=== PATIENT | male | born 1960 | race Caucasian/White ===

== ENCOUNTER 2016-12-18 09:51 | Inpatient (IN) | payer MEDICARE ==
[~2016-12-18] VITALS: Ht 172.7 cm; Wt 82.1 kg
[2016-12-18] VITALS (14 sets, daily range): BP systolic 90–165; BP diastolic 48–89; PULSE 95–144; RESP 19–41; O2SAT 83–97
--- NOTE | 2016-12-18 09:56 | ED.REPORT ---
HPI-General Illness Date of Service Dec 18, 2016 ED Provider: MD Elena This is a 56 year old male with a history of COPD presenting to the ED via EMS complaining of dyspnea that began 3 days ago. Pt has been feeling generally unwell in the last 3-4 days with diffuse myalgias, malaise, cough, and chills. Today the dyspnea worsened, he reported to medics, "I just can't breathe." En route, pt received DuoNeb, ASA, with O2 sats in the 70s. Pt denies nausea, vomiting, chest pain, dizziness, lightheadedness, or abdominal pain. Nursing Notes Stated Complaint: RESPIRATORY DISTRESS Nursing Notes Reviewed: Yes Allergies: Coded Allergies: No Known Allergies (Unverified , 12/18/16) General Time Seen by MD: 09:55 Chief Complaint Breathing problem Hx Obtained From: Patient Arrived By: Ambulance Sudden in Onset?: Yes Onset Occurred: Just prior to arrival Symptom Duration: Since onset Severity: Current: No pain currently Pertinent Negative: Pt denies other symptoms Recent Healthcare: No recent doctor visit, No recent hospitalization Similar Sx Previous: No Past Medical History Past Medical History Reports: COPD Past Surgical History Denies Ambulatory Status Independent Review of Systems Full Review of Systems Constitutional: Reports: Chills, Malaise, Denies: Fever Respiratory: Reports: Non-productive cough, Shortness of breath Cardiovascular: Denies: Chest pain GI: Denies: Abdominal pain, Nausea, Vomiting Neurologic: Denies: Headache Complete sys rev & neg: except as marked. Physical Exam Vital Signs Vital Signs Date Time Temp Pulse Resp B/P Pulse Ox O2 Delivery O2 Flow Rate FiO2 12/18/16 10:35 134 165/89 96 Mechanical Ventilator 12/18/16 10:13 140 116/82 87 BiPAP 12/18/16 10:01 36.7 144 41 112/56 83 Simple Mask 16 - Initial VS: Reviewed Head / Eyes: Atraumatic, Normocephalic, PERRL Neck: Supple, Non-tender, Full range of motion Abdomen / GI: Soft, Non-tender, No guarding, No rebound, No distention Extremities: Vascular intact, Neuro intact, No swelling, No tenderness Skin: Warm, Dry, No cyanosis Neurologic: Alert, Oriented, Nonfocal Psychiatric: Mood/affect normal, Behavior normal, Normal thought content General/Constitutional: Awake, Alert Mentating normally, answering questions in 1-2 word sentences ENT: Pharynx NL Mouth: Positive: Mucous membranes dry Resp Distress / Stridor: Positive: Resp distress moderate Hypoxic in high 70s on 10 L Tachypneic Coarse breath sounds bilaterally with decreased air movement Cardiovascular: Regular rhythm Heart Rate / Rhythm: Positive: Tachycardia Interpretation & Diagnostics Lab Results Interpretation Result Diagram: 12/18/16 1420 12/18/16 1420 Test 12/18/16 09:55 12/18/16 10:05 12/18/16 11:00 Metamyelocytes % 3% (0-0) Myelocytes % 4% (0-0) D-Dimer 1.9mg/L (<0.50) Magnesium Level 2.1mg/dL (1.6-2.6) Troponin T 0.010ug/L (0.0-0.011) Pro-B-Type Natriuretic Peptide 768.4pg/mL (0-210) Procalcitonin 180.38ng/mL (See Comment) Prothrombin Time 12.6sec (8.1-12.5) Prothromb Time International Ratio 1.17ratio Urine Legionella pneumophilia Ag Negative (Negative) ECG Interpretation ECG Interpretation: Sinus tachycardia at a rate of 143 No STEMI Time: 10:00 Interpreted by: ED physician X-Ray Chest Interpretation Chest Xray Interpretation: IMPRESSION: Nonspecific, bilateral lung air space opacities with pulmonary edema, pneumonia or combination of pneumonia and edema. Please correlate with clinical and laboratory findings. Dictated by: Jordyn Dominguez MD, PhD on 12/18/2016 at 10:27 Approved by: Jordyn Dominguez MD, PhD on 12/18/2016 at 10:28 Chest Xray Interpretation: IMPRESSION: 1. Pulmonary edema and/or diffuse bilateral pneumonia not significantly changed. 2. Placement of ETT and temporary transcutaneous pacer lead. Dictated by: Soren Johnson [facility] Interpreted: Jordyn Dominguez MD on 12/18/2016 at 11:03 Transcribed by: GIRMA on 12/18/2016 at 11:05 Procedures Intubation Time: 10:29 Procedure Performed by: ED physician Consent / Setup / Site Prep: Informed consent provided, Consent from patient Blade / ET Tube / Route: [place] scope Procedural Sedation/Analgesia: Sedation: Etomidate, Sedation: Versed ET Confirmation: BS equal, End tidal CO2 device Complications: None Post-Procedure: Condition improved, Tolerated procedure well, Patient stable Re-Eval/Medical Decision Med Decision/Clinical Course This is a 56 year old male with a history of COPD presenting to the ED via EMS complaining of dyspnea that began 3 days ago. Pt has been feeling generally unwell in the last 3-4 days with diffuse myalgias, malaise, cough, and chills. Today the dyspnea worsened, he reported to medics, "I just can't breathe." En route, pt received DuoNeb, ASA, with O2 sats in the 70s. Upon arrival the patient is in respiratory distress. He has an oxygen saturation of 75% on 10 L by nonrebreather. Her cardiac in the 150s with an EKG that demonstrates sinus tachycardia and borderline ST elevation in the inferior leads. EKG was reviewed by Asha kennel worker who did not believe that he met criteria for ST elevation [place]. The patient was initially placed on BiPAP with 100% oxygen remained hypoxic with saturation in the low 80s. Chest x-ray demonstrated diffuse bilateral infiltrates consistent with pneumonia. The patient was given the below medications: vancomycin zosyn IV fluids DuoNeb continuous albuterol nebulizer 2 mg IV magnesium 125 mg methylprednisolone Arterial Blood Gas ph 7.36 pCO2 30 po2 55.7 cHCO3 16.5 laboratory studies were notable as below: lactic acid 6.6 no leucocytosis hct 38.8 thrombocytopenia, platelets 55 20% bands d-dimer elevated 1.9 coagulation studies normal lactate 6.2 BUN 66 creatinine 4 K normal LFTs within normal limits CO2 13 EtOH negative Initial troponin 0.010 UA + nitrite trace leucesterase few bacteria Despite aggressive therapy with bronchodilators, steroids, magnesium and BiPAP the patient remained hypoxic and in respiratory distress. Therefore we opted to proceed with rapid sequence intubation using etomidate and succinylcholine. The tube was passed with ease as documented above and the patient was placed on the ventilator and sedated with propofol infusion and 40 mg aliquots as needed. The patient's tachycardia improved into the 120s to 130s and his oxygen saturation improved to the mid 90s. We started broad-spectrum antibiotics given the severity of his infection which I suspect is the underlying etiology of his respiratory failure and accommodation with his known obstructive pulmonary disease. The patient did have a positive d-dimer but in the setting of his overall presentation pulmonary embolism seems less likely and at this time he is frankly not stable enough to be taken for CT pulmonary angiography. The patient's initial troponin was negative and per discussion with cardiology EKG was unconvincing of STEMI. The patient was discussed with the critical care team and admitted to the ICU for further management. He remained critically although stabilized. Time of Eval: 10:08 Re-Evaluation/Progress Note: HR 144 Time of Eval: 10:12 Re-Evaluation/Progress Note: HR 142 BP 116/82 Time of Eval: 10:18 Re-Evaluation/Progress Note: Discussed need for need for intubation with patient, consent obtained Time of Eval: 10:29 Re-Evaluation/Progress Note: Intubation procedure by ED physician. Discussed plan for admission, pt understands and agrees with plan, all questions addressed. Consultation : Referral / Consult Name: Ariel Berg MD Consulted With: Hospitalist Call Returned at: 10:35 Seamer: Accepts admit Counseled Regarding: Diagnosis, Lab results, Need for follow-up, Need for admission Discharge & Departure Primary Impression: COPD exacerbation Additional Impressions: Bacterial pneumonia, unspecified Acute respiratory failure Respiratory failure complication: hypoxia Qualified Code: J96.01 - Acute respiratory failure with hypoxia Metabolic acidosis Bandemia D-dimer, elevated Acute renal failure Acute renal failure type: unspecified Qualified Code: N17.9 - Acute kidney failure, unspecified Tachycardia Sepsis Sepsis type: sepsis due to unspecified organism Qualified Code: A41.9 - Sepsis, unspecified organism Disposition: ADMITTED TO HOSPITAL Discharge Condition All VS Reviewed: Yes Condition: Stable Crit Care Except Billable Proc Time Spent: 105-134 minutes Services Performed: Patient management by me, Time spent at bedside, Reviewing test results, Reviewing imaging, Discussing patient care, Documentation in record Scribe Attestation Portions of this note were transcribed by Chen Hatch. I, Dr. Parker personally performed the history, physical exam and medical decision-making; I reviewed and confirmed the accuracy of the information in the transcribed note. Signed by: pollo Medina. 12/18/2016, 11:30. Nacho Parker MD Dec 18, 2016 09:56 CHEN HATCH Dec 18, 2016 10:03 Consulted With: Hospitalist Call Returned at: 10:35 Seamer: Accepts admit Counseled Regarding: Diagnosis, Lab results, Need for follow-up, Need for admission Discharge & Departure Primary Impression: COPD exacerbation Disposition: ADMITTED TO HOSPITAL Discharge Condition All VS Reviewed: Yes Condition: Stable Crit Care Except Billable Proc Time Spent: 30-74 minutes Services Performed: Patient management by me, Time spent at bedside, Reviewing test results, Reviewing imaging, Discussing patient care, Documentation in record, Time with fam/surrogate Scribe Attestation Portions of this note were transcribed by Chen Hatch. I, Dr. Parker personally performed the history, physical exam and medical decision-making; I reviewed and confirmed the accuracy of the information in the transcribed note. Signed by: pollo Medina. 12/18/2016, 11:30. Nacho Parker MD Dec 18, 2016 09:56 CHEN HATCH Dec 18, 2016 10:03
[2016-12-18] MEDS ORDERED: Albuterol-Ipratropium 3 mL Inhalation Solution NEB ONE ×2 (10:05)
[2016-12-18] MEDS ORDERED: 0.9% Sodium Chloride 1,000 ML IV ONE ×5 (10:05→14:15)
[2016-12-18] MEDS ORDERED: MethylprednisoLONE Sodium Succinate 62.5 mg/mL 2 mL Inj IVPUSH ONE (10:05)
[2016-12-18 10:06] LABS: Mean Corpuscular Volume 93.7 fL (81-100); Platelet Count 74 bil/L (150-400)
[2016-12-18] MEDS ORDERED: Vancomycin Dose per Pharmacist XX ONE (10:10)
[2016-12-18] MEDS ORDERED: Succinylcholine Chloride 20 mg/mL 5 mL Inj IVPUSH ONE (10:10)
[2016-12-18] MEDS ORDERED: Piperacillin-Tazo 3.375 Gm Inj 3.375 GM in Dextrose 5% Minibag Plus 50 ML IV ONE (10:10)
[2016-12-18] MEDS ORDERED: Magnesium Sulf 2 Gm/50mL Water 2 GM in IV Premix 1 EACH IV ONE (10:15)
[2016-12-18] MEDS ORDERED: Albuterol 2.5 mg/3 mL Inhalation Solution NEB ONE (10:15)
--- NOTE | 2016-12-18 10:18 | ABG ---
DateTimeAnalyzed 10:14:00 -_ pH ____7.362 - 7.350 7.450 pCO2 ___29.8__ -mmHg 35.0 45.0 pO2 ___55.7__ -mmHg 69.0 116 HCO3- ___16.5__ -mmol/L 22.0 26.0 ABE ___-7.1__ -mmol/L -2.0 2.0 tHb ___16.5__ -g/dL O2Hb ___85.2__ -% COHb ____1.5__ -% MetHb ____1.0__ -% sO2 ___87.4__ -% 25.0 FIO2 __100.0__ -% CPAP ___12.0__ -cmH2O PEEP ____5.0__ -cmH2O Set_RR ___20.0__ -b/min Drawn By jj - Date/Time Notified____ 10:18:00 -_ Spontaneous_RR ___45.0__ -b/min Oxygen Device 1 ____BIPAP - Notified By jj - Notified Whom dr longstreet - B 767 -mmHg tO2 ___19.7__ -Vol% Masoud test _Positive -
[2016-12-18 10:30] LABS: TROPONIN T 0.01 ug/L (0.0-0.011)
--- NOTE | 2016-12-18 10:30 | DRSVH ---
PROCEDURE: X-RAY CHEST ONE VIEW, PORTABLE ([id number]) INDICATIONS: CHEST PAIN TECHNIQUE: One view of the chest was acquired. COMPARISON: None. FINDINGS: Surgical changes and devices: None. Lungs and pleura: No pleural effusions or pneumothorax. Airspace opacities noted in the left lung in the right lung base suspicious for pneumonia, pulmonary edema or a combination of pneumonia and leti a. Mediastinum: Mediastinal contours appear normal. Heart size is normal. Bones and chest wall: No suspicious bony lesions. Overlying soft tissues appear unremarkable. IMPRESSION: Nonspecific, bilateral lung air space opacities with pulmonary edema, pneumonia or combin ation of pneumonia and edema. Please correlate with clinical and laboratory findings. Dictated by: Jordyn Dominguez MD, PhD on 12/18/2016 at 10:27 Approved by: Jordyn Dominguez MD, PhD on 12/18/2016 at 10:28
[2016-12-18 10:31] LABS: BASOPHILS % (AUTO) 0 % (0-3); EOSINOPHILS % (AUTO) 1 % (0-5); MONOCYTES % (AUTO) 5 % (4-12); NEUTROPHILS % (AUTO) 50 % (40-74)
[2016-12-18] MEDS: Propofol Inj 1,000,000 MCG in IV Premix 1 EACH IV SCH ×2 (10:38→15:18)
--- NOTE | 2016-12-18 10:40 | NUR ---
Admit nurse: Pt currently being intubated, no past medical records available. No records of pt being seen in this organization. Only medical hx of note is COPD.
[2016-12-18 10:41] LABS: Magnesium 2.1 mg/dL (1.6-2.6)
[2016-12-18] MEDS ORDERED: Propofol 10,000 mCg/mL 100 mL Inj ONE (10:43)
[2016-12-18] MEDS ORDERED: Ondansetron 2 mg/mL 2 mL Inj IVPUSH PRN (10:50)
[2016-12-18] MEDS ORDERED: Polyethylene Glycol (PEG) 17 Gm Powder PO PRN (10:50)
[2016-12-18] MEDS ORDERED: Alum-Mag Hydrox-Simeth 30 mL Suspension PO PRN (10:50)
[2016-12-18] MEDS ORDERED: Senna-Docusate 8.6-50 mg Tablet PO PRN (10:50)
[2016-12-18] MEDS ORDERED: Propofol 10 mg/mL 20 mL Inj IVPUSH ONE ×3 (10:55→12:15)
[2016-12-18] MEDS ORDERED: fentaNYL-PF 50 mCg/mL 2 mL Inj IVPUSH ONE ×2 (11:05→11:20)
--- NOTE | 2016-12-18 11:06 | DRSVH ---
PROCEDURE: X-RAY CHEST ONE VIEW ([id number]) INDICATIONS: post intubation TECHNIQUE: One view of the chest was acquired. COMPARISON: [facility], CR, XR CHEST 1VW (PORTABLE), 12/18/2016, 9:56. FINDINGS: Surgical changes and devices: ETT has been placed tip projected 5.4 cm above the mickey. A very justin scutaneous pacer lead present projected over the right heart. Lungs and pleura: Diffuse, bilateral airspace opacities noted with relative sparing of the right uppe r lobe not significantly changed. No pneumothorax. Mediastinum: Mediastinal contours appear normal. Heart size is normal. Bones and chest wall: No suspicious bony lesions. Overlying soft tissues appear unremarkable. IMPRESSION: 1. Pulmonary edema and/or diffuse bilateral pneumonia not significantly changed. 2. Placement of ETT and temporary transcutaneous pacer lead. Dictated by: Soren Johnson [facility] Interpreted: Jordyn Dominguez MD on 12/18/2016 at 11:03 Transcribed by: GIRMA on 12/18/2016 at 11:05 Approved by: Jordyn Dominguez MD, PhD on 12/18/2016 at 17:08
[2016-12-18 11:33] LABS: COLOR,URINE DARK YELLOW (YELLOW)
[2016-12-18 11:34] LABS: APPEARANCE,URINE CLOUDY (CLEAR,HAZY); OCCULT BLOOD,URINE NEGATIVE (NEGATIVE)
[2016-12-18 11:35] LABS: UROBILINOGEN,URINE NORMAL (NORMAL)
[2016-12-18 11:35] LABS: INR 1.17 ratio
[2016-12-18] MEDS ORDERED: Cefepime Inj 2 GM in IV Premix 1 EACH IV ONE (12:05)
[2016-12-18] MEDS: fentaNYL 2,500 mCg/250 mL 2,500 MCG in IV Premix 1 EACH IV SCH (12:32)
[2016-12-18] MEDS: Azithromycin Inj 500 MG in Dextrose 5% w/Vial Mate 250 ML IV SCH (12:34)
--- NOTE | 2016-12-18 12:39 | ABG ---
DateTimeAnalyzed 12:34:00 -_ pH ____7.187 - 7.350 7.450 pCO2 ___36.4__ -mmHg 35.0 45.0 pO2 216 -mmHg 69.0 116 HCO3- ___13.3__ -mmol/L 22.0 26.0 ABE __-14.1__ -mmol/L -2.0 2.0 tHb ___13.6__ -g/dL O2Hb ___96.7__ -% COHb ____0.7__ -% MetHb ____1.2__ -% sO2 ___98.6__ -% 25.0 FIO2 __100.0__ -% PRVC 540 - PEEP ___10.0__ -cmH2O Set_RR ___22.0__ -b/min Vt __550.0__ -L Drawn By jmw - Date/Time Notified____ 12:39:00 -_ Spontaneous_RR ___31.0__ -b/min Oxygen Device 1 VENTILATOR - Notified By jmw - Notified Whom DR PARIMI - B 766 -mmHg tO2 ___18.9__ -Vol% OrderingPhysicianInitials oo - Masoud test _Positive -
[2016-12-18] MEDS ORDERED: Sodium Bicarb 8.4% Inj 150 MEQ in Dextrose 5% 1,000 ML IV SCH ×3 (12:50→16:20)
--- NOTE | 2016-12-18 13:03 | PCM.CHPMED ---
Subjective Date of Service: Dec 18, 2016 Provider requesting consult: MESSI CORDERO DO Primary Physician: Admitting Physician: Ariel Berg MD Primary Care Physician: Dax Attending Physician: Ariel Berg MD Chief Complaint: Chief Complaint: Respiratory failure History of Present Illness: Pulmonary critical care consultation note: Problems: Acute hypoxic, hypercapnic (potential for chronic component here) respiratory failure requiring intubation having not responded to BiPAP. Shock COPD Sinus tachycardia AG metabolic acidosis Coffee-ground material reported from the OG tube, concern for GI bleed ALBERTINA (?CKD) Subjective: Days a 56-year-old male with history of COPD (other history is largely unknown as no records can be found in [email or web address] or [email or web address], and repeated attempts to contact his family have been unsuccessful) who presented with a three-day complaint of dyspnea and myalgias. He reportedly noted fever/chills as well in addition to cough. Apparently, his dyspnea worsened today and called EMS. Reportedly en route he received DuoNeb, aspirin, and O2 because his saturations were in the 70s. Initially attempts were made to stabilize with BiPAP and fluid resuscitation. However, BiPAP was unsuccessful, and the patient was subsequently intubated using succinylcholine for paralysis and etomidate for induction. Nursing from the ER reports that he had a "strange rhythm," and spacer plans were placed, but not used. He received approximately 3 L IV fluids done in the ER. He also received empiric Zosyn, and vancomycin (though question whether this is been given as of yet). When I saw the patient, no meaningful response of any kind could be obtained. ROS impossible given current patient's status. PMH Past Medical History History is limited: COPD Bedside Blood Glucose: 100 Surgical History Again history is limited. I do note a 5 cm surgical scar over the left medial malleolus. Home Medications No meds reported Allergies: Coded Allergies: No Known Allergies (Unverified , 12/18/16) Family History Family History No family history is documented in the ER, patient is not able to provide at this time. Social History Additional Information No social history is documented in the ER, and patient is not able to provide history at this time. Exam Vital Signs Vital Sign - Last Date Time Temp Pulse Resp B/P Pulse Ox O2 Delivery O2 Flow Rate FiO2 12/18/16 11:38 140 131/53 12/18/16 11:18 91 Mechanical Ventilator 12/18/16 10:01 36.7 41 16 Additional Information: Gen.: 56-year-old gentleman lying in hospital bed, intubated and sedated. HEENT : Pupils are equal and minimally reactive to light, mucous membranes are somewhat dry. Chest: Tachypneic, overbreathing the vent. Somewhat coarse bilaterally more towards the bases and posterior lung hillman. Cardiovascular: Tachycardic with a rate in the 140s. On the monitor and ECG it appears to be regular. Radial pulses are 2+ bilaterally. Do not appreciate JVD. Capillary refill is good distally. Abdomen: Mildly to moderately distended with bowel sounds present. Do not appreciate organomegaly. Extremities: No edema. Lines: Dubois catheter, peripherals. ETT, OG tube. Vent settings: FiO2 1.0, PEEP 10, respiratory rate 22 (patient breathing 32), tidal volume 540 mL. Peak is 35 toes 32. High-risk medications: Fentanyl 100, propofol at 40. Patient has had almost 4 L and at this time with minimal urine output (this is brown) Lab and Diagnostics Labs Repeat H&H was 13.6/40.3 PMNs 50%, band neutrophils 17%, metamyelocytes 3%, myelocytes 4% INR is 1.7 D-dimer is 1.9 Lactic acid is 6.6, and repeat is 6.2. Calcium is 9.4 Magnesium is 2.1 AST is minimally elevated at 52, and otherwise LFTs are. Troponin is 0.010 Albumin is 3.5 Procalcitonin is pending at this time Quantitative alcohol is pending at this time Acute hepatitis panel is pending at this time HIV is pending at this time Legionella urine antigen is negative UA shows protein 30, glucose 100, positive nitrate, 6-10 WBCs, few bacteria. Urine electrolytes are pending MRSA screen is pending Urine culture is pending Blood cultures pending Result Diagram: 12/18/16 0912/18/16 0955 X-Rays, CTs and MRIs Chest x-ray shows bilateral diffuse infiltrate. Chest x-ray following intubation shows good tube placement. 12-lead ECG Sinus tachycardia with a rate in the 140s, somewhat prolonged DE interval, QTC looks good, ST-T wave changes are nonspecific. Additional Diagnostics: ABG on BiPAP, prior to intubation DateTimeAnalyzed 10:14:00 -_ pH ____7.362 - 7.350 7.450 pCO2 ___29.8__ -mmHg 35.0 45.0 pO2 ___55.7__ -mmHg 69.0 116 HCO3- ___16.5__ -mmol/L 22.0 26.0 sO2 ___87.4__ -% 25.0 FIO2 __100.0__ -% Assessment & Plan Assessment 1. Acute hypoxic, hypercapnic (potential for chronic component here) respiratory failure requiring intubation having not responded to BiPAP. Currently concerning for ARDS given chest x-ray findings in the setting of COPD and no known cardiac disease. Vent settings as above (note that he is at 8 mL/ kg predicted body weight), and these will do to start. However, should we find that we are not improving, we would likely switch to low tidal volume (6 mL/kg) vent settings to avoid barotrauma. We will continue to maintain PEEP of 10 with the possibility of increasing. Current respiratory rate is set at 22, and the patient is overbreathing at a rate of 32. FiO2 currently at 1.0. Consideration for PE in this situation, but given his marked findings on chest x -ray and his report of myalgias and cough and fevers over the preceding days, this seems less likely. At this time given his creatinine, it is likely not proceed with angiogram anyway. Primary team is working up for pneumonia, and report placing respiratory PCR study. Though it does not appear to have been collected as of yet. Some concern flu (pending respiratory PCR panel), and significant concerns regarding the bacterial etiology given his significantly elevated pro calcitonin. Empiric antibiotics already going with vancomycin, cefepime, azithromycin. Consideration for adding Oseltamivir via the tube. 2. Shock. Likely secondary to this suspected infectious process (potentially the flu given his presentation), and potential contribution from suspected GI bleed. Initially was on this on with fluid resuscitation, we are now finding that his pressures continue to be low, and it is prudent at this time to proceed with central line placement and centrally administered medical blood pressure support. We will need to watch this closely as we were already had a PEEP of 10 , and may need to increase. 3. Significant metabolic acidosis. Likely secondary to his profound lactic acidosis in the setting of likely sepsis with contribution from his acute renal failure. He is attempting to compensate with an increased respiratory rate, but insufficient. We will start a bicarbonate infusion. Continue to monitor labs and gases. 4. COPD Unknown if he is on outpatient medications. We will need to proceed cautiously to avoid barotrauma in this gentleman may have underlying pulmonary pathology ( i.e. emphysema). We will add on nebulized medications with DuoNeb scheduled and when necessary. 5. Sinus tachycardia This is not completely explained by his shock as we have not seen any change in his heart rate with administration of fluids. Concerned that there is an underlying intrinsic cardiac etiology of her care. Once we have a central IV access, and have started centrally administered medical blood pressure support, we can consider adding rate control medication. However, this does not get at the underlying process. Differential may include his profound acidosis, respiratory distress, shock. 6. Coffee-ground material reported from the OG tube, concern for GI bleed Primary team to get GI involved. His hemoglobin dropped approximately 3 points (likely secondary to the significant fluid administration), the primary team is added on 2 units packed red blood cells to be on hold should they be needed. GI prophylaxis on the vent with famotidine. Currently holding DVT prophylaxis. 7. ALBERTINA (?CKD). IVF as noted above. Likely contributing to his acidosis. We will need to watch the labs closely. Maintain BP to maintain perfusion as noted above. Management per primary team. Recommendations: -Vent settings as noted with adjustments as needed. Continue to follow labs and gases. -Bicarbonate infusion initiated -Continue empiric antibiotics with the consideration for adding antiviral for influenza -We will continue fluid resuscitation, central venous access, pressors -Consideration for adding beta blockade once pressors are on board -Nebs -He was given IV administered steroids and in the ER. Would hold off on further administration at this time given concern for infection. CODE STATUS: Patient is full code DVT prophylaxis on hold due to suspected GI bleed GI prophylaxis with Protonix twice a day Pulmonary critical care time spent: 90 minutes Problems: Attending Statement I have seen and examined this patient with the resident physician. Vital signs , labs, imaging have been reviewed. I agree with the assessment and plan above. Please refer to my separately dictated progress note for any modifications to above. Dionne Perdomo M.D. Pulmonary and Critical Care medicine Pager [phone] Kimo Pulliam DO Dec 18, 2016 13:02 Dionne Perdomo MD Dec 18, 2016 16:18
[2016-12-18] MEDS ORDERED: 0.9% Sodium Chloride 500 ML ONE ×2 (14:27→19:21)
--- NOTE | 2016-12-18 14:30 | DRSVH ---
[facility] [address] [place] [place] [address] Echocardiogram Report Name: DOUGIE GARDUNO [place]: 12/18/2016 Height: 72 in Hospital Exam Location: [facility] Weight: 180 lb Gender: Male BSA: 2.0 m2 : 1960 Age: 56 yrs BP: 94/53 mmHg Reason For Study: SEPSIS, ELEVATED BNP, TACHYCARDIA History: PNEUMONIA,COPD Performed By: Jesica Garcia Referring Physician: MESSI CORDERO Interpretation Summary The left ventricle is hyperdynamic. The ejection fraction is estimated to be 70-75%. There is no significant valvular heart disease. Procedure: A two-dimensional transthoracic echocardiogram with color flow and Doppler was performed. The study quality was technically adequate. The patient is intubated. The patient was in a tachycardic rhythm during the exam. The heart rate ranged between 138 bpm during the study. Left Ventricle: The left ventricle is normal in size, wall thickness, and systolic function without any focal wall motion abnormalities. The left ventricle is hyperdynamic. The ejection fraction is estimated to be 70-75%. Diastolic function could not be accurately assessed due to tachycardia. Right Ventricle: The right ventricle is normal in size and function. Atria: Both atria are normal in size. Mitral Valve: The mitral valve is grossly normal. No obvious vegetation. There is trace mitral regurgitation. Aortic Valve: The aortic valve is trileaflet. The aortic valve opens well. The aortic valve is slightly calcified. Tricuspid Valve: The tricuspid valve leaflets are thin and pliable. There is no tricuspid valve vegetation. There is trace tricuspid regurgitation. The right ventricular systolic pressure is estimated at 33 mmHg assuming a right atrial pressure of 3 mm Hg. Pulmonic Valve: The pulmonic valve is not well seen, but is grossly normal. No obvious vegetation. There is no pulmonic valvular regurgitation. Great Vessels: The aortic root is mildly dilated. The ascending aorta could not be visualized. The pulmonary artery is not well visualized, but is probably normal size. The IVC is of normal diameter and collapses greater than 50% with a sniff. This suggests a low right atrial pressure of 3 mm Hg. Pericardium/ Pleura There is no pericardial effusion. There is no pleural effusion. MMode/2D Measurements & Calculations LVIDd: 3.6 cm LA dimension: 2.8 cm RA long axis LVOT diam: 2.4 cm LVIDs: 2.2 cm AoV Opening FS: 38.8 % LA A2 area: 10.4 cm RA area IVSd: 0.87 cm LA A4 area: 13.5 cm Ao root diam LVPWd: 0.89 cm LA length (vol) : 16.4 cm RA vol Ao Arch Diam (Prox LA vol: 25.5 ml : 49.9 ml Trans): 2.8 cm LA vol index RA : 24.5 mm2 IVC diam: 1.4 cm LV alves. diameter/BSA LV sys. diameter/BSA (cm/m^2): 1.8 (cm/m^2): 1.1 Doppler Measurements & Calculations Ao V2 max MV E max anival TR max anival Ao V2 mean : 153.6 cm/sec : 126.3 cm/sec : 272.3 cm/sec : 113.0 cm/sec Ao max PG TR max P.7 mmHg Ao V2 VTI : 9.4 mmHg PA V2 max Ao mean PG : 129.1 cm/sec PA mean P.0 mmHg SHIRLEY(V,D): 3.1 cm2 LVOT Max Anival PA Accel Time : 108.0 cm/sec SHIRLEY(I,D): 3.3 cm sev ratio LV V1 max PG PA V2 mean SHIRLEY indexed to BSA : 95.3 cm/sec (cm^2/m^2): 1.6 LV V1 VTI: 14.2 cm Electronically signed by: Tuan Duarte on Reading Physician:12/18/2016 02:29 PM
[2016-12-18 14:36] LABS: Mean Corpuscular Hemoglobin 32.6 pg (27.0-35.0); Mean Corpuscular Volume 96.5 fL (81-100); Platelet Count 55 bil/L (150-400)
[2016-12-18] MEDS ORDERED: Lactated Ringer's 1,000 ML IV ONE ×2 (14:50)
[2016-12-18] MEDS: Pantoprazole 4 mg/mL 10 mL Inj IVPUSH SCH (14:59)
--- NOTE | 2016-12-18 15:01 | DRSVH ---
PROCEDURE: X-RAY CHEST ONE VIEW, PORTABLE ([id number]) INDICATIONS: Central Line placement TECHNIQUE: One view of the chest was acquired. COMPARISON: [facility], CR, XR CHEST 1VW (PORTABLE), 12/18/2016, 9:56. FINDINGS: Surgical changes and devices: Central venous catheter is in place which projects in the distal SVC vi a the right IJ approach. NG tube projects across the GE junction. ET tube projects approximately 4.6 cm superior to the mickey. Lungs and pleura: No pleural effusions or pneumothorax. Increasing opacification along the noted. Mediastinum: Mediastinal contours appear normal. Heart size is normal. Bones and chest wall: No suspicious bony lesions. Overlying soft tissues appear unremarkable. IMPRESSION: 1. Central venous catheter tip projects over the distal SVC. 2. ET tube projects 4.6 cm superior to the mickey. 3. NG tube projects across the GE junction. 4. Increasing bilateral pulmonary edema. Dictated by: Jordyn Dominguez MD, PhD on 12/18/2016 at 14:58 Approved by: Jordyn Dominguez MD, PhD on 12/18/2016 at 14:59
[2016-12-18 15:07] LABS: BASOPHILS % (AUTO) 0 % (0-3); EOSINOPHILS % (AUTO) 0 % (0-5); MONOCYTES % (AUTO) 4 % (4-12); NEUTROPHILS % (AUTO) 55 % (40-74)
[2016-12-18] MEDS ORDERED: Sodium Bicarb 8.4% Inj 150 MEQ in Dextrose 5% 1,000 ML IV ONE (15:11)
--- NOTE | 2016-12-18 15:19 | ABG ---
DateTimeAnalyzed 15:14:00 -_ pH ____7.226 - 7.350 7.450 pCO2 ___36.6__ -mmHg 35.0 45.0 pO2 117 -mmHg 69.0 116 HCO3- ___14.6__ -mmol/L 22.0 26.0 ABE __-12.0__ -mmol/L -2.0 2.0 tHb ___13.1__ -g/dL O2Hb ___95.6__ -% COHb ____0.8__ -% MetHb ____1.1__ -% sO2 ___97.5__ -% 25.0 FIO2 ___60.0__ -% PRVC 540 - PEEP ___10.0__ -cmH2O Set_RR ___22.0__ -b/min Vt __706.0__ -L Drawn By cf - Date/Time Notified____ 15:19:00 -_ Spontaneous_RR ___26.0__ -b/min Oxygen Device 1 VENTILATOR - Notified By cf - Notified Whom ___parimi - B 765 -mmHg tO2 ___17.8__ -Vol% Masoud test N/A -
[2016-12-18] MEDS ORDERED: Sodium Chloride LOK Flush 10 mL Syringe IVFLUSH PRN (15:30)
[2016-12-18] MEDS ORDERED: Glucose 40% Oral Gel 15 Gm Tube PO PRN (16:15)
[2016-12-18] MEDS ORDERED: Insulin LISPRO 300 Unit/3 mL Inj SUBQ SCH (16:15)
[2016-12-18] MEDS: Sodium Bicarb 8.4% Inj 150 MEQ in Dextrose 5% 1,000 ML IV SCH ×2 (16:17→23:57)
--- NOTE | 2016-12-18 16:18 | DRSVH ---
PROCEDURE: CT ANGIO CHEST PULMONARY EMBOLISM ([id number]) INDICATIONS: RESPIRATORY FAILURE TECHNIQUE: After the administration of intravenous contrast, 2 mm thick sections acquired from the pulmonary api cheng to the posterior costophrenic angles. 3-dimensional maximum intensity projection (MIP) coronal a nd sagittal reformats were then acquired through the thorax. For radiation dose reduction, the follo wing was used: automated exposure control, adjustment of mA and/or kV according to patient size. COMPARISON: [facility], CR, XR CHEST 1VW (PORTABLE), 12/18/2016, 13:57. FINDINGS: Image quality: Excellent. Pulmonary arteries: Pulmonary arteries are normal in size, and demonstrate no intraluminal filling d efects to suggest central pulmonary embolism. Lungs and pleura: The dense, consolidated airspace opacities are present within the dependent portion s of the upper, middle, and lower lobes. No pleural effusion or pneumothorax. The patient is intubate d. Mediastinum: Heart size is normal, without pericardial effusion. There are large hilar and mediastin al lymph nodes. Thoracic aorta is normal in caliber and enhancement. Scattered atheromatous calcifica tions are present within the aortic arch. Esophagus is normal in caliber, without hiatal hernia. A n NG tube is present with the tip in the gastroesophageal region. Bones and chest wall: No suspicious bony lesions. Ribs and thoracic spine appear intact throughout. Thyroid gland is unremarkable. No axillary or supraclavicular adenopathy. Abdomen: Visualized upper abdominal solid organs appear normal in the early arterial phase of enhanc ement. IMPRESSION: 1. Dense consolidation bilaterally within the dependent portions of the lungs. These findings are mos t consistent with extensive aspiration or multifocal pneumonia. 2. Hilar and mediastinal adenopathy, likely infectious/reactive in nature. Short interval followup is recommended with resolution of these findings to ensure there is no underlying pulmonary neoplasm. 3. Tip of the NG tube in the gastroesophageal region. Consider advancing the tube into the gastric fu ndus. Dictated by: Joan Simmons M.D. on 12/18/2016 at 16:09 Approved by: Joan Simmons M.D. on 12/18/2016 at 16:16
[2016-12-18] MEDS: Phenylephrine Inj 20,000 MCG in 0.9% Sodium Chloride 248 ML IV SCH ×3 (16:25→23:23)
--- NOTE | 2016-12-18 16:26 | DRSVH ---
PROCEDURE: CT ABDOMEN AND PELVIS WITH CONTRAST ([id number]) INDICATIONS: RESPIRATORY FAILURE TECHNIQUE: After the administration of intravenous contrast, 5 mm thick sections acquired from the diaphragm to the symphysis. 5 mm coronal and sagittal reformats were acquired. For radiation dose reduction, the following was used: automated exposure control, adjustment of mA and/or kV according to patient job umaña. COMPARISON: [facility], CT, CT ANGIO CHEST PE, 12/18/2016, 15:45. FINDINGS: Image quality: Excellent. ABDOMEN: Lung bases: Please see detailed description of pulmonary findings are associated CTA from the same da te. Solid organs: Liver and spleen are normal in size and enhancement. Multiple subcentimeter calcified gallstones are present within the gallbladder fundus. No gallbladder wall thickening or pericholecyst ic fluid. Biliary system is non dilated. Pancreas enhances normally. No adrenal nodules. Kidneys d emonstrate normal size and enhancement, without hydronephrosis. Peritoneum and bowel: Bowel loops demonstrate normal wall thickness and caliber. The appendix is thi ck walled. The tip of the NG tube is at the gastroesophageal junction. No free fluid or air. Nodes and vessels: No retroperitoneal or mesenteric adenopathy by size criteria. Aorta and inferior vena cava are normal in size. There are scattered atheromatous calcifications throughout the aorta and iliac arteries bilaterally. Miscellaneous: No ventral hernias. PELVIS: Genitourinary: Bladder is decompressed and a Dubois catheter is present. Miscellaneous: No inguinal hernias or adenopathy. Bones: No suspicious bony lesions. No vertebral body compression fractures. IMPRESSION: 1. Please see detailed description of the pulmonary findings on the associated CTA of the chest from the same date. 2. No acute intra-abdominal findings. Normal appendix. 3. Cholelithiasis. No findings to suggest choledocholithiasis or acute cholecystitis. 4. Aortic atherosclerosis. 5. Tip of the NG tube at the gastroesophageal junction. Consider advancing the tube into the fundus. Dictated by: Joan Simmons M.D. on 12/18/2016 at 16:17 Approved by: Joan Simmons M.D. on 12/18/2016 at 16:24
--- NOTE | 2016-12-18 17:45 | NUR ---
P: Alteration in respiratory status I: Pt came from ED intubated. two peripheral lines. Dr. Perdomo and residents placed RIJ TLC and right arterial line. NS bolus x1 given. Sodium bicarb bolus x2 liters given and now bicarb 150cc/hr. Sedation propofol 40 mcqs/kg/min and fentanyl 100mcqs/hr. Pt taken to CT for chest and abdomen. US of kidneys done. BP low and phenylephrine gtt started at 2 mcqs/kg/min. Pt arrived ST 140's pt is now 95. Antibiotics infused. SCD's on. MRSA swab sent. Labs drawn and Dr. Palomo aware. Dubois 50cc of output. OGT 250cc of coffee ground and reddish brown output. aware. Dr. Garsia here and plans on HD tomorrow. Turned Q 2 hours. Small incontinent brown stool when he arrived from ED. Guaiac stools if he has more. Afebrile, but pt diaphoretic and fan on. E:Guarded S: restraints on for pt safety. Frequent rounding.
--- NOTE | 2016-12-18 18:23 | DRSVH ---
PROCEDURE: US RENAL SONOGRAM INDICATIONS: elevated creatinine. TECHNIQUE: Real-time scanning was performed of the kidneys and bladder, with image documentation. COMPARISON: Acute cholecystitis.[facility], CT, CT ABD PELVIS W MATTHEW, 12/18/2016, 15:45. FINDINGS: Kidneys: Kidneys are normal in size. Right kidney measures 12.7 cm long; left kidney measures 11.7 cm long. Right renal cortical thickness is 1.7 cm; left renal cortical thickness is within cm. Alisha l cortical echotexture is normal. No hydronephrosis or nephrolithiasis. No suspicious solid mass le sions. There is a 1.4 cm cyst in the superior pole of the right kidney. Bladder: The bladder is contracted with a Dubois catheter. Miscellaneous: No free pelvic fluid. Multiple gallstones are noted. The gallbladder wall thickness is normal. IMPRESSION: 1. A 1.4 cm cyst in the superior pole the right kidney. Otherwise normal ultrasound appearance of kid analia. No hydronephrosis. 2. Cholelithiasis. No ultrasound evidence for acute cholecystitis. Dictated by: Dwain Gaona M.D. on 12/18/2016 at 18:18 Approved by: Dwain Gaona M.D. on 12/18/2016 at 18:21
[2016-12-18] MEDS ORDERED: Cefepime 1,000 MG in Dextrose 5% Minibag Plus 50 ML IV SCH (20:30)
--- NOTE | 2016-12-18 21:58 | CONS ---
[address] [address] CONSULTATION REPORT PATIENT: DOUGIE GARDUNO : 1960 MR#: [id number] ADMIT: 12/18/2016 JOB ID: [id number] DATE OF SERVICE: 12/18/2016 PULMONARY CRITICAL CARE CONSULTATION The patient is a 56-year-old man seen in consultation at the request of Dr. Berg for acute hypoxic respiratory failure and severe sepsis/septic shock. The patient was seen and evaluated with resident physician, Dr. Thomas Toro. Please refer to his separate detailed note for additional information. The following is an addendum. HISTORY OF PRESENT ILLNESS: The patient is a 56-year-old man who presented to the emergency department with shortness of breath for three days. By the time I met him he is intubated. All of the history is per review of the ED note. He was reporting myalgias, cough, chills, malaise and severe shortness of breath with hypoxia. Sats were in the 70s. He ended up being intubated soon after arrival in the emergency department. When I saw him, he was tachycardic in the 140s, hypotensive in the 90s systolic and making no urine. He received about 4 L fluid boluses total and is receiving his 5th liter now but his blood pressure remains unchanged and his heart rate is only slightly improved in the 120s. He has made almost minimal to no urine, only about 30-50 cc since earlier today. Past medical history, social history, family history, and review of systems could not be obtained from the patient since he is intubated. Please refer to history obtained through review of records per Dr. Toro's separate note. PHYSICAL EXAMINATION: Vital signs reviewed. Temperature 37, pulse 140, respirations 31, BP 90/48, sats 100% on 60% FiO2. General: Intubated, sedated extremely diaphoretic. Neck: No cervical lymphadenopathy. HEENT: Pupils equal and reactive. ET tube in place. Chest: Faint bilateral crackles. Heart: Regular rate, rhythm. Tachycardic. Abdomen is soft, nontender. No organomegaly. Extremities: No cyanosis, clubbing, edema. Skin: No rashes. LABORATORIES: Reviewed. WBC normal 4.2, hemoglobin 13 from 16 earlier today. Platelets 74 this morning down to 55 on 2nd check. Chemistry is notable for creatinine up to 4 from 3.7 earlier. Bicarb is 13 now. Lactate is up to 7.3 from 6.2 earlier. Procalcitonin is 180. Cultures: Blood, urine and sputum cultures and respiratory viral PCR panel is still pending at this time. Imaging: Reviewed. Chest x-ray shows patchy bilateral infiltrates suggesting viral or atypical pneumonia. Arterial blood gas post intubation shows pH 7.36, pCO2 of 29, pO2 55, bicarb of 16.5. ASSESSMENT AND RECOMMENDATIONS: 1. Severe sepsis. 2. Community-acquired pneumonia versus influenza pneumonia. 3. Acute hypoxic respiratory failure. 4. Acute renal failure. 5. Severe metabolic acidosis and lactic acidosis. 6. Possible upper gastrointestinal bleed. This 56-year-old gentleman arrived with dyspnea and flu-like symptoms and was quickly intubated for severe hypoxic respiratory failure. He is showing signs of a pulmonary infection with bilateral pulmonary infiltrates and hypoxemia as well as an elevated procalcitonin at 180. Current antibiotic regimen includes vancomycin, cefepime and azithromycin for atypical coverage. We are also treating him with Tamiflu to cover influenza while waiting on the results. He did have some coffee-ground stuff come out of his NG tube, but his hemoglobin has been relatively stable at 13 after hydration. Will continue to follow the hemoglobin and look for any signs of bleeding. We will give him a PPI IV b.i.d. in the meantime. From an acidosis standpoint, he appears to have a mixed process-both lactic and uremic metabolic acidosis from his renal failure. We started him on a bicarb drip and are trying to avoid normal saline and lactated Ringer's boluses at this point and just give him bicarb boluses as needed. From an acid-base standpoint, I am extremely concerned that his lactic acidosis is worsening despite fluid resuscitation. Similarly, his urine output has been very minimal and he has been practically anuric despite fluid resuscitation. This has me concerned that he has a source of sepsis that is as yet untreated. We used a bedside ultrasound to look for any fluid in the abdomen, but I do not see any. We are going to send him for a CT scan of his chest looking for PE and abdomen/pelvis with contrast. I discussed this with Dr. Garsia with Nephrology in view of his worsening renal failure, but the way he is acting now has me concerned for some kind of refractory sepsis with an untreated source, so I think it is prudent that we rule this out despite the risk of contrast-induced nephropathy. He is on appropriate DVT and GI prophylaxis. He is a FULL CODE. CRITICAL CARE TIME: 60 minutes. SINA
--- NOTE | 2016-12-18 22:47 | PCM.HPMED ---
Subjective Date of Service Dec 18, 2016 Primary Provider: Admitting Physician: Ariel Berg MD Primary Care Physician: Dax Attending Physician: Ariel Berg MD Chief Complaint: Shortness of breath History of Present Illness: Naveed Maciel is a 56 year old male with past medical history significant for COPD who presented to the emergency department via EMS complain of dyspnea. The following history is gathered from ED physicians report as patient was intubated and sedated at time of my exam. Patient reported three days of general malaise with myalgias, cough, and chills. Patient denied nausea, vomiting, chest pain, dizziness, lightheadedness, and abdominal pain. He developed worsening dyspnea which precipitated his presentation to the ED. EMS found the patient to have oxygen saturations of 70% initially and DuoNeb and ASA were administered en route. On presentation to the ED vitals were temperature 36.7, pulse 144, blood pressure 112/56, respiratory rate 41 on oxygen mask with pulse oximetry of 83%. Initial labs include BUN 65, creatinine 3.71, lactic acid 6.6, troponin 0.010, and procalcitonin 180.38. BiPAP and fluid resuscitation was initially attempted. This was unsuccessful and patient was subsequently intubated. Patient received 3L normal saline in the ED and vancomycin and Zosyn. Sister, Rakesh Tabares, was later contacted who had minimal information regarding brother. She states he is a current smoker and has COPD. She also notes he has a history of cocaine use but thinks that he has been clean for 2-3 years. To her knowledge his primary care physician is in [place], [place] but does not recall a name. He has had multiple hospitalizations over the past decade but she does not recall at which hospitals. He has never been intubated to her knowledge. Review of Systems: Comprehensive review of systems was unable to be conducted due to patient being intubated and sedated. Allergies Coded Allergies: No Known Allergies (Unverified , 12/18/16) Home Medications Unable to obtain due to patient currently being intubated and sedated. Medication reconciliation pending. PMH Unable to obtain due to patient currently being intubated and sedated. COPD Surgical History Unable to obtain due to patient currently being intubated and sedated. Abdominal midline scar seen on physical exam. Family History Unable to obtain due to patient currently being intubated and sedated. Social History Hx Alcohol Use: Yes (Socially per sister) Hx Substance Use: Yes (Prior cocaine use per sister) Hx Tobacco Use: Yes Smoking Status: Current Every Day Smoker Living Arrangement: with Friends/Roommate Exam Vital Signs Vital Sign - Last Date Time Temp Pulse Resp B/P Pulse Ox O2 Delivery O2 Flow Rate FiO2 12/18/16 10:35 134 165/89 96 Mechanical Ventilator 12/18/16 10:01 36.7 41 16 Exam General: Intubated and sedated. HEENT: Normocephalic, atraumatic. External ears without defect. Pupils equal, round, and reactive to light and accommodation. Anicteric sclerae, moist conjunctivae, and no lid lag. Mucous membranes dry. ETT in place. Neck: Supple with full range of motion. No jugular venous distension. No bruits. No lymphadenopathy or thyromegaly. Cardiovascular: Tachycardic with regular rhythm no murmurs, rubs, or gallops appreciated. Pulmonary: Course breath sounds in bilateral bases. No wheezes or rhonchi. Abdomen: Soft, nondistended, active bowel sounds. Old midline surgical incision present. No hepatosplenomegaly. Extremities: No clubbing, cyanosis, edema, or lymphadenopathy appreciated. Skin: Normal temperature, turgor, and texture; no rash, ulcers, or subcutaneous nodules appreciated. Neurological: Intubated and sedated. Psychiatric: Intubated and sedated. Lab and Diagnostics Result Diagram: 12/18/16 0955 12/18/16 0955 X-Rays, CTs and MRIs X-RAY CHEST ONE VIEW, PORTABLE IMPRESSION: Nonspecific, bilateral lung air space opacities with pulmonary edema , pneumonia or combination of pneumonia and edema. Please correlate with clinical and laboratory findings. Dictated by: Jordyn Dominguez MD, PhD on 12/18/2016 at 10:27 Approved by: Jordyn Dominguez MD, PhD on 12/18/2016 at 10:28 Cardiac Echo Impressions Echocardiogram Report Interpretation Summary The left ventricle is hyperdynamic. The ejection fraction is estimated to be 70-75%. There is no significant valvular heart disease. Electronically signed by: Tuan Duarte on Reading Physician:12/18/2016 02:29 PM Additional Diagnostics: DateTimeAnalyzed 10:14:00 -_ pH ____7.362 - 7.350 7.450 pCO2 ___29.8__ -mmHg 35.0 45.0 pO2 ___55.7__ -mmHg 69.0 116 HCO3- ___16.5__ -mmol/L 22.0 26.0 Assessment & Plan Naveed Maciel is a 56 year old male with past medical history significant for COPD who presented to the emergency department via EMS complain of dyspnea. Intubated after failing on BiPAP and admitted for septic shock and acute hypoxemic respiratory failure. 1. Septic shock, present on admission, active. - Criteria include: HR 144, RR 41, O2 sats 83%, lactic acid 6.6, BUN 65, creatinine 3.71, procalcitonin 180.38. - Etiology likely infectious as symptoms align with influenza or pneumonia. - Right IJ and right radial arterial line placed. - Fluid resuscitation initially with 3L NS in ED. Continued and switched to Bicarb/D5W. - Phenylephrine gtt started 12/18. - Blood, sputum, and urine cultures sent. 2. Acute hypoxemic and hypercapnic respiratory failure, present on admission, active. - Etiology likely infectious in the setting of COPD. - Patient intubated after failing BiPAP in ED. - Initial ABG 7.362/29.8/55.7/16.5 - CXR as above. - CTA pending. - Vent settings per Critical Care/Pulmonology Team. - Respiratory PCR panel pending. 3. Community acquired pneumonia, present on admission, active. - CXR as above. - Vancomycin and Zosyn given in ED. - Vancomycin, cefepime, and azithromycin continued - Procalcitonin 180.83. - Strep pneumonia and legionella antigen pending. - Cultures as above. - Repeat labs and CXR in the morning. 4. Lactic acidosis, present on admission, active. - On admission lactic acid 6.6. - Lactic acid trended up to 7.4. - Bicarb drip started. - ABG as above. - Q2H labs. 5. Acute kidney injury, present on admission, active. - Unknown if patient has underlying chronic kidney disease. - On admission BUN 65 and creatinine 3.71 - Fluids as above. - Avoid nephrotoxic medications as able. - Continue to monitor closely. - Nephrology consulted. Appreciate time and recommendations. 6. Thrombocytopenia, present on admission, active. - Unknown baseline. - On admission platelets 74. - Will continue to monitor. 7. Possible GI bleed, present on admission, active. - Coffe-ground material reported from OG tube. - Hemoglobin and hematocrit have decreased since admission but likely secondary to fluid resuscitation. - Type and cross with 2 units PRBCs on hold. - Holding DVT prophylaxis. - Guaiac stool pending. - Pantoprazole 40 mg BID. - Will consider GI consult if H&H drops or more active bleeding is visualized. 8. COPD, present on admission, unknown baseline. - Per sister patient is a current smoker and has COPD. - Unknown if patient has outpatient medication regimen. - Treatment as above. 9. Tobacco use, present on admission, chronic. - Consider Nicotine patch. 10. Hyperglycemia, present on admission, active. - Insulin regular low dose correctional scale. - Hemoglobin A1c pending. High Risk Medications: Fentanyl and propofol Patient is admitted under inpatient status with expected length of stay greater than 2 minutes due to severity of presenting symptoms, risk of adverse event, and complexity of treatment plan. Pain Evaluation: Other (patient sedated) GI Prophylaxis: Proton Pump Inhibitor VTE Prophylaxis Indicated: Contraindicated (Concern for possible GI bleed. Held currently. ) Resuscitation Status: CPR: Attempt Resuscitation Time spent 70 minutes Attending Statement patient was examined and seen with Dr Cordero on 12/18/15 ,I agree with history, exam,impression and plan as outlined above MESSI CORDERO DO Dec 18, 2016 11:08 Ariel Berg MD Dec 19, 2016 06:26
--- NOTE | 2016-12-18 22:54 | PCM.PROC ---
Procedure Note Date of Service: Dec 18, 2016 Pre Procedure Diagnosis: Septic shock Post Procedure Diagnosis: Septic shock Procedure: Right internal jugular line Provider and Pullman Clerk: Dr. Stacia Berg Indication for Procedure: Septic shock with need for pressors Procedure Details: A time-out was completed verifying correct patient, procedure, site, positioning , and special equipment if applicable. The patient was placed in a dependent position appropriate for central line placement based on the vein to be cannulated. The patients right neck was prepped and draped in sterile fashion. A triple lumen 7-American Cordis catheter was introduced into the internal jugular using the Seldinger technique and under ultrasound guidance. The catheter was threaded smoothly over the guide wire and appropriate blood return was obtained. Each lumen of the catheter was evacuated of air and flushed with sterile saline. The catheter was then secured to the skin and a sterile dressing applied. Perfusion to the extremity distal to the point of catheter insertion was checked and found to be adequate. Attending and resident were present for the entire procedure. Estimated Blood Loss: < 5 ml The patient tolerated the procedure well and there were no complications. Post Procedure Plan: Xray to be obtained to confirm proper placement. Attending Statement personally supervised RIJ TLC placement at bedside MESSI CORDERO DO Dec 18, 2016 22:54 Ariel Berg MD Dec 19, 2016 06:29
--- NOTE | 2016-12-18 22:58 | PCM.PROC ---
Procedure Note Date of Service: Dec 18, 2016 Pre Procedure Diagnosis: Septic Shock Post Procedure Diagnosis: Septic Shock Procedure: Right arterial line Provider and Vice President Of Marketing: Dr. Stacia Perdomo Indication for Procedure: Hemodynamic monitoring Procedure Details: A time-out was completed verifying correct patient, procedure, site, positioning , and special equipment if applicable. Allens test was performed to ensure adequate perfusion. The patients right wrist was prepped and draped in sterile fashion. A 18G Arrow arterial line was introduced into the radial artery. The catheter was threaded over the guide wire and the needle was removed with appropriate pulsatile blood return. The catheter was then secured to the skin and a sterile dressing applied. Perfusion to the extremity distal to the point of catheter insertion was checked and found to be adequate. Attending and Resident were present for the entire procedure. Estimated Blood Loss: < 5 ml The patient tolerated the procedure well and there were no complications. Attending Statement I was present for the entire procedure. Date of service 12/18/16 Dionne Perdomo M.D. Pulmonary and Critical Care medicine Pager [phone] MESSI CORDERO DO Dec 18, 2016 22:58 Dionne Perdomo MD Dec 19, 2016 08:14
--- NOTE | 2016-12-18 23:00 | CONS ---
[address] [address] CONSULTATION REPORT PATIENT: DOUGIE GARDUNO : 1960 MR#: [id number] ADMIT: 12/18/2016 JOB ID: [id number] DATE OF SERVICE: HISTORY: The patient is a rather unfortunate 56-year-old white male who was admitted to [facility] for sepsis and acute kidney injury. Renal consultation is being sought for further evaluation and management of his acute kidney injury. Unfortunately, very little is known about the patient's past medical history and there is nothing in either of our computer systems. He does have a history of COPD and came to the emergency department today complaining of progressive dyspnea over the last three days. For the past several days, he has had diffuse myalgias, malaise, cough and chills. In the emergency department, he was given a DuoNeb treatment and oxygen without improvement, and subsequently required intubation and mechanical ventilation. The initial lab revealed significant metabolic acidosis with a bicarbonate of 13, a BUN of 66 with a creatinine of 4.0. He was started on aggressive IV hydration and transferred to the floor. A lactic acid was obtained and initially this was 16.2, and three hours later had risen to 7.3. As noted above, there is no information on this patient available. He does not have any significant others, friends, or anyone who can give us any additional information. PAST MEDICAL HISTORY: Significant for COPD. PAST SURGICAL HISTORY: Is unknown, however, there is about a 12 cm midline incision from the xiphoid down to above the umbilicus. ALLERGIES: It is unknown whether he has any allergies to any food or any medication. SOCIAL HISTORY: Is unknown. FAMILY HISTORY: None known. REVIEW OF SYSTEMS: Is also unknown and otherwise detailed above. PHYSICAL EXAMINATION: Reveals a well-developed 56-year-old white male who is sedated and on a ventilator. He did look older than stated age. His vital signs at time of my evaluation revealed a heart rate of 124, blood pressure is 96/60. HEENT examination was remarkable for pale sclerae. Neck is supple without adenopathy, thyromegaly, or jugular venous distention. Lungs showed some bibasilar rales. There is no wheezing or rhonchi noted. Heart was tachycardic and I do not appreciate any murmurs. Abdomen was distended and bowel sounds were absent. There was diffuse tympany to percussion and the patient did respond to palpation. There is also evidence of hepatomegaly and questionable splenomegaly. Extremities do not show any clubbing, cyanosis, or edema. Of note, he does have evidence of sign on both lower extremities. Mauro sign was negative. There is no evidence of any rashes. LABORATORY EXAMINATION: His most recent lab obtained at 14:20 today shows sodium 134, potassium 4.6, chloride 97, CO2 of 13, BUN and creatinine were 66 and 4.0, glucose is 239 and lactic acid 7.3. Liver function studies were normal. However, his albumin is 2.6. Hepatitis profile is pending at time of my evaluation, however, Legionella antigen is negative. Urinalysis showed a specific gravity of 1.030, pH is 5. Protein and glucose were both positive. Ketones were trace. Nitrites were positive. Leukocyte esterase were trace. Microscopic showed 0-2 RBCs per high-power field and 6-12 WBCs per high-power field with few epithelial cells and bacteria. His protein creatinine ratio is approximately 0.8. His urine sodium is 20. An echocardiogram was obtained which shows hyperdynamic left ventricular contraction with an estimated ejection fraction of 75%. Grossly, his heart valves looked okay and they could not really assess any component of diastolic dysfunction because of his tachycardia. A CT exam was done with contrast which showed diffuse dependent pulmonary consolidation and edema. There was no evidence of acute bowel obstruction, but rather a possible ileus. IMPRESSION: 1. Acute kidney injury with acute tubular necrosis. 2. Increased anion gap metabolic acidosis secondary to ketones and lactic acid. 3. Hypoalbuminemia. 4. Hyperglycemia. RECOMMENDATION: I have discussed with Dr. Perdomo from Critical Care and I agree with switching his IV fluids to D5 with sodium bicarbonate. We also need to kind of balance his fluids with his blood pressure. Most likely, if he has no improvement in his urine output then we will most likely have to do an acute dialysis treatment on him tomorrow. Once again, I would like to thank you for allowing me to participate in the care of this rather unfortunate patient. I will be following him closely with you.
[2016-12-18] MEDS: Chlorhexidine 0.12% 15 mL Oral Solution MT SCH (23:57)
[2016-12-19] VITALS (12 sets, daily range): BP systolic 98–142; BP diastolic 52–78; PULSE 72–103; RESP 17–22; O2SAT 95–99
[2016-12-19] MEDS: Propofol Inj 1,000,000 MCG in IV Premix 1 EACH IV SCH ×5 (00:27→22:00)
[2016-12-19 02:07] LABS: Hepatitis A Antibody IgM Negative (Negative); Hepatitis B Core Antibody IgM Negative (Negative)
[2016-12-19] MEDS: Phenylephrine Inj 20,000 MCG in 0.9% Sodium Chloride 248 ML IV SCH ×4 (03:00→17:35)
[2016-12-19 04:41] LABS: Mean Corpuscular Hemoglobin 32.7 pg (27.0-35.0); Mean Corpuscular Volume 93.4 fL (81-100); Platelet Count 44 bil/L (150-400)
[2016-12-19] MEDS: Chlorhexidine 0.12% 15 mL Oral Solution MT SCH ×6 (04:51→23:56)
--- NOTE | 2016-12-19 04:52 | ABG ---
DateTimeAnalyzed 04:47:00 -_ pH ____7.402 - 7.350 7.450 pCO2 ___45.1__ -mmHg 35.0 45.0 pO2 ___78.3__ -mmHg 69.0 116 HCO3- ___27.5__ -mmol/L 22.0 26.0 ABE ____2.7__ -mmol/L -2.0 2.0 tHb ___12.7__ -g/dL O2Hb ___94.3__ -% COHb ____1.0__ -% MetHb ____1.1__ -% sO2 ___96.3__ -% 25.0 FIO2 ___50.0__ -% PRVC 22 - PEEP ___12.0__ -cmH2O Vt __540.0__ -L Drawn By blf - Date/Time Notified____ 04:51:00 -_ Spontaneous_RR ___22.0__ -b/min Oxygen Device 1 VENTILATOR - Notified By blf - Notified Whom Angelica DAVID RN -____ B 763 -mmHg tO2 ___16.9__ -Vol% Masoud test N/A -
[2016-12-19 05:04] LABS: Magnesium 2.5 mg/dL (1.6-2.6)
[2016-12-19 05:19] LABS: BASOPHILS % (AUTO) 0 % (0-3); EOSINOPHILS % (AUTO) 0 % (0-5); MONOCYTES % (AUTO) 5 % (4-12); NEUTROPHILS % (AUTO) 49 % (40-74)
--- NOTE | 2016-12-19 06:44 | NUR ---
Sedation/resp: Pt sedated with rass score -3 with occasional episodes of restlessness and fast resp rate requiring a bolus of propofol. Pt has had copious amounts of dark brown to medium brown secretions when suction down ETT. Pt ETT secretions have been same color as OG drainage. OG was on LIS and when turned to low continuous suction ETT secretions dropped off. when OG secreation color lighted to a rust color the ETT secretions were light rust color also. OG secretions then became dark reddish brown and ETT secretions also turned dark reddish brown.
--- NOTE | 2016-12-19 07:44 | PCM.PNMED ---
Subjective Date of Service Dec 19, 2016 Subjective Pulmonary critical care consultation progress note: Problems: Acute hypoxic, hypercapnic (potential for chronic component here) respiratory failure requiring intubation having not responded to BiPAP. Septic shock Streptococcal bacteremia, concern for toxic shock syndrome AG metabolic acidosis with lactic acidosis Possible GI bleed, now with concern for tracheoesophageal fistula ALBERTINA (?CKD) COPD Subjective: Nursing reports that apparently his roommate came in yesterday and adamantly reported that she is been clean for 2 years, but 2 years ago and for some time prior to that he was smoking crack at significant amounts. The roommate also affirms that he does not drink. They report that he is had poor intake for "some time now." Overnight, no significant events, and continues on phenylephrine for blood pressure support. Nursing and RT report ETT suctioning resembles OG tube suctioning, and concerning for tracheoesophageal fistula. When I saw the patient, no meaningful response of any kind could be obtained. ROS impossible given current patient's status. Exam Vital Signs Vital Sign - Last Date Time Temp Pulse Resp B/P Pulse Ox O2 Delivery O2 Flow Rate FiO2 12/19/16 04:40 89 111/63 96 50 12/19/16 04:30 Ventilator 12/19/16 04:30 36.9 22 12/18/16 12:26 16 Intake and Output 12/18/16 12/18/16 12/19/16 Cumulative From/Thru 15:00 23:00 07:00 12/18/16 10:01 - 12/19/16 06:19 Intake Total 3000 ml 4814 ml 3466 ml 48125 ml Output Total 300 ml 725 ml 1025 ml Balance 3000 ml 4514 ml 2741 ml 85068 ml Intake IV Total 3000 ml 4814 ml 3466 ml 31296 ml Output Urine Total 50 ml 375 ml 425 ml Gastric Drainage Total 250 ml 350 ml 600 ml Exam Gen.: lying in hospital bed, intubated and sedated. HEENT: Head, neck and upper chest are diaphoretic (the fan is on in the room) Pupils are equal and minimally reactive to light, mucous membranes are somewhat dry. Chest: Somewhat coarse bilaterally more towards the bases and posterior lung hillman. Direct visualization of ET tube suctioning does reveal dramatic resemblance to his gastric suctioning. Cardiovascular: On the monitor it appears to be regular. No murmurs appreciated. Radial pulses are 2+ bilaterally. Do not appreciate JVD. Capillary refill is good distally. Abdomen: Moderately distended with bowel sounds present. Do not appreciate organomegaly. Extremities: No edema. Lines: Dubois catheter, peripheral, right IJ central line, right radial arterial line. ETT, OG tube. Vent settings: FiO2 0.5, PEEP 12, respiratory rate 22, tidal volume 540 mL. Peak is 35 and plateau is 32. High-risk medications: Fentanyl 100, propofol at 45. Phenylephrine is running at 1.75. Patient has had almost 4 L and at this time with minimal urine output (this is brown) IVs and Medications IV Fluids Bicarbonate and D5 W running at 150 an hour Medications Reviewed: Medications were reviewed in detail Lab and Diagnostics PMNs 49%, bands 31%, metamyelocytes 5%, myelocytes 6% Anion gap is about 22 with a delta gap of greater than 2 Lactic acid is 3.2 Calcium is 6.8 (corrects to 8.2) Magnesium is 2.5 Total bilirubin is 1.7 AST is 70 with a normal ALTs and alkaline phosphatase Albumin is 2.2 Procalcitonin yesterday was 180, and today's is pending Acute hepatitis panel is negative HIV is nonreactive MRSA screen is pending as is the urine culture Preliminary blood culture reports gram-positive cocci: Question of Streptococcus , looks like 3/4. Respiratory PCR swab was just sent this morning Result Diagram: 12/19/1641912/19/16419 X-Rays, CTs and MRIs CT scan of the chest abdomen and pelvis yesterday with contrast revealed no PE, markedly significant dependent parenchymal infiltrates consistent with massive aspiration, and/or ARDS. CT of the abdomen and pelvis revealed cholelithiasis, and atherosclerosis of the aorta and iliacs, but no other marked pathology to suggest a etiology of his distended abdomen or septic picture. Renal ultrasound was unrevealing. Cardiac Echo Impressions Echo performed yesterday revealed hyperdynamic function of the LV with an estimated EF of 70-75%. Additional Diagnostics DateTimeAnalyzed 04:47:00 -_ pH ____7.402 - 7.350 7.450 pCO2 ___45.1__ -mmHg 35.0 45.0 pO2 ___78.3__ -mmHg 69.0 116 HCO3- ___27.5__ -mmol/L 22.0 26.0 sO2 ___96.3__ -% 25.0 FIO2 ___50.0__ -% PRVC 22 - PEEP ___12.0__ -cmH2O Vt __540.0 Assessment & Plan 1. Acute hypoxic, hypercapnic (potential for chronic component here) respiratory failure requiring intubation having not responded to BiPAP. Pneumococcal pneumonia with likely degree of aspiration versus ARDS secondary to PNA/septic shock given imaging findings and no known cardiac disease, and a P /F of 156. Vent settings as above (note that he is at 8 mL/kg predicted body weight). We will continue to maintain PEEP of 12. Positive flu A. Empiric antibiotics already going with vancomycin, cefepime, azithromycin (antibiotics day 2). After discussion with ID, will switch to Azithromycin and Ceftriaxone today. Oseltamivir via the tube added yesterday. 2. Septic shock. Likely secondary to this Pneumococcal PNA/bacteremia, and potential contribution from suspected GI bleed (though now this is looking less likely). In addition, we have increased his PEEP, and he has somewhat elevated peak and plateau pressures which could be contributing to decreased venous return. Currently on phenylephrine. Cardiogenic component unlikely given echo findings. 3. Anion gap metabolic acidosis (lactic acidosis) with a metabolic alkalosis ( we are giving him bicarbonate). Secondary to his profound lactic acidosis (improving) in the setting of septic shock with contribution from his acute, and worsening renal failure. Continue to monitor labs and gases. Nephrology became involved yesterday, and are considering placement of dialysis catheter, but may hold off given his improved UOP. 4. COPD Unknown if he is on outpatient medications. Reportedly a never tobacco smoker, but significant history smoking crack cocaine until about 2 years ago. 5. Concern for GIB (less likely as his aniyah sputum is likely 2/2 pneumococcal PNA). Management as above. DDx: tracheoesophageal fistula (less likely, but need to consider should we continue to see worsening aspiration). 6. ALBERTINA/renal failure (?CKD). IVF as noted above. Likely contributing to his acidosis. Nephrology has become involved. 7. Coagulopathy: elevated INR and thrombocytopenia. Likely 2/2 septic shock. Following discussion on ICU rounds, will proceed with DIC panel evaluation. Continue to hold Heparin. Recommendations: -Vent settings as noted with adjustments as needed. Continue to follow labs and gases. -Bicarbonate infusion can be stopped today -Continue antibiotics/anitviral as detailed above -We will continue fluid resuscitation, central venous access, pressors CODE STATUS: Patient is full code DVT prophylaxis on hold due to Thrombocytopenia GI prophylaxis with Protonix twice a day Droplet precautions for Flu A Pulmonary critical care time spent: 60 minutes Attending Statement I have seen and examined this patient with the resident physician. Vital signs , labs, imaging have been reviewed. I agree with the assessment and plan above. Please refer to my separately dictated progress note for any modifications to above. Dionne Perdomo M.D. Pulmonary and Critical Care medicine Pager [phone] Kimo Pulliam DO Dec 19, 2016 07:43 Dionne Perdomo MD Dec 19, 2016 14:31
[2016-12-19] MEDS ORDERED: 0.9% Sodium Chloride 250 ML ONE ×2 (09:02→09:16)
[2016-12-19 09:14] LABS: Bilirubin, Direct 1.4 mg/dL (0.0-0.3)
[2016-12-19] MEDS: Pantoprazole 4 mg/mL 10 mL Inj IVPUSH SCH ×2 (09:17→16:03)
[2016-12-19] MEDS: Sodium Bicarb 8.4% Inj 150 MEQ in Dextrose 5% 1,000 ML IV SCH (09:22)
[2016-12-19] MEDS: cefTRIAXone Inj 2,000 MG in Dextrose 5% Minibag Plus 50 ML IV SCH (09:22)
[2016-12-19] MEDS: Azithromycin Inj 500 MG in Dextrose 5% w/Vial Mate 250 ML IV SCH (09:23)
--- NOTE | 2016-12-19 09:48 | DRSVH ---
PROCEDURE: X-RAY CHEST ONE VIEW, PORTABLE ([id number]) INDICATIONS: Intubated TECHNIQUE: One view of the chest was acquired. COMPARISON: Located Within [facility], CT, CT ANGIO CHEST PE, 12/18/2016, 15:45. FINDINGS: Surgical changes and devices: Stable positioning of the ETT, nasogastric tube and right IJ CVL. Lungs and pleura: Diffuse, widespread bilateral pulmonary interstitial and air space opacities are p resent not significantly changed from prior examination. Mediastinum: Mediastinal contours appear normal. Heart size is normal. Bones and chest wall: No suspicious bony lesions. Overlying soft tissues appear unremarkable. IMPRESSION: Pulmonary edema and/or diffuse bilateral inflammatory process redemonstrated. Developing ARDS cannot be excluded. Dictated by: Soren SRINIVASAN Interpreted: Lv Finch MD on 12/19/2016 at 9:47 Transcribed by: KASSIE on 12/19/2016 at 9:48 Approved by: Giovanny Finch M.D. on 12/19/2016 at 14:15
[2016-12-19] MEDS ORDERED: Sodium Bicarb 8.4% Inj 150 MEQ in Water Sterile for Injection 1,000 ML IV SCH ×2 (09:50→10:50)
[2016-12-19 09:52] LABS: D-DIMER 3.5 mg/L (<0.50); INR 1.13 ratio
--- NOTE | 2016-12-19 09:59 | PCM.PNMED ---
Subjective Date of Service Dec 19, 2016 Subjective Naveed Maciel is a 56 year old male with past medical history significant for COPD who presented to the emergency department via EMS complaining of dyspnea and 3 days of flu-like symptoms. Intubated after failing on BiPAP and admitted for septic shock and acute hypoxemic respiratory failure. Hospital 2. Overnight: Intubated and sedated. Patient remained on bicarb at 150 ml/hr. Phenylephrine continued at 1.75 along with fentanyl and propofol. Rest colored secretions from OG and ET tube. Patient afebrile overnight. UOP of 375 mls in 12 hrs. Today: Patient intubated and sedated. No meaningful responses or movements. Continues on phenylephrine, fentanyl, and propofol as above. Bicarb/D5W turned off at this time. Review of systems unable to obtain. Exam Vital Signs Vital Sign - Last Date Time Temp Pulse Resp B/P Pulse Ox O2 Delivery O2 Flow Rate FiO2 12/19/16 04:40 89 111/63 96 50 12/19/16 04:30 Ventilator 12/19/16 04:30 36.9 22 12/18/16 12:26 16 Intake and Output 12/18/16 12/18/16 12/19/16 Cumulative From/Thru 15:00 23:00 07:00 12/18/16 10:01 - 12/19/16 06:19 Intake Total 3000 ml 4814 ml 3466 ml 45261 ml Output Total 300 ml 725 ml 1025 ml Balance 3000 ml 4514 ml 2741 ml 75588 ml Intake IV Total 3000 ml 4814 ml 3466 ml 55328 ml Output Urine Total 50 ml 375 ml 425 ml Gastric Drainage Total 250 ml 350 ml 600 ml Exam General: Intubated and sedated. HEENT: Normocephalic, atraumatic. External ears without defect. Pupils equal, round, and reactive to light and accommodation. Anicteric sclerae, moist conjunctivae, and no lid lag. Mucous membranes dry. ETT in place. Neck: Supple with full range of motion. No jugular venous distension. No bruits. No lymphadenopathy or thyromegaly. Cardiovascular: Tachycardic with regular rhythm no murmurs, rubs, or gallops appreciated. Pulmonary: Course breath sounds in bilateral bases. No wheezes or rhonchi. Abdomen: Soft, nondistended, active bowel sounds. Old midline surgical incision present. No hepatosplenomegaly. Extremities: No clubbing, cyanosis, edema, or lymphadenopathy appreciated. Skin: Macular papular rash on right shoulder. Normal temperature, turgor, and texture; no ulcers or subcutaneous nodules appreciated. Neurological: Intubated and sedated. Psychiatric: Intubated and sedated. Lab and Diagnostics Result Diagram: 12/19/1641912/19/16419 Microbiology Blood cultures - gram positive cocci - Strep? X-Rays, CTs and MRIs CT ABDOMEN AND PELVIS WITH CONTRAST IMPRESSION: 1. Please see detailed description of the pulmonary findings on the associated CTA of the chest from the same date. 2. No acute intra-abdominal findings. Normal appendix. 3. Cholelithiasis. No findings to suggest choledocholithiasis or acute cholecystitis. 4. Aortic atherosclerosis. 5. Tip of the NG tube at the gastroesophageal junction. Consider advancing the tube into the fundus. Dictated by: Joan Simmons M.D. on 12/18/2016 at 16:17 Approved by: Joan Simmons M.D. on 12/18/2016 at 16:24 CT ANGIO CHEST PULMONARY EMBOLISM IMPRESSION: 1. Dense consolidation bilaterally within the dependent portions of the lungs. These findings are most consistent with extensive aspiration or multifocal pneumonia. 2. Hilar and mediastinal adenopathy, likely infectious/reactive in nature. Short interval followup is recommended with resolution of these findings to ensure there is no underlying pulmonary neoplasm. 3. Tip of the NG tube in the gastroesophageal region. Consider advancing the tube into the gastric fundus. Dictated by: Joan Simmons M.D. on 12/18/2016 at 16:09 Approved by: Joan Simmons M.D. on 12/18/2016 at 16:16 ADDENDUM: 4. No acute pulmonary embolus. Dictated by: Joan Simmons M.D. on 12/18/2016 at 16:18 Approved by: Joan Simmons M.D. on 12/18/2016 at 16:19 X-RAY CHEST ONE VIEW, PORTABLE IMPRESSION: Nonspecific, bilateral lung air space opacities with pulmonary edema , pneumonia or combination of pneumonia and edema. Please correlate with clinical and laboratory findings. Dictated by: Jordyn Dominguez MD, PhD on 12/18/2016 at 10:27 Approved by: Jordyn Dominguez MD, PhD on 12/18/2016 at 10:28 Cardiac Echo Impressions Echocardiogram Report Interpretation Summary The left ventricle is hyperdynamic. The ejection fraction is estimated to be 70-75%. There is no significant valvular heart disease. Electronically signed by: Tuan Duarte on Reading Physician:12/18/2016 02:29 PM Additional Diagnostics DateTimeAnalyzed 10:14:00 -_ pH ____7.362 - 7.350 7.450 pCO2 ___29.8__ -mmHg 35.0 45.0 pO2 ___55.7__ -mmHg 69.0 116 HCO3- ___16.5__ -mmol/L 22.0 26.0 Assessment & Plan Naveed Maciel is a 56 year old male with past medical history significant for COPD who presented to the emergency department via EMS complaining of dyspnea and 3 days of flu-like symptoms. Intubated after failing on BiPAP and admitted for septic shock and acute hypoxemic respiratory failure. Hospital 2. 1. Septic shock, present on admission, active. - Criteria include: HR 144, RR 41, O2 sats 83%, lactic acid 6.6, BUN 65, creatinine 3.71, procalcitonin 180.38. - Etiology secondary to pneumococcal pneumonia and influenza A. - Right IJ and right radial arterial line placed 12/18. - Fluid resuscitation initially with 3L NS in ED. Continued and switched to Bicarb/D5W now discontinued. - Albumin Q8H x 3 doses initiated 12/19. - Phenylephrine gtt started 12/18. - Blood cx growing strept x2 , sputum , and urine cultures sent. 2. Acute hypoxemic and hypercapnic respiratory failure, present on admission, active. - Etiology secondary to pneumococcal pneumonia in the setting of COPD and past history of cocaine use. - Patient intubated after failing BiPAP in ED. - ABG 7.402/45.1/78.3/27.5 - CT chest on 12/18 showed dense consolidation bilaterally within the dependent portions of the lung. - Vent settings per Critical Care/Pulmonology Team. - Current settings: FiO2 50 PEEP 12 RR 22 TV 540 Tidal volume decreased as patient is concerning for ARDS. - Concern for aspiration. Metronidazole added 12/19 for anaerobic coverage. 3. Pneumococcal pneumonia /pneumococcal bacteremia, present on admission, active. - CXR and CT as above. - Vancomycin and Zosyn given in ED. - Antibiotics switched to azithromycin (12/18) and ceftriaxone (12/19). - Procalcitonin 180.83 on admission. - Strep pneumonia urine antigen positive. - Blood cultures positive for gram-positive cocci likely strep pneumo. Awaiting sensitivities. - Legionella antigen negative. 4. Lactic acidosis, present on admission, active.improved - On admission lactic acid 6.6. - Lactic acid trended up to 7.4. Currently 3.2. - Bicarb drip discontinued. - ABG as above. -We will continue to monitor closely. 5. Acute kidney injury, present on admission, active. - Unknown if patient has underlying chronic kidney disease. - On admission BUN 65 and creatinine 3.71 - BUN/creatinine worsened but urine output improved overnight with 375 mL in 12 hours. - Consideration of dialysis. - Avoid nephrotoxic medications as able. - Continue to monitor closely. - Nephrology consulted. Appreciate time and recommendations. 6. Influenza A, present on admission, active. - Tamiflu 30 mg twice a day started 12/18 10 doses. 7. Thrombocytopenia, present on admission, active. - Unknown baseline. - On admission platelets 74. - DIC panel ordered and results pending. - Will continue to monitor. -hold off DVT ppx 8. Possible GI bleed, present on admission, active. - Coffe-ground material reported from OG tube. Strep pneumococcus classically has rust brown sputum possibly accounting for appearance. - Hemoglobin and hematocrit have decreased since admission but likely secondary to fluid resuscitation. - Type and cross with 2 units PRBCs on hold. - Holding DVT prophylaxis. - Guaiac stool pending. - Pantoprazole 40 mg BID. - Will consider GI consult if H&H drops or more active bleeding is visualized. 9. COPD, present on admission, unknown baseline. 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 - Unknown if patient has outpatient medication regimen. - Treatment as above. 10. Tobacco use, present on admission, chronic. - Consider Nicotine patch. 11. Hyperglycemia, present on admission, active. - Insulin regular low dose correctional scale. - Hemoglobin A1c pending. High Risk Medications: Fentanyl and propofol Disposition: Patient currently intubated and sedated in the ICU. Prognosis guarded at this time. GI Prophylaxis: Proton Pump Inhibitor VTE Mechanical Devices: Intermittant Pneumatic CD Resuscitation Status: CPR: Attempt Resuscitation Attending Statement patient seen and examined with Dr Cordero ,I agree with history,exam ,assessment and plan as outlined above . MESSI CORDERO DO Dec 19, 2016 07:42 Ariel Berg MD Dec 19, 2016 15:18
[2016-12-19] MEDS: fentaNYL 2,500 mCg/250 mL 2,500 MCG in IV Premix 1 EACH IV SCH (10:01)
[2016-12-19] MEDS: metroNIDAZOLE Inj 1,000 MG in IV Premix 1 EACH IV SCH ×2 (10:49→21:19)
[2016-12-19] MEDS: Albumin 25% 25 GM in IV Premix 1 EACH IV SCH ×3 (10:49→23:56)
[2016-12-19] MEDS ORDERED: Sodium Bicarb 8.4% Inj 150 MEQ in Water Sterile for Injection 1,000 ML IV ONE (10:50)
[2016-12-19] MEDS ORDERED: Sodium Bicarb 8.4% Inj 150 MEQ in Dextrose 5% 1,000 ML IV ONE (11:15)
--- NOTE | 2016-12-19 11:17 | CONS ---
[address] [address] CONSULTATION REPORT PATIENT: DOUGIE GARDUNO : 1960 MR#: [id number] ADMIT: 12/18/2016 JOB ID: [id number] DATE OF SERVICE: 12/19/2016 INFECTIOUS DISEASE CONSULT: I thank Dr. Perdomo for this timely consult. REASON FOR CONSULTATION: Influenza complicated by bacteremic pneumococcal pneumonia. HISTORY OF THE PRESENT ILLNESS: The patient is a 56-year-old, who comes to us with a very limited history. He was seen yesterday morning in the emergency department having been brought there by EMS. The story from a roommate was that the patient had been ill for about three days with gradually increasing cough, shortness of breath, fever, chills and malaise. Eventually, the patient became so short of breath that he basically could not breathe and paramedics were summoned. He was found to be profoundly hypoxic in the emergency department and emergently intubated and transferred to the ICU, where he also required the addition of vasopressor agents for septic shock. Prior to intubation he told the ED doctors he had the fevers, chills, myalgias, arthralgias, malaise, cough and progressive shortness of breath. He denied GI symptoms such as nausea, vomiting, or diarrhea. No abdominal pain or chest pain was reported. Following that, we have almost nothing in the way of history, as the patient was subsequently intubated, sedated and placed on vasopressor agents. A wide variety of antibiotics were initiated but through the night we have received numerous reports including positive blood cultures, positive BioFire PCR results and positive urine antigens, which have established the diagnosis of influenza complicated by bacteremic pneumococcal pneumonia, with respiratory failure and septic shock. PAST MEDICAL HISTORY: Notable for COPD and a history of crack cocaine use. The reports are he quit crack cocaine two years ago. SOCIAL HISTORY: The patient lives with a roommate. He has a sister in the [place] area who was contacted but had little information about him other than to say that he quit using crack cocaine a couple of years ago but continues to smoke cigarettes. Apparently, he is a nondrinker. FAMILY HISTORY: Cannot be obtained from this intubated, sedated patient who is in septic shock. REVIEW OF SYSTEMS: Cannot be obtained in this intubated, sedated patient in septic shock. PHYSICAL EXAMINATION: Reveals a critically ill gentleman lying supine in the ICU. He looks well muscled and well developed and actually, if anything, younger than his reported age of 56. He is currently intubated with a central line in the right IJ and receiving vasopressor agents, as well as sedation. His temperature has been afebrile since admission, currently 36.9. Blood pressure is 111/63 on phenylephedrine in moderate doses. His pulse is ranging between 80 and 100. He is on 50% on the ventilator and saturating fairly well on that. Examination of the head reveals no evidence of recent trauma. His sinuses are without apparent abnormality. Eyes without conjunctivitis or scleral icterus. Nose without drainage or discharge. Oral endotracheal tube and orogastric tube are in good position. A right neck IJ is present and appears benign. This was just placed in the emergency department. The upper body from about the nipple line up has some mild erythematous cast which extends up onto the upper torso, as well as the shoulders and upper back, as well as the neck. This erythematous macular rash does not extend below basically the mid chest. It is a blanching rash without bullae or vesicles. The patient's neck is completely supple and without adenopathy. He does not have JVD. His lungs are notable for rales at both bases, perhaps more so on the right. Cardiac tones: Regular rate and rhythm without any murmur. The abdomen is soft and without organomegaly or ascites. There is no hepatosplenomegaly. Penis and scrotum appear normal. Dubois catheter is present. There is no inguinal or supraclavicular or cervical adenopathy. The hands are well perfused but the feet are not. The feet are cool to touch with no palpable pulses and slow capillary refill. They are not cyanotic per se, however. The neurologic exam cannot be performed, as the patient is intubated and sedated. The patient does not have thyromegaly. LABORATORIES: Include white count of 4000 when he hit the ED, now 20,000 with a huge left shift of 31% bands, 5% metamyelocytes, 6% myelocytes, and 1% nucleated red blood cells. Platelets are 44,000. Creatinine 4.19 today, was 3.7 yesterday in the ED. Bicarb is surprisingly preserved at 26. Lactic acid has gone from a peak of 7.3 yesterday afternoon to 3.2 today, so improved but not normal. Albumin 2.2. AST is 70, ALT 27, alk phos 64, total bilirubin 1.6. Urinalysis with 6-10 white cells, not significant. Serum alcohol level is negative. I just ordered a urine tox screen. Hep C antibody negative. HIV negative. Urine legionella negative but urine pneumococcal antigen is positive. Note that I had ordered the urine pneumococcal antigen after we got back a report of multiple positive blood cultures for gram-positive diplococci consistent with pneumococcus. Urine culture is pending but no growth to date. A respiratory viral multiplex PCR is positive for influenza A. Sputum Gram stain has moderate polys and moderate gram-positive cocci resembling diplococci consistent with pneumococcus. IMAGING: Includes a chest x-ray, which we reviewed with the Pulmonary attending. It shows bilateral pulmonary infiltrates. More impressive is the CT scan, which shows a dense consolidation bilaterally consistent with extensive multifocal pneumonia. Hilar and mediastinal adenopathy is also noted. An abdominal CT was done. It did not show evidence of cirrhosis nor did it show ascites. Cholelithiasis was noted, as well as some aortic atherosclerosis. IMPRESSION: This appears to be a relatively classic case of a patient who developed influenza A with classic fevers, chills, myalgias and arthralgias who then went on to develop shortness of breath, high fevers, chills and eventual respiratory failure due to a bacteremic pneumococcal pneumonia with septic shock. It also appears likely that he has disseminated intravascular coagulation, and that workup is ongoing. He is currently intubated in the intensive care unit on vasopressor agents and requiring moderately high doses of inspired oxygen. This is a classic description dating back to the 1918 and 1919 influenza pandemic in which a high percentage of deaths were due to pneumococcal infection following influenza A. We know little else about the patient other than he has underlying chronic obstructive pulmonary disease and used to use crack cocaine and reportedly has stopped that practice. RECOMMENDATIONS: 1. I would discontinue vancomycin, as this is a likely cause of the rash over his upper torso. 2. I have ordered discontinuing of cefepime and switching to ceftriaxone, as basically all of our blood isolates of pneumococcus are susceptible to ceftriaxone. 3. I would continue with azithromycin for about five days. Though controversial, the literature suggests that bacteremic pneumococcal pneumonia as opposed to nonbacteremic pneumococcal pneumonia does better but a few days of azithromycin, doxycycline, or quinolone even though the patient is already on a beta-lactam agent with good activity. 4. The total duration of therapy here will likely be only about a week despite the patient's critical illness, as I suspect he will either succumb to this illness or have a rapid return to reasonable health. 5. Urine tox screen has been ordered to complete our database on this patient. 6. This case discussed extensively, and all the films viewed, on rounds with the ICU team.
--- NOTE | 2016-12-19 14:02 | PROG NOTE ---
[address] [address] PROGRESS NOTE PATIENT: DOUGIE GARDUNO : 1960 MR#: [id number] ADMIT: 12/18/2016 JOB ID: [id number] DATE: 12/19/2016 PULMONARY CRITICAL CARE PROGRESS NOTE: The the patient was seen and evaluated with resident physician Kimo Pulliam DO (RES). Please refer to his separate detailed note for additional information. The following is an addendum. IDENTIFICATION: A 56-year-old man here with acute respiratory failure secondary to pneumococcal pneumonia and bacteremia as well as influenza A infection. INTERVAL HISTORY: Currently he is on phenylephrine at 1.7 mcg. He is making some urine-375 over the last 12 hours. Vent settings are stable. FiO2 50%. PEEP of 12. No fever overnight. REVIEW OF SYSTEMS: Unable to obtain. PHYSICAL EXAMINATION: Afebrile. FiO2 50%, PEEP of 12, with sats 96%. BP 111/63. General: Intubated, sedated. Unresponsive at this time. Chest: Clear to auscultation. Heart: Regular rate, rhythm. LABORATORIES: Reviewed. WBC up to 20 from 4. Platelets down to 44 from 74 yesterday. Chemistry reviewed and creatinine is up to 4.2, BUN 70. Electrolytes within normal limits. Arterial blood gas: pH of 7.4, pCO2 of 45, pO2 of 78, bicarb of 27. Chest x-ray reviewed and shows diffuse bilateral infiltrates. ET tube in appropriate position. Central line in appropriate position. CT chest PE protocol, as well as CT abdomen and pelvis, reviewed. No PE. Dense bilateral consolidation seen which could be due to aspiration. Mild lymphadenopathy also seen. ASSESSMENT: 1. Acute respiratory distress syndrome. 2. Acute hypoxic respiratory failure. 3. Pneumococcal bacteremia and pneumonia. 4. Influenzae A pneumonia. 5. Septic shock. 6. Acute renal failure. RECOMMENDATIONS: The patient is a 56-year-old man with reported distant history of crack cocaine use until about two years ago presenting with acute respiratory failure and pneumococcal bacteremia. Blood cultures and urine streptococcal antigen are positive. In addition, respiratory viral PCR is positive for influenza A. He is quite volume up, but his CVP today is 6 with a PEEP of 12. We are going to give him another L of bicarb bolus as well as albumin for fluid resuscitation and try to wean off pressors as tolerated. His renal function seems to be stabilizing and potentially improving. He is no longer anuric and is making some urine, so I am optimistic that we can hold off on dialysis despite his contrast load yesterday. Discussed with Dr. Garsia, who is also following and is planning on waiting to see how his kidneys improve. Antibiotics: From an antibiotic standpoint, he is on ceftriaxone and azithromycin. He is also on Tamiflu and Dr. Muhammad is following. Echo did not show any vegetations and showed normal cardiac function with hyperdynamic EF. DVT prophylaxis is being held because of thrombocytopenia. We are checking DIC labs because of this. He is on PPI b.i.d. He is having some rust-colored sputum and GI secretions and I think this is all related to pneumococcal pneumonia. There is no evidence of active bleeding and his hemoglobin has been stable. Continue PPI b.i.d., but I am hoping we can switch to once daily in a day or so. He is a FULL CODE. His sister is legal next of kin. CRITICAL CARE TIME: 60 minutes.
--- NOTE | 2016-12-19 14:26 | NUR ---
NUTRITION ASSESSMENT ASSESS: Pt is a 56 yo male admitted for septic shock and acute hypoxemic respiratory failure w/ bilateral pneumonia. Pt also has ALBERTINA and possible GI bleed. Nephrology has been consulted; may need catheter placed and dialysis. Pt is intubated and sedated. MD provided verbal orders to start TF. PMHX: COPD, Past history of drug abuse (per sister), tobacco user. No other history obtained d/t intubation and sedation. LABS: Reviewed. Na 133, Cl 90, BUN 71, Chemical Process Analyst 4.19, Gluc 205, Ca 6.8, Lactic Acid 3.2, Bilirubin 1.7, AST 70, Alb 2.2 MEDS: Reviewed. Albumin, Propofol @ 21.9 ml/hr providing 578 kcal, Fentanyl GI: 0 BM reported bowel sounds present per RN SKIN: [place] 15 CURRENT WT: 80.0 kg BMI 26.8 kg/m2 IBW: 68.4 kg DIET: NPO NUTRITION SUPPORT: Verbal order to initiate TF per MD ESTIMATED NEEDS: Vent, COPD Calories: 6750-3419 kcal/day (25-30 kcal/kg BW) Protein: 95-140 g/day (1.2-1.8 g/kg BW) Fluids: ~2000 ml (25 ml/kcal) NUTRITION DIAGNOSIS: 1.) Inadequate oral intake related to inability to consume sufficient energy as evidenced by NPO status and ventilation. 2.) Increased nutrient needs related to difficulty breathing as evidenced by COPD and acute respiratory failure. NUTRITION INTERVENTION: 1.) Initiate TF of Pulmocare @ 10 ml/hr for first 24 hours. Advance as tolerated by 10 ml/hr q 4 hours toward goal rate of 55 ml/hr to provide 2393 total kcal (1815 kcal formula + 578 kcal propofol) and 76 g protein (100% kcal needs and 80% protein needs). 2.) Once tolerated, add one Prosource packet BID to increase protein intake to 98 g, meeting 100% of protein needs. 3.) Adjust daily TF rate based on Propofol. 4.) Recommend advancing diet as medically appropriate. 5.) Will monitor need for formula change d/t possible dialysis start. MONITOR/EVALUATE: TF adv/juancarlos, wt, labs, GI, nutrition status, POC. Will continue to monitor per high nutritional risk guidelines. Addendum: 12/19/16 at [address] I have read and agree with above student documentation. Gabi Ashley RD, CD
--- NOTE | 2016-12-19 14:53 | PCM.PNMED ---
Subjective Date of Service Dec 19, 2016 Subjective Nephrology note: Patient was seen in the intensive care unit. He remains on a ventilator and has had a slight increase in his creatinine today as compared to yesterday. He was tested positive for both and once A and coccus. In addition of this she has developed a fine macular patchy type rash on the upper extremity. His blood pressure has been low and was given considerable amount of fluid along with pressors. She was given 7814 mL of fluid and has had approximately 300 mL' s of urine out. His have been curtailed. With a significant left shift. His sodium this morning is 1:30, potassium 4.0, chloride 90 CO2 26 BUN and creatinine were 71 and 4.19. His albumin is 2.2 and his titers for hepatitis were negative. Exam Vital Signs Vital Sign - Last Date Time Temp Pulse Resp B/P Pulse Ox O2 Delivery O2 Flow Rate FiO2 12/19/16 14:27 91 117/64 97 50 12/19/16 08:30 Ventilator 12/19/16 08:30 36.8 22 12/18/16 12:26 16 Intake and Output 12/18/16 12/18/16 12/19/16 Cumulative From/Thru 15:00 23:00 07:00 12/18/16 10:01 - 12/19/16 06:19 Intake Total 3000 ml 4814 ml 3466 ml 06848 ml Output Total 300 ml 725 ml 1025 ml Balance 3000 ml 4514 ml 2741 ml 95078 ml Intake IV Total 3000 ml 4814 ml 3466 ml 12174 ml Output Urine Total 50 ml 375 ml 425 ml Gastric Drainage Total 250 ml 350 ml 600 ml Exam Patient is sedated and on a ventilator. Lungs showed scattered rhonchi and dependent rales. Heart was regular somewhat distant. His abdomen remains markedly distended and tympanitic to percussion. CT from yesterday did not show any evidence of bowel obstruction. There is no evidence of any hepatosplenomegaly. Extremities showed some mild dependent edema. Skin turgor was slightly diminished and there is is a fine mildly erythematous macular/ patchy rash on the shoulders and upper extremity. Lab and Diagnostics Result Diagram: 12/19/16 0420 12/19/16 0420 Microbiology Blood cultures - gram positive cocci - Strep? X-Rays, CTs and MRIs CT ABDOMEN AND PELVIS WITH CONTRAST IMPRESSION: 1. Please see detailed description of the pulmonary findings on the associated CTA of the chest from the same date. 2. No acute intra-abdominal findings. Normal appendix. 3. Cholelithiasis. No findings to suggest choledocholithiasis or acute cholecystitis. 4. Aortic atherosclerosis. 5. Tip of the NG tube at the gastroesophageal junction. Consider advancing the tube into the fundus. Dictated by: Joan Simmons M.D. on 12/18/2016 at 16:17 Approved by: Joan Simmons M.D. on 12/18/2016 at 16:24 CT ANGIO CHEST PULMONARY EMBOLISM IMPRESSION: 1. Dense consolidation bilaterally within the dependent portions of the lungs. These findings are most consistent with extensive aspiration or multifocal pneumonia. 2. Hilar and mediastinal adenopathy, likely infectious/reactive in nature. Short interval followup is recommended with resolution of these findings to ensure there is no underlying pulmonary neoplasm. 3. Tip of the NG tube in the gastroesophageal region. Consider advancing the tube into the gastric fundus. Dictated by: Joan Simmons M.D. on 12/18/2016 at 16:09 Approved by: Joan Simmons M.D. on 12/18/2016 at 16:16 ADDENDUM: 4. No acute pulmonary embolus. Dictated by: Joan Smimons M.D. on 12/18/2016 at 16:18 Approved by: Joan Simmons M.D. on 12/18/2016 at 16:19 X-RAY CHEST ONE VIEW, PORTABLE IMPRESSION: Nonspecific, bilateral lung air space opacities with pulmonary edema , pneumonia or combination of pneumonia and edema. Please correlate with clinical and laboratory findings. Dictated by: Jordyn Dominguez MD, PhD on 12/18/2016 at 10:27 Approved by: Jordyn Dominguez MD, PhD on 12/18/2016 at 10:28 Cardiac Echo Impressions Echocardiogram Report Interpretation Summary The left ventricle is hyperdynamic. The ejection fraction is estimated to be 70-75%. There is no significant valvular heart disease. Electronically signed by: Tuan Duarte on Reading Physician:12/18/2016 02:29 PM Additional Diagnostics DateTimeAnalyzed 10:14:00 -_ pH ____7.362 - 7.350 7.450 pCO2 ___29.8__ -mmHg 35.0 45.0 pO2 ___55.7__ -mmHg 69.0 116 HCO3- ___16.5__ -mmol/L 22.0 26.0 Assessment & Plan Impression #1 acute tubular necrosis secondary to sepsis from influenza A and pneumococcus, with multisystem organ failure #2 diabetic acidosis which is resolved #3 hypoalbuminemia #4 new-onset rash which is due to extraordinary reaction. Recommendations #1 I agree with cutting back on his fluids and follow his corrected CVP. #2 and have pharmacy review his medications and see if there are any likely causes of this rash. GI Prophylaxis: Proton Pump Inhibitor VTE Mechanical Devices: Intermittant Pneumatic CD Resuscitation Status: CPR: Attempt Resuscitation Hang Garsia DO Dec 19, 2016 14:53
--- NOTE | 2016-12-19 15:39 | ABG ---
DateTimeAnalyzed 15:32:00 -_ pH ____7.410 - 7.350 7.450 pCO2 ___48.2__ -mmHg 35.0 45.0 pO2 ___93.1__ -mmHg 69.0 116 HCO3- ___30.0__ -mmol/L 22.0 26.0 ABE ____5.0__ -mmol/L -2.0 2.0 tHb ___11.7__ -g/dL O2Hb ___95.4__ -% COHb ____1.0__ -% MetHb ____1.3__ -% sO2 ___97.6__ -% 25.0 FIO2 ___50.0__ -% PEEP ___12.0__ -cmH2O Set_RR ___22.0__ -b/min Vt __460.0__ -L Drawn By NB - Date/Time Notified____ 15:39:00 -_ Oxygen Device 1 VENTILATOR - Notified By nb - Notified Whom ___Parimi - B 764 -mmHg tO2 ___15.8__ -Vol% Masoud test N/A -
--- NOTE | 2016-12-19 15:40 | NUR ---
P: Respiratory Distress I: Pt vent settings changed and ABG done. OGT with tube feeding started 10cc/hr x24 hours and H2O flush 30cc Q4. Right arterial line patent. RIJ TLC stable. CVP 6 and one liter Na+ Bicarb infused. UAP 12. Phenylephrine gtt decreased to 1.5mcqs/kg/min and slowly wean down as pt tolerates. Fentanyl decreased to 25mcqs/hr per Dr. Perdomo's orders. Propofol 45 mcqs/kg/min. Albumin started today. Dubois patent with lio urine. SCD's on. Turned q 2 hours. Pt's sister arrived and she is his only sister and does not want information given out on the phone except for her. E: Stable S: Restraints on for pt safety. Sister Rakesh updated on pt's condition and plan of care. Frequent rounding.
[2016-12-20] VITALS (18 sets, daily range): BP systolic 97–153; BP diastolic 49–72; PULSE 87–105; RESP 19–28; O2SAT 90–96
[2016-12-20] MEDS: Propofol Inj 1,000,000 MCG in IV Premix 1 EACH IV SCH ×5 (01:06→20:05)
--- NOTE | 2016-12-20 04:30 | PROCED ---
[address] [address] PROCEDURE NOTE PATIENT: DOUGIE GARDUNO : 1960 MR#: [id number] ADMIT: 12/18/2016 JOB ID: [id number] DATE OF SERVICE: 12/20/2016 POSTOPERATIVE DIAGNOSIS(ES): PREOPERATIVE DIAGNOSIS(ES): SURGEON: PROCEDURE: Endotracheal intubation. I was called to the bedside to replace the tube on a patient who had accidentally extubated himself while on high ventilator settings and 12 cm of PEEP. He was maintaining on 100% oxygen but with maximal respiratory effort and was clearly in respiratory failure still, requiring intubation. His potassium was verified as within normal limits, and he was then given etomidate 20 plus 10 mg to achieve sedation, and then 200 mg of succinylcholine for relaxation with good response. The tube was advanced under direct visualization through the cords and secured with balloon and oral device. End-tidal CO2 was verified and bilateral auscultation verified placement. It was replaced at the same depth as prior, at 24 cm at the teeth. X-ray is pending at this time.
--- NOTE | 2016-12-20 04:44 | PCM.PNMED ---
Subjective Date of Service Dec 20, 2016 Subjective Called to patient room around 0400 as patient had extubated himself. This was unwitnessed by nursing staff as there was an ongoing code blue on the other side of the hallway. Charge nurse, respiratory therapist and nurse in room at time of arrival. O2 saturation 70% on monitor. Placed on non-rebreather to maximal settings. Improvement in O2 saturation but patient had significant work of breathing. Patient had been on 12 of PEEP. Decision quickly made to re- intubate. Exam Lab and Diagnostics Result Diagram: 12/19/1641912/19/16419 Assessment & Plan Self extubation in patient with acute hypoxic respiratory failure and acute respiratory distress syndrome secondary to pneumococcal pneumonia and influenza A. - Dr. Cantu called from ED to re-intubate patient (please refer to his separate procedure note for details). - Successful reintubation. - Stat chest x-ray ordered and pending. - Same vent settings restored and patient appeared to be tolerating this well with O2 sat in the mid 90s. - Ok to go up on dose of propofol as needed to maintain sedation. Could consider scheduled Fentanyl boluses or increased fentanyl dosing for better patient comfort. - Nursing to adjust soft restraints for prevention of further attempts at extubate. - Replace OG tube as tolerated by patient. GI Prophylaxis: Proton Pump Inhibitor VTE Mechanical Devices: Intermittant Pneumatic CD Resuscitation Status: CPR: Attempt Resuscitation Attending Statement The patient was seen and examined together with Dr. Cottrell on 12/20 and I agree with the history, exam and plan as outlined in the note above. Tereza Cottrell DO Dec 20, 2016 04:44 Roldan Saha MD Dec 20, 2016 05:58
--- NOTE | 2016-12-20 05:04 | ABG ---
DateTimeAnalyzed 04:57:00 -_ pH ____7.410 - 7.350 7.450 pCO2 ___43.2__ -mmHg 35.0 45.0 pO2 ___76.3__ -mmHg 69.0 116 HCO3- ___26.9__ -mmol/L 22.0 26.0 ABE ____2.5__ -mmol/L -2.0 2.0 tHb ___10.6__ -g/dL O2Hb ___93.4__ -% COHb ____1.1__ -% MetHb ____1.4__ -% sO2 ___95.8__ -% 25.0 FIO2 ___50.0__ -% PEEP ___12.0__ -cmH2O Set_RR ___22.0__ -b/min Vt __410.0__ -L Drawn By MK - Date/Time Notified____ 05:04:00 -_ Oxygen Device 1 VENTILATOR - Notified By MK - B 766 -mmHg tO2 ___14.0__ -Vol% Masoud test N/A -
[2016-12-20] MEDS: Chlorhexidine 0.12% 15 mL Oral Solution MT SCH ×5 (05:16→21:40)
--- NOTE | 2016-12-20 05:23 | NUR ---
Pt self extubated at approx. 0400. Pt was restrained firmly and sedation was on, unknown as to how he managed to self extubate. Sats dropped to 70's, pt bagged with improved sats. Pt was given 30 mg etomodate and 200 mg succ and re-intubated by ED doctor without difficulty. New OGT inserted after extubation, placement verified via aspiration and air bolus. Pt was returned back to original vent settings of 50/12/22/410. Large amt of brown/blood tinged sputum suctioned from ETT. Pt is doing well. Will continue to monitor closely.
[2016-12-20 05:26] LABS: Mean Corpuscular Hemoglobin 32.9 pg (27.0-35.0); Mean Corpuscular Volume 93.5 fL (81-100)
[2016-12-20 05:43] LABS: Magnesium 2.7 mg/dL (1.6-2.6)
[2016-12-20 05:55] LABS: BASOPHILS % (AUTO) 0 % (0-3); EOSINOPHILS % (AUTO) 1 % (0-5); MONOCYTES % (AUTO) 2 % (4-12); NEUTROPHILS % (AUTO) 75 % (40-74)
[2016-12-20 05:56] LABS: Platelet Count 36 bil/L (150-400)
[2016-12-20] MEDS: cefTRIAXone Inj 2,000 MG in Dextrose 5% Minibag Plus 50 ML IV SCH (08:25)
[2016-12-20] MEDS: Pantoprazole 4 mg/mL 10 mL Inj IVPUSH SCH ×2 (08:25→18:29)
--- NOTE | 2016-12-20 08:30 | PCM.PNMED ---
Subjective Date of Service Dec 20, 2016 Subjective Pulmonary critical care consultation progress note: Problems: Acute hypoxic, hypercapnic (potential for chronic component here) respiratory failure requiring intubation having not responded to BiPAP. Septic shock Streptococcal Pneumonia/bacteremia AG metabolic acidosis with lactic acidosis ALBERTINA-ATN secondary to sepsis COPD-h/o smoking crack cocaine Maculopapular rash over upper torso, neck and head-concern for drug rash Subjective: patient self-extubated early this AM. was re-intubated by ER physician using Succ for paralytic and Etom for induction. otherwise, uneventful. When I saw the patient, no meaningful response of any kind could be obtained. ROS impossible given current patient's status. Exam Vital Signs Vital Sign - Last Date Time Temp Pulse Resp B/P Pulse Ox O2 Delivery O2 Flow Rate FiO2 12/20/16 04:30 Ventilator 12/20/16 04:30 36.6 92 26 153/71 95 50 12/18/16 12:26 16 Intake and Output 12/19/16 12/19/16 12/20/16 Cumulative From/Thru 15:00 23:00 07:00 12/18/16 10:01 - 12/20/16 06:25 Intake Total 2567 ml 1326 ml 34493 ml Output Total 350 ml 350 ml 1725 ml Balance 2217 ml 976 ml 56156 ml Intake IV Total 2495 ml 1100 ml 84757 ml Tube Feeding 72 ml 136 ml 208 ml Tube Irrigant 0 ml 90 ml 90 ml Output Urine Total 300 ml 350 ml 1075 ml Gastric Drainage Total 50 ml 650 ml Exam Gen.: lying in hospital bed, intubated and sedated. moving head side to side and biting on tube, but otherwise, no meaningful interaction. HEENT: Head, neck and upper chest are mildly erythematous (maculopap rash without vesicles or ulcerations). Pupils are equal and minimally reactive to light, mucous membranes are somewhat dry. Chest: Somewhat coarse bilaterally more towards the bases and posterior lung hillman. Cardiovascular: On the monitor it appears to be regular. No murmurs appreciated. Radial pulses are 2+ bilaterally. Do not appreciate JVD. Capillary refill is good distally in all 4. Abdomen: Moderately distended with bowel sounds present. Do not appreciate organomegaly. Extremities: No edema. Lines: Dubois catheter, peripheral, right IJ central line, right radial arterial line. ETT, OG tube. Vent settings: FiO2 0.5, PEEP 12, respiratory rate 22, tidal volume 410 mL. High-risk medications: Fentanyl 25, propofol at 50. Phenylephrine was d/c'ed yesterday, and BP looks good. UOP 675 yesterday, with 350 today so far. Fluid balance +13L. IVs and Medications IV Fluids None Medications Reviewed: Medications were reviewed in detail Lab and Diagnostics Neutrophilia and bandemia continue calc serum osm is 302 AG is 22 lactic is 1.7 Ca is 6.6 (corrects to 7.4) Ph is 6 Mg is 2.7 Tbili is 1.4 Fibrinogen high, hapto nml, d-dimer elevated, factor VIII pending AST 72, but other LFT look good Alb 2.9 ABG this AM: DateTimeAnalyzed 04:57:00 -_ pH ____7.410 - 7.350 7.450 pCO2 ___43.2__ -mmHg 35.0 45.0 pO2 ___76.3__ -mmHg 69.0 116 HCO3- ___26.9__ -mmol/L 22.0 26.0 sO2 ___95.8__ -% 25.0 FIO2 ___50.0__ -% PEEP ___12.0__ -cmH2O Set_RR ___22.0__ -b/min Vt __410.0__ -L Result Diagram: 12/20/16 0500 12/20/16 0500 Microbiology BCx and SCx positive for Strep pneumo Resp PCR positive for Flu A H3 Strep pneumo urine ag positive Assessment & Plan 1. ARDS: Acute hypoxic, hypercapnic (potential for chronic component here) respiratory failure requiring intubation having not responded to BiPAP. Pneumococcal pneumonia/bacteremia with some degree of aspiration are the inciting events given clinical course, imaging findings, and no known cardiac disease, and a P/F of 150. Vent settings as above. Currently on a high PEEP, high respiratory rate, low tidal volume setting. Positive flu A pneumonia. Empiric antibiotics already going with Flagyl, Azithromycin and Ceftriaxone (today is day 3 of antibiotics). Oseltamivir via the tube (today is day 3). 2. Septic shock. Secondary to this Pneumococcal PNA/bacteremia and influenza A. Patient doing well off of phenylephrine, and please note that he did receive 3 doses of albumin yesterday as part of his resuscitation. Cardiogenic component unlikely given echo findings. 3. Anion gap metabolic acidosis (lactic acidosis has normalized just today) with a metabolic alkalosis (we were giving him bicarbonate until yesterday). Secondary to his profound lactic acidosis (improving) in the setting of septic shock with contribution from his acute, and worsening renal failure. Continue to monitor labs and gases. Nephrology became involved, and are considering placement of dialysis catheter, but may hold off given his improved UOP despite worsening renal function on labs. 4. COPD Unknown if he is on outpatient medications. Reportedly a never tobacco smoker, but significant history smoking crack cocaine until about 2 years ago. 5. ALBERTINA-acute tubular necrosis in the setting of septic shock, worsening but with some improvement in urine output. We have held off on further maintenance fluids as he is getting quite fluid overloaded. His urine output had improved yesterday, and he continues to have somewhat improved output moving forward. Nephrology is involved, there is consideration for proceeding with dialysis if necessary. For today, we will trial 200mg IV lasix once. 6. Coagulopathy and thrombocytopenia. Likely 2/2 septic shock. DIC evaluation is equivocal with some components still pending. Continue to hold Heparin. No active bleed noted. 7. Maculopapular rash over upper torso, neck and head-concern for drug rash. Vancomycin was discontinued yesterday as the likely culprit. We will continue to monitor daily. Recommendations: -Vent settings as noted with adjustments as needed. Continue to follow labs and gases. -Continue antibiotics/anitviral as detailed above -200mg iv lasix once CODE STATUS: Patient is full code DVT prophylaxis on hold due to Thrombocytopenia/coagulopathy GI prophylaxis with Protonix twice a day Droplet/contact precautions for Flu A Pulmonary critical care time spent: 45 minutes Attending Statement I have seen and examined this patient with the resident physician. Vital signs , labs, imaging have been reviewed. I agree with the assessment and plan above. Please refer to my separately dictated progress note for any modifications to above. Dionne Perdomo M.D. Pulmonary and Critical Care medicine Pager [phone] Kimo Pulliam DO Dec 20, 2016 08:10 Dionne Perdomo MD Dec 21, 2016 11:16
[2016-12-20] MEDS: Azithromycin Inj 500 MG in Dextrose 5% w/Vial Mate 250 ML IV SCH (09:10)
--- NOTE | 2016-12-20 09:28 | DRSVH ---
PROCEDURE: X-RAY CHEST ONE VIEW, PORTABLE ([id number]) INDICATIONS: TUBE PLACEMENT TECHNIQUE: One view of the chest was acquired. COMPARISON: [facility], CR, XR CHEST 1VW (PORTABLE), 12/19/2016, 5:22. FINDINGS: Surgical changes and devices: Stable positioning of the ETT and right IJ CVL. NG tube has been remov ed. Lungs and pleura: Slight increase in aeration otherwise diffuse, widespread bilateral pulmonary inter stitial and air space opacities are present not significantly changed from prior examination. Mediastinum: Mediastinal contours appear normal. Heart size is normal. Bones and chest wall: No suspicious bony lesions. Overlying soft tissues appear unremarkable. IMPRESSION: Aside from technique differences, slight increase aeration otherwise no significant fletcher e from prior examination. Dictated by: Soren Johnson [facility] Interpreted: Jordyn Dominguez MD on 12/20/2016 at 9:25 Transcribed by: GIRMA on 12/20/2016 at 9:27 Approved by: Jordyn Dominguez MD, PhD on 12/20/2016 at 10:54
[2016-12-20] MEDS ORDERED: Furosemide 10 mg/mL 10 mL Inj IVPUSH ONE (09:35)
[2016-12-20] MEDS ORDERED: FUROSEMIDE IVPUSH ONE (09:50)
[2016-12-20] MEDS ORDERED: DEXTROSE 5% IVPUSH ONE (09:50)
--- NOTE | 2016-12-20 10:03 | NUR ---
Social Work: Initial Assessment Data: Pt is a 56 y/o male admitted for bilateral pneumonia/ acute resp failure. Pt's PCP is not listed, pt's insurance is Medicare. Readmit score is 1. EMR reviewed. Pt is vented. MOLDING MACHINE OPERATOR HELPER called pt's sister, listed as BARBY, who provided information for initial assessment. She states that pt lives in [place] with friends in a single story home. She states that pt has no history of HH or SNF, no LTC or VA benefits, and is not a caregiver for another. She states that pt does not have a DPOA that she knows of. Pt's sister states that she lives in [place] but came up to [place] when she heard how sick her brother is. MOLDING MACHINE OPERATOR HELPER will continue to follow pt for d/c planning needs. Assessment: Pt who is independent at baseline. Plan: Depending on pt's medical progress, pt will either d/c home, possibly with HH, or go to SNF if needed. MOLDING MACHINE OPERATOR HELPER will continue to follow pt's progress and continue updating pt's family. TATYANA Cohen Addendum: 12/20/16 at 1007 by PREETHI MUNGUIA Amended: Links added.
--- NOTE | 2016-12-20 10:29 | PROG NOTE ---
[address] [address] PROGRESS NOTE PATIENT: DOUGIE GARDUNO : 1960 MR#: [id number] ADMIT: 12/18/2016 JOB ID: [id number] DATE: 12/20/2016 INFECTIOUS DISEASE FOLLOWUP NOTE: REASON FOR FOLLOWUP: Septic shock and ventilator-dependent respiratory failure with associated DIC and renal failure due to influenza followed by pneumococcal sepsis. INTERVAL HISTORY: The patient had an eventful night. He was somehow able to extubate himself during the night from relatively high levels of pO2 and PEEP ongoing which required emergent reintubation. This morning the patient is sedated with propofol and fentanyl but is still actively working to try and re-extubate himself. He is agitated but not responding to questions or commands, and no additional history is available from the patient. This case was discussed with the ICU nurse at the bedside, however. PHYSICAL EXAMINATION: Reveals an afebrile gentleman, temperature 36.3, pulse 92, respiratory rate 28, blood pressure 105/55. He is saturating well now on 50% and 12 of PEEP. His neck is supple. His eyes are without scleral icterus. Oral endotracheal tube, orogastric tube in good position. The lungs are surprisingly clear bilaterally. Cardiac tones without murmur. The abdomen is slightly distended, and difficult to examine, as the patient is actively tensing his abdomen when palpated. The penis and scrotum appear normal. Dubois catheter is in good position. Extremities, which were hypoperfused yesterday, now are warm with good capillary refill. All lines are in good position. LABORATORIES: Include white count 22,000 with a major left shift. His procalcitonin is an absolutely amazing 540, which is actually better than yesterday's 612. Toxicology screen we ordered yesterday has come back negative. HIV and hep C are negative. Micro studies include the multiplex PCR positive for flu, as well as sputum and blood growing pneumococcus. The pneumococcus from the blood is exquisitely sensitive to penicillin, ceftriaxone and all other tested agents. IMPRESSION: This patient has septic shock due to streptococcal pneumonia, which has followed influenza A. His course has been complicated by shock, ventilatory-dependent respiratory failure and disseminated intravascular coagulation, as well as renal failure. Aside from the fact his kidneys are not working well, today he is somewhat better but still remains on relatively high FiO2 and PEEP. He is, however, now off vasopressors which is a sign of improvement and has better perfusion of the extremities. The organism turns out to be supersensitive to beta-lactam, so I think we can continue with ceftriaxone or switch to penicillin as we desire. The addition of azithromycin to the beta-lactam has been shown to decrease mortality in this situation and will continue with that. RECOMMENDATIONS: 1. Continue with azithromycin for a total course of five days which will take us through December 22. 2. Will continue with ceftriaxone for a probable seven-day course, though that will depend on how the patient does clinically. 3. Continue with renally adjusted Tamiflu for a total five-day course. 4. Will continue to follow this extremely complex patient with you.
--- NOTE | 2016-12-20 10:38 | PROG NOTE ---
[address] [address] PROGRESS NOTE PATIENT: DOUGIE GARDUNO : 1960 MR#: [id number] ADMIT: 12/18/2016 JOB ID: [id number] DATE: 12/20/2016 PULMONARY CRITICAL CARE PROGRESS NOTE: The patient is a 56-year-old man with acute respiratory failure, septic shock due to pneumococcal pneumonia with bacteremia as well as influenza A infection. The patient was seen and evaluated with resident physician, Dr. Kimo Pulliam. Please refer to separate detailed note for additional information. The following is an addendum. INTERVAL HISTORY: The patient apparently self-extubated last night and had to be reintubated. His restraints were in place but the patient managed to work the tube out with just his teeth and tongue according to the staff. No other major events. He has been weaned off of his pressors also overnight. REVIEW OF SYSTEMS: Unable to obtain since he is intubated. PHYSICAL EXAMINATION: Vital signs reviewed. Temperature 36.3, pulse 92, respirations 28, BP 105/55, sats 95% on 50% FiO2 and 12 cm of PEEP. General: Intubated, sedated. Lungs are clear to auscultation. LABORATORIES: Reviewed. WBC is up to 22 from 4 yesterday. Hemoglobin 10. Platelets down to 36. Coags do not show any evidence of DIC. BUN and creatinine are also up to 87 and 5.03. Procalcitonin is 540. Cultures: As before, blood cultures initially positive for Strep pneumoniae. Influenza A positive on respiratory viral PCR. BUN strep antigen positive. Chest x-ray shows dense bilateral infiltrates consistent with prior. Arterial blood gas shows pH 7.4, pCO2 of 43, pO2 of 76, bicarbonate of 26. ASSESSMENT AND RECOMMENDATIONS: 1. Acute respiratory distress syndrome. 2. Acute hypoxic respiratory failure. 3. Septic shock-weaned off of pressors now. 4. Acute kidney injury-oliguric. 5. Influenza A pneumonia. 6. Pneumococcal bacteremia and pneumonia. A 56-year-old man with reported history of crack cocaine use until two years ago presenting with respiratory failure, pneumococcal bacteremia and septic shock. He has been weaned off of pressors. He continues to make some urine-675 cc in the last 24 hours. However, his creatinine and BUN continue to rise. Plan today is to give him one dose of Lasix 200 mg IV and see if he starts making any urine. Dr. Garsia with Nephrology is following and the plan is to place a dialysis catheter and likely initiate dialysis if he does not respond to the Lasix. His potassium is okay and has bicarbonate is still elevated slightly from all the IV bicarbonate infusion he has been receiving until yesterday. Antibiotic rivers he is on ceftriaxone, azithromycin, as well as Flagyl for anaerobic coverage. He is also on Tamiflu. ID is following. Echo he did not show any vegetations. I think we should repeat another set of blood cultures to ensure that the Pneumococcus is clearing from the blood stream. He is not on DVT prophylaxis because of thrombocytopenia. I think that thrombocytopenia is sepsis associated since he has no reason to have HIT. Also DIC labs are all negative. He is on PPI b.i.d. He is a FULL CODE. CRITICAL CARE TIME: 60 minutes. [facility]
--- NOTE | 2016-12-20 10:40 | PCM.PNMED ---
Subjective Date of Service Dec 20, 2016 Subjective Naveed Maciel is a 56 year old male with past medical history significant for COPD who presented to the emergency department via EMS complaining of dyspnea and 3 days of flu-like symptoms. Intubated after failing on BiPAP and admitted for septic shock and acute hypoxemic respiratory failure. Hospital 3. Overnight: Patient extubated himself. This was unwitnessed as nursing staff was attending a code blue. He was restrained and sedated at the time. ER physician was called and re-intubated patient. Phenylephrine titrated off overnight. Blood pressures remain stable. Today: Patient intubated and sedated. He attempts to open eyes with physical and verbal stimuli but does not follow commands. Patient is seen to be using tongue and teeth to push ETT. May require increased sedation to keep tube in place. Continues on fentanyl and propofol. Review of systems unable to obtain. Exam Vital Signs Vital Sign - Last Date Time Temp Pulse Resp B/P Pulse Ox O2 Delivery O2 Flow Rate FiO2 12/20/16 04:30 Ventilator 12/20/16 04:30 36.6 92 26 153/71 95 50 12/18/16 12:26 16 Intake and Output 12/19/16 12/19/16 12/20/16 Cumulative From/Thru 15:00 23:00 07:00 12/18/16 10:01 - 12/20/16 06:25 Intake Total 2567 ml 1326 ml 50628 ml Output Total 350 ml 350 ml 1725 ml Balance 2217 ml 976 ml 13777 ml Intake IV Total 2495 ml 1100 ml 21273 ml Tube Feeding 72 ml 136 ml 208 ml Tube Irrigant 0 ml 90 ml 90 ml Output Urine Total 300 ml 350 ml 1075 ml Gastric Drainage Total 50 ml 650 ml Exam General: Intubated and sedated. HEENT: Normocephalic, atraumatic. External ears without defect. Pupils equal, round, and reactive to light and accommodation. Anicteric sclerae, moist conjunctivae, and no lid lag. Mucous membranes dry. ETT in place. Neck: Supple with full range of motion. No jugular venous distension. No bruits. No lymphadenopathy or thyromegaly. Cardiovascular: Tachycardic with regular rhythm no murmurs, rubs, or gallops appreciated. Pulmonary: Course breath sounds in bilateral bases. No wheezes or rhonchi. Abdomen: Soft, nondistended, active bowel sounds. Old midline surgical incision present. No hepatosplenomegaly. Extremities: No clubbing, cyanosis, edema, or lymphadenopathy appreciated. Skin: Macular papular rash on upper chest and shoulders. Normal temperature, turgor, and texture; no ulcers or subcutaneous nodules appreciated. Neurological: Intubated and sedated. Psychiatric: Intubated and sedated. Lines: Right IJ, right radial arterial line, right Lasha femoral catheter Lab and Diagnostics Result Diagram: 12/20/16 0500 12/20/16 0500 Additional Diagnostics DateTimeAnalyzed 04:57:00 -_ pH ____7.410 - 7.350 7.450 pCO2 ___43.2__ -mmHg 35.0 45.0 pO2 ___76.3__ -mmHg 69.0 116 HCO3- ___26.9__ -mmol/L 22.0 26.0 Assessment & Plan Naveed Maciel is a 56 year old male with past medical history significant for COPD who presented to the emergency department via EMS complaining of dyspnea and 3 days of flu-like symptoms. Intubated after failing on BiPAP and admitted for septic shock and acute hypoxemic respiratory failure. Hospital 3. 1. Septic shock, present on admission, active. - Criteria include: HR 144, RR 41, O2 sats 83%, lactic acid 6.6, BUN 65, creatinine 3.71, procalcitonin 180.38. - Etiology secondary to pneumococcal pneumonia and influenza A. - Right IJ and right radial arterial line placed 12/18. - Fluid resuscitation initially with 5L NS and switched to Bicarb/D5W now discontinued. - Albumin Q8H x 3 doses on 12/19. - Phenylephrine gtt started 12/18 and titrated off overnight on 12/19. - Blood cultures growing strep x2 and sputum positive for strep. 2. Acute hypoxemic and hypercapnic respiratory failure, present on admission, active. - Etiology secondary to pneumococcal pneumonia in the setting of COPD and past history of cocaine use. - Patient intubated after failing BiPAP in ED. - CT chest on 12/18 showed dense consolidation bilaterally within the dependent portions of the lung. - Vent settings per Critical Care/Pulmonology Team. ARDS settings. - Current settings: FiO2 50 PEEP 12 RR 22 TV 410 - Concern for aspiration. Metronidazole added 12/19 for anaerobic coverage. 3. Pneumococcal pneumonia /pneumococcal bacteremia, present on admission, active. - CXR and CT as above. - Vancomycin and Zosyn given in ED. - Antibiotics switched to azithromycin (12/18) and ceftriaxone (12/19). - Procalcitonin 180.83 on admission. - Strep pneumonia urine antigen positive. - Blood and sputum cultures positive. Sensitive for penicillins. 4. Lactic acidosis, present on admission, resolved. - On admission lactic acid 6.6. - Lactic acid trended up to 7.4. Currently 1.7. - We will continue to monitor closely. 5. Acute kidney injury, present on admission, active. - Unknown if patient has underlying chronic kidney disease. - On admission BUN 65 and creatinine 3.71 - BUN/creatinine worsened but urine output overnight 350 mL. - Lasix challenge today. Will monitor closely. - Consideration of dialysis. - Avoid nephrotoxic medications as able. - Nephrology consulted. dialysis initiated.Appreciate time and recommendations. 6. Influenza A, present on admission, active. - Tamiflu 30 mg twice a day started 12/18 10 doses. 7. Thrombocytopenia, present on admission, active. - Unknown baseline. Etiology likely sepsis. - On admission platelets 74. Trending down at this time. - DIC panel does not suggest DIC. No schistocytes on blood smear. - Will continue to monitor. - DVT prophylaxis withheld at this time. 8. Upper GI bleed, present on admission, active. - Coffee-ground material reported from OG tube on admission. - Sputum guaiac positive. - Hemoglobin and hematocrit have decreased since admission but likely secondary to fluid resuscitation. - Type and cross with 2 units PRBCs on hold. - Holding DVT prophylaxis. - Pantoprazole 40 mg BID. - Will consider GI consult if H&H drops or more active bleeding is visualized. 9. COPD, present on admission, unknown baseline. 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 - Unknown if patient has outpatient medication regimen. - Treatment as above. 10. Tobacco use, present on admission, chronic. - Consider Nicotine patch once patient awake. 11. Hyperglycemia, present on admission, active. - Insulin regular low dose correctional scale. - Hemoglobin A1c 5.7. High Risk Medications: Fentanyl and propofol Disposition: Patient currently intubated and sedated in the ICU. Prognosis guarded at this time. GI Prophylaxis: Proton Pump Inhibitor VTE Prophylaxis: Other (Held at this time due to thrombocytopenia) VTE Mechanical Devices: Intermittant Pneumatic CD Resuscitation Status: CPR: Attempt Resuscitation Attending Statement patient seen and examined with Dr Palomo ,I agree with history,exam ,assessment and plan as outlined above . MESSI PALOMO DO Dec 20, 2016 07:01 Ariel Berg MD Dec 20, 2016 20:22
--- NOTE | 2016-12-20 10:52 | DRSVH ---
PROCEDURE: X-RAY CHEST ONE VIEW, PORTABLE ([id number]) INDICATIONS: ET tube placement TECHNIQUE: One view of the chest was acquired. COMPARISON: [facility], CR, XR CHEST 1VW (PORTABLE), 12/20/2016, 4:11. FINDINGS: Surgical changes and devices: Stable positioning of the ETT and right IJ CVL. NG tube has has been p laced tube tip traversing the GE junction. Lungs and pleura: Diffuse, widespread bilateral pulmonary interstitial and air space opacities are pr esent not significantly changed from prior examination suggesting pulmonary edema and/or diffuse bila teral inflammatory process.. Mediastinum: Mediastinal contours appear normal. Heart size is normal. Bones and chest wall: No suspicious bony lesions. Overlying soft tissues appear unremarkable. IMPRESSION: No significant change from prior examination. Developing ARDS cannot be excluded. Dictated by: Soren Johnson [facility] Interpreted: Jordyn Dominguez MD on 12/20/2016 at 10:50 Transcribed by: GIRMA on 12/20/2016 at 10:51 Approved by: Jordyn Dominguez MD, PhD on 12/20/2016 at 10:56
[2016-12-20] MEDS: 0.9% Sodium Chloride 250 ML IV SCH (12:52)
[2016-12-20] MEDS: metroNIDAZOLE Inj 1,000 MG in IV Premix 1 EACH IV SCH ×2 (12:53→21:40)
[2016-12-20] MEDS: fentaNYL 2,500 mCg/250 mL 2,500 MCG in IV Premix 1 EACH IV SCH ×2 (13:07→22:27)
--- NOTE | 2016-12-20 15:27 | PCM.PROC ---
Procedure Note Date of Service: Dec 20, 2016 Pre Procedure Diagnosis: Acute kidney injury Post Procedure Diagnosis: Same Procedure: Insertion of right femoral venous dialysis catheter Provider and Air Turning Machine Feeder: Dr. Hang Jansen Indication for Procedure: Acute kidney injury requiring acute hemodialysis Procedural Analgesia: 1% Xylocaine via local infiltration Procedure Details: After informed consent was obtained from the patient's sister patient was positioned in the supine position with his feet externally rotated. The area of the right femoral artery was palpated and prepped and draped in a sterile manner. The area was cleaned with chlorhexidine soap and then wiped with alcohol wipes. The femoral artery was palpated as were the other landmarks in the inferior inguinal region. The area just medial to the femoral pulsation was infiltrated with 1% Xylocaine and the femoral vein was entered with the corn breeder needle. The needle was withdrawn and a Cook previously connected to a 10 cc syringe was flushed with saline. Following the track of the corn breeder needle, the femoral vein was entered as noted by a flash of venous blood. Leaving the Cook needle in place, the syringe was disconnected and a flexible guidewire was passed through the needle. A 4 mm incision was made in the skin and several graduated dilators were passed over the guidewire and withdrawn. Leaving the guidewire in place, a 24 cm Mahurkar catheter was passed over the guidewire and the wire was removed leaving the catheter in place. The catheter was flushed with normal saline the snaps to each catheter were closed and sterile hubs were connected. Two interrupted suture were place and the are was clean with a sterile dressing applied. Pt tolerate the procedure well and no complications were noted. An addition 6 pack of platelets were given afterward for thrombocytopenia. Post Procedure Plan: Acute dialysis Hang Garsia DO Dec 20, 2016 15:27
--- NOTE | 2016-12-20 15:32 | PCM.PNMED ---
Subjective Date of Service Dec 20, 2016 Subjective The patient still remains on the ventilator around his BUN and creatinine continue to rise. Yesterday he had 6 L in and 675 mL also urine out. He continues to have a persistent leukocytosis with a left shift along with thrombocytopenia. He is on 50% O2 was 12 people. Today his sodium is 132 potassium 4.4 chloride 86 CO2 26 BUN and creatinine were 87 and 5.03. He was given 200 mg of furosemide was some increase in urine output. I discussed the case with Dr. Perdomo and with the patient's sister and will proceed with placing a of venous dialysis catheter and go ahead with dialysis today. Exam Vital Signs Vital Sign - Last Date Time Temp Pulse Resp B/P Pulse Ox O2 Delivery O2 Flow Rate FiO2 12/20/16 12:49 36.5 90 20 119/70 94 Mechanical Ventilator 12/20/16 11:50 50 12/18/16 12:26 16 Intake and Output 12/19/16 12/19/16 12/20/16 Cumulative From/Thru 15:00 23:00 07:00 12/18/16 10:01 - 12/20/16 06:25 Intake Total 2567 ml 1326 ml 69553 ml Output Total 350 ml 350 ml 1725 ml Balance 2217 ml 976 ml 95846 ml Intake IV Total 2495 ml 1100 ml 12143 ml Tube Feeding 72 ml 136 ml 208 ml Tube Irrigant 0 ml 90 ml 90 ml Output Urine Total 300 ml 350 ml 1075 ml Gastric Drainage Total 50 ml 650 ml Exam The patient remains sedated on a ventilator. There is no evidence of periorbital edema and pale sclera. Lungs continue to show dependent rhonchi and scattered end expiratory wheezes. There are also some scattered rhonchi. With the cold and somewhat distant heart sounds were noted. Abdomen remains distended and he is tolerating his tube feedings with minimal residuals. There was diminished bowel sounds with no tenderness, rebound, or guarding noted. Extremities showed some generalized anasarca. IVs and Medications Medications Reviewed: Medications were reviewed in detail Lab and Diagnostics Result Diagram: 12/20/16 0500 12/20/16 0500 Microbiology BCx and SCx positive for Strep pneumo Resp PCR positive for Flu A H3 Strep pneumo urine ag positive Additional Diagnostics DateTimeAnalyzed 04:57:00 -_ pH ____7.410 - 7.350 7.450 pCO2 ___43.2__ -mmHg 35.0 45.0 pO2 ___76.3__ -mmHg 69.0 116 HCO3- ___26.9__ -mmol/L 22.0 26.0 Assessment & Plan Impression #1 acute tubular necrosis secondary to sepsis #2 metabolic acidosis which appears resolved #3 respiratory failure Recommendation: I have received permission from the patient's history of drooling place a dialysis catheter and do dialysis on him today. Place a dialysis catheter. He is being dialyzed for 3 hours on aerobic clear dialyzer and a 3 potassium bath. We will not be giving him any heparin 2-2.5 L of fluid off. GI Prophylaxis: Proton Pump Inhibitor VTE Prophylaxis: Other (Held at this time due to thrombocytopenia) VTE Mechanical Devices: Intermittant Pneumatic CD Resuscitation Status: CPR: Attempt Resuscitation Hang Garsia DO Dec 20, 2016 15:32
[2016-12-20] MEDS ORDERED: 0.9% Sodium Chloride 250 ML IV ONE (15:40)
--- NOTE | 2016-12-20 16:36 | ABG ---
DateTimeAnalyzed 16:29:00 -_ pH ____7.406 - 7.350 7.450 pCO2 ___44.5__ -mmHg 35.0 45.0 pO2 ___59.0__ -mmHg 69.0 116 HCO3- ___27.4__ -mmol/L 22.0 26.0 ABE ____2.8__ -mmol/L -2.0 2.0 tHb ___11.0__ -g/dL O2Hb ___87.7__ -% COHb ____1.1__ -% MetHb ____1.7__ -% sO2 ___90.2__ -% 25.0 FIO2 ___50.0__ -% PEEP ___12.0__ -cmH2O Set_RR ___22.0__ -b/min Vt __580.0__ -L Drawn By NB - Date/Time Notified____ 16:36:00 -_ Oxygen Device 1 VENTILATOR - Notified By NB - Notified Whom _Emma, RN - B 764 -mmHg tO2 ___13.6__ -Vol% Masoud test N/A -
--- NOTE | 2016-12-20 17:28 | DRSVH ---
PROCEDURE: X-RAY CHEST ONE VIEW, PORTABLE ([id number]) INDICATIONS: worsening hypoxia following procedure TECHNIQUE: One view of the chest was acquired. COMPARISON: [facility], CR, XR CHEST 1VW (PORTABLE), 12/20/2016, 8:48. FINDINGS: Surgical changes and devices: ET tube, central venous catheter and NG tube are stable in position. Lungs and pleura: No pleural effusions or pneumothorax. Airspace opacities in the lungs bilaterally with perihilar distribution are stable. Mediastinum: Mediastinal contours appear normal. Heart size is normal. Bones and chest wall: No suspicious bony lesions. Overlying soft tissues appear unremarkable. IMPRESSION: Stable examination compared to 12/20/2016 at 0848 hours. Bilateral lung air space opaciti es are stable. Dictated by: Jordyn Dominguez MD, PhD on 12/20/2016 at 17:25 Approved by: Jordyn Dominguez MD, PhD on 12/20/2016 at 17:27
--- NOTE | 2016-12-20 17:57 | NUR ---
Sedation/Activity/SpO2 Vent: Sedation/Activity: P: patient is restless and actively attempting to extubate self by using his teeth and tongue. I: MD was notified. Dr Perdomo to increase Fentanyl to 50mcg/kg/min. E: Pt able to participate with PT and sat up at EOB. Patient intermittently attempts to reach for ventilator tubing with his hands and continues to attempt to work tubing out with his teeth. Fentanyl increased to 75mcg/kg/min per Dr Castillo. SpO2-Vent: P: patients vent settings were 50%/12PEEP/22RR/410TV SpO2 settings were mid 90s until HOB was put down to 15degrees for new R femoral HD catheter placement (Tube feed off during this time). Post catheter insertion SpO2 was sustaining low 90s. I: RT called to assess. Dr Perdomo notified. Increased PEEP from 12 to 14. E: SpO2: continues to maintain low 90s. RT called to assess.
--- NOTE | 2016-12-20 18:14 | NUR ---
spiritual care: pt request brief introductory visit with pt's sister Milind (from [place]) pt sedated and intubated. sister welcomed spiritual care on behalf of pt and shared some of his reading preferences.
[2016-12-20] MEDS: Phenylephrine Inj 20,000 MCG in 0.9% Sodium Chloride 248 ML IV SCH (18:25)
--- NOTE | 2016-12-20 18:34 | NUR ---
Hemodialysis note: 3 hr tx. Net UF 2200. Femoral cath put in today and 1st tx. QB 250, BP in the low 100s, dialysis temp lowered to 36.5. Pt intubated O2 in the low 90% throughout tx; managed by respiratory care. Responsive with opening eyes, focusing and seeming to respond to orientation and instructions to relax. Dresg applied CHG and chloroprep. Platelets given in peripheral line to prevent clotting system. Serology drawn. Cath limbs dwelled with Heparin 1000. Please see DTR for complete record of VS. Pt stable at end of tx.
--- NOTE | 2016-12-20 23:47 | ABG ---
DateTimeAnalyzed 23:42:00 -_ pH ____7.381 - 7.350 7.450 pCO2 ___44.0__ -mmHg 35.0 45.0 pO2 ___54.5__ -mmHg 69.0 116 HCO3- ___25.5__ -mmol/L 22.0 26.0 ABE ____0.7__ -mmol/L -2.0 2.0 tHb ___10.6__ -g/dL O2Hb ___84.7__ -% COHb ____1.1__ -% MetHb ____1.9__ -% sO2 ___87.3__ -% 25.0 FIO2 ___60.0__ -% PEEP ___14.0__ -cmH2O Set_RR ___22.0__ -b/min Vt __410.0__ -L Drawn By MK - Date/Time Notified____ 23:46:00 -_ Oxygen Device 1 VENTILATOR - Notified By MK - B 764 -mmHg tO2 ___12.6__ -Vol% Masoud test N/A -
[2016-12-21] VITALS (14 sets, daily range): BP systolic 96–129; BP diastolic 47–65; PULSE 111–122; RESP 22–24; O2SAT 89–93
[2016-12-21] MEDS: Chlorhexidine 0.12% 15 mL Oral Solution MT SCH ×6 (00:17→20:36)
[2016-12-21] MEDS: Phenylephrine Inj 20,000 MCG in 0.9% Sodium Chloride 248 ML IV SCH (02:45)
[2016-12-21 04:08] LABS: Mean Corpuscular Hemoglobin 33.8 pg (27.0-35.0)
[2016-12-21 04:31] LABS: BASOPHILS % (AUTO) 0 % (0-3); EOSINOPHILS % (AUTO) 0 % (0-5); MONOCYTES % (AUTO) 0 % (4-12); NEUTROPHILS % (AUTO) 89 % (40-74); Platelet Count 92 bil/L (150-400)
--- NOTE | 2016-12-21 04:34 | ABG ---
DateTimeAnalyzed 04:30:00 -_ pH ____7.344 - 7.350 7.450 pCO2 ___47.5__ -mmHg 35.0 45.0 pO2 ___69.6__ -mmHg 69.0 116 HCO3- ___25.2__ -mmol/L 22.0 26.0 ABE ___-0.2__ -mmol/L -2.0 2.0 tHb ___11.3__ -g/dL O2Hb ___90.5__ -% COHb ____1.0__ -% MetHb ____1.9__ -% sO2 ___93.2__ -% 25.0 FIO2 ___80.0__ -% PEEP ___16.0__ -cmH2O Set_RR ___22.0__ -b/min Vt __410.0__ -L Drawn By MK - Date/Time Notified____ 04:34:00 -_ Oxygen Device 1 VENTILATOR - B 763 -mmHg tO2 ___14.5__ -Vol% Masoud test N/A -
[2016-12-21 07:41] LABS: Magnesium 2.5 mg/dL (1.6-2.6); Phosphorus 6.4 mg/dL (2.5-4.9)
--- NOTE | 2016-12-21 07:55 | NUR ---
Pt A&O X 3 pleasant lady. Frequent complaints of pain in abd and occasional headache. Treated with morphine and tylenol with good resolve. Able to titrate down norepi from .08 down to .04 and BP remains stable. Family at bedside and other VSS. Good urine output and will continue to support and monitor.
--- NOTE | 2016-12-21 07:59 | NUR ---
Previous not was for a different patient.
--- NOTE | 2016-12-21 08:01 | NUR ---
Pt remains on vent at 80 % with sats around 90. Arousal to voice commands and able to follow simple commands, move fingers and toes. Some bloody secretions out of ET tube and as he becomes more awake, sats drop into the 80's. Prop a 50 mcg and fentanyl at 75. Dialysis removed ~2.5 liters and urine output was 350 ml's. Afebrile sinus tach other VSS. Will continue to support and monitor.
[2016-12-21] MEDS: metroNIDAZOLE Inj 1,000 MG in IV Premix 1 EACH IV SCH ×2 (09:41→20:36)
[2016-12-21] MEDS: Pantoprazole 4 mg/mL 10 mL Inj IVPUSH SCH ×2 (09:41→16:30)
[2016-12-21] MEDS: cefTRIAXone Inj 2,000 MG in Dextrose 5% Minibag Plus 50 ML IV SCH (09:41)
[2016-12-21] MEDS: Azithromycin Inj 500 MG in Dextrose 5% w/Vial Mate 250 ML IV SCH (09:41)
[2016-12-21] MEDS: 0.9% Sodium Chloride 250 ML IV SCH ×2 (09:44→22:09)
--- NOTE | 2016-12-21 10:34 | PROG NOTE ---
[address] [address] PROGRESS NOTE PATIENT: DOUGIE GARDUNO : 1960 MR#: [id number] ADMIT: 12/18/2016 JOB ID: [id number] DATE: 12/21/2016 INFECTIOUS DISEASE FOLLOW UP NOTE: REASON FOR FOLLOWUP: Bacteremic pneumococcal pneumonia with ventilatory dependent respiratory failure. INTERVAL HISTORY: The patient remains critically ill in the ICU. He is requiring higher levels of FiO2 and his white blood count is also climbing even as his procalcitonin falls. The patient is now completely awake on the ventilator. He looks anxious but follows commands such as shaking hands or moving his foot and appears to understand at least some details about his situation. He clearly would like the endotracheal tube removed and has tried to do this on his own. He is clearly not in a position where he would tolerate this and efforts were made to explain this to him today. This case discussed in detail with the ICU team, nursing and respiratory therapist during rounds. PHYSICAL EXAMINATION: Reveals an afebrile gentleman, temperature 37.5, pulse is 110-120, blood pressure 124/57. His O2 sats are only in the upper 80s despite being on 70% FiO2 and 16 of PEEP. Examination of the eyes reveals no scleral icterus. Oral cavity is notable for endotracheal tube, orogastric tube. His central line appears benign in the right neck. His lungs are notable for some scattered wheezing and a few fine crackles but relatively clear anteriorly. Cardiac tones tachycardic without murmur. His abdomen is benign. Dubois catheter is present. Extremities are well perfused. LABORATORIES: Include a white count which has actually increased to 26,000, down to 7% bands though. So overall I think that is positive. His creatinine is 4.5 and he was dialyzed yesterday. He continues to have a poor urine output. Alk phos 165 but ALT and AST have now completely normalized. Albumin 2.7. Procalcitonin has gone from 540 yesterday to 100 today. We did change machines but we believe this represents a significant decrement. Serologic studies include negative hepatitis B surface antigen, negative hep C and negative HIV. No new micro is available. Recall that his sputum and blood grew pneumococcus and his urine antigen was positive. We also had evidence that he had acute influenza A H3. The patient's chest x-ray shows bilateral infiltrates as before without pleural effusions. IMPRESSION: From an Infectious Disease point of view, the patient is somewhat better. His white count is climbing but there more mature neutrophils now and less band forms, which is a sign of improvement. His procalcitonin has fallen a great deal and he is not requiring vasopressor agents. His main problems now are his renal failure as well as what may be early developing ARDS. This was discussed in great detail during ICU rounds. At this point, I see no evidence for a secondary infection beyond the Pneumococcus which is already falling on the heels of the influenza A infection. RECOMMENDATIONS: 1. Continue azithromycin through tomorrow to finish five days of therapy. 2. Continue ceftriaxone or switch to penicillin as preferred for treatment of the Pneumococcus. 3. The patient is still on Flagyl for concerns about aspiration pneumonia during his initial presentation and it would be reasonable to continue the Flagyl through about December 24. 4. The Tamiflu will continue on a renally adjusted dose to complete a five day course. 5. This case discussed extensively during ICU rounds and will continue to follow with you.
--- NOTE | 2016-12-21 10:53 | PCM.PNMED ---
Subjective Date of Service Dec 21, 2016 Subjective Pulmonary critical care consultation progress note: Problems: ARDS Acute hypoxic, hypercapnic (potential for chronic component here) respiratory failure requiring intubation having not responded to BiPAP. Septic shock Streptococcal Pneumonia/bacteremia Influenza A pneumonia AG metabolic acidosis, metabolic alkalosis, respiratory acidosis ALBERTINA-ATN secondary to sepsis COPD-h/o smoking crack cocaine Coagulopathy/thrombocytopenia Electrolyte abnormalities: Hyponatremia, hypochloremia, hyperphosphatemia and hypocalcemia Maculopapular rash over upper torso, neck and head-concern for drug rash Subjective: Yesterday following placement of femoral dialysis catheter, patient experienced decreased O2 saturations. Status post chest x-ray did not demonstrate any acute/change to his pulmonary disease. His PEEP was increased to 14 from 12. Overnight, he continued to have sats dropping prompting increase of PEEP to 16 and an increase in FiO2 0.8. Yesterday continued to be quite agitated/restless, chewing/using his to try to remove the tube out of his mouth. This prompted an increase in fentanyl from 50 to 75. Today he opens his eyes to my voice, and indicates with head nodding that she has pain in his chest, but nowhere else. This review of systems is somewhat equivocal as she received differing answers and responds to questions from the nurse, myself, fellow providers following his case. ROS impossible given current patient's status. Exam Vital Signs Vital Sign - Last Date Time Temp Pulse Resp B/P Pulse Ox O2 Delivery O2 Flow Rate FiO2 12/21/16 07:29 115 124/57 89 70 12/21/16 04:30 37.5 24 Mechanical Ventilator 12/18/16 12:26 16 Intake and Output 12/20/16 12/20/16 12/21/16 Cumulative From/Thru 15:00 23:00 07:00 12/18/16 10:01 - 12/20/16 18:32 Intake Total 214 ml 1330 ml 03004 ml Output Total 2500 ml 4225 ml Balance 214 ml -1170 ml 62186 ml Intake Oral 0 ml 0 ml IV Total 1003 ml 21066 ml Tube Feeding 80 ml 288 ml Platelets 214 ml 247 ml 461 ml Tube Irrigant 90 ml Output Urine Total 300 ml 1375 ml Gastric Drainage Total 650 ml Ultrafiltrate 2200 ml 2200 ml # Bowel Movements 0 0 Exam Gen.: lying in hospital bed, intubated and sedated. moving head side to side and biting on tube. HEENT: Head, neck and upper chest are mildly erythematous ( maculopap rash without vesicles or ulcerations-the has improved since yesterday) . Pupils are equal and reactive to light, mucous membranes are somewhat dry. Chest: Somewhat coarse bilaterally more towards the bases and posterior lung hillman with rales. Cardiovascular: On the monitor it appears to be regular. No murmurs appreciated. Radial pulses are 2+ bilaterally. Do not appreciate JVD. Capillary refill is good distally in all 4. Abdomen: Moderately distended with bowel sounds present. Nontender. Do not appreciate organomegaly. Extremities: No edema. Lines: Dubois catheter, peripheral, right IJ central line, right radial arterial line. ETT, OG tube. Vent settings: FiO2 0.8, PEEP 16, respiratory rate 22 (patient is breathing more like 25), tidal volume 410 mL (this is 6 mL/kg predicted body weight). Peak and plateau difficult to assess given spontaneous breathing. High-risk medications: Fentanyl 75, propofol at 50. UOP 675 yesterday, with 650 today so far. Fluid balance +12.5L. IVs and Medications IV Fluids None Medications Reviewed: Medications were reviewed in detail Lab and Diagnostics Somewhat concerning as the WBC continues to increase to 26,000, with persistent neutrophilia (89%), and bandemia (7%). AG is 21, with a delta gap of greater than 2 Calcium is 7.4 (corrects to approximately 8.4) Phosphorous is 6.4 Magnesium is 2.5 LFTs look good except for alkaline phosphatase which is mildly elevated at 165 Albumin is 2.7 Procalcitonin today about all time low of 100 Result Diagram: 12/21/16 0355 12/21/16 0355 Microbiology BCx and SCx positive for Strep pneumo Resp PCR positive for Flu A H3 Strep pneumo urine ag positive X-Rays, CTs and MRIs Chest x-ray yesterday evening was unremarkable: No change/worsening/new intrathoracic abnormality. Additional Diagnostics DateTimeAnalyzed 04:30:00 -_ pH ____7.344 - 7.350 7.450 pCO2 ___47.5__ -mmHg 35.0 45.0 pO2 ___69.6__ -mmHg 69.0 116 HCO3- ___25.2__ -mmol/L 22.0 26.0 sO2 ___93.2__ -% 25.0 FIO2 ___80.0__ -% PEEP ___16.0__ -cmH2O Set_RR ___22.0__ -b/min Vt __410.0 Assessment & Plan 1. ARDS, severe: P/F ratio today is less than 100. As we have continued to have increasing difficulties maintaining saturations, the primary concern is worsening ARDS. As we are not able to obtain a bed that would allow proning at this time, we will proceed with paralysis. Cisatracurium is been initiated. We will increase his sedation at the same time as he is awake on current settings. This trial of paralysis will potentially last for up to 48 hours, and then be discontinued. Some mortality benefit demonstrated with use of neuromuscular blockade and early ARDS. Otherwise will continue to adjust the PEEP and FiO2 as needed to maintain saturations. Differential diagnosis for worsening oxygenation: Ventilator associated pneumonia (greater than 48 hours on the vent, needing to adjust his ventilator settings)-this seems unlikely given his decreasing pro-calcitonin and broad- spectrum coverage with antibiotics. PE is unlikely (ruled out on CTA several days ago). Pneumothorax is unlikely (ruled out on chest x-ray yesterday, bilateral breath sounds). 2. Acute hypoxic, hypercapnic (potential for chronic component here) respiratory failure requiring intubation having not responded to BiPAP: Pneumococcal pneumonia/bacteremia: Empiric antibiotics already going with Flagyl , Azithromycin and Ceftriaxone (today is day 4 of antibiotics). Influenza A H3 pneumonia. Oseltamivir via the tube (today is day 4). 2. Septic shock, resolved. Secondary to Pneumococcal PNA/bacteremia and influenza A. Cardiogenic component unlikely given echo findings. Has been off of pressors since 12/19/16. 3. Anion gap metabolic acidosis (lactic acidosis has normalized) with a metabolic alkalosis (we were giving him bicarbonate), with respiratory acidosis on ABG today. Secondary to his profound lactic acidosis (improving) in the setting of septic shock with contribution from his acute, and worsening renal failure with multiple electrolyte abnormalities as noted in detail below. Metabolic alkalosis secondary to iatrogenic administration of bicarbonate. Nephrology is involved, and plan to continue with dialysis today. 4. COPD Unknown if he is on outpatient medications. Reportedly a never tobacco smoker, but significant history smoking crack cocaine until about 2 years ago. Consideration for adding nebulized medications (DouNeb). At discharge he will likely require a long-acting medication such as Spiriva. 5. ALBERTINA-acute tubular necrosis in the setting of septic shock, somewhat improved following dialysis. Plan to proceed with dialysis again today with further fluid removal. 6. Coagulopathy and thrombocytopenia. Likely 2/2 septic shock. DIC evaluation is equivocal with some components still pending. Continue to hold Heparin. No active bleed noted. 7. Maculopapular rash over upper torso, neck and head-concern for drug rash. Vancomycin was discontinued 12/19/16 as the likely culprit. We will continue to monitor daily. 8. Electrolyte abnormalities: Hyponatremia, hypochloremia, hyperphosphatemia and hypocalcemia Likely combination of septic shock, renal failure. Dialysis to continue. We will continue to monitor labs and clinical progress. Recommendations: -Vent settings as noted with adjustments as needed. Continue to follow labs and gases. -Cisatracurium initiated. We will increase/adjust his sedation as follows: Bolus 75 g of fentanyl at this time with possibility of increasing his rate on the drip. We will also switch from propofol to Midazolam -Blood cultures repeated -Continue antibiotics/anitviral as detailed above as deemed necessary by infectious disease - dialysis as deemed necessary by nephrology CODE STATUS: Patient is full code DVT prophylaxis on hold due to Thrombocytopenia/coagulopathy GI prophylaxis with Protonix twice a day Droplet/contact precautions for Flu A Pulmonary critical care time spent: 45 minutes Attending Statement I have seen and examined this patient with the resident physician. Vital signs , labs, imaging have been reviewed. I agree with the assessment and plan above. Please refer to my separately dictated progress note for any modifications to above. Dionne Perdomo M.D. Pulmonary and Critical Care medicine Pager [phone] Kimo Pulliam DO Dec 21, 2016 10:53 Dionne Perdomo MD Dec 21, 2016 11:21
[2016-12-21] MEDS ORDERED: Norepinephrine 8,000 mCg/250 mL NS Premix IV ONE (11:05)
--- NOTE | 2016-12-21 11:07 | PCM.PNMED ---
Subjective Date of Service Dec 21, 2016 Subjective Patient remains quite critically ill. He tolerated his first dialysis treatment yesterday without any significant blood pressure issues or other issues. Since that time he has had worsening oxygenation requiring increased FiO2 and increased PEEP. Yesterday he had a total of 650 mL syrup urine output and his blood pressure remains good. This morning he is still on the ventilator and his current settings are 70%, +16 of PEEP, CVP of 19, an intra- abdominal pressure of 20. His rash from several days ago continues to improve. This morning his pro-calcitonin is 100. White count is 26,000 with a hemoglobin of 10.5. Sodium is 140, potassium 4.7, chloride 89, CO2 25, BUN and creatinine are 69-4.5 respectively. His phosphorus is 6.5. Exam Vital Signs Vital Sign - Last Date Time Temp Pulse Resp B/P Pulse Ox O2 Delivery O2 Flow Rate FiO2 12/21/16 10:06 118 129/61 89 70 12/21/16 04:30 37.5 24 Mechanical Ventilator 12/18/16 12:26 16 Intake and Output 12/20/16 12/20/16 12/21/16 Cumulative From/Thru 15:00 23:00 07:00 12/18/16 10:01 - 12/20/16 18:32 Intake Total 214 ml 1330 ml 53860 ml Output Total 2500 ml 4225 ml Balance 214 ml -1170 ml 16615 ml Intake Oral 0 ml 0 ml IV Total 1003 ml 66243 ml Tube Feeding 80 ml 288 ml Platelets 214 ml 247 ml 461 ml Tube Irrigant 90 ml Output Urine Total 300 ml 1375 ml Gastric Drainage Total 650 ml Ultrafiltrate 2200 ml 2200 ml # Bowel Movements 0 0 Exam Lungs show diffuse rales more in the dependent area, intermittent end expiratory wheezes. Heart was tachycardic. Abdomen remains distended and somewhat firm. Bowel sounds are diminished. No palpable masses. Extremities showed some generalized edema with anasarca. Lab and Diagnostics Result Diagram: 12/21/1635412/21/16354 Microbiology BCx and SCx positive for Strep pneumo Resp PCR positive for Flu A H3 Strep pneumo urine ag positive X-Rays, CTs and MRIs Chest x-ray yesterday evening was unremarkable: No change/worsening/new intrathoracic abnormality. Additional Diagnostics DateTimeAnalyzed 04:30:00 -_ pH ____7.344 - 7.350 7.450 pCO2 ___47.5__ -mmHg 35.0 45.0 pO2 ___69.6__ -mmHg 69.0 116 HCO3- ___25.2__ -mmol/L 22.0 26.0 sO2 ___93.2__ -% 25.0 FIO2 ___80.0__ -% PEEP ___16.0__ -cmH2O Set_RR ___22.0__ -b/min Vt __410.0 Assessment & Plan Impression #1 sepsis with multisystem organ failure #2 acute tubular necrosis # 3 pulmonary edema with ARDS Recommendations #1 the patient is to be dialyzed today once again for 4 hours on a revaclear dialyzer, 2 potassium bath, no heparin, and will try to take 3-4 L if possible. Hang Garsia DO Dec 21, 2016 11:07
--- NOTE | 2016-12-21 11:19 | PROG NOTE ---
[address] [address] PROGRESS NOTE PATIENT: DOUGIE GARDUNO : 1960 MR#: [id number] ADMIT: 12/18/2016 JOB ID: [id number] DATE: 12/21/2016 PULMONARY CRITICAL CARE PROGRESS NOTE: Vital signs reviewed. The patient seen and evaluated with resident physician, Dr. Kimo Pulliam. Please refer to his separate detailed note for additional information. The patient is a 56-year-old man with pneumococcal bacteremia and pneumonia, influenza A pneumonia admitted with septic shock and ARDS. INTERVAL HISTORY: He continues to be severely hypoxic, on 70% FiO2 and 16 cm of PEEP with sats in the high 80s. He got dialyzed yesterday and had 2 L of fluid taken off, but despite this, his oxygenation continues to worsen. No fevers. No other events. Interval history as above. PHYSICAL EXAMINATION: Vital signs reviewed. T-max 37.6, pulse 118, respirations 24, BP 129/61, sats 89% on 70% FiO2, 16 cm of PEEP. General: Intubated, sedated. Chest clear to auscultation. LABORATORIES: Reviewed. WBC up to 26, platelets 92 post platelet transfusion yesterday for line placement. Electrolytes reviewed. Procalcitonin down to 100 from 540. Culture data shows no new growth. His MRSA screen is negative. IMAGING: Chest x-ray reviewed and shows bilateral dense infiltrates. ET tube and lines in appropriate position. Arterial blood gas shows pH 7.34, pCO2 of 47, pO2 of 69, bicarbonate of 25. ASSESSMENT AND RECOMMENDATIONS: 1. Acute respiratory distress syndrome. 2. Septic shock-resolved. 3. Acute hypoxic respiratory failure. 4. Pneumococcal bacteremia pneumonia. 5. Influenza pneumonia. 6. Thrombocytopenia. This 56-year-old man is presenting with pneumococcal pneumonia and bacteremia as well as influenza A pneumonia. He is severely hypoxic, meeting criteria for ARDS currently on 70% FiO2 with 16 of PEEP. From a respiratory standpoint, his chest x-rays looks the same and there is no evidence of pneumothorax on x-ray today. We attempted to get the proning bed for him but it looks like the staff has not yet been trained in this. I am going to transition him to a high PEEP protocol and increased his PEEP to 18 cm. He is at goal tidal volume of 6 cc/kg ideal body weight. However, his plateau pressure remains high although in part this may be because he is triggering breaths and making it hard to measure a true plateau pressure. We also are going to add a paralytic agent after increasing his sedation. We are going to switch from propofol to midazolam infusion and increase his fentanyl infusion to make sure he is comfortable and adequately sedated before adding a paralytic agent. Antibiotic rivers, he remains on ceftriaxone, azithromycin and Flagyl for covering the Pneumococcus as well as aspiration and atypicals. He is also on Tamiflu and should do five days of this. He is on tube feeds at goal. He is getting dialysis again today per Dr. Garsia with the goal of 2 L off. He is on appropriate GI prophylaxis and DVT prophylaxis is on hold because of thrombocytopenia, but if his platelets remain above 50 tomorrow, I think we should start subcu heparin. He is a FULL CODE and his sister is his legal next of kin. CRITICAL CARE TIME: 60 minutes.
[2016-12-21] MEDS: Norepineph 8,000 mCg/250 mL NS 8,000 MCG in IV Premix 1 EACH IV SCH ×2 (11:46→22:09)
[2016-12-21] MEDS: Midazolam Inj 100 MG in IV Premix 1 EACH IV PRN (11:47)
--- NOTE | 2016-12-21 11:49 | PCM.PNMED ---
Subjective Date of Service Dec 21, 2016 Subjective Naveed Maciel is a 56 year old male with past medical history significant for COPD who presented to the emergency department via EMS complaining of dyspnea and 3 days of flu-like symptoms. Intubated after failing on BiPAP and admitted for septic shock and acute hypoxemic respiratory failure. Hospital 4. Vent day 4. Overnight: Patient oxygen saturations dropped overnight and PEEP was increased to 16 and FiO2 was increased to 0.8. Blood pressures remained stable and he has been off phenylephrine for over 24 hours. Today: Patient intubated and currently on Fentanyl 100 and propofol 50. He opens eyes to voice and follows commands. He nods yes and no to questions. He denies any pain at this time but this is unreliable as other providers have reported complaints of chest pain. Will continue to assess. Review of systems difficult to interpret as it varies from provider to provider. Exam Vital Signs Vital Sign - Last Date Time Temp Pulse Resp B/P Pulse Ox O2 Delivery O2 Flow Rate FiO2 12/21/16 04:47 112 114/64 90 70 12/21/16 04:30 37.5 24 Mechanical Ventilator 12/18/16 12:26 16 Intake and Output 12/20/16 12/20/16 12/21/16 Cumulative From/Thru 15:00 23:00 07:00 12/18/16 10:01 - 12/20/16 18:32 Intake Total 214 ml 1330 ml 72938 ml Output Total 2500 ml 4225 ml Balance 214 ml -1170 ml 46244 ml Intake Oral 0 ml 0 ml IV Total 1003 ml 72016 ml Tube Feeding 80 ml 288 ml Platelets 214 ml 247 ml 461 ml Tube Irrigant 90 ml Output Urine Total 300 ml 1375 ml Gastric Drainage Total 650 ml Ultrafiltrate 2200 ml 2200 ml # Bowel Movements 0 0 Exam General: Intubated. Responded to commands and questions with head nods. HEENT: Normocephalic, atraumatic. External ears without defect. Pupils equal, round, and reactive to light and accommodation. Anicteric sclerae, moist conjunctivae, and no lid lag. Mucous membranes dry. ETT in place. Neck: Supple with full range of motion. No jugular venous distension. No bruits. No lymphadenopathy or thyromegaly. Cardiovascular: Tachycardic with regular rhythm no murmurs, rubs, or gallops appreciated. Pulmonary: Course breath sounds in bilateral bases. No wheezes or rhonchi. Abdomen: Soft, nondistended, active bowel sounds. Old midline surgical incision present. No hepatosplenomegaly. Extremities: No clubbing, cyanosis, edema, or lymphadenopathy appreciated. Skin: Macular papular rash on upper chest and shoulders less intense than yesterday. Normal temperature, turgor, and texture; no ulcers or subcutaneous nodules appreciated. Neurological: Intubated and sedated. Psychiatric: Intubated and sedated. Lines: Right IJ, right radial arterial line, right Lasha femoral catheter, left and right peripherals, Dubois catheter, ETT, OG Lab and Diagnostics Procalcitonin 540 -> 100 Result Diagram: 12/21/16 0355 12/21/16 0355 Microbiology BCx and SCx positive for Strep pneumo Resp PCR positive for Flu A H3 Strep pneumo urine ag positive X-Rays, CTs and MRIs X-RAY CHEST ONE VIEW, PORTABLE IMPRESSION: Stable examination compared to 12/20/2016 at 0848 hours. Bilateral lung air space opacities are stable. Dictated by: Jordyn Dominguez MD, PhD on 12/20/2016 at 17:25 Approved by: Jordyn Dominguez MD, PhD on 12/20/2016 at 17:27 CT ANGIO CHEST PULMONARY EMBOLISM IMPRESSION: 1. Dense consolidation bilaterally within the dependent portions of the lungs. These findings are most consistent with extensive aspiration or multifocal pneumonia. 2. Hilar and mediastinal adenopathy, likely infectious/reactive in nature. Short interval followup is recommended with resolution of these findings to ensure there is no underlying pulmonary neoplasm. 3. Tip of the NG tube in the gastroesophageal region. Consider advancing the tube into the gastric fundus. Dictated by: Joan Simmons M.D. on 12/18/2016 at 16:09 Approved by: Joan Simmons M.D. on 12/18/2016 at 16:16 ADDENDUM: 4. No acute pulmonary embolus. Dictated by: Joan Simmons M.D. on 12/18/2016 at 16:18 Approved by: Joan Simmons M.D. on 12/18/2016 at 16:19 US RENAL SONOGRAM IMPRESSION: 1. A 1.4 cm cyst in the superior pole the right kidney. Otherwise normal ultrasound appearance of kidneys. No hydronephrosis. 2. Cholelithiasis. No ultrasound evidence for acute cholecystitis. Dictated by: Dwain Gaona M.D. on 12/18/2016 at 18:18 Approved by: Dwain Gaona M.D. on 12/18/2016 at 18:21 Additional Diagnostics DateTimeAnalyzed 04:30:00 -_ pH ____7.344 - 7.350 7.450 pCO2 ___47.5__ -mmHg 35.0 45.0 pO2 ___69.6__ -mmHg 69.0 116 HCO3- ___25.2__ -mmol/L 22.0 26.0 FIO2 ___80.0__ -% PEEP ___16.0__ -cmH2O Set_RR ___22.0__ -b/min Vt __410.0__ -L Assessment & Plan Naveed Maciel is a 56 year old male with past medical history significant for COPD who presented to the emergency department via EMS complaining of dyspnea and 3 days of flu-like symptoms. Intubated after failing on BiPAP and admitted for septic shock and acute hypoxemic respiratory failure. Hospital 4. Vent day 4. 1. Severe ARDS, present on admission, worsening. - Etiology secondary to sepsis and pneumococcal pneumonia in the setting of COPD and past history of cocaine use. - Patient intubated after failing BiPAP in ED. - CT chest on 12/18 showed dense consolidation bilaterally within the dependent portions of the lung. - Increasing FiO2 needs overnight. - Consideration of prone position and repeat CT chest today. - Vent settings per Critical Care/Pulmonology Team. - Concern for aspiration. Metronidazole added 12/19 for anaerobic coverage. 2. Pneumococcal pneumonia /pneumococcal bacteremia, present on admission, active. - CXR and CT as above. - Vancomycin and Zosyn given in ED. - Antibiotics switched to azithromycin (12/18) and ceftriaxone (12/19). - Procalcitonin 180.83 on admission. - Strep pneumonia urine antigen positive. - Blood and sputum cultures positive. Sensitive for penicillins. 3. Lactic acidosis, present on admission, resolved. - On admission lactic acid 6.6. - Lactic acid trended up to 7.4. Currently 1.7. - We will continue to monitor closely. 4. Acute kidney injury, present on admission, active. - Unknown if patient has underlying chronic kidney disease. - On admission BUN 65 and creatinine 3.71 - Right femoral catheter placed and hemodialysis yesterday with UF of 2200 ml. - Dialysis planned for today. - Avoid nephrotoxic medications as able. - Nephrology consulted. dialysis initiated.Appreciate time and recommendations. 5. Septic shock, present on admission, resolved. - Criteria include: HR 144, RR 41, O2 sats 83%, lactic acid 6.6, BUN 65, creatinine 3.71, procalcitonin 180.38. - Etiology secondary to pneumococcal pneumonia and influenza A. - Right IJ and right radial arterial line placed 12/18. - Fluid resuscitation initially with 5L NS and switched to Bicarb/D5W now discontinued. - Albumin Q8H x 3 doses on 12/19. - Phenylephrine gtt started 12/18 and titrated off overnight on 12/19. - Blood cultures growing strep x2 and sputum positive for strep. 6. Influenza A, present on admission, active. - Tamiflu 30 mg twice a day started 12/18 10 doses. 7. Thrombocytopenia, present on admission, active. - Unknown baseline. Etiology likely sepsis. - On admission platelets 74. Trending down at this time. - DIC panel does not suggest DIC. No schistocytes on blood smear. - Platelets transfused 2/1 prior to dialysis catheter placement. - Will continue to monitor. - DVT prophylaxis withheld at this time. 8. Upper GI bleed, present on admission, stable. - Coffee-ground material reported from OG tube on admission. - Sputum guaiac positive. - Hemoglobin and hematocrit have decreased since admission but likely secondary to fluid resuscitation. - Type and cross with 2 units PRBCs on hold. - Holding DVT prophylaxis. - Pantoprazole 40 mg BID. - Will consider GI consult if H&H drops or more active bleeding is visualized. 9. COPD, present on admission, unknown baseline. 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 - Unknown if patient has outpatient medication regimen. - Treatment as above. 10. Tobacco use, present on admission, chronic. - Consider Nicotine patch once patient awake. 11. Hyperglycemia, present on admission, active. - Insulin regular low dose correctional scale. - Hemoglobin A1c 5.7. High Risk Medications: Fentanyl and propofol Disposition: Patient currently intubated and with increasing FiO2 needs in the ICU. Prognosis guarded at this time. GI Prophylaxis: Proton Pump Inhibitor VTE Prophylaxis: Other (Held at this time due to thrombocytopenia) VTE Mechanical Devices: Intermittant Pneumatic CD Resuscitation Status: CPR: Attempt Resuscitation Attending Statement patient seen and examined with Dr Cordero ,I agree with history,exam ,assessment and plan as outlined above . MESSI CORDERO DO Dec 21, 2016 06:50 Ariel Berg MD Dec 21, 2016 15:00
--- NOTE | 2016-12-21 14:50 | NUR ---
NUTRITION FOLLOW-UP ASSESS: Pt is a 56 yo male admitted for septic shock and acute hypoxemic respiratory failure w/ bilateral pneumonia. Pt w/ acute tubular necrosis and ARDs. He was dialyzed yesterday and had 2.5 L removed. Dialysis planned again for today w/ the goal of 3-4 L being removed. Pt tolerating TFs - increasing to goal rate today. No BM x3 days. PMHX: COPD, Past history of drug abuse (per sister), tobacco user. No other history obtained d/t intubation and sedation. LABS: Reviewed. Na 132, Cl 89, BUN 69, Cr 4.51, Ca 7.4, Phos 6.4, Alk phos 165, Albumin 2.7 MEDS: Reviewed. Norepi, Protonix, Tamiflu, Propofol @ 24 ml/hr providing 634 kcal, Fentanyl GI: 0 BM reported SKIN: [place] 12 CURRENT WT: 88.2 kg BMI 29.6 kg/m2 IBW: 68.4 kg Admit Wt: 80 kg (BMI: 26.8 kg/m2) DIET: NPO NUTRITION SUPPORT: Pulmocare @ 55 ml/hr to provide 2449 total kcal (1815 kcal formula + 634 kcal propofol) and 76 g protein (100% kcal needs and 80% protein needs). ESTIMATED NEEDS: Vent, COPD, ATN Calories: 4799-8495 kcal/day (25-30 kcal/kg BW) Protein: 65-95 g/day (0.8-1.2 g/kg BW) Fluids: ~2000 ml (25 ml/kcal) NUTRITION DIAGNOSIS: 1.) Inadequate oral intake related to inability to consume sufficient energy as evidenced by NPO status and ventilation.---IMPROVED, on enteral nutrition 2.) Increased nutrient needs related to difficulty breathing as evidenced by COPD and acute respiratory failure.---PERSISTS NUTRITION INTERVENTION: 1.) Continue Pulmocare @ 55 ml/hr 2.) Adjust daily TF rate based on Propofol. MONITOR/EVALUATE: TF adv/juancarlos, wt, labs, GI, nutrition status, POC. Will continue to monitor per high nutritional risk guidelines.
--- NOTE | 2016-12-21 17:49 | NUR ---
Nimbex/Levophed Levophed started at 0.05mcg at 1100 r/t BP=70's/30's. 50mcg of Propofol gtt titrated and stopped at 1400. Versed was started at 3mcg/kg/min at 1200 r/t pt not responding to sedation, fighting ventilator and shaking head yes to "are you having trouble breathing?" Fentanyl slowly increased to 2000mcg. Nimbex ordered for when responding appropriately to sedation. Vent at 80% fio2, 18 Peep, 22 RR, and 410 TV with Spo2 89%. At 1700 Levophed at 0.08mcg, Versed at 5ml/hr, and Fentanyl at 200mcg. At 1720 pt sedated, RT at bedside, and Nimbex started at 3mcg increased to 5mcg at 1745 r/t eyes wide open and fighting vent. Train of 4 placed. Dialysis started at 1725, bp stable. 100cc out of tate today. Tube feed at 55ml/hr goal. Extra large loose brown diarrhea, will attempt FMS as long as pt remains stable with turning. Rotation module started at 1000. Pts sister at bedside this am and informed of pt status.
--- NOTE | 2016-12-21 21:33 | ABG ---
DateTimeAnalyzed 21:28:00 -_ pH ____7.212 - 7.350 7.450 pCO2 ___68.9__ -mmHg 35.0 45.0 pO2 ___70.7__ -mmHg 69.0 116 HCO3- ___26.7__ -mmol/L 22.0 26.0 ABE ___-2.3__ -mmol/L -2.0 2.0 tHb ___12.6__ -g/dL O2Hb ___89.2__ -% COHb ____0.8__ -% MetHb ____1.8__ -% sO2 ___91.6__ -% 25.0 FIO2 ___80.0__ -% PEEP ___18.0__ -cmH2O Set_RR ___22.0__ -b/min Vt __410.0__ -L Drawn By MK - Date/Time Notified____ 21:33:00 -_ Oxygen Device 1 VENTILATOR - Notified By MK - B 756 -mmHg tO2 ___15.9__ -Vol% Masoud test N/A -
--- NOTE | 2016-12-21 21:40 | NUR ---
Dialysis note: 4 hrs tx. 4000 ml net UF. Right femoral catheter, dsg dry and intact. Pls see DTR for VS details; cont on pressors, increased during tx. Qb 400. No heparin given. On vent @ 80% FiO2 with sat in the 90's. Stable tx. Catheter flushed, heparin dwelled and secured. Report given to Khushboo SOSA.
[2016-12-21] MEDS: fentaNYL 2,500 mCg/250 mL 2,500 MCG in IV Premix 1 EACH IV SCH (22:09)
--- NOTE | 2016-12-21 23:46 | ABG ---
DateTimeAnalyzed 23:41:00 -_ pH ____7.237 - 7.350 7.450 pCO2 ___57.9__ -mmHg 35.0 45.0 pO2 ___76.2__ -mmHg 69.0 116 HCO3- ___23.7__ -mmol/L 22.0 26.0 ABE ___-3.8__ -mmol/L -2.0 2.0 tHb ___11.5__ -g/dL O2Hb ___91.6__ -% COHb ____1.0__ -% MetHb ____1.7__ -% sO2 ___94.1__ -% 25.0 FIO2 ___80.0__ -% PEEP ___18.0__ -cmH2O Set_RR ___26.0__ -b/min Vt __410.0__ -L Drawn By MK - Date/Time Notified____ 23:46:00 -_ Oxygen Device 1 VENTILATOR - Notified By MK - B 755 -mmHg tO2 ___14.9__ -Vol% Masoud test N/A -
[2016-12-22] VITALS (14 sets, daily range): BP systolic 86–124; BP diastolic 48–71; PULSE 114–130; RESP 26–30; O2SAT 91–98
[2016-12-22] MEDS: Chlorhexidine 0.12% 15 mL Oral Solution MT SCH ×6 (01:05→20:49)
[2016-12-22] MEDS: Midazolam Inj 100 MG in IV Premix 1 EACH IV PRN ×2 (03:58→20:48)
[2016-12-22] MEDS ORDERED: 0.9% Sodium Chloride 500 ML ONE ×2 (03:59)
--- NOTE | 2016-12-22 04:52 | ABG ---
DateTimeAnalyzed 04:47:00 -_ pH ____7.242 - 7.350 7.450 pCO2 ___62.4__ -mmHg 35.0 45.0 pO2 ___70.8__ -mmHg 69.0 116 HCO3- ___26.0__ -mmol/L 22.0 26.0 ABE ___-1.8__ -mmol/L -2.0 2.0 tHb ___11.2__ -g/dL O2Hb ___90.9__ -% COHb ____1.0__ -% MetHb ____1.7__ -% sO2 ___93.4__ -% 25.0 FIO2 ___80.0__ -% PEEP ___18.0__ -cmH2O Set_RR ___26.0__ -b/min Vt __410.0__ -L Drawn By MK - Date/Time Notified____ 04:52:00 -_ Oxygen Device 1 VENTILATOR - Notified By MK - B 750 -mmHg tO2 ___14.3__ -Vol% Masoud test N/A -
[2016-12-22] MEDS: Cisatracurium Inj 200,000 MCG in 0.9% Sodium Chloride-Pha MIX 100 ML IV PRN ×2 (05:39→20:52)
[2016-12-22] MEDS: Norepineph 8,000 mCg/250 mL NS 8,000 MCG in IV Premix 1 EACH IV SCH ×2 (05:39→20:49)
[2016-12-22 05:54] LABS: Mean Corpuscular Volume 98.3 fL (81-100); Platelet Count 82 bil/L (150-400)
[2016-12-22 06:20] LABS: NEUTROPHILS % (AUTO) 89 % (40-74)
[2016-12-22 06:21] LABS: BASOPHILS % (AUTO) 0 % (0-3); EOSINOPHILS % (AUTO) 0 % (0-5); MONOCYTES % (AUTO) 2 % (4-12)
[2016-12-22 06:46] LABS: Magnesium 2.5 mg/dL (1.6-2.6); Phosphorus 9.3 mg/dL (2.5-4.9)
--- NOTE | 2016-12-22 07:29 | NUR ---
Nimbex/BP/Sedation Nimbex titrated down to have TOF 1:4. BIS monitoring showed 30s despite lowering of both Fentanyl and Versed gtt. Pt remained hypotensive even after dialysis. Levophed gtt titrated to maintain MAP >65. Care ongoing
--- NOTE | 2016-12-22 07:36 | ABG ---
DateTimeAnalyzed 07:29:00 -_ pH ____7.199 - 7.350 7.450 pCO2 ___66.2__ -mmHg 35.0 45.0 pO2 ___65.9__ -mmHg 69.0 116 HCO3- ___24.8__ -mmol/L 22.0 26.0 ABE ___-3.8__ -mmol/L -2.0 2.0 tHb ___11.3__ -g/dL O2Hb ___88.2__ -% COHb ____1.0__ -% MetHb ____1.6__ -% sO2 ___90.6__ -% 25.0 FIO2 ___80.0__ -% PEEP ___18.0__ -cmH2O Set_RR ___30.0__ -b/min Vt __340.0__ -L Drawn By as - Date/Time Notified____ 07:36:00 -_ Oxygen Device 1 VENTILATOR - Notified By ams - Notified Whom de [place] - B 748 -mmHg tO2 ___14.1__ -Vol% Masoud test N/A -
--- NOTE | 2016-12-22 08:01 | PCM.PNMED ---
Subjective Date of Service Dec 22, 2016 Subjective Pulmonary critical care consultation progress note: Problems: ARDS Acute hypoxic, hypercapnic (potential for chronic component here) respiratory failure requiring intubation having not responded to BiPAP. Septic shock Streptococcal Pneumonia/bacteremia Influenza A pneumonia AG metabolic acidosis, metabolic alkalosis, respiratory acidosis ALBERTINA-ATN secondary to sepsis COPD-h/o smoking crack cocaine Coagulopathy/thrombocytopenia Electrolyte abnormalities: Hyponatremia, hypochloremia, hyperphosphatemia and hypocalcemia Maculopapular rash over upper torso, neck and head-concern for drug rash Subjective: Increased sedation yesterday to facilitate paralysis. with bolus sedation, BP dropped, Levophed initiated. Last night, appropriate level of sedation attained, and patient was paralyzed with Nimbex (initiated at 1745). 4L off as UF in dialysis yesterday. Overnight, elevated peak/plat pressures on the vent, so increased RR to 30 ( from 26), and decreased Vt to 5cc/kg (from 6cc/kg). pH overnight steady at >7.2. ROS impossible given current patient's status. Exam Vital Signs Vital Sign - Last Date Time Temp Pulse Resp B/P Pulse Ox O2 Delivery O2 Flow Rate FiO2 12/22/16 05:14 120 101/51 93 80 12/22/16 04:35 37.0 30 Mechanical Ventilator 12/21/16 16:30 16.00 Intake and Output 12/21/16 12/21/16 12/22/16 Cumulative From/Thru 15:00 23:00 07:00 12/18/16 10:01 - 12/22/16 06:16 Intake Total 2275 ml 1900 ml 79195 ml Output Total 4100 ml 140 ml 8465 ml Balance -1825 ml 1760 ml 49160 ml Intake Oral 0 ml IV Total 1186 ml 1173 ml 14216 ml Tube Feeding 969 ml 667 ml 1924 ml Platelets 461 ml Tube Irrigant 120 ml 60 ml 270 ml Output Urine Total 100 ml 40 ml 1515 ml Stool Total 100 ml 100 ml Gastric Drainage Total 650 ml Ultrafiltrate 4000 ml 6200 ml # Bowel Movements 0 Exam Gen.: lying in hospital bed, intubated and sedated, and paralyzed. HEENT: Head , neck and upper chest are mildly erythematous (maculopap rash without vesicles or ulcerations-the has continuously improved since yesterday). Pupils are small (2mm), equal and minimally reactive to light, mucous membranes are somewhat dry. Chest: Somewhat coarse bilaterally more towards the bases and posterior lung hillmna with rales, but fairly clear anteriorly. Cardiovascular: Quite tachycardic (nurse reports that he went into the 130's a short time after they decreased his sedation). On the monitor it appears to be regular, but his QT looks quite prolonged. No murmurs appreciated. Radial pulses are 2+ bilaterally. Do not appreciate JVD. Capillary refill is good distally in all 4. Abdomen: Moderately distended with bowel sounds present. Do not appreciate organomegaly. Extremities: No edema. Lines: Dubois catheter, peripheral, right IJ central line (bandage is about 1/3 off, but stable), right radial arterial line (losing the securing bandage-IV therapy to come and assess). ETT, OG tube. Vent settings: FiO2 0.8, PEEP 18, respiratory rate 30, tidal volume 340 mL ( this is 5 mL/kg predicted body weight). Peak and plateau are 37/35 at this time. High-risk medications: Fentanyl 150, Midazolam 3, Norepinephrine 0.2, Nimbex 2.5. UOP 100 yesterday, with 40 today so far. Fluid balance +12.4L. He had 4L removed during dialysis. IVs and Medications IV Fluids None Medications Reviewed: Medications were reviewed in detail Lab and Diagnostics 82% PMN, 4% bands Lactic acid 1.5 AG is 23 Calcium is 7.2 (corrects to 8.1) Phos 9.3 Mag 2.5 AST 62, ALT 36 Alk phos 222 Procal 100 Alb 2.8 Result Diagram: 12/22/16 0540 12/21/16 0355 Microbiology BCx and SCx positive for Strep pneumo Resp PCR positive for Flu A H3 Strep pneumo urine ag positive Repeat BCx 12/21/16 is negative to date. X-Rays, CTs and MRIs CXR today shows some mild improvement in the density of his b/l infiltrates, but no reduction in the size of distribution. Additional Diagnostics DateTimeAnalyzed 04:47:00 -_ pH ____7.242 - 7.350 7.450 pCO2 ___62.4__ -mmHg 35.0 45.0 pO2 ___70.8__ -mmHg 69.0 116 HCO3- ___26.0__ -mmol/L 22.0 26.0 sO2 ___93.4__ -% 25.0 FIO2 ___80.0__ -% PEEP ___18.0__ -cmH2O Set_RR ___26.0__ -b/min Vt __410.0 Repeat DateTimeAnalyzed 07:29:00 -_ pH ____7.199 - 7.350 7.450 pCO2 ___66.2__ -mmHg 35.0 45.0 pO2 ___65.9__ -mmHg 69.0 116 HCO3- ___24.8__ -mmol/L 22.0 26.0 sO2 ___90.6__ -% 25.0 FIO2 ___80.0__ -% PEEP ___18.0__ -cmH2O Set_RR ___30.0__ -b/min Vt __340.0 Assessment & Plan 1. ARDS, severe: P/F ratio today is less than 100 (82). Paralyzed yesterday at 1745 with Nimbex. As we are not able to obtain a bed that would allow proning at this time, we will continue with paralysis (manual proning is not a viable option at this time given the technical difficulty and our facility's level of experience with it). I think his sedation is too low, and we will titrate back up as needed. This trial of paralysis will potentially last for up to 48 hours, and then be discontinued. Some mortality benefit demonstrated with use of neuromuscular blockade and early ARDS. Otherwise will continue to adjust the PEEP and FiO2 as needed to maintain saturations. His high peak and plateau pressures are also a problem. RT in and we discussed the ABG and his pressures. Trial of switch to Pressure Control settings: ( which gives us an approx Vt of 300cc (or 4-5cc/kg) and a RR of 33 which resulted in no change. I think that as things stand right now, we should change his vent settings back to FiO2 0.8, PEEP 18, RR 26, and Vt of 410 (6cc/kg) on PRVC. Differential diagnosis for worsening oxygenation: Ventilator associated pneumonia (greater than 48 hours on the vent, needing to adjust his ventilator settings)-this seems unlikely given his decreasing pro-calcitonin, decreasing WBC, and broad-spectrum coverage with antibiotics. PE is unlikely (ruled out on CTA several days ago). Pneumothorax is unlikely (ruled out on chest x-ray, bilateral breath sounds). 2. Acute hypoxic, hypercapnic (potential for chronic component here) respiratory failure requiring intubation having not responded to BiPAP: Pneumococcal pneumonia/bacteremia: Empiric antibiotics already going with Flagyl , Azithromycin and Ceftriaxone (today is day 5 of antibiotics). Consideration for broadening abx coverage with ID - will switch Ceftriaxone to Cefepime. Influenza A H3 pneumonia. Oseltamivir via the tube (today is day 5). Will likely continue this past the typical 5-day duration. 2. Septic shock. Today with sinus tachycardia that appears to be responsive to fluid challenge. Secondary to Pneumococcal PNA/bacteremia and influenza A. Cardiogenic component unlikely given echo findings. Restarted on pressors 12/21/16 as we needed to increase sedation. Will continue to support pressures in an effort to dialyze fluid and improve our fluid balance. Will add Vasopressin to Levophed. Considering bicarb fluid admin. 3. Anion gap metabolic acidosis (lactic acidosis has normalized) with a metabolic alkalosis (we were giving him bicarbonate), with respiratory acidosis on ABG today. Secondary to his profound lactic acidosis (improved) in the setting of septic shock with contribution from his acute, and worsening renal failure with multiple electrolyte abnormalities as noted in detail below. Metabolic alkalosis secondary to iatrogenic administration of bicarbonate. Nephrology is involved, and will hold off on dialysis today given shock. Given his ARDS, it is appropriate to aim for a pH goal of >7.2, and not push him any further. Permissive hypercapnia is acceptable in this setting. Consideration for administering more bicarb. 4. COPD Unknown if he is on outpatient medications. Reportedly a never tobacco smoker, but significant history smoking crack cocaine until about 2 years ago. Consideration for adding nebulized medications (DouNeb). At discharge he will likely require a long-acting medication such as Spiriva. 5. ALBERTINA-acute tubular necrosis in the setting of septic shock, somewhat improved following dialysis. Will hold off on dialysis today as noted above. function has improved on lab values with dialysis. 6. Coagulopathy and thrombocytopenia. Likely 2/2 septic shock. DIC evaluation is equivocal with some components still pending. Consider continue to hold Heparin, but we could potentially restart today as his platelets are stable at 82K. No active bleed noted. 7. Maculopapular rash over upper torso, neck and head-concern for drug rash. Vancomycin was discontinued 12/19/16 as the likely culprit. We will continue to monitor daily. 8. Electrolyte abnormalities: Hyponatremia, hypochloremia, hyperphosphatemia and hypocalcemia Likely combination of septic shock, renal failure. Dialysis to continue. We will continue to monitor labs and clinical progress. Watch the sodium (went from 132 yesterday to 141 today). Recommendations: -Vent settings as noted with adjustments as needed. Continue to follow labs and gases. * Goal of plateau pressure <30, but we may have to make due with higher * Goal of pH >7.25 (permissive hypercapnia allowed) -check abg -check lat decub CXR to assess for possible PTX. -Cisatracurium (potentially to be stopped by 12/23/16 at approx 1745), Midazolam ( increase to 5), Norepi, Fentanyl (increase to 200) continued with titration as needed. * added vasopressin -Continue antibiotics/anitviral as detailed above as deemed necessary by infectious disease with changes as noted above. -dialysis as deemed necessary by nephrology CODE STATUS: Patient is full code DVT prophylaxis on hold due to Thrombocytopenia/coagulopathy, but consider restarting today GI prophylaxis with Protonix twice a day Droplet/contact precautions for Flu A Pulmonary critical care time spent: 60 minutes Attending Statement I have seen and examined this patient with the resident physician. Vital signs , labs, imaging have been reviewed. I agree with the assessment and plan above. Please refer to my separately dictated progress note for any modifications to above. Dionne Perdomo M.D. Pulmonary and Critical Care medicine Pager [phone] Kimo Pulliam DO Dec 22, 2016 07:14 Dionne Perdomo MD Dec 22, 2016 15:49
[2016-12-22] MEDS ORDERED: 0.9% Sodium Chloride 500 ML IV ONE ×2 (08:40→09:35)
--- NOTE | 2016-12-22 09:03 | ABG ---
DateTimeAnalyzed 08:57:00 -_ pH ____7.157 - pCO2 ___77.8__ -mmHg pO2 ___57.5__ -mmHg HCO3- ___26.4__ -mmol/L ABE ___-3.6__ -mmol/L tHb ___12.0__ -g/dL O2Hb ___82.6__ -% COHb ____1.0__ -% MetHb ____1.5__ -% sO2 ___84.7__ -% FIO2 ___80.0__ -% PEEP ___18.0__ -cmH2O Set_RR ___30.0__ -b/min Vt __340.0__ -L Drawn By as - Date/Time Notified____ 09:03:00 -_ Oxygen Device 1 VENTILATOR - Notified By ams - Notified Whom de la houssaye - B 748 -mmHg tO2 ___13.9__ -Vol% Masoud test N/A -
--- NOTE | 2016-12-22 09:27 | NUR ---
NUTRITION FOLLOW-UP ASSESS: 56 YO male admitted with septic shock and acute hypoxemic respiratory failure with pneumococcal pneumonia / bacteremia, influenza A H3. At this time, there is no bed that would allow proning; therefore, paralysis will continue for up to 48 hours and then be discontinued. There is some mortality benefit demonstrated with use of neuromuscular blockade and early ARDS. Sedation and pressor support increased today. Pt. with ALBERTINA / acute tubular necrosis in the setting of septic shock, somewhat improved following dialysis. Plan to proceed with dialysis again today with further fluid removal. Pulmonary enteral feeding formula is at goal rate; however, pt. having significant diarrhea, potentially due to high fat content of pulmonary formula. Received authorization to change formula to renal formula to support kidney function. PMHX: COPD, Past history of drug abuse (per sister), tobacco user. No other history obtained d/t intubation and sedation. LABS: Reviewed. K+ 5.3, Chloride 96, CO2 25, BUN 52, Cr 3.79, Glu 154, Ca 7.2, Phos 9.3, AST 62, Alk Phos 222, Alb 2.8. MEDS:Reviewed. Levophed, insulin, tamiflu, nimbex, flagyl, fentanyl, midazolam. GI: Significant diarrhea via FMS, 100 ml last shift. SKIN: [place] 12. WT: 88.1 kg BMI 29.0 kg/m2 IBW: 68.4 kg Admit Wt: 80 kg (BMI: 26.8 kg/m2) DIET: NPO NUTRITION SUPPORT: Pulmocare @ 55 ml/hr to provide 1815 kcal and 76 g protein (90% kcal needs and 100% protein needs). ESTIMATED NEEDS: Vent, COPD, ATN Calories: 8836-3426 kcal/day (25-30 kcal/kg BW) Protein: 65-95 g/day (0.8-1.2 g/kg BW) Fluids: ~2000 ml (25 ml/kcal) NUTRITION DIAGNOSIS: 1) Inadequate oral intake related to inability to consume sufficient energy as evidenced by NPO status and ventilation - IMPROVED WITH ENTERAL FEEDING. 2) Increased nutrient needs related to difficulty breathing as evidenced by COPD and acute respiratory failure / SEVERE ARDS - PERSISTS. NUTRITION INTERVENTION: 1) Will change enteral formula as follows. Initiate Nepro at 20 ml/hr; once tolerance established, advance 5 ml every 4 hr. to goal rate 55 ml/hr. Flush dose 40 ml H2O every 3 hr. Enteral feeding at goal will provide 2178 kcal, 98 g protein, sufficient to meet 100% nutrient needs. MONITOR/EVALUATE: Enteral feeding advance / tolerance, wt, labs, GI, nutrition status, POC. Will continue to monitor per high nutritional risk guidelines. Addendum: 12/22/16 at [address] Per MD request TF formula changed back to Pulmocare. Propofol not running. Orders placed for Pulmocare @ 62 ml/hr to provide 2046 kcal/d, 85 g/d protein, and 1250 ml/d H2O, meeting 100% of est needs.
[2016-12-22] MEDS ORDERED: 0.9% Sodium Chloride 1,000 ML ONE (09:30)
--- NOTE | 2016-12-22 09:48 | DRSVH ---
PROCEDURE: X-RAY CHEST ONE VIEW, PORTABLE ([id number]) INDICATIONS: intubated TECHNIQUE: One view of the chest was acquired. COMPARISON: [facility], CR, XR CHEST 1VW (PORTABLE), 12/20/2016, 16:42. FINDINGS: Surgical changes and devices: ET tube, central venous catheter and NG tube are stable in position. Lungs and pleura: No pleural effusions or pneumothorax. Airspace opacities in the lungs bilaterally with perihilar distribution are stable. Mediastinum: Mediastinal contours appear normal. Heart size is normal. Bones and chest wall: No suspicious bony lesions. Overlying soft tissues appear unremarkable. IMPRESSION: No change compared prior exam. Dictated by: Soren Johnson RRA Interpreted: Jordyn Dominguez MD on 12/22/2016 at 9:47 Transcribed by: GIRMA on 12/22/2016 at 9:47 Approved by: Jordyn Dominguez MD, PhD on 12/22/2016 at 16:46
[2016-12-22] MEDS: Cefepime 1,000 MG in Dextrose 5% Minibag Plus 50 ML IV SCH ×2 (10:00→20:48)
[2016-12-22] MEDS: metroNIDAZOLE Inj 1,000 MG in IV Premix 1 EACH IV SCH ×2 (10:01→20:48)
[2016-12-22] MEDS: fentaNYL 2,500 mCg/250 mL 2,500 MCG in IV Premix 1 EACH IV SCH ×2 (10:01→20:49)
[2016-12-22] MEDS: Pantoprazole 4 mg/mL 10 mL Inj IVPUSH SCH ×2 (10:02→16:30)
[2016-12-22] MEDS: Azithromycin Inj 500 MG in Dextrose 5% w/Vial Mate 250 ML IV SCH (10:02)
[2016-12-22] MEDS: Vasopressin Inj 20 UNIT in 0.9% Sodium Chloride 100 ML IV SCH ×2 (10:03→20:27)
[2016-12-22] MEDS ORDERED: Sodium Bicarb 8.4% Inj 100 MEQ in Dextrose 5% 1,000 ML IV ONE (10:30)
--- NOTE | 2016-12-22 10:30 | ABG ---
DateTimeAnalyzed 10:23:00 -_ pH ____7.194 - 7.350 7.450 pCO2 ___64.3__ -mmHg 35.0 45.0 pO2 ___66.3__ -mmHg 69.0 116 HCO3- ___23.8__ -mmol/L 22.0 26.0 ABE ___-4.6__ -mmol/L -2.0 2.0 tHb ___10.8__ -g/dL O2Hb ___88.9__ -% COHb ____1.0__ -% MetHb ____1.5__ -% sO2 ___91.2__ -% 25.0 FIO2 ___80.0__ -% PEEP ___18.0__ -cmH2O Set_RR ___26.0__ -b/min Vt __410.0__ -L Drawn By as - Date/Time Notified____ 10:30:00 -_ Spontaneous_RR ___26.0__ -b/min Oxygen Device 1 VENTILATOR - Notified By ams - Notified Whom dr parimi - B 747 -mmHg tO2 ___13.5__ -Vol% Masoud test N/A -
--- NOTE | 2016-12-22 10:31 | PROG NOTE ---
[address] [address] PROGRESS NOTE PATIENT: DOUGIE GARDUNO : 1960 MR#: [id number] ADMIT: 12/18/2016 JOB ID: [id number] DATE: 12/22/2016 INFECTIOUS DISEASE FOLLOW UP NOTE: REASON FOR FOLLOWUP: Bacteremic pneumococcal pneumonia with sepsis with septic shock following influenza A, now with ARDS. INTERVAL HISTORY: Overnight the patient required increased sedation and paralysis because of declining oxygenation. He is currently on 80% FiO2 and 18 of PEEP. Because of his increased sedation, he required the addition of vasopressor agents and he is currently on moderately high doses of norepinephrine. The patient is now completely sedated and paralyzed so obviously no data can be obtained from speaking to him. This case was discussed extensively during ICU rounds and with the ICU team after rounds when we examined the patient together at the bedside. Over 40 minutes was spent this morning on this patient alone. PHYSICAL EXAMINATION: Reveals a critically ill, paralyzed, intubated and sedated gentleman lying in the ICU. He has been afebrile really throughout his hospital stay and is now 37 degrees, pulse is 120-130 and an EKG shows this is a junctional tachycardia. His blood pressure is 108/56, but that is on high doses of norepinephrine and vasopressin is going to be added within the next half hour. He is saturating only 80% on 80 FiO2 and 16 of PEEP and the plan is to go to 18 of PEEP in the next little bit. He has a right IJ triple lumen central line and a right groin hemodialysis line. Both of these appear uninfected, though there is some blood under the dressing in the groin line. The patient's eyes are without scleral icterus or conjunctivitis. Oral endotracheal tube, oral gastric tube are present. Right IJ looks okay. Lungs are notable for diffuse crackles. Cardiac tones: Very tachycardic, regular and without appreciable murmur but it is going too fast to tell. The abdomen is soft and nontender. Dubois catheter is present. Penis and scrotum look okay without evidence of inflammation. The joints are without synovitis. The feet are cool as he is on high doses of pressors. LABORATORY STUDIES: Include white blood count 18,400, neutrophils 89%. Platelets 82,000. Creatinine 3.79. LFTs are notable for a rising alk phos. It came in normal at 59 and it has now quadrupled to 222, and an AST which started off at 50 and has now increased slightly to 62. Albumin 2.8. Procalcitonin is reported as 100.0 today which is odd because that was the same value as yesterday and the laboratory is investigating. Recall that four days ago the procalcitonin was an amazing 612. Serologic studies include negative hepatitis B serologies, negative hep C and negative HIV. Micro studies include the PCR positive for influenza A. Blood and sputum have grown Streptococcus pneumonia exquisitely sensitive to penicillin and ceftriaxone. MRSA screen was done and was negative. IMAGING: Includes a chest x-ray, which is not different than previous. We did see it during ICU rounds today and shows what appears to be continuing ARDS. IMPRESSION: This is an incredibly sick gentleman who started off with influenza A which was complicated by bacteremic pneumococcal pneumonia which led to ventilatory dependent respiratory failure. In an effort to maximize his ventilation, he has been paralyzed and heavily sedated, which appears to have resulted in shock requiring high-dose vasopressors. Another possible explanation for the events of the past 24 hours is that the patient may have developed a second septic process causing his hypotension as opposed to his pneumococcal sepsis. I find this unlikely but not impossible, and after discussion with Dr. Perdomo, we have decided to expand his coverage from ceftriaxone to cefepime which will continue to provide good coverage for the pneumococcus but will provide enhanced coverage for gram negatives including Pseudomonas. We are also continuing his Flagyl. RECOMMENDATIONS: 1. The ceftriaxone has been changed to cefepime and I have discussed the dosing with Enrique of the pharmacy. 2. Will continue with Flagyl for anaerobic coverage because he may have aspirated at the onset of this process. 3. Azithromycin will be ending today as he has received a 2.5 g dose but, of course, he will functionally be receiving it for quite some time.
[2016-12-22] MEDS: Propofol Inj 1,000,000 MCG in IV Premix 1 EACH IV SCH (10:35)
--- NOTE | 2016-12-22 11:09 | DRSVH ---
PROCEDURE: X-RAY LEFT DECUBITUS CHEST ([id number]) INDICATIONS: eval pneumothorax TECHNIQUE: One view of the chest was acquired. COMPARISON: [facility], CR, XR CHEST 1VW (PORTABLE), 12/22/2016, 5:06. FINDINGS: Left lateral decubitus chest film demonstrates no right pneumothorax. Lungs otherwise are unchanged. IMPRESSION: No right pneumothorax. Dictated by: Soren Johnson RRA Interpreted: Jordyn Dominguez MD on 12/22/2016 at 11:08 Transcribed by: GIRMA on 12/22/2016 at 11:09 Approved by: Jordyn Dominguez MD, PhD on 12/22/2016 at 16:45
--- NOTE | 2016-12-22 11:36 | PROG NOTE ---
[address] [address] PROGRESS NOTE PATIENT: DOUGIE GARDUNO : 1960 MR#: [id number] ADMIT: 12/18/2016 JOB ID: [id number] DATE: 12/22/2016 PULMONARY CRITICAL CARE PROGRESS NOTE: The patient was seen and evaluated with resident physician, Kimo Pulliam DO. Please refer to his separate detailed note for additional information. The following is an addendum. The patient is a 56-year-old man presenting with pneumococcal bacteremia and pneumonia, influenza A pneumonia, in septic shock, as well as ARDS. INTERVAL HISTORY: Oxygenation continues to worsen. He was placed on paralytics yesterday, as well as norepinephrine. He remains hypotensive this morning and is tachycardic in the 140s. REVIEW OF SYSTEMS: Unable to obtain. PHYSICAL EXAMINATION: Vital signs reviewed. T-max 37.3, pulse 143, respirations 26, BP 97/53, sats 96% on 80% FiO2 and 18 cm of PEEP. General: Intubated, sedated and paralyzed. Chest: Clear to auscultation anteriorly. Abdomen: Nontender. Skin: Rash on the upper chest seems to be improving slowly. LABORATORIES: Reviewed. Notable for WBC down to 18 from 26, hemoglobin stable at 11.4, and platelets up to 82. Chemistry also reviewed and potassium is up to 5.3 after dialysis yesterday. Procalcitonin is 286 today compared to 421 yesterday. At its peak, it was 612 on December 19. Cultures, no new growth. Arterial blood gas shows pH 7.19, pCO2 of 64, pO2 of 66, and bicarbonate of 23. IMAGING: Chest x-ray reviewed and shows bilateral diffuse infiltrates relatively sparing the right upper lobe/apex. Decubitus film confirms no pneumothorax is seen. ASSESSMENT AND RECOMMENDATIONS: 1. Acute respiratory distress syndrome. 2. Septic shock. 3. Pneumococcal bacteremia and pneumonia. 4. Influenza pneumonia. 5. Thrombocytopenia -- resolved. 6. Refractory respiratory acidosis. 7. Acute renal failure -- on hemodialysis since December 20. This 56-year-old man is critically ill right now with refractory hypoxemia secondary to adult respiratory distress syndrome, as well as septic shock. From an adult respiratory distress syndrome standpoint, I think we should probably tolerate plateau pressures greater than 30 in order to maintain oxygenation and ventilation in this patient. He does not seem to be tolerating acidosis well, i.e. pH less than 7.2. I increased his tidal volume back up to 6 cc/kg ideal body weight. His PEEP is currently at 18 cm and after he has had some fluid resuscitation, I plan on increasing this to 20. FiO2 is 80%. He should be on the high PEEP protocol technically, and the PEEP of 20 would meet criteria for high PEEP protocol in severe adult respiratory distress syndrome. As far as hypercarbia, I am hoping this will improve with a slight increase in respiratory rate and his tidal volume back up to 6 cc/kg from 5 cc last night. Will repeat a blood gas after this and see how he tolerates. Continue aggressive sedation with high-dose fentanyl drip, midazolam drip and paralysis with cisatracurium. From a volume standpoint, he did get hemodialysis again yesterday and was out 4 L. I think his tachycardia today may be because he is somewhat dry, especially with the high PEEP reducing his preload. We gave him a L of fluid, and his heart rate improved to the 120s. So, I will give him another 500 cc of fluid and assess. Will also give him a break from dialysis today since his electrolytes are okay. From a blood pressure standpoint, he is hypotensive on moderate dose of norepinephrine, so we are going to add vasopressin. His LFT are slightly elevated today, so Dr. Muhammad ordered right upper quadrant ultrasound to look for acalculous cholecystitis. Procalcitonin is still very high but is slowly coming down. We have broadened his antibiotics from ceftriaxone to cefepime to cover possible other etiologies. Will start deep venous thrombosis prophylaxis as well, and continue gastrointestinal prophylaxis. He is a FULL CODE. Addendum: I returned to reassess the patient because of worsening hypercarbia and respiratory acidosis. His pH despite changes above was down to 7.18 with PCO2 65, bicarbonate 23. He continues to be anuric. He is now on 2 pressors- norepinephrine at 0.2 and vasopressin at 0.04. We repeated another bolus of D5 plus bicarbonate with this his heart rate, blood pressure both seem to improve. I suspect this is actually helping his acidosis rather than volume status. Plan: 1. I do not think any further rate or tidal volume increases would help this patient. In fact I decreased the PEEP from 20 to 18 because his sats were 96- 97 with a 20 cm of PEEP and his acidosis seemed to worsen with higher PEEP 2. We are going to start him on a concentrated bicarbonate drip to try to increase his serum bicarbonate and pH. Since this also has a side effect of producing carbon dioxide, we should be careful with this.\ 3. We are also waiting to try to get Carbicarb i.e. combination of sodium carbonate and sodium bicarbonate which is more likely to help his pH without raising his PCO2. Since this was not available at [facility] and was to [place] to see if they have it available 4. I am also going to switch him from his renal formula tube feeds back to pulmonary formula because of renal formula has 60% more carbs which produce more CO2 I also updated his sister at the bedside and explained that her brother is critically ill and that there is a chance he may not survive the night but that we are doing everything we can. He remains full code. CRITICAL CARE TIME: 90 minutes + 60 minutes= 150 minutes total MTDD
--- NOTE | 2016-12-22 11:45 | PCM.PNMED ---
Subjective Date of Service Dec 22, 2016 Subjective Interventions home yesterday evening and last night were reviewed and I discussed the case extensively with the critical care attending Dr. Perdomo. He is having increased oxygenation requirements which has resulted in increase in FiO2 and also increase in the pressures. He is becoming hypotensive which is probably due to intravascular volume depletion and increase PEEP bleeding to decrease filling pressures. His is required increasing pressors and we discussed giving him some crystalloid back and after a liter of saline and he did have some improvement in his systolic blood pressure. Normal urine output. His sodium is 141 today, potassium 5.3 chloride 96 CO2 25 BUN and creatinine are 52 and 23.79. His phosphorus is 9.3 and albumin of 2.8. Exam Vital Signs Vital Sign - Last Date Time Temp Pulse Resp B/P Pulse Ox O2 Delivery O2 Flow Rate FiO2 12/22/16 10:45 123 94/48 93 80 12/22/16 04:35 37.0 30 Mechanical Ventilator 12/21/16 16:30 16.00 Intake and Output 12/21/16 12/21/16 12/22/16 Cumulative From/Thru 15:00 23:00 07:00 12/18/16 10:01 - 12/22/16 06:16 Intake Total 2275 ml 1900 ml 25013 ml Output Total 4100 ml 140 ml 8465 ml Balance -1825 ml 1760 ml 52208 ml Intake Oral 0 ml IV Total 1186 ml 1173 ml 31070 ml Tube Feeding 969 ml 667 ml 1924 ml Platelets 461 ml Tube Irrigant 120 ml 60 ml 270 ml Output Urine Total 100 ml 40 ml 1515 ml Stool Total 100 ml 100 ml Gastric Drainage Total 650 ml Ultrafiltrate 4000 ml 6200 ml # Bowel Movements 0 Exam Patient remained sedated and on a ventilator. Lungs showed some scattered expiratory wheezes and dependent rales were noted. Heart was tachycardic. Abdomen is distended with minimal bowel sounds. Extremities showed some mild generalized edema. Lab and Diagnostics Result Diagram: 12/22/16 0540 12/22/16 0540 Microbiology BCx and SCx positive for Strep pneumo Resp PCR positive for Flu A H3 Strep pneumo urine ag positive Repeat BCx 12/21/16 is negative to date. X-Rays, CTs and MRIs CXR today shows some mild improvement in the density of his b/l infiltrates, but no reduction in the size of distribution. Additional Diagnostics DateTimeAnalyzed 04:47:00 -_ pH ____7.242 - 7.350 7.450 pCO2 ___62.4__ -mmHg 35.0 45.0 pO2 ___70.8__ -mmHg 69.0 116 HCO3- ___26.0__ -mmol/L 22.0 26.0 sO2 ___93.4__ -% 25.0 FIO2 ___80.0__ -% PEEP ___18.0__ -cmH2O Set_RR ___26.0__ -b/min Vt __410.0 Repeat DateTimeAnalyzed 07:29:00 -_ pH ____7.199 - 7.350 7.450 pCO2 ___66.2__ -mmHg 35.0 45.0 pO2 ___65.9__ -mmHg 69.0 116 HCO3- ___24.8__ -mmol/L 22.0 26.0 sO2 ___90.6__ -% 25.0 FIO2 ___80.0__ -% PEEP ___18.0__ -cmH2O Set_RR ___30.0__ -b/min Vt __340.0 Assessment & Plan Impression #1 influenza and pneumococcal sepsis with multisystem organ failure # 2 acute tubular necrosis #3 decreased effective circulating blood volume #4 hyperphosphatemia secondary to #2 Recommendations #1 is his dialysis treatment today. GI Prophylaxis: Proton Pump Inhibitor VTE Prophylaxis: Other (Held at this time due to thrombocytopenia) VTE Mechanical Devices: Intermittant Pneumatic CD Resuscitation Status: CPR: Attempt Resuscitation Hang Garsia DO Dec 22, 2016 11:45
--- NOTE | 2016-12-22 13:12 | DRSVH ---
PROCEDURE: US ABDOMEN, LIMITED ([id number]) INDICATIONS: Rising LFT - ? cholecystitis TECHNIQUE: Real-time focused scanning was performed of the abdomen, with image documentation. COMPARISON: [facility], CT, CT ABD PELVIS W CON, 12/18/2016, 15:45. FINDINGS: Limited exam demonstrating several small gallstones. No gallbladder wall thickening or per icholecystic fluid. No biliary dilatation. Pancreas not well-seen. IMPRESSION: Limited exam demonstrating cholelithiasis without evidence for cholecystitis at this time . Dictated by: Soren Johnson [facility] Interpreted: Jordyn Dominguez MD on 12/22/2016 at 11:57 Transcribed by: GUERA on 12/22/2016 at 16:12 Approved by: Jordyn Dominguez MD, PhD on 12/22/2016 at 16:46
--- NOTE | 2016-12-22 14:01 | ABG ---
DateTimeAnalyzed 13:55:00 -_ pH ____7.185 - 7.350 7.450 pCO2 ___64.5__ -mmHg 35.0 45.0 pO2 ___76.3__ -mmHg 69.0 116 HCO3- ___23.4__ -mmol/L 22.0 26.0 ABE ___-5.1__ -mmol/L -2.0 2.0 tHb ___10.3__ -g/dL O2Hb ___91.6__ -% COHb ____1.0__ -% MetHb ____1.5__ -% sO2 ___93.9__ -% 25.0 FIO2 ___21.0__ -% PEEP ___18.0__ -cmH2O Set_RR ___26.0__ -b/min Vt __410.0__ -L Drawn By btl - Date/Time Notified____ 14:01:00 -_ Spontaneous_RR ___26.0__ -b/min Oxygen Device 1 VENTILATOR - Notified By btl - Notified Whom ___Dr. Parimi - B 744 -mmHg tO2 ___13.3__ -Vol% Masoud test N/A -
--- NOTE | 2016-12-22 14:49 | PCM.PNMED ---
Subjective Date of Service Dec 22, 2016 Subjective Naveed Maciel is a 56 year old male with past medical history significant for COPD who presented to the emergency department via EMS complaining of dyspnea and 3 days of flu-like symptoms. Intubated after failing on BiPAP and admitted for septic shock and acute hypoxemic respiratory failure. Hospital 5. Vent day 5. Yesterday patient's sedation increased in order to paralyze patient using Nimbex. Dialysis with 4L UF in the evening. Overnight: Elevated Peak and Plat pressures. Respiratory rate increased and tidal volume decreased to 5 cc/kg. Sedation also decreased from Fentanyl of 200 to 100. Patient tachycardic. Today: Patient continues to be tachycardic. Sedation increased and fluid bolus given. VENT settings currently being adjusted by Pulm/ICU team. Review of systems not obtainable. Exam Vital Signs Vital Sign - Last Date Time Temp Pulse Resp B/P Pulse Ox O2 Delivery O2 Flow Rate FiO2 12/22/16 07:34 133 108/56 91 80 12/22/16 04:35 37.0 30 Mechanical Ventilator 12/21/16 16:30 16.00 Intake and Output 12/21/16 12/21/16 12/22/16 Cumulative From/Thru 15:00 23:00 07:00 12/18/16 10:01 - 12/22/16 06:16 Intake Total 2275 ml 1900 ml 15773 ml Output Total 4100 ml 140 ml 8465 ml Balance -1825 ml 1760 ml 27683 ml Intake Oral 0 ml IV Total 1186 ml 1173 ml 53432 ml Tube Feeding 969 ml 667 ml 1924 ml Platelets 461 ml Tube Irrigant 120 ml 60 ml 270 ml Output Urine Total 100 ml 40 ml 1515 ml Stool Total 100 ml 100 ml Gastric Drainage Total 650 ml Ultrafiltrate 4000 ml 6200 ml # Bowel Movements 0 Exam General: Intubated and sedated. HEENT: Normocephalic, atraumatic. External ears without defect. Pupils equal, round, and reactive to light and accommodation. Anicteric sclerae, moist conjunctivae, and no lid lag. Mucous membranes dry. Neck: Supple with full range of motion. No jugular venous distension. No bruits. No lymphadenopathy or thyromegaly. Cardiovascular: Tachycardic with regular rhythm no murmurs, rubs, or gallops appreciated. Pulmonary: Course breath sounds in bilateral bases. No wheezes or rhonchi. Abdomen: Soft, nondistended, active bowel sounds. Old midline surgical incision present. No hepatosplenomegaly. Extremities: No clubbing, cyanosis, edema, or lymphadenopathy appreciated. Skin: Macular papular rash on upper chest and shoulders less intense than yesterday. Normal temperature, turgor, and texture; no ulcers or subcutaneous nodules appreciated. Neurological: Intubated and sedated. Psychiatric: Intubated and sedated. Lines: Right IJ, right radial arterial line, right Lasha femoral catheter, left and right peripherals, Dubois catheter, ETT, OG, FMS Lab and Diagnostics Result Diagram: 12/22/16 0540 12/22/16 0540 Microbiology BCx and SCx positive for Strep pneumo Resp PCR positive for Flu A H3 Strep pneumo urine ag positive X-Rays, CTs and MRIs X-RAY CHEST ONE VIEW, PORTABLE IMPRESSION: Stable examination compared to 12/20/2016 at 0848 hours. Bilateral lung air space opacities are stable. Dictated by: Jordyn Dominguez MD, PhD on 12/20/2016 at 17:25 Approved by: Jordyn Dominguez MD, PhD on 12/20/2016 at 17:27 CT ANGIO CHEST PULMONARY EMBOLISM IMPRESSION: 1. Dense consolidation bilaterally within the dependent portions of the lungs. These findings are most consistent with extensive aspiration or multifocal pneumonia. 2. Hilar and mediastinal adenopathy, likely infectious/reactive in nature. Short interval followup is recommended with resolution of these findings to ensure there is no underlying pulmonary neoplasm. 3. Tip of the NG tube in the gastroesophageal region. Consider advancing the tube into the gastric fundus. Dictated by: Joan Simmons M.D. on 12/18/2016 at 16:09 Approved by: Joan Simmons M.D. on 12/18/2016 at 16:16 ADDENDUM: 4. No acute pulmonary embolus. Dictated by: Joan Simmons M.D. on 12/18/2016 at 16:18 Approved by: Joan Simmons M.D. on 12/18/2016 at 16:19 US RENAL SONOGRAM IMPRESSION: 1. A 1.4 cm cyst in the superior pole the right kidney. Otherwise normal ultrasound appearance of kidneys. No hydronephrosis. 2. Cholelithiasis. No ultrasound evidence for acute cholecystitis. Dictated by: Dwain Gaona M.D. on 12/18/2016 at 18:18 Approved by: Dwain Gaona M.D. on 12/18/2016 at 18:21 Additional Diagnostics DateTimeAnalyzed 07:29:00 -_ pH ____7.199 - 7.350 7.450 pCO2 ___66.2__ -mmHg 35.0 45.0 pO2 ___65.9__ -mmHg 69.0 116 HCO3- ___24.8__ -mmol/L 22.0 26.0 sO2 ___90.6__ -% 25.0 FIO2 ___80.0__ -% PEEP ___18.0__ -cmH2O Set_RR ___30.0__ -b/min Vt __340.0__ -L Assessment & Plan Naveed Maciel is a 56 year old male with past medical history significant for COPD who presented to the emergency department via EMS complaining of dyspnea and 3 days of flu-like symptoms. Intubated after failing on BiPAP and admitted for septic shock and acute hypoxemic respiratory failure. Hospital 5. Vent day 5. 1. Severe ARDS, present on admission, worsening. - Etiology secondary to sepsis and pneumococcal pneumonia in the setting of COPD and past history of cocaine use. - Patient intubated after failing BiPAP in ED. - CT chest on 12/18 showed dense consolidation bilaterally within the dependent portions of the lung. - Increasing Peak/Plat overnight. VENT settings adjusted. - Vent settings per Critical Care/Pulmonology Team. - Concern for aspiration. Metronidazole added 12/19 for anaerobic coverage. 2. Pneumococcal pneumonia /pneumococcal bacteremia, present on admission, active. - CXR and CT as above. - Vancomycin and Zosyn given in ED. - Antibiotics switched to azithromycin (12/18) and ceftriaxone (12/19-12/22). Added cefepime (12/22). - Procalcitonin 180.83 on admission peaked at 612.48. - Strep pneumonia urine antigen positive. - Blood and sputum cultures positive. Sensitive for penicillins. 3. Lactic acidosis, present on admission, resolved. - On admission lactic acid 6.6. - Lactic acid trended up to 7.4. Currently 1.5. - We will continue to monitor closely. 4. Acute kidney injury, present on admission, active. - Unknown if patient has underlying chronic kidney disease. - On admission BUN 65 and creatinine 3.71 - Right femoral catheter placed and hemodialysis yesterday with UF of 2200 ml. - Dialysis yesterday with UF of 4L. - Avoid nephrotoxic medications as able. - Nephrology consulted. dialysis initiated.Appreciate time and recommendations. 5. Septic shock, present on admission, active - Criteria include: HR 144, RR 41, O2 sats 83%, lactic acid 6.6, BUN 65, creatinine 3.71, procalcitonin 180.38. - Etiology secondary to pneumococcal pneumonia and influenza A. - Right IJ and right radial arterial line placed 12/18. - Fluid resuscitation initially with 5L NS and switched to Bicarb/D5W now discontinued. - Albumin Q8H x 3 doses on 12/19. - 1L NS bolused 12/22/16,Norepinephrine restarted 12/21. - Blood cultures growing strep x2 and sputum positive for strep. 6. Influenza A, present on admission, active. - Tamiflu 30 mg twice a day started 12/18 10 doses. 7. Thrombocytopenia, present on admission, active. - Unknown baseline. Etiology likely sepsis. - On admission platelets 74. - DIC panel does not suggest DIC. No schistocytes on blood smear. - Platelets transfused 2/ prior to dialysis catheter placement. - Will continue to monitor. - DVT prophylaxis initiated 2. 8. Upper GI bleed, present on admission, stable. - Coffee-ground material reported from OG tube on admission. - Sputum guaiac positive. - Hemoglobin and hematocrit have decreased since admission but likely secondary to fluid resuscitation. - Type and cross with 2 units PRBCs on hold. - Holding DVT prophylaxis. - Pantoprazole 40 mg BID. - Will consider GI consult if H&H drops or more active bleeding is visualized. 9. COPD, present on admission, unknown baseline. 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 - Unknown if patient has outpatient medication regimen. - Treatment as above. 10. Tobacco use, present on admission, chronic. - Consider Nicotine patch once patient awake. 11. Hyperglycemia, present on admission, active. - Insulin regular low dose correctional scale. - Hemoglobin A1c 5.7. Disposition: Patient currently intubated with severe ARDS. Prognosis guarded at this time. GI Prophylaxis: Proton Pump Inhibitor VTE Prophylaxis: Other (Held at this time due to thrombocytopenia) VTE Mechanical Devices: Intermittant Pneumatic CD Resuscitation Status: CPR: Attempt Resuscitation Attending Statement patient seen and examined with Dr Cordero ,I agree with history,exam ,assessment and plan as outlined above . MESSI CORDERO DO Dec 22, 2016 07:51 Ariel Berg MD Dec 22, 2016 15:07
[2016-12-22] MEDS ORDERED: SODIUM BICARB IV ONE (15:30)
[2016-12-22] MEDS ORDERED: DEXTROSE 5% IV ONE (15:30)
--- NOTE | 2016-12-22 16:11 | ABG ---
DateTimeAnalyzed 16:06:00 -_ pH ____7.237 - 7.350 7.450 pCO2 ___59.1__ -mmHg 35.0 45.0 pO2 ___87.5__ -mmHg 69.0 116 HCO3- ___24.2__ -mmol/L 22.0 26.0 ABE ___-3.2__ -mmol/L -2.0 2.0 tHb ___10.4__ -g/dL O2Hb ___93.5__ -% COHb ____1.1__ -% MetHb ____1.4__ -% sO2 ___95.9__ -% 25.0 FIO2 ___80.0__ -% PEEP ___18.0__ -cmH2O Set_RR ___30.0__ -b/min Vt __410.0__ -L Drawn By ams - Date/Time Notified____ 16:11:00 -_ Spontaneous_RR ___30.0__ -b/min Oxygen Device 1 VENTILATOR - Notified By AMS - Notified Whom DR PARIMI - B 742 -mmHg tO2 ___13.8__ -Vol% Masoud test N/A -
--- NOTE | 2016-12-22 16:16 | NUR ---
Vent Inspiratory paused performed on pt today by RT. ABG's taken with PEEP of 20, 18 and finally at 1620 PEEP of 16. made strict orders for RT not to change the PEEP overnight. If something is to change in the night should be paged. Its ok to go down on Fio2. Vent at 80% P=16, RR=30, and XV=930 with Spo2 96% BP improved to 106/63 with at total of 1L NS bolus and 1L bicarb given. HR down from 130's to 115. CVP=14. Levophed at 0.3mcg/kg/min and Vasopressin at 0.04units/min. Fentanyl at 200mcg/hr, Versed at 5mg/hr, and Nimbex at 2.5mcg/kg/min. Pt on a rotation module. CXR and US completed. tested urine in lab. Tube feed stopped at 1600, 30cc residual removed. Sister requested to speak to the [place], left message for Lashae to visit them in the morning.
[2016-12-22] MEDS: Heparin 5,000 Unit/mL Inj SUBQ SCH (16:30)
[2016-12-23] VITALS (12 sets, daily range): BP systolic 97–117; BP diastolic 55–69; PULSE 97–114; RESP 30; O2SAT 96–99
[2016-12-23 00:29] LABS: APPEARANCE,URINE CLOUDY (CLEAR,HAZY); COLOR,URINE AMBER (YELLOW); OCCULT BLOOD,URINE LARGE (NEGATIVE); PH,URINE 6.5 (5.0-8.0); UROBILINOGEN,URINE NORMAL (NORMAL)
[2016-12-23 00:37] LABS: ICTOTEST,URINE NEGATIVE (Negative)
[2016-12-23] MEDS: Heparin 5,000 Unit/mL Inj SUBQ SCH ×3 (01:07→16:30)
[2016-12-23] MEDS: Chlorhexidine 0.12% 15 mL Oral Solution MT SCH ×6 (01:07→20:25)
[2016-12-23] MEDS ORDERED: 0.9% Sodium Chloride 500 ML ONE (03:25)
--- NOTE | 2016-12-23 05:02 | ABG ---
DateTimeAnalyzed 04:56:00 -_ pH ____7.252 - 7.350 7.450 pCO2 ___48.2__ -mmHg 35.0 45.0 pO2 112 -mmHg 69.0 116 HCO3- ___20.5__ -mmol/L 22.0 26.0 ABE ___-6.0__ -mmol/L -2.0 2.0 tHb ____9.7__ -g/dL O2Hb ___95.2__ -% COHb ____1.2__ -% MetHb ____1.4__ -% sO2 ___97.7__ -% 25.0 FIO2 ___80.0__ -% Drawn By RB - B 746 -mmHg tO2 ___13.1__ -Vol%
--- NOTE | 2016-12-23 05:06 | ABG ---
DateTimeAnalyzed 05:00:00 -_ pH ____7.257 - 7.350 7.450 pCO2 ___47.2__ -mmHg 35.0 45.0 pO2 117 -mmHg 69.0 116 HCO3- ___20.3__ -mmol/L 22.0 26.0 ABE ___-6.1__ -mmol/L -2.0 2.0 tHb ____9.6__ -g/dL O2Hb ___95.2__ -% COHb ____1.2__ -% MetHb ____1.4__ -% sO2 ___97.7__ -% 25.0 FIO2 ___80.0__ -% PRVC 453 - PEEP ___16.0__ -cmH2O Set_RR ___30.0__ -b/min Vt __410.0__ -L Drawn By RB - Date/Time Notified____ 05:06:00 -_ Spontaneous_RR ___30.0__ -b/min Oxygen Device 1 VENTILATOR - Notified By RB - Notified Whom RN - B 746 -mmHg tO2 ___13.0__ -Vol% Masoud test N/A -
--- NOTE | 2016-12-23 05:11 | ABG ---
DateTimeAnalyzed 05:05:08 -_ pH ____7.275 - pCO2 ___45.7__ -mmHg pO2 141 -mmHg HCO3- ___21.2__ -mmol/L ABE ___-5.1__ -mmol/L tHb ____9.7__ -g/dL O2Hb ___97.1__ -% COHb ____1.1__ -% MetHb ____0.8__ -% sO2 ___99.0__ -% FIO2 ___21.0__ -% PEEP ___16.0__ -cmH2O Set_RR 30 -b/min Vt __410.0__ -L Drawn By RB - Spontaneous_RR 30 -b/min Notified Whom RN - B 744 -mmHg K+ ____5.5__ -mmol/L tO2 ___13.5__ -Vol% Masoud test N/A -
[2016-12-23 05:14] LABS: BASOPHILS % (AUTO) 0.4 % (0-3); EOSINOPHILS % (AUTO) 0.1 % (0-5); MONOCYTES % (AUTO) 2.2 % (4-12); Mean Corpuscular Hemoglobin 32.3 pg (27.0-35.0); NEUTROPHILS % (AUTO) 83.2 % (40-74); Platelet Count 83 bil/L (150-400)
[2016-12-23] MEDS: Norepineph 8,000 mCg/250 mL NS 8,000 MCG in IV Premix 1 EACH IV SCH (05:42)
[2016-12-23] MEDS: Vasopressin Inj 20 UNIT in 0.9% Sodium Chloride 100 ML IV SCH ×3 (05:43→20:58)
[2016-12-23 05:54] LABS: Magnesium 2.8 mg/dL (1.6-2.6); Phosphorus 11.5 mg/dL (2.5-4.9)
--- NOTE | 2016-12-23 06:00 | NUR ---
Sedation/BP/Paralytic Pt continues to be sedated with Versed and Fentanyl. Was told in report to leave sedation alone at current settings despite BIS monitoring in 20s-30s. Tele shows ST 100s-110s. Remains hypotensive on Levophed and Vasopressin, although was able to titrate Levophed down. On Nimbex gtt with TOF monitoring. Care ongoing
--- NOTE | 2016-12-23 06:03 | NUR ---
Temp Pt had temp at start of shift. Max temp 38.5. notified. Blood/fungal cultures x 2, UA, and sputum cultures obtained. Treated fever with non pharmacologic interventions including fan, minimal covering, and cool bedbath. Temp currently 37.7. Will continue to monitor. Care ongoing
[2016-12-23] MEDS: 0.9% Sodium Chloride 250 ML IV SCH (08:25)
[2016-12-23] MEDS: fentaNYL 2,500 mCg/250 mL 2,500 MCG in IV Premix 1 EACH IV SCH ×2 (09:01→23:24)
--- NOTE | 2016-12-23 09:07 | DRSVH ---
PROCEDURE: X-RAY CHEST ONE VIEW, PORTABLE ([id number]) INDICATIONS: intubated TECHNIQUE: One view of the chest was acquired. COMPARISON: [facility], CR, XR CHEST 1VW (PORTABLE), 12/22/2016, 5:06. FINDINGS: Surgical changes and devices: Central venous catheter, ET tube and NG tube are stable in appearance. Lungs and pleura: No pleural effusions or pneumothorax. Bilateral diffuse lung opacities are stable compared to prior examination. There is increasing consolidation in the medial aspect of the left jennifer g base Mediastinum: Mediastinal contours appear normal. Heart size is normal. Bones and chest wall: No suspicious bony lesions. Overlying soft tissues appear unremarkable. IMPRESSION: Increasing consolidation in the left lung base with internal air bronchograms suspicious for aspiration versus pneumonia. Exam otherwise stable compared to 12/22/16. Dictated by: Jordyn Dominguez MD, PhD on 12/23/2016 at 9:05 Approved by: Jordyn Dominguez MD, PhD on 12/23/2016 at 9:06
[2016-12-23] MEDS: Cefepime 1,000 MG in Dextrose 5% Minibag Plus 50 ML IV SCH (09:08)
[2016-12-23] MEDS: Pantoprazole 4 mg/mL 10 mL Inj IVPUSH SCH ×2 (09:08→16:30)
[2016-12-23] MEDS: Azithromycin Inj 500 MG in Dextrose 5% w/Vial Mate 250 ML IV SCH (09:08)
[2016-12-23] MEDS: metroNIDAZOLE Inj 1,000 MG in IV Premix 1 EACH IV SCH (09:08)
[2016-12-23] MEDS: Cisatracurium Inj 200,000 MCG in 0.9% Sodium Chloride-Pha MIX 100 ML IV PRN (09:54)
[2016-12-23] MEDS: Propofol Inj 1,000,000 MCG in IV Premix 1 EACH IV SCH (10:35)
--- NOTE | 2016-12-23 10:41 | PCM.PNMED ---
Subjective Date of Service Dec 23, 2016 Subjective Naveed Maciel is a 56 year old male with past medical history significant for COPD who presented to the emergency department via EMS complaining of dyspnea and 3 days of flu-like symptoms. Intubated after failing on BiPAP and admitted for septic shock and acute hypoxemic respiratory failure. Hospital 6. Vent day 6. Overnight: Patient febrile with Tmax of 38.5. Blood, sputum, and urine cultures obtained. No vent changes overnight. Remained on norepinephrine and vasopressin. Sedated with versed and fentanyl and Nimbex for paralytic. Today: Patient continues to be tachycardic in the 110s. ABG this morning shows improved oxygenation. FiO2 will be titrated down. CT chest and dialysis planned for today. Review of systems not obtainable. Exam Vital Signs Vital Sign - Last Date Time Temp Pulse Resp B/P Pulse Ox O2 Delivery O2 Flow Rate FiO2 12/23/16 05:30 37.7 113 30 117/60 96 Mechanical Ventilator 70 12/22/16 16:30 16.00 Intake and Output 12/22/16 12/22/16 12/23/16 Cumulative From/Thru 15:00 23:00 07:00 12/18/16 10:01 - 12/23/16 05:30 Intake Total 3791 ml 1316 ml 43072 ml Output Total 670 ml 750 ml 9885 ml Balance 3121 ml 566 ml 31310 ml Intake Oral 0 ml IV Total 2831 ml 1316 ml 27992 ml Tube Feeding 960 ml 2884 ml Platelets 461 ml Tube Irrigant 270 ml Output Urine Total 70 ml 50 ml 1635 ml Stool Total 600 ml 500 ml 1200 ml Gastric Drainage Total 200 ml 850 ml Ultrafiltrate 6200 ml # Bowel Movements 0 Exam General: Intubated and sedated. HEENT: Normocephalic, atraumatic. External ears without defect. Pupils equal, round, and reactive to light and accommodation. Anicteric sclerae, moist conjunctivae. Neck: Supple with full range of motion. No jugular venous distension. No bruits. Cardiovascular: Tachycardic with regular rhythm no murmurs, rubs, or gallops appreciated. Pulmonary: Course breath sounds in bilateral bases. No wheezes or rhonchi. Abdomen: Soft, nondistended, active bowel sounds. Old midline surgical incision present. No hepatosplenomegaly. Extremities: No clubbing, cyanosis, edema, or lymphadenopathy appreciated. Skin: Faint macular papular rash on upper chest and shoulders. Normal temperature, turgor, and texture; no ulcers or subcutaneous nodules appreciated. Neurological: Intubated and sedated. Psychiatric: Intubated and sedated. Lines: Right IJ, right radial arterial line, right Lasha femoral catheter, left and right peripherals, Dubois catheter, ETT, OG, FMS Lab and Diagnostics Result Diagram: 12/23/16 0500 12/23/16 0500 Microbiology BCx and SCx positive for Strep pneumo Resp PCR positive for Flu A H3 Strep pneumo urine ag positive X-Rays, CTs and MRIs X-RAY CHEST ONE VIEW, PORTABLE IMPRESSION: Stable examination compared to 12/20/2016 at 0848 hours. Bilateral lung air space opacities are stable. Dictated by: Jordyn Dominguez MD, PhD on 12/20/2016 at 17:25 Approved by: Jordyn Dominguez MD, PhD on 12/20/2016 at 17:27 CT ANGIO CHEST PULMONARY EMBOLISM IMPRESSION: 1. Dense consolidation bilaterally within the dependent portions of the lungs. These findings are most consistent with extensive aspiration or multifocal pneumonia. 2. Hilar and mediastinal adenopathy, likely infectious/reactive in nature. Short interval followup is recommended with resolution of these findings to ensure there is no underlying pulmonary neoplasm. 3. Tip of the NG tube in the gastroesophageal region. Consider advancing the tube into the gastric fundus. Dictated by: oJan Simmons M.D. on 12/18/2016 at 16:09 Approved by: Joan Simmons M.D. on 12/18/2016 at 16:16 ADDENDUM: 4. No acute pulmonary embolus. Dictated by: Joan Simmons M.D. on 12/18/2016 at 16:18 Approved by: Joan Simmons M.D. on 12/18/2016 at 16:19 US RENAL SONOGRAM IMPRESSION: 1. A 1.4 cm cyst in the superior pole the right kidney. Otherwise normal ultrasound appearance of kidneys. No hydronephrosis. 2. Cholelithiasis. No ultrasound evidence for acute cholecystitis. Dictated by: Dwain Gaona M.D. on 12/18/2016 at 18:18 Approved by: Dwain Gaona M.D. on 12/18/2016 at 18:21 Additional Diagnostics DateTimeAnalyzed 05:05:08 -_ pH ____7.275 - pCO2 ___45.7__ -mmHg pO2 141 -mmHg HCO3- ___21.2__ -mmol/L sO2 ___99.0__ -% FIO2 ___21.0__ -% PEEP ___16.0__ -cmH2O Set_RR 30 -b/min Vt __410.0__ -L Assessment & Plan Naveed Maciel is a 56 year old male with past medical history significant for COPD who presented to the emergency department via EMS complaining of dyspnea and 3 days of flu-like symptoms. Intubated after failing on BiPAP and admitted for septic shock and acute hypoxemic respiratory failure. Hospital 6. Vent day 6. 1. Severe ARDS, present on admission, active. - Etiology secondary to sepsis and pneumococcal pneumonia in the setting of COPD and past history of cocaine use. - Patient intubated, sedated and paralyzed using fentanyl, midazolam, and Nimbex. - CT chest on 12/18 showed dense consolidation bilaterally within the dependent portions of the lung. - Repeat CT chest planned for today. - ABG this morning slightly improved as above. FiO2 will be titrated down. - Concern for aspiration. Metronidazole added 12/19 for anaerobic coverage. - Vent settings per Critical Care/Pulmonology Team. 2. Pneumococcal pneumonia /pneumococcal bacteremia, present on admission, active. - CXR and CT as above. - Vancomycin and Zosyn given in ED. - Antibiotics switched to azithromycin (12/18) and ceftriaxone (12/19-12/22). Added cefepime (12/22). - Procalcitonin 180.83 on admission peaked at 612.48. - Strep pneumonia urine antigen positive. - Blood and sputum cultures positive. Sensitive for penicillins. 3. Acute kidney injury, present on admission, active. - Unknown if patient has underlying chronic kidney disease. - On admission BUN 65 and creatinine 3.71 - Right femoral catheter placed 12/20. - Dialysis 12/20 and 12/21. Dialysis planned for today with minimal UF. - Avoid nephrotoxic medications as able. - Nephrology consulted. dialysis initiated. Appreciate time and recommendations. 4. Septic shock, present on admission, active. - Criteria include: HR 144, RR 41, O2 sats 83%, lactic acid 6.6, BUN 65, creatinine 3.71, procalcitonin 180.38. - Etiology secondary to pneumococcal pneumonia and influenza A. - Right IJ and right radial arterial line placed 12/18. - Pressors and 5L fluid resuscitation initially and were discontinued but have had to be restarted. - Currently on vasopressin and norepinephrine. - Blood cultures growing strep x2 and sputum positive for strep. 5. Influenza A, present on admission, active. - Tamiflu 30 mg twice a day started 12/18 10 doses. 6. Lactic acidosis, present on admission, resolved. - On admission lactic acid 6.6. - Lactic acid trended up to 7.4. Currently 1.5. - We will continue to monitor closely. 7. Thrombocytopenia, present on admission, active. - Unknown baseline. Etiology likely sepsis. - On admission platelets 74. - DIC panel does not suggest DIC. No schistocytes on blood smear. - Platelets transfused 12/20 prior to dialysis catheter placement. - Will continue to monitor. - DVT prophylaxis initiated 12/22. 8. Upper GI bleed, present on admission, stable. - Coffee-ground material reported from OG tube on admission. - Sputum guaiac positive. - Hemoglobin and hematocrit have decreased since admission but likely secondary to fluid resuscitation. - Type and cross with 2 units PRBCs on hold. - Holding DVT prophylaxis. - Pantoprazole 40 mg BID. - Will consider GI consult if H&H drops or more active bleeding is visualized. 9. COPD, present on admission, unknown baseline. 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 - Unknown if patient has outpatient medication regimen. - Treatment as above. 10. Tobacco use, present on admission, chronic. - Consider Nicotine patch once patient awake. 11. Hyperglycemia, present on admission, active. - Insulin regular low dose correctional scale. - Hemoglobin A1c 5.7. Disposition: Patient currently intubated with severe ARDS. continues to require 2 pressors ,Prognosis guarded at this time. GI Prophylaxis: Proton Pump Inhibitor VTE Prophylaxis: Sub-Q Heparin (Unfractionated) VTE Mechanical Devices: Intermittant Pneumatic CD Resuscitation Status: CPR: Attempt Resuscitation Attending Statement patient seen and examined with Dr Cordero ,I agree with history,exam ,assessment and plan as outlined above . MESSI CORDERO DO Dec 23, 2016 06:52 Ariel Berg MD Dec 23, 2016 12:03
--- NOTE | 2016-12-23 11:07 | PROG NOTE ---
[address] [address] PROGRESS NOTE PATIENT: DOUGIE GARDUNO : 1960 MR#: [id number] ADMIT: 12/18/2016 JOB ID: [id number] DATE: 12/23/2016 PULMONARY CRITICAL CARE PROGRESS NOTE: The patient is a 56-year-old man presenting with pneumococcal bacteremia and pneumonia, influenza A pneumonia, septic shock, and ARDS. INTERVAL HISTORY: He has remained relatively stable overnight on his high vent settings. FiO2 was brought down to 70%. New issue overnight is that he has been having temperatures as high as 38.5. Pressor requirement is also stable on both norepinephrine at 0.15 and vasopressin at 0.04. He continues to be nearly anuric, making 110 cc in the last 24 hours. REVIEW OF SYSTEMS: Unable to obtain. PHYSICAL EXAMINATION: Vital signs reviewed. T-max 38.5, pulse 113, respirations 30, BP 117/60, sats 96% on 70% FiO2 and 16 cm of PEEP. General: Intubated, sedated and paralyzed. Chest: Clear to auscultation. Abdomen: Slightly distended but nontender. LABORATORIES: Reviewed. Notable for WBC persistently elevated at 18.6, hemoglobin 9.5, platelets 83. Chemistry reviewed. Sodium 139, potassium 5.9, bicarb is down to 19 from 25 yesterday, BUN and creatinine are up as well. Lactate is 1.6. Calcium is down to 6.7. AST and ALT are slightly elevated. Alk phos is persistently elevated at 180. Procalcitonin remains greater than 100. Ultrasound of the abdomen done yesterday was read as showing cholelithiasis without evidence of cholecystitis. Chest x-ray done today actually showed some improvement in the bilateral infiltrates. However, there is some retrocardiac atelectasis on the left, and the diaphragm is no longer visible. Also, the endotracheal tube is now 7.5 cm from the mickey, a little too far. Arterial blood gas this morning pH 7.27, pCO2 of 45, pO2 of 141, bicarb of 21.2. ASSESSMENT AND RECOMMENDATIONS: 1. Severe adult respiratory distress syndrome, with refractory hypercarbia and hypoxia. 2. Septic shock. 3. Pneumococcal bacteremia pneumonia. 4. Influenza pneumonia. 5. Thrombocytopenia -- improving. 6. Acute renal failure, on hemodialysis since December 20. 7. Fever. This 56-year-old man is critically ill with severe adult respiratory distress syndrome and septic shock due to influenza and pneumococcal bacteremia pneumonia. Yesterday, we struggled with his refractory acidosis, which eventually actually improved with reducing his PEEP from 20 slowly back down to 16. I am wondering if this somehow worsened space and V/Q mismatch and therefore worsened his hypercarbia. His pH is around 7.25 to 7.27 right now, although his pCO2 is dramatically better. Right now, I think his acidosis is more due to metabolic cause, i.e. low bicarbonate from his renal failure. From a ventilator standpoint, he is on 70% FiO2 and PEEP of 16 cm, tidal volume of 410 which is 6 cc/kg ideal body weight, and respiratory rate of 30. His gas is acceptable at this time. I would wean FiO2 if tolerated since his sats currently are 96. I would not make any other ventilator changes today. From a renal standpoint, it looks like his potassium is up to 5.8, and bicarbonate is down to 19. So, I talked to Dr. Garsia, and he is planning on putting the patient on hemodialysis today. This would be to help electrolytes, without a plan to take any fluid off. I am concerned about his fever, and we do not really have a good etiology for this. He has blood and sputum cultures pending at this time. He had an abdominal ultrasound yesterday for his mild LFT elevations that did not show any obvious cause for his fevers. Also, his x-ray does not show any evidence of empyema or pleural effusions, but I think to be cautious, we should get a chest CT with contrast to look for an empyema and rule that out. I spoke to RT and with Renal, and we think the patient can travel and tolerate the IV contrast. From an antibiotic standpoint, he was broadened to cefepime yesterday. He is also on azithromycin, Flagyl. Tamiflu has been completed. Clostridium difficile in stool is ordered today and pending. Procalcitonin remains greater than 100. We will call the Lab and asked them to give us an exact number result. The procalcitonin on December 21 was 420, and on December 22 was 280, which is somewhat reassuring. Note that he did not end up Carbicarb or the bicarbonate drip, so will hold off on either of these at this point. He is on deep venous thrombosis and gastrointestinal prophylaxis. He is a FULL CODE. I updated his sister yesterday, and she is not here at this time. CRITICAL CARE TIME: 60 minutes.
--- NOTE | 2016-12-23 11:43 | PCM.PNMED ---
Subjective Date of Service Dec 23, 2016 Subjective Patient has shown some slight improvement. His blood pressure has improved somewhat and he has had 750 ML's of urine out in the last 8 hours. His blood pressure is a bit better and we have been able to decrease his intravenous pressors. His current vent settings are 70% with 16 of PEEP. His CVP is 15 and intra-abdominal pressures 13. He has been tolerating the tube feedings. I discussed the case appointment with Dr. Perdomo from critical care. His laboratory today shows a white count of 18.6, hemoglobin of 9.500 and a platelet count of 83. Sodium was 139, potassium 5.8, chloride 97, CO2 19, BUN and creatinine are 85.96. His phosphorus is 11.8. Exam Vital Signs Vital Sign - Last Date Time Temp Pulse Resp B/P Pulse Ox O2 Delivery O2 Flow Rate FiO2 12/23/16 10:59 115 96 70 12/23/16 07:22 111/56 12/23/16 05:30 37.7 30 Mechanical Ventilator 12/22/16 16:30 16.00 Intake and Output 12/22/16 12/22/16 12/23/16 Cumulative From/Thru 15:00 23:00 07:00 12/18/16 10:01 - 12/23/16 05:30 Intake Total 3791 ml 1316 ml 74443 ml Output Total 670 ml 750 ml 9885 ml Balance 3121 ml 566 ml 83946 ml Intake Oral 0 ml IV Total 2831 ml 1316 ml 96607 ml Tube Feeding 960 ml 2884 ml Platelets 461 ml Tube Irrigant 270 ml Output Urine Total 70 ml 50 ml 1635 ml Stool Total 600 ml 500 ml 1200 ml Gastric Drainage Total 200 ml 850 ml Ultrafiltrate 6200 ml # Bowel Movements 0 Exam Patient remains sedated and on a ventilator. His sclera. Periorbital edema and scrotal edema along with pale sclera. Lungs show some scattered rhonchi and some dependent rales. Heart remains tachycardic. Abdomen is soft with some tympany to percussion. There is no tenderness, rebound, guarding, or hepatosplenomegaly. Extremities shows some generalized edema. Lab and Diagnostics Result Diagram: 12/23/16 0500 12/23/16 0500 Microbiology BCx and SCx positive for Strep pneumo Resp PCR positive for Flu A H3 Strep pneumo urine ag positive X-Rays, CTs and MRIs X-RAY CHEST ONE VIEW, PORTABLE IMPRESSION: Stable examination compared to 12/20/2016 at 0848 hours. Bilateral lung air space opacities are stable. Dictated by: Jordyn Dominguez MD, PhD on 12/20/2016 at 17:25 Approved by: Jordyn Dominguez MD, PhD on 12/20/2016 at 17:27 CT ANGIO CHEST PULMONARY EMBOLISM IMPRESSION: 1. Dense consolidation bilaterally within the dependent portions of the lungs. These findings are most consistent with extensive aspiration or multifocal pneumonia. 2. Hilar and mediastinal adenopathy, likely infectious/reactive in nature. Short interval followup is recommended with resolution of these findings to ensure there is no underlying pulmonary neoplasm. 3. Tip of the NG tube in the gastroesophageal region. Consider advancing the tube into the gastric fundus. Dictated by: Joan Simmons M.D. on 12/18/2016 at 16:09 Approved by: Joan Simmons M.D. on 12/18/2016 at 16:16 ADDENDUM: 4. No acute pulmonary embolus. Dictated by: Joan Simmons M.D. on 12/18/2016 at 16:18 Approved by: Joan Simmons M.D. on 12/18/2016 at 16:19 US RENAL SONOGRAM IMPRESSION: 1. A 1.4 cm cyst in the superior pole the right kidney. Otherwise normal ultrasound appearance of kidneys. No hydronephrosis. 2. Cholelithiasis. No ultrasound evidence for acute cholecystitis. Dictated by: Dwain Gaona M.D. on 12/18/2016 at 18:18 Approved by: Dwain Gaona M.D. on 12/18/2016 at 18:21 Additional Diagnostics DateTimeAnalyzed 05:05:08 -_ pH ____7.275 - pCO2 ___45.7__ -mmHg pO2 141 -mmHg HCO3- ___21.2__ -mmol/L sO2 ___99.0__ -% FIO2 ___21.0__ -% PEEP ___16.0__ -cmH2O Set_RR 30 -b/min Vt __410.0__ -L Assessment & Plan J impression #1 acute tubular necrosis secondary to sepsis #2 increased anion gap metabolic acidosis #3 hyperphosphatemia Recommendations #1 we will dialyze him today for 4 hours on a revaclear dialyze , potassium bath 1800 Per nasal bolus of 500 now and attempt takeoff 1 kg of fluid. GI Prophylaxis: Proton Pump Inhibitor VTE Prophylaxis: Sub-Q Heparin (Unfractionated) VTE Mechanical Devices: Intermittant Pneumatic CD Resuscitation Status: CPR: Attempt Resuscitation Hang Garsia DO Dec 23, 2016 11:43
--- NOTE | 2016-12-23 11:55 | NUR ---
Dialysis note: 4 hrs tx. 1000 ml net UF. Right femoral catheter, dsg changed, no s/s of infection noted. BC drawn. Pls see DTR for VS details; cont on pressors. Qb 400-450. Heparin given. On vent @ 60% FiO2 with sat in the 90's. Stable tx. Catheter flushed, heparin dwelled and secured. Report given to Don SOSA.
--- NOTE | 2016-12-23 13:27 | DRSVH ---
PROCEDURE: CT CHEST WITH CONTRAST ([id number]) INDICATIONS: Respiratory failure, PNA, ARDS TECHNIQUE: After the administration of intravenous contrast, 5 mm thick sections acquired from the pulmonary api cheng to the posterior costophrenic angles. 7 mm thick coronal and sagittal MIP reformats were acquire d. For radiation dose reduction, the following was used: automated exposure control, adjustment of mA and/or kV according to patient size. COMPARISON: [facility], CR, XR CHEST 1VW (PORTABLE), 12/23/2016, 4:17. [facility] pital, CT, CT ANGIO CHEST PE, 12/18/2016, 15:45. FINDINGS: Image quality: Excellent. Lungs and pleura: Emphysematous changes noted in the lung apices. Presence of ET tube and NG tube a re noted. Consolidation is noted in the lungs bilaterally which has decreased in size compared to jerri or examination. Groundglass opacities noted in the lungs bilaterally nonspecific may be related to p neumonia, however other etiologies including pulmonary edema could produce a similar appearance. The re is a new focal opacity in the mesial aspect of the left upper lobe. Trace bilateral pleural fluid collections are noted. No pneumothorax. Central and peripheral airways are patent and normal in ca liber. Mediastinum: Heart size is normal. No pericardial effusion. Atherosclerotic calcifications noted in the aorta and the great vessels. Prominent bilateral hilar and mediastinal lymph nodes have decrease d slightly in size in interval since prior examination. Thoracic aorta and central pulmonary arterie s are normal in size. Esophagus is normal in caliber. No hiatal hernia. Bones and chest wall: No suspicious bony lesions. No vertebral body compression fractures. No axil bridget or supraclavicular adenopathy by size criteria. Thyroid gland is within normal limits.. Abdomen: Visualized upper abdominal solid organs appear normal. Upper abdominal bowel loops are nor mal in caliber. IMPRESSION: 1. Bilateral lung consolidation decreased in size compared to prior examination compatible with reso lving pneumonia or aspiration. 2. Bilateral lung interstitial prominence and ground glass opacities. Findings may be related to pn eumonia, however finding is nonspecific and other etiologies including pulmonary edema can produce a similar appearance. 3. Trace bilateral pleural effusions. 4. Enlarged bilateral hilar and mediastinal lymph nodes decreased in size. Dictated by: Jordyn Dominguez MD, PhD on 12/23/2016 at 13:19 Approved by: Jordyn Dominguez MD, PhD on 12/23/2016 at 13:26
--- NOTE | 2016-12-23 13:58 | NUR ---
CT Pt spiked another temp of 38.1. Left floor at [address] and came back to CCU room #2011 at 1330. Vitals remained unchanged as well as his gtts during transport. Pt was placed on a portable ventilator for transfer. Cdif sent from [facility]. Dialysis scheduled for this afternoon. Train of four=2/4. Difficult to read BIS r/t diaphoretic. Pulmocare TF started at 5ml/hr.
--- NOTE | 2016-12-23 15:02 | NUR ---
NUTRITION FOLLOW-UP ASSESS: 56 YO male admitted with septic shock and acute hypoxemic respiratory failure with pneumococcal pneumonia / bacteremia, influenza A H3. At this time, there is no bed that would allow proning; therefore, paralysis will continue for up to 24 more hours and then be discontinued. There is some mortality benefit demonstrated with use of neuromuscular blockade and early ARDS. Pt. spiking fevers starting yesterday. Pt. with ALBERTINA / acute tubular necrosis in the setting of septic shock, somewhat improved following dialysis. Plan to proceed with dialysis again today with further fluid removal. Pt. with increasing stool via FMS (700 ml (12/22). Pulmonary enteral formula restarted today at 5 ml/hr, after being on hold overnight for residuals of 30 ml. PMHX: COPD, Past history of drug abuse (per sister), tobacco user. No other history obtained d/t intubation and sedation. LABS: Reviewed. K+ 5.8, BUN 88, Cr 5.96, Glu 140, Ca 6.7, Phos 11.5, Mg 2.8, AST 73, ALT 50, Alk Phos 179, Alb 2.5. MEDS:Reviewed. Norepi, vasopressin, insulin, tamiflu, nimbex, fentanyl, midazolam. GI: Significant diarrhea via FMS. SKIN: [place] 11. WT: 91.8 kg BMI 30.0 kg/m2 IBW: 68.4 kg Admit Wt: 80 kg (BMI: 26.8 kg/m2) DIET: NPO NUTRITION SUPPORT: Pulmocare @ 5 ml/hr; goal rate 62 ml/hr to provide 2046 kcal/d, 85 g/d protein, and 1250 ml/d H2O, meeting 100% of est needs.. ESTIMATED NEEDS: Vent, COPD, ATN Calories: 3064-4707 kcal/day (25-30 kcal/kg BW) Protein: 65-95 g/day (0.8-1.2 g/kg BW) Fluids: ~2000 ml (25 ml/kcal) NUTRITION DIAGNOSIS: 1) Inadequate oral intake related to inability to consume sufficient energy as evidenced by NPO status and ventilation - PERSISTS WITH MINIMAL ENTERAL FEEDING. 2) Increased nutrient needs related to difficulty breathing as evidenced by COPD and acute respiratory failure / severe ARDS - PERSISTS. NUTRITION INTERVENTION: 1)Consider changing enteral formula to renal formula per previous recommendation to better manage renal function. MONITOR/EVALUATE: Enteral feeding advance / tolerance, wt, labs, GI, nutrition status, POC. Will continue to monitor per high nutritional risk guidelines.
--- NOTE | 2016-12-23 15:56 | NUR ---
Social Work note GRANULATOR OPERATOR completed EMR review: Pt continues on Vent with ARDS worsening. Remains in ICU. Pt is a full code - Family asking for Cardiac Rn visit. GRANULATOR OPERATOR will continue to follow for d/c needs. Plan: Re-evaluate when medically stable. CHESTER Duenas
--- NOTE | 2016-12-23 17:23 | PROG NOTE ---
[address] [address] PROGRESS NOTE PATIENT: DOUGIE GARDUNO : 1960 MR#: [id number] ADMIT: 12/18/2016 JOB ID: [id number] DATE: 12/23/2016 INFECTIOUS DISEASE FOLLOWUP NOTE: REASON FOR FOLLOWUP: Bacteremic pneumococcal pneumonia with septic shock, renal failure, and ventilatory-dependent respiratory failure. INTERVAL HISTORY: Over the past 24 hours the patient has been very difficult to ventilate and has required up to 18 of PEEP and 80% FiO2. This afternoon there has been a positive trend and he is now down to 70% and 16 of PEEP, and the respiratory therapist has told me she may go to 65% and see how he does on that. He continues to require sedation and is not responsive. The patient remains on both norepinephrine and vasopressin to support his blood pressure and he remains paralyzed. Obviously no additional history can be obtained from the patient, though I did discuss this case in detail at the bedside with respiratory therapy and nursing. PHYSICAL EXAMINATION: Reveals a gentleman who is febrile at 38.1. He has been febrile during the past 24 hours with temperatures in the 37.5-38.4 range. Pulse currently 115. Blood pressure 109/57. He is saturating 96% on 70 and 16. His urine output continues to be to be very poor and he has been dialyzed. The patient's eyes are without notable abnormality. Oral endotracheal tube and gastric tube in good position. His lines include a right IJ which appears benign, a right radial A-line. He has a Dubois catheter and he has a dialysis catheter in his right femoral vein. None of these lines or devices appears to be infected. His lungs are notable for coarse breath sounds bilaterally. Cardiac tones tachycardic without significant murmur. Abdomen soft; tenderness cannot be assessed as he is intubated, sedated, and paralyzed. Dubois catheter in normal position. Penis and scrotum appear normal. Extremities are extremely well perfused and his feet are almost hot at this point. LABORATORIES: Include white count down to 18,000, hematocrit 28, platelet count improving up to 83,000. Creatinine 6 basically (5.96 exactly). Potassium 5.8. AST is 73. ALT is 50. Albumin 2.5. Urinalysis with 0-5 white cells. Hep C antibody is negative. HIV is negative. Micro studies include a pending C. diff, a pending urine culture, a sputum from yesterday with moderate polys and a few yeast. Fungal blood cultures done yesterday are negative at 24 hours. Routine blood cultures done on the (two days ago) are negative. Sputum from the shows what appears to be Strep pneumoniae. Recall that he did have influenza A and his blood grew pneumococcus as well as his initial sputum. IMAGING: Includes a CT scan of the chest done today which shows bilateral lung consolidation that is improving, bilateral interstitial lung disease, and ground-glass opacities. This could be pulmonary edema, but certainly could be ARDS. IMPRESSION: This is a difficult case of a gentleman who presented with bacteremic pneumococcal pneumonia with septic shock and ventilatory dependent respiratory failure, refractory septic shock, and associated renal failure. He has now been in the hospital 5-1/2 days and remains critically ill, on dual vasopressor agents with minimal urine output, and requiring high levels of inspired FiO2 and PEEP. To complicate matters he is now having recrudescent fevers, which brings up a number of possibilities including nosocomial pneumonia, nosocomial UTI, fungemia, line infection, C. difficile, or drug fever. I am especially concerned about his lines as he has three major vascular access lines including his right neck central line, his arterial line, and his dialysis catheter. Of these, of course, the most worrisome is the dialysis catheter as it is present in the groin. The patient also has developed what appears to be ARDS, which of course is complicating our attempts to wean the patient from the ventilator. Yesterday we had looked at his gallbladder out of concern he might have cholecystitis but the ultrasound showed no evidence to support possible diagnosis. RECOMMENDATIONS: 1. I would continue with our broadened antibiotic coverage which includes azithromycin, cefepime, and Flagyl. The cefepime was a modification from the original ceftriaxone to cover nosocomial pathogens while the Flagyl has been present since the beginning because the patient was seen to have aspirated prior to his intubation. The azithromycin was for atypical coverage and also for synergy against the pneumococcal sepsis but at this point we are probably nearing the point where that could be stopped. 2. I will go ahead and order a sputum Gram stain and culture from the endotracheal tube. 3. Fungal blood cultures x3 will be ordered. These should be done through the IJ, the A-line, and the groin line. 4. We await the C. difficile, additional blood cultures, and additional respiratory cultures which are pending. 5. I will continue to follow this patient closely with you.
[2016-12-24] VITALS (13 sets, daily range): BP systolic 95–161; BP diastolic 45–83; PULSE 78–97; RESP 30; O2SAT 92–98
[2016-12-24] MEDS: Chlorhexidine 0.12% 15 mL Oral Solution MT SCH ×6 (00:02→20:53)
[2016-12-24] MEDS: metroNIDAZOLE Inj 1,000 MG in IV Premix 1 EACH IV SCH ×3 (00:02→20:52)
[2016-12-24] MEDS: Heparin 5,000 Unit/mL Inj SUBQ SCH ×3 (00:03→16:05)
[2016-12-24] MEDS: Cisatracurium Inj 200,000 MCG in 0.9% Sodium Chloride-Pha MIX 100 ML IV PRN ×2 (00:13→13:31)
[2016-12-24] MEDS: Norepineph 8,000 mCg/250 mL NS 8,000 MCG in IV Premix 1 EACH IV SCH (00:22)
[2016-12-24] MEDS: Cefepime 1,000 MG in Dextrose 5% Minibag Plus 50 ML IV SCH ×3 (01:12→20:53)
--- NOTE | 2016-12-24 04:25 | ABG ---
DateTimeAnalyzed 04:19:00 -_ pH ____7.345 - 7.350 7.450 pCO2 ___42.0__ -mmHg 35.0 45.0 pO2 110 -mmHg 69.0 116 HCO3- ___22.3__ -mmol/L 22.0 26.0 ABE ___-2.6__ -mmol/L -2.0 2.0 tHb ____8.5__ -g/dL O2Hb ___95.0__ -% COHb ____1.8__ -% MetHb ____1.2__ -% sO2 ___97.9__ -% 25.0 FIO2 ___60.0__ -% PEEP ___16.0__ -cmH2O Set_RR ___30.0__ -b/min Vt __410.0__ -L Drawn By RB - Date/Time Notified____ 04:24:00 -_ Spontaneous_RR ___30.0__ -b/min Notified By RB - Notified Whom RN - B 748 -mmHg tO2 ___11.6__ -Vol% Masoud test N/A -
[2016-12-24 04:51] LABS: BASOPHILS % (AUTO) 0.4 % (0-3); EOSINOPHILS % (AUTO) 0.5 % (0-5); MONOCYTES % (AUTO) 2.9 % (4-12); Mean Corpuscular Hemoglobin 32.5 pg (27.0-35.0); Mean Corpuscular Volume 97.7 fL (81-100); NEUTROPHILS % (AUTO) 79.6 % (40-74); Platelet Count 59 bil/L (150-400)
[2016-12-24] MEDS: 0.9% Sodium Chloride 250 ML IV SCH ×2 (04:56→22:35)
[2016-12-24] MEDS: Vasopressin Inj 20 UNIT in 0.9% Sodium Chloride 100 ML IV SCH ×3 (05:12→22:41)
[2016-12-24 05:34] LABS: Magnesium 2.3 mg/dL (1.6-2.6); Phosphorus 8.2 mg/dL (2.5-4.9)
--- NOTE | 2016-12-24 05:46 | NUR ---
Cardiac/Vent/GI/HD Patient remains on vent, no vent changes this shift, remains at 60% FIO2 with sats 975, RT titrated FIO2 to 55% but sats dropped to 91%, FIO2 put back to 60%, titrated Levophed down to 0.07mcg/kg/min from 0.15, current A line BP 106/53, no sedation changes, tolerating TF at trickle feed 5ml/hr with residuals this AM of 85ml, paralyzed on Nimbex and no restraints on, 20ml out from urinary catheter, had HD last night. Uneventful shift, stable and no distress noted, will continue to monitor. Addendum: 12/24/16 at 0554 by WILLIAM NORIEGA RN Amended: Links added.
[2016-12-24] MEDS: Pantoprazole 4 mg/mL 10 mL Inj IVPUSH SCH ×2 (08:35→16:05)
--- NOTE | 2016-12-24 08:44 | DRSVH ---
PROCEDURE: X-RAY CHEST ONE VIEW, PORTABLE ([id number]) INDICATIONS: 56-year-old intubated male. TECHNIQUE: One view of the chest was acquired. COMPARISON: [facility], CR, XR CHEST 1VW (PORTABLE), 12/23/2016, 4:17. [facility], CR, XR CHEST 1VW (PORTABLE), 12/22/2016, 5:06. [facility], CR, XR CHEST 1VW (SAEID BLE), 12/20/2016, 16:42. FINDINGS: Surgical changes and devices: Endotracheal tube, esophagogastric tube, and right internal jugular mark tral venous catheter remain in expected positions. Lungs and pleura: No pleural effusions or pneumothorax. Widespread bilateral airspace opacities pers ist, with retrocardiac air bronchograms as before. Mediastinum: Mediastinal contours appear normal. Heart size is normal. Bones and chest wall: No suspicious bony lesions. Overlying soft tissues appear unremarkable. IMPRESSION: No significant interval change in florid pulmonary edema and/or bronchopneumonia. Dictated by: Curtis Levine M.D. on 12/24/2016 at 8:42 Approved by: Curtis Levine M.D. on 12/24/2016 at 8:43
[2016-12-24] MEDS: Midazolam Inj 100 MG in IV Premix 1 EACH IV PRN (08:50)
[2016-12-24] MEDS: Propofol Inj 1,000,000 MCG in IV Premix 1 EACH IV SCH (09:08)
[2016-12-24] MEDS: Azithromycin Inj 500 MG in Dextrose 5% w/Vial Mate 250 ML IV SCH (09:08)
[2016-12-24] MEDS ORDERED: 0.9% Sodium Chloride 500 ML ONE (09:35)
--- NOTE | 2016-12-24 11:55 | PCM.PNMED ---
Subjective Date of Service Dec 24, 2016 Subjective Naveed Maciel is a 56 year old male with past medical history significant for COPD who presented to the emergency department via EMS complaining of dyspnea and 3 days of flu-like symptoms. Intubated after failing on BiPAP and admitted for septic shock and acute hypoxemic respiratory failure. Hospital 7. Vent day 7. Overnight: Afebrile overnight. No acute events. FiO2 was titrated down to 0.5. Norepinephrine was titrated down to 0.07 mcg/kg/min from 0.15. No major changes. Today: Patient is no longer tachycardiac this morning, however he is tachypneic. His norepinephrine was again titrated up slightly to 0.08 mcg/kg/ min. Review of systems not obtainable. Exam Vital Signs Vital Sign - Last Date Time Temp Pulse Resp B/P Pulse Ox O2 Delivery O2 Flow Rate FiO2 12/24/16 08:00 36.6 87 30 105/50 92 Mechanical Ventilator 50 12/23/16 16:30 16.00 Intake and Output 12/23/16 12/23/16 12/24/16 Cumulative From/Thru 15:00 23:00 07:00 12/18/16 10:01 - 12/24/16 05:01 Intake Total 1478 ml 1260 ml 59385 ml Output Total 1080 ml 20 ml 91564 ml Balance 398 ml 1240 ml 96846 ml Intake Oral 0 ml IV Total 1478 ml 952 ml 32740 ml Tube Feeding 78 ml 2962 ml Platelets 461 ml Tube Irrigant 230 ml 500 ml Output Urine Total 30 ml 20 ml 1685 ml Stool Total 0 ml 1200 ml Urine/Stool Mix 50 ml 50 ml Gastric Drainage Total 0 ml 850 ml Ultrafiltrate 1000 ml 7200 ml # Bowel Movements 0 Exam General: Intubated and sedated and paralyzed. HEENT: Normocephalic, atraumatic. External ears without defect. Pupils equal, round, and reactive to light and accommodation. Anicteric sclerae, moist conjunctivae. Neck: Supple with full range of motion. No jugular venous distension. No bruits. Cardiovascular: Regular rate and rhythm with no murmurs, rubs, or gallops appreciated. Pulmonary: Course breath sounds throughout. No wheezes or rhonchi. Abdomen: Soft, moderately distended, hypoactive bowel sounds. Old midline surgical incision present. No hepatosplenomegaly. Extremities: No clubbing, cyanosis, or lymphadenopathy appreciated. Mild pitting edema on lower and upper extremities bilaterally. Skin: Faint macular papular rash on upper chest and shoulders. Normal temperature, turgor, and texture; no ulcers or subcutaneous nodules appreciated. Neurological: Intubated and sedated and paralyzed. Psychiatric: Intubated and sedated requiring high doses of sedation. Lines: Right IJ, right radial arterial line, right Lasha femoral catheter, left and right peripherals, Dubois catheter, ETT, OG, FMS IVs and Medications Medications Reviewed: Medications were reviewed in detail Lab and Diagnostics Result Diagram: 12/24/1641412/24/16414 Microbiology BCx and SCx positive for Strep pneumo Resp PCR positive for Flu A H3 Strep pneumo urine ag positive X-Rays, CTs and MRIs X-RAY CHEST ONE VIEW, PORTABLE IMPRESSION: No significant interval change in florid pulmonary edema and/or bronchopneumonia. Dictated by: Curtis Levine M.D. on 12/24/2016 at 8:42 CT CHEST WITH CONTRAST IMPRESSION: 1. Bilateral lung consolidation decreased in size compared to prior examination compatible with resolving pneumonia or aspiration. 2. Bilateral lung interstitial prominence and ground glass opacities. Findings may be related to pneumonia, however finding is nonspecific and other etiologies including pulmonary edema can produce a similar appearance. 3. Trace bilateral pleural effusions. 4. Enlarged bilateral hilar and mediastinal lymph nodes decreased in size. Dictated by: Jordyn Dominguez MD, PhD on 12/23/2016 at 13:19 US RENAL SONOGRAM IMPRESSION: 1. A 1.4 cm cyst in the superior pole the right kidney. Otherwise normal ultrasound appearance of kidneys. No hydronephrosis. 2. Cholelithiasis. No ultrasound evidence for acute cholecystitis. Dictated by: Dwain Gaona M.D. on 12/18/2016 at 18:18 Approved by: Dwain Gaona M.D. on 12/18/2016 at 18:21 Additional Diagnostics DateTimeAnalyzed 04:19:00 -_ pH ____7.345 - 7.350 7.450 pCO2 ___42.0__ -mmHg 35.0 45.0 pO2 110 -mmHg 69.0 116 HCO3- ___22.3__ -mmol/L 22.0 26.0 sO2 ___97.9__ -% 25.0 FIO2 ___60.0__ -% PEEP ___16.0__ -cmH2O Set_RR ___30.0__ -b/min Vt __410.0__ -L Assessment & Plan Naveed Maciel is a 56 year old male with past medical history significant for COPD who presented to the emergency department via EMS complaining of dyspnea and 3 days of flu-like symptoms. Intubated after failing on BiPAP and admitted for septic shock and acute hypoxemic respiratory failure. Hospital 7. Vent day 7. 1. Severe ARDS, present on admission, active. Improving. - Etiology secondary to sepsis and pneumococcal pneumonia in the setting of COPD and past history of cocaine use. - Patient intubated, sedated and paralyzed using fentanyl, midazolam, and Nimbex. - CT chest on 12/18 showed dense consolidation bilaterally within the dependent portions of the lung. - Repeat CT chest was largely unchanged with some mild interval improvement in consolidation. - ABG this morning slightly improved as above. FiO2 will be titrated down. - Concern for aspiration. Metronidazole added 12/19 for anaerobic coverage. - Vent settings per Critical Care/Pulmonology Team. 2. Pneumococcal pneumonia /pneumococcal bacteremia, present on admission, active. - CXR and CT as above. - Vancomycin and Zosyn given in ED. - Antibiotics switched to azithromycin (12/18) and ceftriaxone (12/19-12/22). Added cefepime (12/22). - Procalcitonin 180.83 on admission peaked at 612.48, continues to be above 100. - Strep pneumonia urine antigen positive. - Blood and sputum cultures positive. Sensitive for penicillins. 3. Acute kidney injury, present on admission, active. - Unknown if patient has underlying chronic kidney disease. Patient continues to be anuric. - On admission BUN 65 and creatinine 3.71 - Right femoral catheter placed 12/20. - Dialysis 12/20 and 12/21. Dialysis planned for today with minimal UF. - Avoid nephrotoxic medications as able. - Nephrology consulted. dialysis initiated. Appreciate time and recommendations. 4. Septic shock, present on admission, active. - Criteria include: HR 144, RR 41, O2 sats 83%, lactic acid 6.6, BUN 65, creatinine 3.71, procalcitonin 180.38. - Etiology secondary to pneumococcal pneumonia and influenza A. - Right IJ and right radial arterial line placed 12/18. - Pressors and 5L fluid resuscitation initially and were discontinued but have had to be restarted. - Currently on vasopressin and norepinephrine. Norepinephrine being weaned down as possible. - Blood cultures growing strep x2 and sputum positive for strep. 5. Influenza A, present on admission, active. - Tamiflu 30 mg twice a day started 12/18 10 doses. 6. Lactic acidosis, present on admission, resolved. - On admission lactic acid 6.6. - Lactic acid trended up to 7.4. Most recently at 1.5. - We will continue to monitor closely. 7. Thrombocytopenia, present on admission, active. - Unknown baseline. Etiology likely sepsis. - On admission platelets 74. - DIC panel does not suggest DIC. No schistocytes on blood smear. - Platelets transfused 12/20 prior to dialysis catheter placement. - Will continue to monitor. - DVT prophylaxis initiated 12/22. 8. Upper GI bleed, present on admission, stable. - Coffee-ground material reported from OG tube on admission. - guaiac positive in the ED - Hemoglobin and hematocrit have decreased since admission but likely secondary to fluid resuscitation. - Type and cross with 2 units PRBCs on hold. - DVT prophylaxis started . - Pantoprazole 40 mg BID. - Will consider GI consult if H&H drops or more active bleeding is visualized. 9. COPD, present on admission, unknown baseline. 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 - Unknown if patient has outpatient medication regimen. - Treatment as above. 10. Tobacco use, present on admission, chronic. - Consider Nicotine patch once patient awake. 11. Hyperglycemia, present on admission, active. - Insulin regular low dose correctional scale. - Hemoglobin A1c 5.7. Disposition: Patient currently intubated with severe ARDS. He continues to require 2 pressors. Reduction in FiO2 and PEEP is a positive step however his prognosis is guarded and he remains severely ill. GI Prophylaxis: Proton Pump Inhibitor VTE Prophylaxis: Sub-Q Heparin (Unfractionated) VTE Mechanical Devices: Intermittant Pneumatic CD Resuscitation Status: CPR: Attempt Resuscitation Attending Statement patient seen and examined with Dr Lew ,I agree with history,exam , assessment and plan as outlined above . Clementina Lew DO Dec 24, 2016 09:27 Ariel Berg MD Dec 24, 2016 14:02
--- NOTE | 2016-12-24 12:22 | PCM.PNMED ---
Subjective Date of Service Dec 24, 2016 Subjective The patient tolerated his dialysis treatment yesterday without significant problems. We were able to remove some fluid and he had some improvement in his blood pressure. His unsteadiness or stool at 50% oxygen and +16 of PEEP. His corrected CVP is 4 and his intra-abdominal pressure is 9. He remains anuric. Smoking is hemoglobin 7.6, sodium 136, potassium 4.5, chloride 95, CO2 at 20 BUN and creatinine were 62 and 3.96 respectively. His phosphorus is improved at 8.4. Exam Vital Signs Vital Sign - Last Date Time Temp Pulse Resp B/P Pulse Ox O2 Delivery O2 Flow Rate FiO2 12/24/16 08:00 36.6 87 30 105/50 92 Mechanical Ventilator 50 12/23/16 16:30 16.00 Intake and Output 12/23/16 12/23/16 12/24/16 Cumulative From/Thru 15:00 23:00 07:00 12/18/16 10:01 - 12/24/16 05:01 Intake Total 1478 ml 1260 ml 25807 ml Output Total 1080 ml 20 ml 33813 ml Balance 398 ml 1240 ml 32519 ml Intake Oral 0 ml IV Total 1478 ml 952 ml 37671 ml Tube Feeding 78 ml 2962 ml Platelets 461 ml Tube Irrigant 230 ml 500 ml Output Urine Total 30 ml 20 ml 1685 ml Stool Total 0 ml 1200 ml Urine/Stool Mix 50 ml 50 ml Gastric Drainage Total 0 ml 850 ml Ultrafiltrate 1000 ml 7200 ml # Bowel Movements 0 Exam His lungs show some scattered rhonchi but otherwise were clear. Heart is tachycardic. Abdomen remains somewhat distended but improved from previous examinations. No tenderness, rebound, guarding, masses or hepatosplenomegaly. Extremities showed some mild generalized anasarca. Lab and Diagnostics Result Diagram: 12/24/1641412/24/16414 Microbiology BCx and SCx positive for Strep pneumo Resp PCR positive for Flu A H3 Strep pneumo urine ag positive X-Rays, CTs and MRIs X-RAY CHEST ONE VIEW, PORTABLE IMPRESSION: No significant interval change in florid pulmonary edema and/or bronchopneumonia. Dictated by: Curtis Levine M.D. on 12/24/2016 at 8:42 CT CHEST WITH CONTRAST IMPRESSION: 1. Bilateral lung consolidation decreased in size compared to prior examination compatible with resolving pneumonia or aspiration. 2. Bilateral lung interstitial prominence and ground glass opacities. Findings may be related to pneumonia, however finding is nonspecific and other etiologies including pulmonary edema can produce a similar appearance. 3. Trace bilateral pleural effusions. 4. Enlarged bilateral hilar and mediastinal lymph nodes decreased in size. Dictated by: Jordyn Dominguez MD, PhD on 12/23/2016 at 13:19 US RENAL SONOGRAM IMPRESSION: 1. A 1.4 cm cyst in the superior pole the right kidney. Otherwise normal ultrasound appearance of kidneys. No hydronephrosis. 2. Cholelithiasis. No ultrasound evidence for acute cholecystitis. Dictated by: Dwain Gaona M.D. on 12/18/2016 at 18:18 Approved by: Dwain Gaona M.D. on 12/18/2016 at 18:21 Additional Diagnostics DateTimeAnalyzed 04:19:00 -_ pH ____7.345 - 7.350 7.450 pCO2 ___42.0__ -mmHg 35.0 45.0 pO2 110 -mmHg 69.0 116 HCO3- ___22.3__ -mmol/L 22.0 26.0 sO2 ___97.9__ -% 25.0 FIO2 ___60.0__ -% PEEP ___16.0__ -cmH2O Set_RR ___30.0__ -b/min Vt __410.0__ -L Assessment & Plan Impression #1 acute tubular necrosis secondary to sepsis from influenza A and pneumococcus #2 increased anion gap metabolic acidosis #3 anemia which is multifactorial, for respiratory failure Recommendation 1 patient is to dialyze today for 4 hours on a revaclear max dialyzer, 2 potassium bath, 1500 units of heparin as a loading dose tried to take 1-3 L of fluid office tolerated. GI Prophylaxis: Proton Pump Inhibitor VTE Prophylaxis: Sub-Q Heparin (Unfractionated) VTE Mechanical Devices: Intermittant Pneumatic CD Resuscitation Status: CPR: Attempt Resuscitation Hang Garsia DO Dec 24, 2016 12:22
[2016-12-24] MEDS: fentaNYL 2,500 mCg/250 mL 2,500 MCG in IV Premix 1 EACH IV SCH (12:42)
[2016-12-24 12:59] LABS: INR 1.66 ratio
[2016-12-24 13:07] LABS: D-DIMER 11.9 mg/L (<0.50)
--- NOTE | 2016-12-24 14:15 | PROG NOTE ---
[address] [address] PROGRESS NOTE PATIENT: DOUGIE GARDUNO : 1960 MR#: [id number] ADMIT: 12/18/2016 JOB ID: [id number] DATE: 12/24/2016 PULMONARY CRITICAL CARE PROGRESS NOTE: The patient is a 56-year-old man presenting with pneumococcal bacteremia and pneumonia, influenza A, as well as septic shock and ARDS. INTERVAL HISTORY: His fever curve has come down over the last 24 hours and he has only had temps in the high 37's after yesterday. Pressor requirement was down to norepinephrine of 0.07 and vasopressin remains at 0.04. This morning, however, he had to go back up to 0.12 on the norepinephrine briefly because of MAPs in the 50s. CT done yesterday did not show any acute worrisome changes that would explain his fevers. REVIEW OF SYSTEMS: Unable to obtain. PHYSICAL EXAMINATION: Vital signs reviewed. Temperature 36.6, pulse 87, respirations 30, BP 105/50, sats 92% on 50% FiO2 and 16 cm of PEEP. General: Intubated, sedated, and paralyzed. Chest: Clear to auscultation. Abdomen is slightly distended and firm. LABORATORIES: Reviewed. WBC down to 12.7 from 18.6 yesterday. Platelets down to 59 from 83 yesterday. Chemistry reviewed and notable for improvement in electrolytes and potassium with dialysis. Procalcitonin still measured at greater than 100. AST 94, ALT 76, alk phos 153. Procalcitonin, December 24, was in the 200s. Procalcitonin, December 23, was 286. Procalcitonin, December 22, was 420. Lipase on December 23 was 27. LFTs today are slowly rising still--AST is up to 94, ALT 76. Alk phos is actually down to 153. Bilirubin 1.4. Chest CT was reviewed and compared with prior CT from December 18. This shows dense bibasilar consolidation which has actually improved somewhat on the right side. It persists on the left, although there is barely any pleural effusion. There is no obvious sign of a lung abscess. Arterial blood gas from this morning shows pH 7.34, pCO2 42, pO2 of 110, bicarbonate of 22. ASSESSMENT/RECOMMENDATIONS: 1. Acute respiratory distress syndrome. 2. Septic shock. 3. Pneumococcal bacteremia pneumonia. 4. Influenza pneumonia. 5. Acute renal failure on hemodialysis since December 20. 6. Fever--improving. 7. Thrombocytopenia--unchanged. 8. Transaminitis. A 50-year-old man with multi-organ failure, including severe adult respiratory distress syndrome, septic shock due to influenza pneumococcal bacteremia and pneumonia. His chest CT done yesterday does not show any obvious etiology for his leukocytosis/fever, such as empyema or lung abscess. Today, his fever curve is improving as is his leukocytosis. Antibiotics-rivers, he remains on cefepime, azithromycin, and Flagyl. He completed Tamiflu x5 days. From a pressor standpoint, he is on norepinephrine at 0.12 mcg, slightly improved compared to yesterday, and vasopressin at 0.04. For sedation, he is on fentanyl and midazolam, as well as cisatracurium drip to control his respiratory efforts for ARDS. Vent settings are currently 50% FiO2 with 16 of PEEP, so I will decrease his PEEP to 14 since his sats in the mid 90s. Tidal volume is at 6 cc/kg ideal body weight and respiratory rate is at 30 and his gas is acceptable. I would not wean his PEEP further today. Plan is for dialysis today and Dr. Garsia is going to attempt to take some fluid off, if his blood pressure allows. However, if his pressor requirement starts going up rapidly, we would hold off on any additional fluid off. I remain concerned about his transaminitis, but he did have an ultrasound of the abdomen just a few days ago that showed no evidence of acalculous cholecystitis. We will keep an eye on it at this point. He is on appropriate DVT and GI prophylaxis. However, if his platelet count drops below 50, we should probably stop the subcu heparin. He is a FULL CODE. CRITICAL CARE TIME: 40 minutes.
--- NOTE | 2016-12-24 16:01 | NUR ---
Patient on vent and unable to sign LEONARDO. SW attempted to call patient's sister Rakesh but there was no answer
--- NOTE | 2016-12-24 17:10 | NUR ---
Hemodynamics/Resp/Activity BP stable with titrating Levophed. Up to .15 and then back down to .08. Vasopressin remains at .04 u/min Keeping map 65 or greater. Little UOP, 50 mls. Dialysis today. Patient on continuous rotation therapy at 70% and has been tilted side to side and back as well. TOF machine nonfunctioning. Nimbex remains at 3 mcg/kg/min. Continuing with POC.
--- NOTE | 2016-12-24 20:15 | NUR ---
Dialysis note: 4 hrs tx. 3000 ml net UF. Right femoral catheter, dsg dry and intact. Pls see DTR for VS details; cont on pressors. Qb 400-450. Heparin given. On vent @ 50% FiO2 with sat in the 90's. Stable tx. Catheter flushed, heparin dwelled and secured. Report given to Kira SOSA.
[2016-12-25] VITALS (12 sets, daily range): BP systolic 115–137; BP diastolic 51–65; PULSE 66–78; RESP 30; O2SAT 92–96
[2016-12-25] MEDS: Midazolam Inj 100 MG in IV Premix 1 EACH IV PRN ×2 (00:48→19:05)
[2016-12-25] MEDS: fentaNYL 2,500 mCg/250 mL 2,500 MCG in IV Premix 1 EACH IV SCH ×2 (00:48→15:53)
[2016-12-25] MEDS: Heparin 5,000 Unit/mL Inj SUBQ SCH ×3 (00:49→15:59)
[2016-12-25] MEDS: Chlorhexidine 0.12% 15 mL Oral Solution MT SCH ×6 (00:52→22:38)
[2016-12-25] MEDS: Cisatracurium Inj 200,000 MCG in 0.9% Sodium Chloride-Pha MIX 100 ML IV PRN ×2 (03:01→19:16)
--- NOTE | 2016-12-25 04:31 | ABG ---
DateTimeAnalyzed 04:25:00 -_ pH ____7.393 - 7.350 7.450 pCO2 ___42.4__ -mmHg 35.0 45.0 pO2 ___68.8__ -mmHg 69.0 116 HCO3- ___25.3__ -mmol/L 22.0 26.0 ABE ____0.9__ -mmol/L -2.0 2.0 tHb ____8.2__ -g/dL O2Hb ___90.5__ -% COHb ____2.1__ -% MetHb ____1.4__ -% sO2 ___93.8__ -% 25.0 FIO2 ___50.0__ -% PEEP ___16.0__ -cmH2O Set_RR ___30.0__ -b/min Vt __410.0__ -L Drawn By RB - Spontaneous_RR ___30.0__ -b/min Notified By RB - Notified Whom RN - B 741 -mmHg tO2 ___10.5__ -Vol% Masoud test N/A -
[2016-12-25] MEDS: Vasopressin Inj 20 UNIT in 0.9% Sodium Chloride 100 ML IV SCH ×3 (05:23→22:38)
[2016-12-25 05:37] LABS: BASOPHILS % (AUTO) 0.2 % (0-3); EOSINOPHILS % (AUTO) 1.5 % (0-5); MONOCYTES % (AUTO) 3.6 % (4-12); Mean Corpuscular Hemoglobin 32.3 pg (27.0-35.0); Mean Corpuscular Volume 97.2 fL (81-100); NEUTROPHILS % (AUTO) 81.3 % (40-74); Platelet Count 60 bil/L (150-400)
[2016-12-25] MEDS: Pantoprazole 4 mg/mL 10 mL Inj IVPUSH SCH ×2 (07:52→15:55)
--- NOTE | 2016-12-25 08:20 | PROG NOTE ---
[address] [address] PROGRESS NOTE PATIENT: DOUGIE GARDUNO : 1960 MR#: [id number] ADMIT: 12/18/2016 JOB ID: [id number] PULMONARY CRITICAL CARE FOLLOW UP NOTE: DATE: 12/25/2016 PROBLEM LIST: 1. Influenza A. 2. Pneumococcal pneumonia with bacteremia. 3. ARDS. 4. Septic shock. 5. Acute renal failure requiring hemodialysis. 6. Thrombocytopenia. 7. Transaminitis. SUBJECTIVE: None. OBJECTIVE: Temperature 36.8. Pulse mid 70s. Respiratory rate 30 with ventilator set at 30 and patient paralyzed on cisatracurium. Blood pressure 124/57, O2 sat on FiO2 of 50%, PEEP of 14 is 92-94%. I and O shows 2.8 L in, urine output 45 mL. Received ultrafiltration yesterday removing 3 L. General appearance: Sedated, paralyzed on ventilator. Pupils pinpoint. Nose and throat could not be examined. Chest: Fair breath sounds bilaterally. Maybe somewhat diminished. There is some mild coarse crackles on exhalation in the right upper anterior lung field. Remainder of lung hillman are clear. With tidal volume of 410, rate of 30, PEEP of 14, peak inspiratory pressure 32, plateau 28. The patient is on volume control with 0.15 second pause. Heart: Somewhat distant tones. Heart tones seem normal. Abdomen is soft. Nondistended. I cannot tell whether bowel tones or not. Extremities: No pretibial edema. [place] and warm. LABORATORY: Shows a white count of 12,300, unchanged from yesterday's value. There are 81 polymorphonuclears, 11 lymphocytes, 3 monocytes. Hemoglobin 8.1, and slowly dropping. Was 8.6 yesterday, 9.5 the day before. Platelet count stable at 60,000, unchanged from yesterday's value of 59,000. Sodium 140, potassium 4.4, chloride 99, CO2 is 23, BUN 57 and stable, creatinine 3.32, down from 3.96 after ultrafiltration yesterday. Lactic acid is 1.9. Calcium 6.8, with an albumin of 2.4. Total bilirubin 0.9, down from 1.4. Transaminases 81, essentially the same as yesterday's value of 94. ALT 78, unchanged from yesterday's value of 76. Alkaline phosphatase 180, slightly elevated from yesterday's value of 153. Lipase normal at 25. PROBLEMS: 1. Influenza A. The patient has received five days of treatment with oseltamivir. Will check with Infectious Disease about whether it might be reasonable to prolong the course given the severity of his illness. 2. Pneumococcal pneumonia with bacteremia. On broad-spectrum antibiotics. Again, will check with ID regarding possibly narrowing the antibiotic regimen. 3. ARDS. The patient currently on volume control. The patient is paralyzed. Using inspiratory pause to increase mean airway pressure and improve ventilation-perfusion matching. It had shown slow improvement. As long as he stays paralyzed, we can continue this modality. Acid base status is fine with a pO2 of 68, tidal volume of 410, rate of 30, FiO2 of 50%, PEEP of 14. Ventilation is normal with a CO2 of 42, and pH normal at 7.39. 4. Nutritional support. Getting the tube feeding. Currently seemingly at goal with the tube feeding running at 62 mL/h. Will need to check formulation to see if it is appropriate for his renal failure. 5. Transaminitis. A bit unclear. Seems to be possibly more of an obstructive problem. Has had a number of studies including ultrasound of the abdomen, along with abdominal CT and retroperitoneal ultrasound without abnormalities being noted. Possibly due to medications. 6. Thrombocytopenia. Presumably DIC. The patient came in with a low platelet count. No evidence for HIT, as thrombocytopenia preceded any treatment modalities. PLAN: 1. Continue current vent settings. 2. Check with ID regarding antibiotic regimen. 3. Continue the tube feeding, checking formulation. 4. Check with Renal regarding ultrafiltration. TIME SPENT: Time spent so far in critical care, 40 minutes.
--- NOTE | 2016-12-25 08:26 | PROG NOTE ---
[address] [address] PROGRESS NOTE PATIENT: DOUGIE GARDUNO : 1960 MR#: [id number] ADMIT: 12/18/2016 JOB ID: [id number] DATE: 12/25/2016 REASON FOR FOLLOW UP: Influenza complicated by pneumococcal septic shock, ventilatory dependent respiratory failure and renal failure. INTERVAL HISTORY: Over the weekend, the patient has made very slow progress but remains super critically ill. He remains intubated on high FiO2 and PEEP, on dialysis, and requiring vasopressor agents. He remains paralyzed. Obviously, no additional history is available from the patient. I examined the patient at the bedside with the ICU nurse and discussed the patient [id number] with the ICU attending for an extended period. PHYSICAL EXAMINATION: Reveals an afebrile gentleman, temperature 36.8, pulse 78, blood pressure 124/57. He is saturating 92% on 50% FiO2 and 14 of PEEP. Examination of the head reveals no evidence of trauma. The eyes are without conjunctival or scleral change. Oral endotracheal tube and orogastric tube in good position. Neck without adenopathy. The right IJ is present without inflammation. Right radial A-line present without inflammation. Left peripheral IV appears benign. Lungs with decreased breath sounds and scattered rhonchi and rales bilaterally, but more so on the left than the right. Cardiac tones distant without new murmur. Abdomen is soft, without organomegaly. Penis and scrotum appear normal. Dubois catheter in good position. Extremities without synovitis, cellulitis or edema. LABORATORY STUDIES: White blood count 12,300, platelet count 60,000, differential white count 81% segs. Creatinine 3.32. Lactic acid 1.9. Creatinine still 6.8, urine output remains minimal. ALT, AST and alk phos all moderately elevated, 81, 78, and 180, respectively. Albumin 2.4. Lipase 25. Procalcitonin has finally dropped below 100 today, down to 95 from a high over 600 when we started about a week ago. Serologic studies include negative hepatitis B and C serologies, negative HIV. Since our initial cultures which grew Pneumococcus from blood and sputum, all other cultures have been negative, including multiple sputums, blood and fungal cultures. C. diff has also been negative. Our most recent sputum from the 4th showed just rare polys and minimal normal christina. Recall that an influenza A was also positive. IMAGING: I personally reviewed the chest x-rays on the PACS machine. Extensive bilateral infiltrates consistent with ARDS are still present. IMPRESSION: This critically ill gentleman has made a little bit of progress over the past 48-72 hours. He remains critically ill on dual vasopressor agents, paralyzed and on the ventilator. His FiO2 is down slightly over the past few days, as is his PEEP. His norepinephrine has been turned down, but he is still on norepinephrine as well as vasopressin. His urine output continues to be essentially nil, and he requires ongoing dialysis. We have not found any evidence of any additional infections beyond the influenza and associated pneumococcal sepsis. At this point, I think we should seriously narrow his antibiotics. Will use ceftriaxone as our only pneumococcal drug, and continue until his procalcitonin is much improved. Likewise, will continue with renally adjusted oseltamivir. The exact duration of oseltamivir use in a patient whose is so critically ill is unclear from the literature and we will continue at least until there is a significant improvement in his overall status. RECOMMENDATIONS: 1. Will discontinue cefepime, Flagyl and azithromycin. 2. Will switch to ceftriaxone 2 g once a day. 3. Use of oseltamivir with a loading dose of 30 mg now and then 30 mg after each hemodialysis session. 4. This case was discussed with Dr. Newberry, the ICU attending.
[2016-12-25] MEDS: Senna-Docusate 8.6-50 mg Tablet PO SCH ×2 (09:07→20:30)
--- NOTE | 2016-12-25 09:33 | NUR ---
Physical Therapy: Per CCU rounds, pt continues to be not appropriate for PT intervention. Pt will be discharged from PT caseload at this time. Please re-order once medically appropriate.
[2016-12-25] MEDS: Oseltamivir 6 mg/mL 60 mL Suspension PO SCH ×2 (10:01→22:38)
[2016-12-25] MEDS: cefTRIAXone Inj 2,000 MG in Dextrose 5% Minibag Plus 50 ML IV SCH (10:13)
[2016-12-25] MEDS: Norepineph 8,000 mCg/250 mL NS 8,000 MCG in IV Premix 1 EACH IV SCH (10:15)
[2016-12-25] MEDS: Propofol Inj 1,000,000 MCG in IV Premix 1 EACH IV SCH (10:15)
[2016-12-25 10:25] LABS: Bilirubin, Direct 0.6 mg/dL (0.0-0.3)
--- NOTE | 2016-12-25 10:38 | NUR ---
LEONARDO Patient on vent and unable to sign LEONARDO. SW received verbal consent from patient's sister Rakesh Tabares
--- NOTE | 2016-12-25 11:22 | PCM.PNMED ---
Subjective Date of Service Dec 25, 2016 Subjective He remains in the critical condition. intubated, sedated, low urine output. on vasopressors. HD yesterday with UF 3 L. Exam Vital Signs Vital Sign - Last Date Time Temp Pulse Resp B/P Pulse Ox O2 Delivery O2 Flow Rate FiO2 12/25/16 08:00 36.8 75 30 122/59 93 Mechanical Ventilator 50 12/23/16 16:30 16.00 Intake and Output 12/24/16 12/24/16 12/25/16 Cumulative From/Thru 15:00 23:00 07:00 12/18/16 10:01 - 12/25/16 06:15 Intake Total 1565 ml 1870 ml 10084 ml Output Total 3175 ml 50 ml 50059 ml Balance -1610 ml 1820 ml 68094 ml Intake Oral 0 ml IV Total 1384 ml 1061 ml 23298 ml Tube Feeding 719 ml 3681 ml Platelets 461 ml Tube Irrigant 181 ml 90 ml 771 ml Output Urine Total 25 ml 50 ml 1760 ml Stool Total 0 ml 1200 ml Urine/Stool Mix 50 ml Gastric Drainage Total 150 ml 1000 ml Ultrafiltrate 3000 ml 84325 ml # Bowel Movements 0 Exam GA: intubated, sedated. HEENT: atraumatic, no injected conjunctivae, no icteric sclerae, right IJ triple lumen in place. Heart: RRR, no significant murmur/rub/gallop, normal S1/s2. Lungs: occasional rhonchi B/L, good air entry, equal BS. Abd: soft, mild distension, no HSM, decreased BS. Ext: 1+ edema on LE and sacral swelling. : tate cath in place with scant urine. Lab and Diagnostics Result Diagram: 12/25/1652912/25/1630 Microbiology BCx and SCx positive for Strep pneumo Resp PCR positive for Flu A H3 Strep pneumo urine ag positive X-Rays, CTs and MRIs X-RAY CHEST ONE VIEW, PORTABLE IMPRESSION: No significant interval change in florid pulmonary edema and/or bronchopneumonia. Dictated by: Curtis Levine M.D. on 12/24/2016 at 8:42 CT CHEST WITH CONTRAST IMPRESSION: 1. Bilateral lung consolidation decreased in size compared to prior examination compatible with resolving pneumonia or aspiration. 2. Bilateral lung interstitial prominence and ground glass opacities. Findings may be related to pneumonia, however finding is nonspecific and other etiologies including pulmonary edema can produce a similar appearance. 3. Trace bilateral pleural effusions. 4. Enlarged bilateral hilar and mediastinal lymph nodes decreased in size. Dictated by: Jordyn Dominguez MD, PhD on 12/23/2016 at 13:19 US RENAL SONOGRAM IMPRESSION: 1. A 1.4 cm cyst in the superior pole the right kidney. Otherwise normal ultrasound appearance of kidneys. No hydronephrosis. 2. Cholelithiasis. No ultrasound evidence for acute cholecystitis. Dictated by: Dwain Gaona M.D. on 12/18/2016 at 18:18 Approved by: Dwain Gaona M.D. on 12/18/2016 at 18:21 Additional Diagnostics DateTimeAnalyzed 04:19:00 -_ pH ____7.345 - 7.350 7.450 pCO2 ___42.0__ -mmHg 35.0 45.0 pO2 110 -mmHg 69.0 116 HCO3- ___22.3__ -mmol/L 22.0 26.0 sO2 ___97.9__ -% 25.0 FIO2 ___60.0__ -% PEEP ___16.0__ -cmH2O Set_RR ___30.0__ -b/min Vt __410.0__ -L Assessment & Plan 1. ALBERTINA due to oliguric ATN. - Requiring HD. - Kidney function remains poor. - Right femoral cath was placed on 12/20. 2. Septic shock. - Pneumococcal pneumonia /pneumococcal bacteremia - Influenza A infection. 3. Acute hypoxic respiratory failure/ARDS. 4. Thrombocytopenia/Anemia. 5. COPD/h/o tobacco abuse. Plan: Hold HD today. Next HD in am. Remove femoral cath after HD tomorrow. GI Prophylaxis: Proton Pump Inhibitor VTE Prophylaxis: Sub-Q Heparin (Unfractionated) VTE Mechanical Devices: Intermittant Pneumatic CD Resuscitation Status: CPR: Attempt Resuscitation Loli Pinon MD Dec 25, 2016 11:22 Loli Pinon MD Dec 25, 2016 11:22
--- NOTE | 2016-12-25 15:08 | NUR ---
spiritual care: referral/followup caring visit. pt sedated. quiet vocal company and prayer.
--- NOTE | 2016-12-25 17:16 | PCM.PNMED ---
Subjective Date of Service Dec 25, 2016 Subjective Overnight: Pt received dialysis yesterday, remained stable. BP fairly stable overnight, on Levophed and Vasopressin. On Nimbex for paralysis . Today: Pt is sedated, paralysed, and intubated and no history could be obtained. Exam Vital Signs Vital Sign - Last Date Time Temp Pulse Resp B/P Pulse Ox O2 Delivery O2 Flow Rate FiO2 12/25/16 15:53 70 125/57 94 50 12/25/16 15:33 37.1 30 Mechanical Ventilator 12/23/16 16:30 16.00 Intake and Output 12/24/16 12/24/16 12/25/16 Cumulative From/Thru 15:00 23:00 07:00 12/18/16 10:01 - 12/25/16 06:15 Intake Total 1565 ml 1870 ml 99877 ml Output Total 3175 ml 50 ml 34139 ml Balance -1610 ml 1820 ml 17495 ml Intake Oral 0 ml IV Total 1384 ml 1061 ml 87625 ml Tube Feeding 719 ml 3681 ml Platelets 461 ml Tube Irrigant 181 ml 90 ml 771 ml Output Urine Total 25 ml 50 ml 1760 ml Stool Total 0 ml 1200 ml Urine/Stool Mix 50 ml Gastric Drainage Total 150 ml 1000 ml Ultrafiltrate 3000 ml 55715 ml # Bowel Movements 0 Exam General: Intubated and sedated and paralyzed. Head: Normocephalic, atraumatic. External ears without defect. Eyes: Pupils equal, round, and reactive to light and accommodation. Anicteric sclerae, moist conjunctivae. Cardiovascular: Regular rate and rhythm with no murmurs, rubs, or gallops appreciated. Pulmonary: Course breath sounds throughout. No wheezes or rhonchi. Abdomen: Soft, moderately distended, hypoactive bowel sounds. Old midline surgical incision present. Extremities: Mild pitting edema on lower and upper extremities bilaterally. Skin: Faint macular papular rash on upper chest and shoulders. Neurological: Intubated and sedated and paralyzed. Lab and Diagnostics Result Diagram: 12/25/16 0530 12/25/16 0530 Microbiology BCx and SCx positive for Strep pneumo Resp PCR positive for Flu A H3 Strep pneumo urine ag positive X-Rays, CTs and MRIs X-RAY CHEST ONE VIEW, PORTABLE IMPRESSION: No significant interval change in florid pulmonary edema and/or bronchopneumonia. Dictated by: Curtis Levine M.D. on 12/24/2016 at 8:42 CT CHEST WITH CONTRAST IMPRESSION: 1. Bilateral lung consolidation decreased in size compared to prior examination compatible with resolving pneumonia or aspiration. 2. Bilateral lung interstitial prominence and ground glass opacities. Findings may be related to pneumonia, however finding is nonspecific and other etiologies including pulmonary edema can produce a similar appearance. 3. Trace bilateral pleural effusions. 4. Enlarged bilateral hilar and mediastinal lymph nodes decreased in size. Dictated by: Jordyn Dominguez MD, PhD on 12/23/2016 at 13:19 US RENAL SONOGRAM IMPRESSION: 1. A 1.4 cm cyst in the superior pole the right kidney. Otherwise normal ultrasound appearance of kidneys. No hydronephrosis. 2. Cholelithiasis. No ultrasound evidence for acute cholecystitis. Dictated by: Dwain Gaona M.D. on 12/18/2016 at 18:18 Approved by: Dwain Gaona M.D. on 12/18/2016 at 18:21 Additional Diagnostics DateTimeAnalyzed 04:19:00 -_ pH ____7.345 - 7.350 7.450 pCO2 ___42.0__ -mmHg 35.0 45.0 pO2 110 -mmHg 69.0 116 HCO3- ___22.3__ -mmol/L 22.0 26.0 sO2 ___97.9__ -% 25.0 FIO2 ___60.0__ -% PEEP ___16.0__ -cmH2O Set_RR ___30.0__ -b/min Vt __410.0__ -L Assessment & Plan Naveed Maciel is a 56 year old male with past medical history significant for COPD who presented to the emergency department via EMS complaining of dyspnea and 3 days of flu-like symptoms. Intubated after failing on BiPAP and admitted for septic shock and acute hypoxemic respiratory failure. Hospital 7. Vent day 7. 1. Severe ARDS, present on admission, active. Improving. - Etiology secondary to sepsis and pneumococcal pneumonia in the setting of COPD and past history of cocaine use. CT chest on 12/18 showed dense consolidation bilaterally within the dependent portions of the lung. Repeat CT chest was largely unchanged with some mild interval improvement in consolidation. - Patient intubated, sedated and paralyzed using fentanyl, midazolam, and Nimbex. - Concern for aspiration. Metronidazole added 12/19 for anaerobic coverage. - Vent settings per Critical Care/Pulmonology Team. 2. Pneumococcal pneumonia /pneumococcal bacteremia, present on admission, improving. - CXR and CT as above. Strep pneumonia urine antigen positive. Blood and sputum cultures positive. Sensitive for penicillins. WBC trending down. Procalcitonin 180.83 on admission peaked at 612.48, trending down. - Discontinued Cefepime, Flagyl, and azithromycin - Ceftriaxone 2g IV daily 3. Acute kidney injury, present on admission, active. - Unknown if patient has underlying chronic kidney disease. Patient continues to be anuric. On admission BUN 65 and creatinine 3.71 - Right femoral catheter placed 12/20. - Dialysis 12/20, 12/21, and 12/25. - Avoid nephrotoxic medications as able. - Nephrology consulted. Appreciate time and recommendations. 4. Septic shock, present on admission, active. - Criteria include: HR 144, RR 41, O2 sats 83%, lactic acid 6.6, BUN 65, creatinine 3.71, procalcitonin 180.38. Etiology secondary to pneumococcal pneumonia and influenza A. - Right IJ and right radial arterial line placed 12/18. - Currently on vasopressin and norepinephrine. Norepinephrine being weaned down as possible. 5. Influenza A, present on admission, active. - Oseltamivir with a loading dose of 30 mg now and then 30 mg after each hemodialysis session. 6. Lactic acidosis, present on admission, resolved. - On admission lactic acid 6.6. - Lactic acid trended up to 7.4. Most recently at 1.5. - We will continue to monitor closely. 7. Thrombocytopenia, present on admission, active. - Unknown baseline. Etiology likely sepsis. - On admission platelets 74. - DIC panel does not suggest DIC. No schistocytes on blood smear. - Platelets transfused 12/20 prior to dialysis catheter placement. - Will continue to monitor. - DVT prophylaxis initiated 12/22. 8. Upper GI bleed, present on admission, stable. - Coffee-ground material reported from OG tube on admission. Guaiac positive in the ED. Hemoglobin and hematocrit have decreased since admission but likely secondary to fluid resuscitation. - Type and cross with 2 units PRBCs on hold. - DVT prophylaxis started . - Pantoprazole 40 mg BID. - Will consider GI consult if H&H drops or more active bleeding is visualized. 9. COPD, present on admission, unknown baseline. 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 Unknown if patient has outpatient medication regimen. - Treatment as above. 10. Tobacco use, present on admission, chronic. - Consider Nicotine patch once patient awake. 11. Hyperglycemia, present on admission, active. - Insulin regular low dose correctional scale. - Hemoglobin A1c 5.7. Disposition: Patient currently intubated with severe ARDS. He continues to require 2 pressors. Reduction in FiO2 and PEEP is a positive step however his prognosis is guarded and he remains severely ill. GI Prophylaxis: Proton Pump Inhibitor VTE Prophylaxis: Sub-Q Heparin (Unfractionated) VTE Mechanical Devices: Intermittant Pneumatic CD Resuscitation Status: CPR: Attempt Resuscitation Attending Statement The patient was seen and examined together with Dr. Fraire on 12/25/2016 and I agree with the history, exam and plan as outlined in the note above. . Tramaine Fraire Dec 25, 2016 17:16 Patrice Galvan MD Dec 25, 2016 19:59
--- NOTE | 2016-12-25 18:31 | NUR ---
Tube Feed Residuals Tube feed residuals today were 210 mls and 320 mls. MD made aware and instructed to continue with feeds as is. Tube Feeding is [employer] at 62 mls/hr with 30 q 4 hour flushes. Patient is stooling via FMS.
--- NOTE | 2016-12-25 23:10 | NUR ---
Care Pt intubated. Tolerating vent setting well. VSS. TF residual =450 ml. TF at 62 ml/hr. No overt complications noted. Report given and care transferred to Arian Hudson RN at the bedside.
[2016-12-26] VITALS (15 sets, daily range): BP systolic 97–132; BP diastolic 43–70; PULSE 66–88; RESP 30–38; O2SAT 92–97
[2016-12-26] MEDS: Heparin 5,000 Unit/mL Inj SUBQ SCH ×4 (01:03→21:10)
[2016-12-26] MEDS: Chlorhexidine 0.12% 15 mL Oral Solution MT SCH ×6 (01:03→21:11)
[2016-12-26] MEDS: 0.9% Sodium Chloride 250 ML IV SCH ×2 (03:06→21:11)
--- NOTE | 2016-12-26 04:38 | ABG ---
DateTimeAnalyzed 04:31:00 -_ pH ____7.354 - 7.350 7.450 pCO2 ___42.8__ -mmHg 35.0 45.0 pO2 ___77.0__ -mmHg 69.0 116 HCO3- ___23.2__ -mmol/L 22.0 26.0 ABE ___-1.7__ -mmol/L -2.0 2.0 tHb ____8.2__ -g/dL O2Hb ___92.2__ -% COHb ____1.9__ -% MetHb ____1.2__ -% sO2 ___95.1__ -% 25.0 FIO2 ___50.0__ -% PEEP ___14.0__ -cmH2O Set_RR ___30.0__ -b/min Vt __410.0__ -L Drawn By MM - Date/Time Notified____ 04:38:00 -_ Spontaneous_RR ___30.0__ -b/min Oxygen Device 1 VENTILATOR - Notified By MM - Notified Whom RN - B 750 -mmHg tO2 ___10.7__ -Vol% OrderingPhysicianInitials bak - Masoud test N/A -
[2016-12-26] MEDS ORDERED: 0.9% Sodium Chloride 1,000 ML ONE (04:54)
[2016-12-26 05:20] LABS: BASOPHILS % (AUTO) 0.3 % (0-3); EOSINOPHILS % (AUTO) 1.4 % (0-5); MONOCYTES % (AUTO) 3.9 % (4-12); Mean Corpuscular Hemoglobin 32.5 pg (27.0-35.0); Mean Corpuscular Volume 97.2 fL (81-100); NEUTROPHILS % (AUTO) 78.4 % (40-74); Platelet Count 53 bil/L (150-400)
[2016-12-26 05:38] LABS: INR 1.54 ratio
[2016-12-26 05:45] LABS: Magnesium 2.5 mg/dL (1.6-2.6); Phosphorus 7.4 mg/dL (2.5-4.9)
[2016-12-26] MEDS: fentaNYL 2,500 mCg/250 mL 2,500 MCG in IV Premix 1 EACH IV SCH ×2 (06:17→18:45)
--- NOTE | 2016-12-26 06:19 | NUR ---
Decreased vasopressor rates Pt rested well over night with no major events. Vasopressors weaned as tolerated. Only remains on Levophed. Remains sedated and paralyzed. No vent changes made tonight. FMS patent and draining good amounts of stool. Dubois patent and draining only a small amount of urine (only 50ml for the shift). Labs appear in line with current trends and Dr. Ruvalcaba was notified about the BUN of 88. Will continue to monitor. See flow sheet for further details.
[2016-12-26] MEDS: Senna-Docusate 8.6-50 mg Tablet PO SCH ×2 (08:30→21:10)
[2016-12-26] MEDS: cefTRIAXone Inj 2,000 MG in Dextrose 5% Minibag Plus 50 ML IV SCH (08:58)
[2016-12-26] MEDS: Pantoprazole 4 mg/mL 10 mL Inj IVPUSH SCH ×2 (08:58→21:08)
[2016-12-26] MEDS: Oseltamivir 6 mg/mL 60 mL Suspension PO SCH ×2 (09:01→21:10)
--- NOTE | 2016-12-26 09:02 | NUR ---
Social Work: Brief Note Data & AssessmentEMR Reviewed. Patient still vented. Senior Financial Reporting Analyst met with patient's sister, Rakesh [phone], at bedside and she states that she will be going back to [place], but will return. SW will continue to follow. Plan: SW will re-evaluate patient's discharge needs when he is medically stable. Lashanda Branch, MARGARITA, ACM
--- NOTE | 2016-12-26 09:28 | DRSVH ---
PROCEDURE: X-RAY CHEST ONE VIEW, PORTABLE ([id number]) INDICATIONS: pneumococcal pneumonia complicating influenza TECHNIQUE: One view of the chest was acquired. COMPARISON: [facility], CR, XR CHEST 1VW (PORTABLE), 12/24/2016, 3:16. FINDINGS: Surgical changes and devices: Endotracheal tube, esophagogastric tube, and right internal jugular mark tral venous catheter remain in expected positions. Lungs and pleura: Trace left pleural effusion. No pneumothorax. Widespread bilateral airspace opaci ties persist, with retrocardiac air bronchograms as before. Mediastinum: Mediastinal contours appear normal. Heart size is normal. Bones and chest wall: No suspicious bony lesions. Overlying soft tissues appear unremarkable. IMPRESSION: No significant change in diffuse pneumonia bilaterally. Dictated by: Soren Johnson RR Interpreted: Dwain Gaona MD on 12/26/2016 at 9:27 Transcribed by: TAYLOR on 12/26/2016 at 9:28 Approved by: Dwain Gaona M.D. on 12/26/2016 at 19:09
--- NOTE | 2016-12-26 10:13 | NUR ---
NUTRITION FOLLOW-UP ASSESS: 56 YO male admitted with septic shock and acute hypoxemic respiratory failure with pneumococcal pneumonia / bacteremia and influenza A. Pt remains intubated, sedated and paralyzed. Per MD, will try reducing paralysis today. Pt received dialysis on 12/24 and is scheduled for dialysis again today. Pt is still septic w/ acute hypoxic respiratory failure. Per RN, there was some confusion regarding enteral formula and rate. Pt back on Pulmocare at goal rate. Residuals of 210 ml, 320 ml, and 450 ml noted on 12/25 likely due to paralytic. MD aware and wants to continue at current goal rate. PMHX: COPD, Past history of drug abuse (per sister), tobacco user. No other history obtained d/t intubation and sedation. LABS: Reviewed. BUN 88, Registered Route Associate 4.78, Ca 7.3, AST 90, ALT 82, Alk Phos 214, Alb 2.3, Procalcitonin 95.56 (12/25) MEDS: Reviewed. Norepipherine, vasopressin, insulin, tamiflu, fentanyl, nimbex. GI: FMS 350 ml output recorded 12/26 SKIN: [place] 11. WT: 94 kg BMI 31.5 kg/m2 IBW: 68.4 kg Admit Wt: 80 kg (BMI: 26.8 kg/m2) DIET: NPO NUTRITION SUPPORT: Pulmocare @ goal rate of 62 ml/hr to provide 2046 kcal/d, 85 g/d protein, and 1250 ml/d H2O, meeting 100% of est needs. ESTIMATED NEEDS: Vent, COPD, Dialysis (recalculated 12/25) Calories: 2144-7600 kcal/day (25-30 kcal/kg Admit BW) Protein: 115-140 g/day (1.2-1.5 g/kg Admit BW) Fluids: ~2000 ml (25 ml/kg Admit BW) NUTRITION DIAGNOSIS: 1) Inadequate oral intake related to inability to consume sufficient energy as evidenced by NPO status and ventilation IMPROVING W/ ENTERAL NUTRITION @ GOAL RATE 2) Increased nutrient needs related to difficulty breathing as evidenced by COPD and acute respiratory failure / severe ARDS - PERSISTS. NUTRITION INTERVENTION: 1) Due to higher residuals, recommend staying on Pulmocare at current rate of 62 ml/hr to provide 87% of calorie needs and 74% of protein needs. 2) If residuals decrease, recommend increasing goal rate of Pulmocare to 75 ml/hr to provide 2475 kcal and 103 g protein, meeting 100% of calorie needs and 90% of protein needs. 3) If residuals decrease, recommend adding one packet of Prosource BID to increase protein intake to 125 g, meeting 100% of protein needs. MONITOR/EVALUATE: Enteral feeding advance / tolerance, wt, labs, GI, nutrition status, POC. Will continue to monitor per high nutritional risk guidelines. Addendum: 12/26/16 at [address] I have read and agree with above student documentation. Gabi Ashley, GALEN, CD.
[2016-12-26] MEDS: Propofol Inj 1,000,000 MCG in IV Premix 1 EACH IV SCH (10:35)
--- NOTE | 2016-12-26 10:53 | PCM.PNMED ---
Subjective Date of Service Dec 26, 2016 Subjective He remains oliguric. Vasopressors weaned off, now on only norepinephrine. Last HD was on 12/24. Exam Vital Signs Vital Sign - Last Date Time Temp Pulse Resp B/P Pulse Ox O2 Delivery O2 Flow Rate FiO2 12/26/16 07:23 66 122/52 96 50 12/26/16 04:30 37.0 30 Mechanical Ventilator 12/23/16 16:30 16.00 Intake and Output 12/25/16 12/25/16 12/26/16 Cumulative From/Thru 15:00 23:00 07:00 12/18/16 10:01 - 12/26/16 06:09 Intake Total 1601 ml 1362 ml 68513 ml Output Total 75 ml 400 ml 54498 ml Balance 1526 ml 962 ml 29372 ml Intake Oral 0 ml IV Total 803 ml 645 ml 87716 ml Tube Feeding 708 ml 657 ml 5046 ml Platelets 461 ml Tube Irrigant 90 ml 60 ml 921 ml Output Urine Total 75 ml 50 ml 1885 ml Stool Total 350 ml 1550 ml Urine/Stool Mix 50 ml Gastric Drainage Total 1000 ml Ultrafiltrate 60519 ml # Bowel Movements 1 1 Exam GA: intubated, sedated. HEENT: atraumatic, no injected conjunctivae, no icteric sclerae, right IJ triple lumen in place. Heart: RRR, no significant murmur/rub/gallop, normal S1/s2. Lungs: occasional rhonchi B/L, good air entry, equal BS. Abd: soft, mild distension, no HSM, decreased BS. Ext: 1+ edema on LE and sacral swelling. : tate cath in place with scant urine. Lab and Diagnostics Result Diagram: 12/26/16 0510 12/26/16 0510 Microbiology BCx and SCx positive for Strep pneumo Resp PCR positive for Flu A H3 Strep pneumo urine ag positive X-Rays, CTs and MRIs X-RAY CHEST ONE VIEW, PORTABLE IMPRESSION: No significant interval change in florid pulmonary edema and/or bronchopneumonia. Dictated by: Curtis Levine M.D. on 12/24/2016 at 8:42 CT CHEST WITH CONTRAST IMPRESSION: 1. Bilateral lung consolidation decreased in size compared to prior examination compatible with resolving pneumonia or aspiration. 2. Bilateral lung interstitial prominence and ground glass opacities. Findings may be related to pneumonia, however finding is nonspecific and other etiologies including pulmonary edema can produce a similar appearance. 3. Trace bilateral pleural effusions. 4. Enlarged bilateral hilar and mediastinal lymph nodes decreased in size. Dictated by: Jordyn Dominguez MD, PhD on 12/23/2016 at 13:19 US RENAL SONOGRAM IMPRESSION: 1. A 1.4 cm cyst in the superior pole the right kidney. Otherwise normal ultrasound appearance of kidneys. No hydronephrosis. 2. Cholelithiasis. No ultrasound evidence for acute cholecystitis. Dictated by: Dwain Gaona M.D. on 12/18/2016 at 18:18 Approved by: Dwain Gaona M.D. on 12/18/2016 at 18:21 Additional Diagnostics DateTimeAnalyzed 04:19:00 -_ pH ____7.345 - 7.350 7.450 pCO2 ___42.0__ -mmHg 35.0 45.0 pO2 110 -mmHg 69.0 116 HCO3- ___22.3__ -mmol/L 22.0 26.0 sO2 ___97.9__ -% 25.0 FIO2 ___60.0__ -% PEEP ___16.0__ -cmH2O Set_RR ___30.0__ -b/min Vt __410.0__ -L Assessment & Plan Naveed Maciel is a 56 year old male with past medical history significant for COPD who presented to the emergency department via EMS complaining of dyspnea and 3 days of flu-like symptoms. Intubated after failing on BiPAP and admitted for septic shock and acute hypoxemic respiratory failure. Hospital 7. Vent day 7. 1. Severe ARDS, present on admission, active. Improving. - Etiology secondary to sepsis and pneumococcal pneumonia in the setting of COPD and past history of cocaine use. CT chest on 12/18 showed dense consolidation bilaterally within the dependent portions of the lung. Repeat CT chest was largely unchanged with some mild interval improvement in consolidation. - Patient intubated, sedated and paralyzed using fentanyl, midazolam, and Nimbex. - Concern for aspiration. Metronidazole added 12/19 for anaerobic coverage. 1. ALBERTINA due to oliguric ATN. - Requiring HD. - Kidney function remains poor. - Right femoral cath was placed on 12/20. - We will arrange for HD session today 3.5 hr, IF as tolerated. - We will keep hermelinda catheter for couple more days and will exchange it. 2. Septic shock. - Pneumococcal pneumonia /pneumococcal bacteremia - Influenza A infection. 3. Acute hypoxic respiratory failure/ARDS. 4. Thrombocytopenia/Anemia. 5. COPD/h/o tobacco abuse. GI Prophylaxis: Proton Pump Inhibitor VTE Prophylaxis: Sub-Q Heparin (Unfractionated) VTE Mechanical Devices: Intermittant Pneumatic CD Resuscitation Status: CPR: Attempt Resuscitation Loli Pinon MD Dec 26, 2016 10:53
[2016-12-26] MEDS: Cisatracurium Inj 200,000 MCG in 0.9% Sodium Chloride-Pha MIX 100 ML IV PRN (11:56)
--- NOTE | 2016-12-26 12:32 | PROG NOTE ---
[address] [address] PROGRESS NOTE PATIENT: DOUGIE GARDUNO : 1960 MR#: [id number] ADMIT: 12/18/2016 JOB ID: [id number] DATE: 12/26/2016 INFECTIOUS DISEASE FOLLOWUP NOTE: REASON FOR FOLLOWUP: Influenza complicated by pneumococcal pneumonia with septic shock, renal failure, and ventilator dependent respiratory failure. INTERVAL HISTORY: Overnight the patient has improved slightly on the ventilator. His vasopressor requirements have decreased somewhat and his oxygen requirements have held stable. His renal function has continued to be precarious and it appears he will need dialysis again today. The patient remains sedated and paralyzed but there are plans to withdraw the paralytics later today. No history is available from the patient obviously but this case was discussed exhaustively during ICU rounds and I examined the patient at the bedside with the ICU nurse. PHYSICAL EXAMINATION: Reveals an afebrile gentleman, temp 37.0. He has now been afebrile for three full days. Pulse 74, blood pressure 113/51 on low dose now of norepinephrine. The vasopressin has stopped. He is saturating well on 50% FiO2 and 14 of PEEP. His eyes without scleral icterus or conjunctivitis. Oral endotracheal tube, orogastric tube unremarkable. Central line without evidence of inflammation or infection. Lungs with rales at the bases, left greater than right. Cardiac tones are hard to hear with his lung sounds as well as the ventilator, but regular rate and rhythm at least. Abdomen soft, nontender, without organomegaly or ascites. Dubois catheter is present. No cellulitis is noted. No significant edema of the lower extremities any longer. LABORATORIES: Include a white count which is down to 11,900. His differential white count has returned to normal. Creatinine has bumped to 4.78 today. AST is 90, ALT 82, alk phos slightly up to 214. Albumin is 2.3. We do not have a procalcitonin today. Serologic studies, including HIV, are negative. Blood cultures negative. Endotracheal culture: A few mixed normal christina. The C. diff of three days ago was negative. Recall that our initial cultures were positive in blood and sputum for Strep pneumonia and he also had a respiratory viral PCR positive for flu A. Today's chest x-ray was just done. It shows no change in his bilateral ARDS. IMPRESSION: This patient remains stable and in fact is somewhat better day by day. He still has ARDS and acute renal failure secondary to his pneumococcal sepsis which followed influenza A. His antibiotics were narrowed yesterday and we are currently using just ceftriaxone and oseltamivir following each elective dialysis session. RECOMMENDATIONS: 1. Continue with ceftriaxone, though we could at any time switch to penicillin. 2. Continue oseltamivir 30 mg after each dialysis session. 3. This case discussed in detail with the intensive care unit team and the bedside nurse.
[2016-12-26] MEDS: Norepineph 8,000 mCg/250 mL NS 8,000 MCG in IV Premix 1 EACH IV SCH (13:03)
[2016-12-26] MEDS: Midazolam Inj 100 MG in IV Premix 1 EACH IV PRN (13:35)
--- NOTE | 2016-12-26 16:46 | PROG NOTE ---
[address] [address] PROGRESS NOTE PATIENT: DOUGIE GARDUNO : 1960 MR#: [id number] ADMIT: 12/18/2016 JOB ID: [id number] DATE: 12/26/2016 PROBLEMS: 1. Influenza A. 2. Pneumococcal pneumonia with bacteremia. 3. ARDS. 4. Septic shock. 5. Acute renal failure requiring hemodialysis. 6. Thrombocytopenia. 7. Transaminitis. SUBJECTIVE: None. OBJECTIVE: Temperature 36 with T-max being 37, pulse 69-74, respiratory rate 30 with the ventilator set at 30, blood pressure 121/53 on norepinephrine 0.02 mcg per kg per minute. O2 sat on FiO2 of 50%, PEEP of 14 is 95%. General appearance: Sedated, paralyzed, on ventilator. Eyes: Conjunctivae are pink. Pupils about 1 mm in diameter. Nose and throat could not be examined. Chest: Fair breath sounds bilaterally. Left lung is clear with crackles in the right upper lung field. Heart: Somewhat irregular rhythm. Heart tones normal. Abdomen is soft. Nondistended. Nontender. Some bowel tones present. Extremities: No pretibial edema. LABORATORY DATA: Shows a white count of 11,900 with moderate neutrophilia. Lymphocyte count is 13.9%. Hemoglobin 8.1 and stable. Platelet count 53,000, slowly decreasing. Sodium 142, potassium 4.6, chloride 102, CO2 is 21, BUN 88, creatinine of 4.78, glucose 99, estimated GFR 13, though seems much less than that. Calcium 7.3 with albumin of 2.3, phosphorus 7.4. AST 90 and stable, ALT 82 and stable. Alkaline phosphatase 214 and slowly rising. Calcium is 7.3 with albumin of 2.3. INR is 1.54. Arterial blood gases on FiO2 of 50%, PEEP of 14, rate of 30, tidal volume of 410 shows a pO2 of 77, pCO2 of 42, pH of 7.35. ASSESSMENT: 1. Acute respiratory distress syndrome. No particular change in his condition. Still paralyzed on high doses of sedatives. I think at this point we will stop his paralytic and see how he does with just the sedatives and opiates on board. For that, will need to change his ventilator as he is currently on volume control with pause. Will need to switch him over to some type of a volume assist control modality. Do not see the need for weaning the cisatracurium. Rather, just discontinuing it should suffice. 2. Influenza A/pneumococcal pneumonia with bacteremia. Seems to be doing reasonably well. Procalcitonin remains high, but I suspect that is due to the high level produced by the pneumococcal pneumonia with bacteremia in conjunction with the renal failure. 3. Acute renal failure. Scheduled for dialysis today. Hopefully, will help with fluid balance as his I and O was 3.2 L positive yesterday with 3.4 liters in, 0.125 mL out. PLAN: 1. Discontinue cisatracurium. 2. Change ventilator to volume assist-control mode. I discussed the current situation and plans with the patient's sister. Also discussed plans with the hospitalist team. TIME SPENT IN CRITICAL CARE: 40 minutes.
--- NOTE | 2016-12-26 18:16 | PCM.PNMED ---
Subjective Date of Service Dec 26, 2016 Subjective Mr. Naveed Maciel is a 56 year old gentleman with past medical history significant for COPD who presented to the emergency department via EMS complaining of dyspnea and 3 days of flu-like symptoms. Intubated after failing on BiPAP and admitted for septic shock and acute hypoxemic respiratory failure. Hospital 8. Vent day 8. Overnight: Remained stable with no acute events overnight. BP fairly stable overnight, on Levophed and Vasopressin. On Nimbex for paralysis . Today: Pt is sedated, paralysed, and intubated and no history could be obtained. Pt received dialysis today with 2 L ultrafiltrate removed. Exam Vital Signs Vital Sign - Last Date Time Temp Pulse Resp B/P Pulse Ox O2 Delivery O2 Flow Rate FiO2 12/26/16 12:06 69 121/53 95 50 12/26/16 08:00 Ventilator 12/26/16 04:30 37.0 30 12/23/16 16:30 16.00 Intake and Output 12/25/16 12/25/16 12/26/16 Cumulative From/Thru 15:00 23:00 07:00 12/18/16 10:01 - 12/26/16 06:09 Intake Total 1601 ml 1362 ml 85715 ml Output Total 75 ml 400 ml 69896 ml Balance 1526 ml 962 ml 22088 ml Intake Oral 0 ml IV Total 803 ml 645 ml 61335 ml Tube Feeding 708 ml 657 ml 5046 ml Platelets 461 ml Tube Irrigant 90 ml 60 ml 921 ml Output Urine Total 75 ml 50 ml 1885 ml Stool Total 350 ml 1550 ml Urine/Stool Mix 50 ml Gastric Drainage Total 1000 ml Ultrafiltrate 66779 ml # Bowel Movements 1 1 Exam General: Intubated and sedated and paralyzed. Head: Normocephalic, atraumatic. External ears without defect. Eyes: Pupils equal, round, and reactive to light and accommodation. Anicteric sclerae, moist conjunctivae. Cardiovascular: Regular rate and rhythm with no murmurs, rubs, or gallops appreciated. Pulmonary: Course breath sounds throughout. No wheezes or rhonchi. Abdomen: Soft, moderately distended, hypoactive bowel sounds. Old midline surgical incision present. Extremities: Mild pitting edema on lower and upper extremities bilaterally. Skin: Faint macular papular rash on upper chest and shoulders. Neurological: Intubated and sedated and paralyzed. IVs and Medications Medications Reviewed: Medications were reviewed in detail Lab and Diagnostics Result Diagram: 12/26/1650912/26/16509 Microbiology BCx and SCx positive for Strep pneumo Resp PCR positive for Flu A H3 Strep pneumo urine ag positive X-Rays, CTs and MRIs X-RAY CHEST ONE VIEW, PORTABLE IMPRESSION: No significant interval change in florid pulmonary edema and/or bronchopneumonia. Dictated by: Curtis Levine M.D. on 12/24/2016 at 8:42 CT CHEST WITH CONTRAST IMPRESSION: 1. Bilateral lung consolidation decreased in size compared to prior examination compatible with resolving pneumonia or aspiration. 2. Bilateral lung interstitial prominence and ground glass opacities. Findings may be related to pneumonia, however finding is nonspecific and other etiologies including pulmonary edema can produce a similar appearance. 3. Trace bilateral pleural effusions. 4. Enlarged bilateral hilar and mediastinal lymph nodes decreased in size. Dictated by: Jordyn Dominguez MD, PhD on 12/23/2016 at 13:19 US RENAL SONOGRAM IMPRESSION: 1. A 1.4 cm cyst in the superior pole the right kidney. Otherwise normal ultrasound appearance of kidneys. No hydronephrosis. 2. Cholelithiasis. No ultrasound evidence for acute cholecystitis. Dictated by: Dwain Gaona M.D. on 12/18/2016 at 18:18 Approved by: Dwain Gaona M.D. on 12/18/2016 at 18:21 Additional Diagnostics DateTimeAnalyzed 04:19:00 -_ pH ____7.345 - 7.350 7.450 pCO2 ___42.0__ -mmHg 35.0 45.0 pO2 110 -mmHg 69.0 116 HCO3- ___22.3__ -mmol/L 22.0 26.0 sO2 ___97.9__ -% 25.0 FIO2 ___60.0__ -% PEEP ___16.0__ -cmH2O Set_RR ___30.0__ -b/min Vt __410.0__ -L Assessment & Plan Naveed Maciel is a 56 year old male with past medical history significant for COPD who presented to the emergency department via EMS complaining of dyspnea and 3 days of flu-like symptoms. Intubated after failing on BiPAP and admitted for septic shock and acute hypoxemic respiratory failure. Hospital 9. Vent day 9. 1. Severe ARDS, present on admission, active. Improving. - Etiology secondary to sepsis and pneumococcal pneumonia in the setting of COPD and past history of cocaine use. CT chest on 12/18 showed dense consolidation bilaterally within the dependent portions of the lung. Repeat CT chest was largely unchanged with some mild interval improvement in consolidation. - Patient intubated, sedated and paralyzed using fentanyl, midazolam, and Nimbex. - Concern for aspiration. Metronidazole added 12/19 for anaerobic coverage. - Vent settings per Critical Care/Pulmonology Team. - Plan to decrease pulsation today and alter and settings according to pulmonology. 2. Pneumococcal pneumonia /pneumococcal bacteremia, present on admission, improving. - CXR and CT as above. Strep pneumonia urine antigen positive. Blood and sputum cultures positive. Sensitive for penicillins. WBC trending down. Procalcitonin 180.83 on admission peaked at 612.48, trending down. - Discontinued Cefepime, Flagyl, and azithromycin - Ceftriaxone 2g IV daily. 3. Acute kidney injury, present on admission, active. - Unknown if patient has underlying chronic kidney disease. Patient continues to be anuric. On admission BUN 65 and creatinine 3.71 - Right femoral catheter placed 12/20. - Dialysis 12/20, 12/21, and 12/25. - Avoid nephrotoxic medications as able. - Nephrology consulted. Appreciate time and recommendations. 4. Chronic kidney disease 4/5, present on admission. Active. - Pt received dialysis today with 2 L ultrafiltrate removed. 5. Septic shock, present on admission, Improving. - Criteria include: HR 144, RR 41, O2 sats 83%, lactic acid 6.6, BUN 65, creatinine 3.71, procalcitonin 180.38. Etiology secondary to pneumococcal pneumonia and influenza A. - Right IJ and right radial arterial line placed 12/18. - Currently DC'd vasopressin and on 0.02 norepinephrine. Norepinephrine being weaned down as possible. 6. Influenza A, present on admission, active. - Oseltamivir with a loading dose of 30 mg now and then 30 mg after each hemodialysis session. 7. Thrombocytopenia, present on admission, active. - Unknown baseline. Etiology likely sepsis. - On admission platelets 74. Currently dropped to 53. - DIC panel does not suggest DIC. No schistocytes on blood smear. - Platelets transfused 12/20 prior to dialysis catheter placement. - Will continue to monitor. - DVT prophylaxis initiated 12/22. 8. Upper GI bleed, present on admission, stable. - Coffee-ground material reported from OG tube on admission. Guaiac positive in the ED. Hemoglobin and hematocrit have decreased since admission but likely secondary to fluid resuscitation. - Type and cross with 2 units PRBCs on hold. - DVT prophylaxis started . - Pantoprazole 40 mg BID. - Will consider GI consult if H&H drops or more active bleeding is visualized. 9. COPD, present on admission, unknown baseline. 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 Unknown if patient has outpatient medication regimen. - Treatment as above. 10. Tobacco use, present on admission, chronic. - Consider Nicotine patch once patient awake. 11. Hyperglycemia, present on admission, active. - Insulin regular low dose correctional scale. - Hemoglobin A1c 5.7. Acetaminophen for mild pain when necessary. Bowel regimen Senna and MiraLAX scheduled and PRN. Zofran when necessary for nausea and vomiting. SubQ heparin. SCDs in place. High-risk medications: IV fentanyl Disposition: Patient currently intubated with severe ARDS. He continues to require 2 pressors. Reduction in FiO2 and PEEP is a positive step however his prognosis is guarded and he remains severely ill. Pain Evaluation: Adequate Pain Control GI Prophylaxis: Proton Pump Inhibitor VTE Prophylaxis: Sub-Q Heparin (Unfractionated) VTE Mechanical Devices: Intermittant Pneumatic CD Resuscitation Status: CPR: Attempt Resuscitation Attending Statement The patient was seen and examined together with Dr. Steele on 12/26/2016 and I agree with the history, exam and plan as outlined in the note above. . KING STEELE DO Dec 26, 2016 14:45 Patrice Galvan MD Dec 27, 2016 08:19
--- NOTE | 2016-12-26 18:21 | NUR ---
Neuro/resp: Nimbex off from 1220 until 1714 today. No purposeful movement or opening of eyes. Occasional to intermittent cough with large amount creamy secretions. Vent mode changed to PRVC 50% /410. Initially would stack occasional breaths but settle down after suctioning. Respiratory rhythm/effort devolves into completely asynchronous and ineffective pattern unresponsive to sedation boluses with a rate in the mid 40's. Dr Newberry here to assess, verbal order rec'd to resume nimbex. Once paralyzed we are once again able to easily ventilate pt. Lung sounds with moist rhonchi throughout, specimen sent to lab. CV: Remains on levophed at 0.02mcg/kg/min, postponed weaning until after dialysis. CVP 15. GI/: Scant UOP for shift. FMS in place with liquid stool. Tolerating TF without probems, residual 7ml this morning. Sister here at intervals, questions answered as able. Requests that no information be given to pt's ex-girlfriend Chanelle Whitehead (AKA Chanelle Winston), note placed on front of chart.
--- NOTE | 2016-12-26 18:30 | NUR ---
Dialysis note: 3 1/2 hrs tx. 2000 ml net UF. Right femoral catheter, dsg dry and intact. Pls see DTR for VS details; cont on Norepi. Qb 350-450. Heparin prime given. On vent @ 50% FiO2 with sat in the 90's. Stable tx. Catheter flushed, heparin dwelled and secured. Report given to Wendy SOSA.
[2016-12-26] MEDS: Vasopressin Inj 20 UNIT in 0.9% Sodium Chloride 100 ML IV SCH (20:58)
[2016-12-27] VITALS (9 sets, daily range): BP systolic 107–129; BP diastolic 53–64; PULSE 92–104; RESP 30; O2SAT 94–97
[2016-12-27 04:15] LABS: BASOPHILS % (AUTO) 0.4 % (0-3); EOSINOPHILS % (AUTO) 0.9 % (0-5); MONOCYTES % (AUTO) 3.2 % (4-12); Mean Corpuscular Hemoglobin 32.8 pg (27.0-35.0); Mean Corpuscular Volume 98.1 fL (81-100); NEUTROPHILS % (AUTO) 83.2 % (40-74); Platelet Count 79 bil/L (150-400)
[2016-12-27] MEDS: Chlorhexidine 0.12% 15 mL Oral Solution MT SCH ×5 (04:20→20:25)
--- NOTE | 2016-12-27 04:34 | ABG ---
DateTimeAnalyzed 04:28:00 -_ pH ____7.403 - 7.350 7.450 pCO2 ___44.4__ -mmHg 35.0 45.0 pO2 ___66.5__ -mmHg 69.0 116 HCO3- ___27.1__ -mmol/L 22.0 26.0 ABE ____2.6__ -mmol/L -2.0 2.0 tHb ____8.5__ -g/dL O2Hb ___90.7__ -% COHb ____1.5__ -% MetHb ____1.2__ -% sO2 ___93.2__ -% 25.0 FIO2 ___50.0__ -% PEEP ___14.0__ -cmH2O Set_RR ___30.0__ -b/min Vt __410.0__ -L Drawn By RB - Date/Time Notified____ 04:33:00 -_ Spontaneous_RR ___30.0__ -b/min Oxygen Device 1 VENTILATOR - Notified By RB - Notified Whom Janes L RN - B 757 -mmHg tO2 ___11.0__ -Vol% Masoud test N/A -
[2016-12-27 04:56] LABS: Magnesium 2.2 mg/dL (1.6-2.6); Phosphorus 5.5 mg/dL (2.5-4.9)
--- NOTE | 2016-12-27 05:09 | NUR ---
ABG ABG completed s/p ventilator setting change to [facility]. ABG showed low PO2 but otherwise within range. Pt produced 50ml of concentrated urine post dialysis.
[2016-12-27] MEDS: Cisatracurium Inj 200,000 MCG in 0.9% Sodium Chloride-Pha MIX 100 ML IV PRN ×2 (05:28→21:07)
[2016-12-27] MEDS ORDERED: 0.9% Sodium Chloride 500 ML ONE (07:41)
[2016-12-27] MEDS: cefTRIAXone Inj 2,000 MG in Dextrose 5% Minibag Plus 50 ML IV SCH (08:01)
[2016-12-27] MEDS: Pantoprazole 4 mg/mL 10 mL Inj IVPUSH SCH ×2 (08:03→20:25)
[2016-12-27] MEDS: Heparin 5,000 Unit/mL Inj SUBQ SCH ×3 (08:03→20:26)
--- NOTE | 2016-12-27 09:04 | PROG NOTE ---
[address] [address] PROGRESS NOTE PATIENT: DOUGIE GARDUNO : 1960 MR#: [id number] ADMIT: 12/18/2016 JOB ID: [id number] DATE: 12/27/2016 INFECTIOUS DISEASE FOLLOWUP NOTE: REASON FOR FOLLOWUP: Influenza complicated by pneumococcal pneumonia, septic shock, renal failure, ventilatory-dependent respiratory failure and ARDS. INTERVAL HISTORY: Overnight, the patient has remained relatively stable on the ventilator but is still requiring high levels of FiO2 and PEEP. His renal function continues to be borderline, and his blood pressure requires low doses of vasopressor support. The patient is still obviously intubated and sedated, and can offer no additional history. This case was discussed with the ICU team. PHYSICAL EXAMINATION: Reveals a critically ill gentleman lying supine, sedated and intubated. He has been afebrile now for four days. Temp 36.5, pulse 92, blood pressure 123/57. He is saturating 95% on the ventilator 60% today though as opposed to yesterday's 50 and his PEEP remains at 14. His eyes are without conjunctivitis or scleral icterus. His oral endotracheal tube, orogastric tube and all lines are in good position. His lungs are notable for some fine crackles now which are heard in the lower lung hillman. Cardiac tones: Regular rate and rhythm. His abdomen is soft and without masses. Dubois catheter is present. No skin rashes noted. LABORATORIES: Include a white count slightly increased at 15,000, platelet count 79,000. Creatinine 3.22, which has improved somewhat. AST is 94, ALT is 86, alk phos 244, albumin 2.3. His procalcitonin has followed by half since two days ago when it was 96. It is now 44. Micro studies include followup blood cultures which were done on the 4th and are negative, a tracheal culture from the 4th when he had his last fever shows rare polys and light normal christina. A C. diff from the 4th was negative. Urine culture was also negative at that time. In terms of his earlier cultures, he did have a Strep pneumoniae grow from blood and sputum, and was also positive, of course, for influenza A. IMAGING: Includes yesterday's chest x-ray, which showed no change in his bilateral infiltrates. Today's is not available for viewing yet. IMPRESSION: The patient is little changed overnight. He remains critically ill with adult respiratory distress syndrome, requiring high levels of ventilatory support. His norepinephrine dose is now miniscule, and his procalcitonin is falling, which strongly suggests to me that his infection is coming under good control but we are left with the sequela of this devastating combination of influenza and pneumococcus. He continues to have renal failure and, of course, is very much ventilator dependent. RECOMMENDATIONS: 1. Will continue with ceftriaxone for the time being. 2. Will continue to watch his procalcitonin perhaps every other day. 3. Will continue with oseltamivir 30 mg after each dialysis session. 4. The end point of his antibiotics is a little unclear in a patient as critically ill as this but sometime towards the end of the week will likely discontinue his antipneumococcal therapy as his procalcitonin continues to fall and his main problems at that point will, of course, be the ARDS and renal failure.
--- NOTE | 2016-12-27 09:59 | DRSVH ---
PROCEDURE: X-RAY CHEST ONE VIEW, PORTABLE ([id number]) INDICATIONS: Intubated TECHNIQUE: One view of the chest was acquired. COMPARISON: [facility], CR, XR CHEST 1VW (PORTABLE), 12/26/2016, 5:46. FINDINGS: Surgical changes and devices: None. Lungs and pleura: Diffuse, widespread bilateral pulmonary interstitial and air space opacities are p resent increased from prior examination. Small pleural effusions. No pneumothorax. Mediastinum: Mediastinal contours appear normal. Heart size is normal. Bones and chest wall: No suspicious bony lesions. Overlying soft tissues appear unremarkable. IMPRESSION: Worsening pulmonary edema and/or diffuse bilateral pneumonia. Developing ARDS cannot be excluded. Correlate clinically. Dictated by: Soren Johnson RRA Interpreted: Jordyn Dominguez MD on 12/27/2016 at 9:57 Transcribed by: GIRMA on 12/27/2016 at 9:58 Approved by: Jordyn Dominguez MD, PhD on 12/27/2016 at 17:07
[2016-12-27] MEDS: Propofol Inj 1,000,000 MCG in IV Premix 1 EACH IV SCH (10:35)
[2016-12-27] MEDS: Oseltamivir 6 mg/mL 60 mL Suspension PO SCH ×2 (10:56→20:25)
[2016-12-27] MEDS: Senna-Docusate 8.6-50 mg Tablet PO SCH ×2 (10:57→20:25)
--- NOTE | 2016-12-27 11:03 | DRSVH ---
PROCEDURE: X-RAY KUB ([id number]) INDICATIONS: Abd distention TECHNIQUE: One view of the abdomen acquired. COMPARISON: [facility], CR, XR CHEST 1VW (PORTABLE), 12/26/2016, 5:46. [facility], CR, XR CHEST 1VW (PORTABLE), 12/24/2016, 3:16. [facility], CR, XR CHEST 1VW (SAEID BLE), 12/27/2016, 5:24. [facility], US, ABDOMEN LTD, 12/22/2016, 10:32. FINDINGS: Surgical changes and devices: Nasogastric tube present in expected position. Additional double-lumen catheter projects over the right lower abdomen likely a venous line. Correlate clinically. Bowel: Bowel gas pattern is normal. Soft tissues: No suspicious abdominal calcifications. Visualized solid organ contours appear normal in size. Bones: No suspicious bony lesions. Diffuse opacity redemonstrated throughout the lungs. IMPRESSION: 1. No obstruction identified. 2. Abnormal appearance of the lungs redemonstrated with diffuse interstitial and airspace opacity sim ilar to prior chest radiograph. Dictated by: Soren Johnson [facility] Interpreted: Enrique Staley MD on 12/27/2016 at 11:00 Transcribed by: CM on 12/27/2016 at 11:03 Approved by: Enrique Staley M.D. on 12/28/2016 at 2:09
[2016-12-27] MEDS: Norepineph 8,000 mCg/250 mL NS 8,000 MCG in IV Premix 1 EACH IV SCH (11:04)
--- NOTE | 2016-12-27 11:12 | PCM.PNMED ---
Subjective Date of Service Dec 27, 2016 Subjective HD yesterday without complications, UF 2L. intubated and sedated. required vasopressor. poor urine output. Exam Vital Signs Vital Sign - Last Date Time Temp Pulse Resp B/P Pulse Ox O2 Delivery O2 Flow Rate FiO2 12/27/16 10:42 36.6 98 30 121/55 97 Mechanical Ventilator 60 12/23/16 16:30 16.00 Intake and Output 12/26/16 12/26/16 12/27/16 Cumulative From/Thru 14:59 22:59 06:59 12/18/16 10:01 - 12/27/16 05:39 Intake Total 1600 ml 1123 ml 46838 ml Output Total 2000 ml 135 ml 50 ml 66483 ml Balance -2000 ml 1465 ml 1073 ml 85974 ml Intake Oral 0 ml IV Total 578 ml 524 ml 93385 ml Tube Feeding 842 ml 539 ml 6427 ml Platelets 461 ml Tube Irrigant 180 ml 60 ml 1161 ml Output Urine Total 85 ml 50 ml 2020 ml Stool Total 50 ml 0 ml 1600 ml Urine/Stool Mix 50 ml Gastric Drainage Total 1000 ml Ultrafiltrate 2000 ml 08252 ml # Bowel Movements 0 1 Exam GA: intubated, sedated. HEENT: atraumatic, no injected conjunctivae, no icteric sclerae, right IJ triple lumen in place. Heart: RRR, no significant murmur/rub/gallop, normal S1/s2. Lungs: occasional rhonchi B/L, good air entry, equal BS. Abd: soft, mild distension, no HSM, decreased BS. Ext: 1+ edema on LE and sacral swelling, right femoral hermelinda cath, dry, clean and intact. : tate cath in place with scant urine. Lab and Diagnostics Result Diagram: 12/27/1639912/27/16 0400 Microbiology BCx and SCx positive for Strep pneumo Resp PCR positive for Flu A H3 Strep pneumo urine ag positive X-Rays, CTs and MRIs X-RAY CHEST ONE VIEW, PORTABLE IMPRESSION: No significant interval change in florid pulmonary edema and/or bronchopneumonia. Dictated by: Curtis Levine M.D. on 12/24/2016 at 8:42 CT CHEST WITH CONTRAST IMPRESSION: 1. Bilateral lung consolidation decreased in size compared to prior examination compatible with resolving pneumonia or aspiration. 2. Bilateral lung interstitial prominence and ground glass opacities. Findings may be related to pneumonia, however finding is nonspecific and other etiologies including pulmonary edema can produce a similar appearance. 3. Trace bilateral pleural effusions. 4. Enlarged bilateral hilar and mediastinal lymph nodes decreased in size. Dictated by: Jordyn Dominguez MD, PhD on 12/23/2016 at 13:19 US RENAL SONOGRAM IMPRESSION: 1. A 1.4 cm cyst in the superior pole the right kidney. Otherwise normal ultrasound appearance of kidneys. No hydronephrosis. 2. Cholelithiasis. No ultrasound evidence for acute cholecystitis. Dictated by: Dwain Gaona M.D. on 12/18/2016 at 18:18 Approved by: Dwain Gaona M.D. on 12/18/2016 at 18:21 Additional Diagnostics DateTimeAnalyzed 04:19:00 -_ pH ____7.345 - 7.350 7.450 pCO2 ___42.0__ -mmHg 35.0 45.0 pO2 110 -mmHg 69.0 116 HCO3- ___22.3__ -mmol/L 22.0 26.0 sO2 ___97.9__ -% 25.0 FIO2 ___60.0__ -% PEEP ___16.0__ -cmH2O Set_RR ___30.0__ -b/min Vt __410.0__ -L Assessment & Plan 1. ALBERTINA due to oliguric ATN. - Requiring HD. - Kidney function remains poor. - Right femoral cath was placed on 12/20. - hold HD today, next HD in am. 2. Septic shock. - Pneumococcal pneumonia /pneumococcal bacteremia - Influenza A infection. 3. Acute hypoxic respiratory failure/ARDS. 4. Thrombocytopenia/Anemia. 5. COPD/h/o tobacco abuse. GI Prophylaxis: Proton Pump Inhibitor VTE Prophylaxis: Sub-Q Heparin (Unfractionated) VTE Mechanical Devices: Intermittant Pneumatic CD Resuscitation Status: CPR: Attempt Resuscitation Loli Pinon MD Dec 27, 2016 11:12
--- NOTE | 2016-12-27 11:41 | NUR ---
NUTRITION FOLLOW-UP ASSESS: 56 YO male admitted with septic shock and acute hypoxemic respiratory failure with pneumococcal pneumonia / bacteremia and influenza A. Pt remains intubated, sedated and paralyzed. Attempt to discontinue Nimbex not successful. Administration of Nimbex resumed. Pt remains septic w/ ALBERTINA. Pt received dialysis yesterday. Pt on Pulmocare at goal rate. Residuals improving. PMHX: COPD, Past history of drug abuse (per sister), tobacco user. No other history obtained d/t intubation and sedation. LABS: Reviewed. BUN 55, Plow Mechanic 3.22, Gluc 107, Ca 7.3, Phos 5.5, AST 94, ALT 86, Alk Phos 244, Alb 2.3, Procalcitonin 43.17 MEDS: Reviewed. Norepipherine, vasopressin, tamiflu, fentanyl, nimbex, heparin GI: FMS - 0 ml output recorded 12/27. Senna administered. SKIN: [place] 11. WT: 94 kg BMI 31.5 kg/m2 IBW: 68.4 kg Admit Wt: 80 kg (BMI: 26.8 kg/m2) DIET: NPO NUTRITION SUPPORT: Pulmocare @ goal rate of 62 ml/hr, providing 2046 kcal/d, 85 g/d protein, and 1250 ml/d H2O, meeting 100% of est needs. ESTIMATED NEEDS: Vent, COPD, Dialysis, ALBERTINA (recalculated 12/27) Calories: 0421-1727 kcal/day (25-35 kcal/kg Admit BW) Protein: 80-95 g/day (1.0-1.2 g/kg Admit BW) Fluids: ~2000 ml (25 ml/kg Admit BW) NUTRITION DIAGNOSIS: 1) Inadequate oral intake related to inability to consume sufficient energy as evidenced by NPO status and ventilation. --- IMPROVING W/ ENTERAL NUTRITION @ GOAL RATE 2) Increased nutrient needs related to difficulty breathing as evidenced by COPD and acute respiratory failure / severe ARDS --- PERSISTS. NUTRITION INTERVENTION: 1) Recommend continuing enteral nutrition of Pulmocare at current rate of 62 ml/hr, providing 2046 kcal/d and 85 g/d protein to meet 100% of calorie and protein needs. MONITOR/EVALUATE: Enteral feeding tolerance, medications, wt, labs, GI, nutrition status, POC. Will continue to monitor per high nutritional risk guidelines. Addendum: 12/27/16 at [address] Student documentation reviewed and I agree with the above assessment. Mel Rice, MS, RDN, CD
--- NOTE | 2016-12-27 11:47 | PCM.PNMED ---
Subjective Date of Service Dec 27, 2016 Subjective Mr. Naveed Maciel is a 56 year old gentleman with past medical history significant for COPD who presented to the emergency department via EMS complaining of dyspnea and 3 days of flu-like symptoms. Intubated after failing on BiPAP and admitted for septic shock and acute hypoxemic respiratory failure. Hospital 9. Vent day 9. Overnight: Remained stable with no acute events overnight. BP fairly stable overnight, on Levophed and Vasopressin. Attempted d/cing Nimbex for paralysis but failed yesterday. Today: Pt is sedated, paralysed, and intubated and no history could be obtained. Abdomen slightly distended, intra abdominal pressure wnl. Large amount of mucus collected this morning after BAL. Exam Vital Signs Vital Sign - Last Date Time Temp Pulse Resp B/P Pulse Ox O2 Delivery O2 Flow Rate FiO2 12/27/16 04:54 36.5 92 30 123/57 95 Mechanical Ventilator 60 12/23/16 16:30 16.00 Intake and Output 12/26/16 12/26/16 12/27/16 Cumulative From/Thru 15:00 23:00 07:00 12/18/16 10:01 - 12/27/16 05:39 Intake Total 1600 ml 1123 ml 16338 ml Output Total 2000 ml 135 ml 50 ml 73566 ml Balance -2000 ml 1465 ml 1073 ml 75752 ml Intake Oral 0 ml IV Total 578 ml 524 ml 67071 ml Tube Feeding 842 ml 539 ml 6427 ml Platelets 461 ml Tube Irrigant 180 ml 60 ml 1161 ml Output Urine Total 85 ml 50 ml 2020 ml Stool Total 50 ml 0 ml 1600 ml Urine/Stool Mix 50 ml Gastric Drainage Total 1000 ml Ultrafiltrate 2000 ml 21307 ml # Bowel Movements 0 1 Exam General: Intubated and sedated and paralyzed. Head: Normocephalic, atraumatic. External ears without defect. Eyes: Pupils equal, round, and reactive to light and accommodation. Anicteric sclerae, moist conjunctivae. Cardiovascular: Regular rate and rhythm with no murmurs, rubs, or gallops appreciated. Pulmonary: Course breath sounds throughout. No wheezes or rhonchi. Abdomen: Soft, moderately distended, hypoactive bowel sounds. Old midline surgical incision present. Extremities: Mild pitting edema on lower and upper extremities bilaterally. Skin: Faint macular papular rash on upper chest and shoulders. Neurological: Intubated and sedated and paralyzed. IVs and Medications Medications Reviewed: Medications were reviewed in detail Lab and Diagnostics Result Diagram: 12/27/160 12/27/160 Microbiology BCx and SCx positive for Strep pneumo Resp PCR positive for Flu A H3 Strep pneumo urine ag positive X-Rays, CTs and MRIs X-RAY KUB IMPRESSION: 1. No obstruction identified. 2. Abnormal appearance of the lungs redemonstrated with diffuse interstitial and airspace opacity similar to prior chest radiograph. Dictated by: Soren Johnson RRWilliam Interpreted: Enrique Staley MD on 12/27/2016 at 11: 00 X-RAY CHEST ONE VIEW, PORTABLE IMPRESSION: No significant interval change in florid pulmonary edema and/or bronchopneumonia. Dictated by: Curtis Levine M.D. on 12/24/2016 at 8:42 CT CHEST WITH CONTRAST IMPRESSION: 1. Bilateral lung consolidation decreased in size compared to prior examination compatible with resolving pneumonia or aspiration. 2. Bilateral lung interstitial prominence and ground glass opacities. Findings may be related to pneumonia, however finding is nonspecific and other etiologies including pulmonary edema can produce a similar appearance. 3. Trace bilateral pleural effusions. 4. Enlarged bilateral hilar and mediastinal lymph nodes decreased in size. Dictated by: Jordyn Dominguez MD, PhD on 12/23/2016 at 13:19 US RENAL SONOGRAM IMPRESSION: 1. A 1.4 cm cyst in the superior pole the right kidney. Otherwise normal ultrasound appearance of kidneys. No hydronephrosis. 2. Cholelithiasis. No ultrasound evidence for acute cholecystitis. Dictated by: Dwain Gaona M.D. on 12/18/2016 at 18:18 Approved by: Dwain Gaona M.D. on 12/18/2016 at 18:21 Additional Diagnostics DateTimeAnalyzed 04:19:00 -_ pH ____7.345 - 7.350 7.450 pCO2 ___42.0__ -mmHg 35.0 45.0 pO2 110 -mmHg 69.0 116 HCO3- ___22.3__ -mmol/L 22.0 26.0 sO2 ___97.9__ -% 25.0 FIO2 ___60.0__ -% PEEP ___16.0__ -cmH2O Set_RR ___30.0__ -b/min Vt __410.0__ -L Assessment & Plan Naveed Maciel is a 56 year old male with past medical history significant for COPD who presented to the emergency department via EMS complaining of dyspnea and 3 days of flu-like symptoms. Intubated after failing on BiPAP and admitted for septic shock and acute hypoxemic respiratory failure. Hospital 9. Vent day 9. 1. Severe ARDS, present on admission, active. Improving. - Etiology secondary to sepsis and pneumococcal pneumonia in the setting of COPD and past history of cocaine use. CT chest on 12/18 showed dense consolidation bilaterally within the dependent portions of the lung. Repeat CT chest was largely unchanged with some mild interval improvement in consolidation. - Patient intubated, sedated and paralyzed using fentanyl, midazolam, and Nimbex. - Vent settings per Critical Care/Pulmonology Team. - Failed discontinuing Nimbex yesterday. Restarted and continuing to ween slowly as tolerated with mechanical ventilation. - BAL today with large mucus plugs collected. Sputum sample pending. KUB as above. - Considering Bronchoscopy tomorrow or next day. 2. Pneumococcal pneumonia /pneumococcal bacteremia, present on admission, improving. - CXR and CT as above. Strep pneumonia urine antigen positive. Blood and sputum cultures positive. Sensitive for penicillins. WBC trending down. Procalcitonin 180.83 on admission peaked at 612.48, trending down. - Discontinued Cefepime, Flagyl, and azithromycin - Ceftriaxone 2g IV daily. - Monitoring Procalcitonin every other day. Currently trending downward from 95.5 (12/26/16), currently 43.7 3. Acute kidney injury, present on admission, active. - Unknown if patient has underlying chronic kidney disease. Patient continues to be anuric. On admission BUN 65 and creatinine 3.71 - Right femoral catheter placed 12/20. - Dialysis 12/26/16, plan for next dialysis 12/28/16. - Avoid nephrotoxic medications as able. - Nephrology consulted. Appreciate time and recommendations. 4. Chronic kidney disease 4/5, present on admission. Active. - Pt received dialysis 12/26/16 with 2 L ultrafiltrate removed. 5. Septic shock, present on admission, Improving. - Criteria include: HR 144, RR 41, O2 sats 83%, lactic acid 6.6, BUN 65, creatinine 3.71, procalcitonin 180.38. Etiology secondary to pneumococcal pneumonia and influenza A. - Right IJ and right radial arterial line placed 12/18. - Currently DC'd vasopressin and on 0.02 norepinephrine. Norepinephrine being weaned down as tolerated. 6. Influenza A, present on admission, active. - Oseltamivir 30 mg after each hemodialysis session. 7. Thrombocytopenia, present on admission, active. - Unknown baseline. Etiology likely sepsis. - On admission platelets 74. Currently 79. - DVT prophylaxis initiated 12/22. - DIC panel does not suggest DIC. No schistocytes on blood smear. - Platelets transfused 12/20 prior to dialysis catheter placement. - Will continue to monitor. 8. Upper GI bleed, present on admission, stable. - Coffee-ground material reported from OG tube on admission. Guaiac positive in the ED. Hemoglobin and hematocrit have decreased since admission but likely secondary to fluid resuscitation. - Type and cross with 2 units PRBCs on hold. - DVT prophylaxis started . - Pantoprazole 40 mg BID. - Will consider GI consult if H&H drops or more active bleeding is visualized. 9. COPD, present on admission, unknown baseline. 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 Unknown if patient has outpatient medication regimen. - Treatment as above. 10. Tobacco use, present on admission, chronic. - Consider Nicotine patch once patient awake. 11. Hyperglycemia, present on admission, active. - Insulin regular low dose correctional scale. - Hemoglobin A1c 5.7. Acetaminophen for mild pain when necessary. Bowel regimen Senna and MiraLAX scheduled and PRN. Zofran when necessary for nausea and vomiting. SubQ heparin. SCDs in place. High-risk medications: IV fentanyl Disposition: Patient currently intubated with severe ARDS. He continues to require 2 pressors. Reduction in FiO2 and PEEP is a positive step however his prognosis is guarded and he remains severely ill. Pain Evaluation: Adequate Pain Control GI Prophylaxis: Proton Pump Inhibitor VTE Prophylaxis: Sub-Q Heparin (Unfractionated) VTE Mechanical Devices: Intermittant Pneumatic CD Resuscitation Status: CPR: Attempt Resuscitation Attending Statement The patient was seen and examined together with Dr. Steele on 12/27/2016 and I agree with the history, exam and plan as outlined in the note above. . KING STEELE DO Dec 27, 2016 06:44 Patrice Galvan MD Dec 27, 2016 17:12
[2016-12-27] MEDS: Vasopressin Inj 20 UNIT in 0.9% Sodium Chloride 100 ML IV SCH ×2 (11:48→20:25)
[2016-12-27] MEDS ORDERED: fentaNYL 2,500 mCg/250 mL Premix IV ONE (12:08)
[2016-12-27] MEDS: fentaNYL 2,500 mCg/250 mL 2,500 MCG in IV Premix 1 EACH IV SCH (12:12)
[2016-12-27] MEDS: Dexmedetomidine 400 mCg/100 mL NS Premix IV SCH (15:47)
--- NOTE | 2016-12-27 15:51 | PROG NOTE ---
[address] [address] PROGRESS NOTE PATIENT: DOUGIE GARDUNO : 1960 MR#: [id number] ADMIT: 12/18/2016 JOB ID: [id number] DATE: 12/27/2016 PULMONARY CRITICAL CARE FOLLOWUP NOTE: PROBLEM: 1. Adult respiratory distress syndrome. 2. Influenza A. 3. Pneumococcal pneumonia with bacteremia. 4. Acute renal failure requiring hemodialysis. 5. Thrombocytopenia. 6. Transaminitis. SUBJECTIVE: None. OBJECTIVE: Temperature 36.6. Pulse mid 90s. Respiratory rate 13, blood pressure 121/55. O2 sat on FiO2 of 60% and PEEP of 14 is 97%. I and O shows 2.6 liters in, 2.5 liters out of which 2 L was dialysis fluid given last evening. General appearance: Sedated, paralyzed on a ventilator. Eyes: Conjunctivae are pink and moist. Chest: A few coarse rhonchi on the right anteriorly. Maybe a few at the left base anteriorly. No use of accessory muscles. Peak inspiratory pressure 38, plateau 30. PEEP set at 14, measured at 14. Heart: Regular rhythm. Heart tones seem normal. Abdomen is soft. Some bowel tones present. Extremities: No pretibial edema. LABORATORY DATA: Showed a white count of 15,100 with 83 polymorphonuclears, 10 lymphs. Hemoglobin 8.7. Platelet count 79,000 and rising. Sodium 141, potassium 4.3, chloride 101, CO2 is 25, BUN 55 and creatinine 3.2 (both after dialysis), calcium 7.3, phosphorus 5.5, magnesium 2.2. Total bilirubin 0.5, AST stable at 94, ALT stable at 86, alkaline phosphatase slowly rising at 244, total protein relatively stable at 4.9, albumin stable at 2.3. Sputum sample sent yesterday was not found in the Lab. Chest x-ray shows no particular changes. Diffuse worsening infiltrates bilaterally. Repeat sputum Gram stain shows many polys. No organisms seen. ASSESSMENT: 1. Adult respiratory distress syndrome. The situation is a little bit worse today. I think it had to do with the problems we had with the cessation of paralysis. He had considerable patient ventilator dyssynchrony. Probably resulted in some worsening of atelectasis. In any case, he had to be more heavily sedated and finally had to be re-paralyzed to control his behavior. Suspect that led to some de-recruitment. Plan today is to add dexmedetomidine to his sedation regimen. Will then try stopping paralysis and see if we can get him a bit more awake and possibly even extubated, though he still is at high levels of oxygen and PEEP. Certainly, it would not be today but we need to get him off paralytics. 2. Pneumococcal pneumonia with bacteremia. No real good evidence for infection at this point. A little bit disconcerting that the white count is rising a bit. Sent cultures yesterday but they have not surfaced. Will have to re-send another culture. 3. Pulmonary secretions. Copious secretions yesterday. They seem to have curtailed a bit. However, prior to his cessation of paralysis and start of coughing and agitation, there were no pulmonary secretions. However, his cough and mobility has loosened a significant amount of secretions. Will try awakening him and even maybe lavaging him. If this is unsuccessful in significant improvement, may need to consider bronchoscopy. PLAN: 1. Start Precedex drip. After a few hours, will start cessation of cisatracurium. 2. Consider pulmonary lavage. If with awakening and lavage we are unsuccessful in mobilizing secretions and feel that secretions are obstructing the airway, might need to consider a bronchoscopy. 3. Repeat sputum for Gram stain, C and S. TIME SPENT: 40 minutes.
--- NOTE | 2016-12-27 16:27 | NUR ---
Sedation Nimbex weaned from 3mcg to 2.5 patient not completely paralyzed as train of 4 is 4 out of 4. Levophed weaned off this morning . Patient blood pressure now with in normal limits. How ever heart rate starting to trend up. New order received to start Precedex gtt. Patient started at low dose. HR trending down. Updated patient's sister Rakesh. Patient skin intact but does have some discoloration on Left side of scrotum cloth sling placed for support and cushion. Resp. Patient still having large amounts of oral secretions. New sputum sent to lab.
[2016-12-28] VITALS (12 sets, daily range): BP systolic 91–178; BP diastolic 54–80; PULSE 88–99; RESP 30; O2SAT 95–99
[2016-12-28] MEDS: Chlorhexidine 0.12% 15 mL Oral Solution MT SCH ×6 (00:44→20:55)
[2016-12-28 05:36] LABS: BASOPHILS % (AUTO) 0.2 % (0-3); EOSINOPHILS % (AUTO) 0.8 % (0-5); MONOCYTES % (AUTO) 3.5 % (4-12); Mean Corpuscular Hemoglobin 32.4 pg (27.0-35.0); Mean Corpuscular Volume 100.4 fL (81-100); NEUTROPHILS % (AUTO) 82.6 % (40-74); Platelet Count 108 bil/L (150-400)
[2016-12-28 05:58] LABS: Magnesium 2.6 mg/dL (1.6-2.6); Phosphorus 8.6 mg/dL (2.5-4.9)
--- NOTE | 2016-12-28 06:14 | NUR ---
VANDANA During the night the Vandana went bad. Decreased/absent waveform and unable to draw. Line Troubleshooting with bait maker. Vandana not patent and d/c'ed by bait maker with catheter intact. BP stable and WNL. Pt remains on PRVC ventilator mode at 60%FiO2, Peep +14, vT 410 and RR30; patient riding vent at this time. TELE: SR/ST with 1st Degree AVB. Distant heart sounds. Tube feeds remain at goal of 62ml/hour of Pulmocare and Q4 Hour 30ml water flushes. Residuals <50ml. OG & Dubois patent. FMS output 25ml of liquid stool despite scheduled bowel medications including miralax and continuous tube feeding. CVP 11-14, UAP 11. Tube feeding lines changed at 0500 this morning. Pt remains on moderate CLRT. Nimbex gtt at 2.5mcg/kg/minute with TOF measurements 15.8 and 4 of 4; battery in TOF changed. Precedex 0.2mcg/kg/hour, fentanyl 100mcg/hour, versed 4mg/hour (All gtts unchanged). [id number]. BIS forehead monitor replaced at 0500 this morning and is good for 24 hours.
[2016-12-28] MEDS: Senna-Docusate 8.6-50 mg Tablet PO SCH ×2 (08:30→20:30)
[2016-12-28] MEDS: Midazolam Inj 100 MG in IV Premix 1 EACH IV PRN (08:34)
[2016-12-28] MEDS: Dexmedetomidine 400 mCg/100 mL NS Premix IV SCH (08:35)
[2016-12-28] MEDS: cefTRIAXone Inj 2,000 MG in Dextrose 5% Minibag Plus 50 ML IV SCH (08:57)
[2016-12-28] MEDS: Oseltamivir 6 mg/mL 60 mL Suspension PO SCH ×2 (08:57→20:55)
[2016-12-28] MEDS: Pantoprazole 4 mg/mL 10 mL Inj IVPUSH SCH ×2 (08:58→20:55)
[2016-12-28] MEDS: Heparin 5,000 Unit/mL Inj SUBQ SCH ×2 (09:05→16:30)
[2016-12-28] MEDS: 0.9% Sodium Chloride 250 ML IV SCH (09:20)
--- NOTE | 2016-12-28 09:28 | NUR ---
Patient vented. Rachell alberto signed LEONARDO
--- NOTE | 2016-12-28 10:47 | NUR ---
NUTRITION FOLLOW-UP ASSESS: 56 YO male admitted with septic shock and acute hypoxemic respiratory failure with pneumococcal pneumonia / bacteremia and influenza A. Pt remains intubated, sedated and paralyzed. Attempt to discontinue Nimbex not successful, but plan to try discontinuing Nimbex again today. Pt remains septic w/ ALBERTINA and ARDS. Pt will receive dialysis again today. Positive 20 L. Pt on Pulmocare at goal rate. Residuals improving. Phosphorous remains elevated. Per verbal MD order, will switch TF formula to Nepro. PMHX: COPD, Past history of drug abuse (per sister), tobacco user. No other history obtained d/t intubation and sedation. LABS: Reviewed. BUN 80, Materials Supervisor 4.84, Gluc 115, Ca 7.7, Phos 8.6, AST 63, ALT 73, Alk Phos 265, Alb 2.3, Procalcitonin 73.71 MEDS: Reviewed. Tamiflu, fentanyl, nimbex, heparin GI: FMS - 25 ml output recorded 12/28. Senna administered 12/27. SKIN: Ju[place]o 11. WT: 96.9 kg BMI 32.5 kg/m2 IBW: 68.4 kg Admit Wt: 80 kg (BMI: 26.8 kg/m2) DIET: NPO NUTRITION SUPPORT: Pulmocare @ goal rate of 62 ml/hr, providing 2046 kcal/d, 85 g/d protein, and 1250 ml/d H2O, meeting 100% of est needs. ESTIMATED NEEDS: Vent, COPD, Dialysis, ALBERTINA (recalculated 12/27) Calories: 1210-6640 kcal/day (25-35 kcal/kg Admit BW) Protein: 80-95 g/day (1.0-1.2 g/kg Admit BW) Fluids: ~2000 ml (25 ml/kg Admit BW) NUTRITION DIAGNOSIS: 1) Inadequate oral intake related to inability to consume sufficient energy as evidenced by NPO status and ventilation. --- IMPROVING W/ ENTERAL NUTRITION @ GOAL RATE 2) Increased nutrient needs related to difficulty breathing as evidenced by COPD and acute respiratory failure / severe ARDS --- PERSISTS. NUTRITION INTERVENTION: 1) Per verbal MD order, recommend switching enteral nutrition formula to Nepro starting at rate of 25 ml/hr. If tolerated, advance Nepro at 10 ml q 6 hrs to goal rate of 52 ml/hr to provide 2059 kcal and 93g of protein meeting 100% of calorie needs and 98% protein needs. MONITOR/EVALUATE: Enteral feeding juancarlos/adv, medications, wt, labs, GI, nutrition status, POC. Will continue to monitor per high nutritional risk guidelines. Addendum: 12/28/16 at [address] Student documentation reviewed and I agree with the above assessment. Mel Rice, MS, RDN, CD
--- NOTE | 2016-12-28 11:23 | PCM.PNMED ---
Subjective Date of Service Dec 28, 2016 Subjective Pt is seen while on HD, stable BP sBP 120-130. Family is at the bedside. Exam Vital Signs Vital Sign - Last Date Time Temp Pulse Resp B/P Pulse Ox O2 Delivery O2 Flow Rate FiO2 12/28/16 09:29 91 12/28/16 05:46 37.1 30 124/61 96 Mechanical Ventilator 60 12/23/16 16:30 16.00 Intake and Output 12/27/16 12/27/16 12/28/16 Cumulative From/Thru 15:00 23:00 07:00 12/18/16 10:01 - 12/28/16 05:46 Intake Total 1365 ml 1088 ml 82091 ml Output Total 200 ml 275 ml 69420 ml Balance 1165 ml 813 ml 72585 ml Intake Oral 0 ml IV Total 529 ml 317 ml 57431 ml Tube Feeding 734 ml 651 ml 7812 ml Platelets 461 ml Tube Irrigant 102 ml 120 ml 1383 ml Output Urine Total 200 ml 250 ml 2470 ml Stool Total 25 ml 1625 ml Urine/Stool Mix 50 ml Gastric Drainage Total 1000 ml Ultrafiltrate 93739 ml # Bowel Movements 1 Exam GA: intubated, sedated. HEENT: atraumatic, no injected conjunctivae, no icteric sclerae, right IJ triple lumen in place. Heart: RRR, no significant murmur/rub/gallop, normal S1/s2. Lungs: occasional rhonchi B/L, good air entry, equal BS. Abd: soft, mild distension, no HSM, decreased BS. Ext: 1+ edema on LE and sacral swelling, right femoral hermelinda cath, dry, clean and intact. : tate cath in place with scant urine. Lab and Diagnostics Result Diagram: 12/28/16 0500 12/28/16 0500 Microbiology BCx and SCx positive for Strep pneumo Resp PCR positive for Flu A H3 Strep pneumo urine ag positive X-Rays, CTs and MRIs X-RAY KUB IMPRESSION: 1. No obstruction identified. 2. Abnormal appearance of the lungs redemonstrated with diffuse interstitial and airspace opacity similar to prior chest radiograph. Dictated by: Soren Johnson RRA Interpreted: Enrique Staley MD on 12/27/2016 at 11: 00 X-RAY CHEST ONE VIEW, PORTABLE IMPRESSION: No significant interval change in florid pulmonary edema and/or bronchopneumonia. Dictated by: Curtis Levine M.D. on 12/24/2016 at 8:42 CT CHEST WITH CONTRAST IMPRESSION: 1. Bilateral lung consolidation decreased in size compared to prior examination compatible with resolving pneumonia or aspiration. 2. Bilateral lung interstitial prominence and ground glass opacities. Findings may be related to pneumonia, however finding is nonspecific and other etiologies including pulmonary edema can produce a similar appearance. 3. Trace bilateral pleural effusions. 4. Enlarged bilateral hilar and mediastinal lymph nodes decreased in size. Dictated by: Jordyn Dominguez MD, PhD on 12/23/2016 at 13:19 US RENAL SONOGRAM IMPRESSION: 1. A 1.4 cm cyst in the superior pole the right kidney. Otherwise normal ultrasound appearance of kidneys. No hydronephrosis. 2. Cholelithiasis. No ultrasound evidence for acute cholecystitis. Dictated by: Dwain Gaona M.D. on 12/18/2016 at 18:18 Approved by: Dwain Gaona M.D. on 12/18/2016 at 18:21 Additional Diagnostics DateTimeAnalyzed 04:19:00 -_ pH ____7.345 - 7.350 7.450 pCO2 ___42.0__ -mmHg 35.0 45.0 pO2 110 -mmHg 69.0 116 HCO3- ___22.3__ -mmol/L 22.0 26.0 sO2 ___97.9__ -% 25.0 FIO2 ___60.0__ -% PEEP ___16.0__ -cmH2O Set_RR ___30.0__ -b/min Vt __410.0__ -L Assessment & Plan 1. ALBERTINA due to oliguric ATN. - fluid overload. - Requiring HD. - Kidney function remains poor. - Right femoral cath was placed on 12/20. HD: 3.5hr, UF 3-4L, DFR 600, BFR 350 2K, 35HCO3, right hermelinda, revaclear. 2. Septic shock. - Pneumococcal pneumonia /pneumococcal bacteremia - Influenza A infection. 3. Acute hypoxic respiratory failure/ARDS. 4. Thrombocytopenia/Anemia. 5. COPD/h/o tobacco abuse. Plan: next ultrafiltration in am, 3-4L fluid removal. removal hermelinda cath on Friday 12/29. GI Prophylaxis: Proton Pump Inhibitor VTE Prophylaxis: Sub-Q Heparin (Unfractionated) VTE Mechanical Devices: Intermittant Pneumatic CD Resuscitation Status: CPR: Attempt Resuscitation Loli Pinon MD Dec 28, 2016 11:23
--- NOTE | 2016-12-28 11:27 | PROG NOTE ---
[address] [address] PROGRESS NOTE PATIENT: DOUGIE GARDUNO : 1960 MR#: [id number] ADMIT: 12/18/2016 JOB ID: [id number] DATE: 12/28/2016 INFECTIOUS DISEASE FOLLOW UP NOTE: REASON FOR FOLLOWUP: Influenza complicated by pneumococcal septic shock, ARDS, renal failure and prolonged ventilator dependent respiratory failure. INTERVAL HISTORY: The patient remains relatively stable but, of course, critically ill, and still in the ICU requiring dialysis as well as ventilator assistance. He is no longer on any vasopressor agents, however. This case discussed in detail with the ICU team this morning on rounds. PHYSICAL EXAMINATION: Reveals an intubated, sedated gentleman. He is absolutely unresponsive at this point. Temperature 37.1, and he has been afebrile now for a total of five full days. Pulse around 90. Blood pressure 124/61, saturating 96% on 60 and 14, which is not significantly changed from yesterday. Apparently yesterday though a large mucous plug was removed during a washout and since then his peak pressures have declined considerably which is the sign of respiratory improvement. The patient's eyes are without scleral icterus or conjunctivitis. His pupils are quite small. Oral endotracheal tube, gastric tube in good position. A dialysis line is present in the right groin. A central line in the right neck appears benign. Lungs with fine crackles throughout the lower lung hillman. Cardiac tones are regular rate and rhythm in sinus rhythm as seen on the monitor. The patient's abdomen is soft and nontender. He has a Dubois catheter and he is making some urine even as he is still being dialyzed. No skin rash noted. LABORATORIES: Include a white count of 13,000. Platelet count is creeping up and is now to 108,000, which is a definite sign of improvement. He has a creatinine of 4.84, and as mentioned, he is still requiring dialysis. His AST is somewhat better down to 63. His alk phos is actually a little worse at 265. His albumin 2.3. Procalcitonin yesterday was 44 down from a peak over 600 when we started this evolution. The patient's sputum shows many polys but no organisms and that is a repeat sputum from yesterday. Recall that most recent blood cultures are now five days old and they are actually negative and the stool for C difficile from five days ago was negative. Recall that early on his sputum and blood both grew pneumococcus which was extremely sensitive to penicillin as well as cephalosporins. Yesterday's chest x-ray shows ARDS basically. His KUB showed no intestinal obstruction. IMPRESSION: This patient continues to make very slow progress with his multiorgan system failure basically. He developed the organ system failure following his pneumococcal sepsis which in turn followed his influenza A infection. He is still requiring dialysis and aggressive ventilatory support with high PEEP for his renal failure and ARDS respectively. He is no longer requiring vasopressor agents and he has not had fevers for several days. His procalcitonin is declining nicely suggesting we have good control of his underlying pneumococcal sepsis. RECOMMENDATIONS: 1. Will continue with ceftriaxone with close followup on his procalcitonin and fever as well as white count. 2. I will continue with oseltamivir 30 mg after each dialysis. 3. As the patient's procalcitonin continues to drop towards normal and his overall situation improves, I think we could think about stopping both the ceftriaxone and oseltamivir but I might be inclined to continue for a few more days as long as we see improvement in our objective parameters.
--- NOTE | 2016-12-28 13:24 | NUR ---
Dialysis note: 3 1/2 hrs tx. 3500 ml net UF. Right femoral catheter, dsg dry and intact. Pls see DTR for VS details. Qb 350. Heparin prime given. On vent @ 60% FiO2 with sat in the 90's. Stable tx. Catheter flushed, heparin dwelled and secured. Report given to Berta Evans RN.
[2016-12-28] MEDS: Cisatracurium Inj 200,000 MCG in 0.9% Sodium Chloride-Pha MIX 100 ML IV PRN (14:25)
--- NOTE | 2016-12-28 17:52 | PCM.PNMED ---
Subjective Date of Service Dec 28, 2016 Subjective Mr. Naveed Maciel is a 56 year old gentleman with past medical history significant for COPD who presented to the emergency department via EMS complaining of dyspnea and 3 days of flu-like symptoms. Intubated after failing on BiPAP and admitted for septic shock and acute hypoxemic respiratory failure. Hospital 10. Vent day 10. Overnight: Remained stable with no acute events overnight. BP fairly stable overnight, currently off Levophed vasopressin, continues to be paralyzed with Nimbex and sedated on fentanyl, Versed and Precedex . Attempted d/cing Nimbex for paralysis but failed yesterday. Today: Pt is sedated, paralysed, and intubated and no history could be obtained. Abdomen slightly distended, intra abdominal pressure wnl. Exam Vital Signs Vital Sign - Last Date Time Temp Pulse Resp B/P Pulse Ox O2 Delivery O2 Flow Rate FiO2 12/28/16 05:46 37.1 90 30 124/61 96 Mechanical Ventilator 60 12/23/16 16:30 16.00 Intake and Output 12/27/16 12/27/16 12/28/16 Cumulative From/Thru 15:00 23:00 07:00 12/18/16 10:01 - 12/28/16 05:46 Intake Total 1365 ml 1088 ml 80381 ml Output Total 200 ml 275 ml 06236 ml Balance 1165 ml 813 ml 74173 ml Intake Oral 0 ml IV Total 529 ml 317 ml 53820 ml Tube Feeding 734 ml 651 ml 7812 ml Platelets 461 ml Tube Irrigant 102 ml 120 ml 1383 ml Output Urine Total 200 ml 250 ml 2470 ml Stool Total 25 ml 1625 ml Urine/Stool Mix 50 ml Gastric Drainage Total 1000 ml Ultrafiltrate 15086 ml # Bowel Movements 1 Exam General: Intubated and sedated and paralyzed. Head: Normocephalic, atraumatic. External ears without defect. Eyes: Pupils equal, round, and reactive to light and accommodation. Anicteric sclerae, moist conjunctivae. Cardiovascular: Regular rate and rhythm with no murmurs, rubs, or gallops appreciated. Pulmonary: Course breath sounds throughout. No wheezes or rhonchi. Abdomen: Soft, moderately distended, hypoactive bowel sounds. Old midline surgical incision present. Extremities: Mild pitting edema on lower and upper extremities bilaterally. Skin: Faint macular papular rash on upper chest and shoulders. Neurological: Intubated and sedated and paralyzed. IVs and Medications Medications Reviewed: Medications were reviewed in detail Lab and Diagnostics Result Diagram: 12/28/16 0500 12/28/16 0500 Microbiology BCx and SCx positive for Strep pneumo Resp PCR positive for Flu A H3 Strep pneumo urine ag positive X-Rays, CTs and MRIs X-RAY KUB IMPRESSION: 1. No obstruction identified. 2. Abnormal appearance of the lungs redemonstrated with diffuse interstitial and airspace opacity similar to prior chest radiograph. Dictated by: Soren Johnson RRWilliam Interpreted: Enrique Staley MD on 12/27/2016 at 11: 00 X-RAY CHEST ONE VIEW, PORTABLE IMPRESSION: No significant interval change in florid pulmonary edema and/or bronchopneumonia. Dictated by: Curtis Levine M.D. on 12/24/2016 at 8:42 CT CHEST WITH CONTRAST IMPRESSION: 1. Bilateral lung consolidation decreased in size compared to prior examination compatible with resolving pneumonia or aspiration. 2. Bilateral lung interstitial prominence and ground glass opacities. Findings may be related to pneumonia, however finding is nonspecific and other etiologies including pulmonary edema can produce a similar appearance. 3. Trace bilateral pleural effusions. 4. Enlarged bilateral hilar and mediastinal lymph nodes decreased in size. Dictated by: Jordyn Dominguez MD, PhD on 12/23/2016 at 13:19 US RENAL SONOGRAM IMPRESSION: 1. A 1.4 cm cyst in the superior pole the right kidney. Otherwise normal ultrasound appearance of kidneys. No hydronephrosis. 2. Cholelithiasis. No ultrasound evidence for acute cholecystitis. Dictated by: Dwain Gaona M.D. on 12/18/2016 at 18:18 Approved by: Dwain Gaona M.D. on 12/18/2016 at 18:21 Additional Diagnostics DateTimeAnalyzed 04:19:00 -_ pH ____7.345 - 7.350 7.450 pCO2 ___42.0__ -mmHg 35.0 45.0 pO2 110 -mmHg 69.0 116 HCO3- ___22.3__ -mmol/L 22.0 26.0 sO2 ___97.9__ -% 25.0 FIO2 ___60.0__ -% PEEP ___16.0__ -cmH2O Set_RR ___30.0__ -b/min Vt __410.0__ -L Assessment & Plan Naveed Maciel is a 56 year old male with past medical history significant for COPD who presented to the emergency department via EMS complaining of dyspnea and 3 days of flu-like symptoms. Intubated after failing on BiPAP and admitted for septic shock and acute hypoxemic respiratory failure. Hospital 9. Vent day 11. 1. Severe ARDS, present on admission, active. Improving. - Etiology secondary to sepsis and pneumococcal pneumonia in the setting of COPD and past history of cocaine use. CT chest on 12/18 showed dense consolidation bilaterally within the dependent portions of the lung. Repeat CT chest was largely unchanged with some mild interval improvement in consolidation. - Patient intubated, sedated and paralyzed using fentanyl, Versed, Precedex, and Nimbex. - Vent settings per Critical Care/Pulmonology Team. - BAL today with large mucus plugs collected. Sputum sample pending. KUB as above. - Considering Bronchoscopy if we cannot wean off paralyzing agent today. - We will start to decrease slowly. 2. Pneumococcal pneumonia /pneumococcal bacteremia, present on admission, improving. - CXR and CT as above. Strep pneumonia urine antigen positive. Blood and sputum cultures positive. Sensitive for penicillins. WBC trending down. Procalcitonin 180.83 on admission peaked at 612.48, trending down. - Discontinued Cefepime, Flagyl, and azithromycin - Ceftriaxone 2g IV daily. - Monitoring Procalcitonin every other day. Currently trending downward from 95.5 (12/26/16), currently 43.7. Will repeat tomorrow. 3. Acute kidney injury, present on admission, active. - Unknown if patient has underlying chronic kidney disease. Patient continues to be anuric. On admission BUN 65 and creatinine 3.71 - Right femoral catheter placed 12/20. - Dialysis 12/26/16, plan for next dialysis 12/28/16. - Avoid nephrotoxic medications as able. - Nephrology consulted. Appreciate time and recommendations. 4. Chronic kidney disease 4/5, present on admission. Active. - Pt received dialysis 12/28/16 with 3.5 L ultrafiltrate removed. - 3.5 L ultrafiltrate removed today, planning to try for 3-4 L again tomorrow. 5. Septic shock, present on admission, Improving. - Criteria include: HR 144, RR 41, O2 sats 83%, lactic acid 6.6, BUN 65, creatinine 3.71, procalcitonin 180.38. Etiology secondary to pneumococcal pneumonia and influenza A. - Right IJ in place 12/18. right radial arterial line lost 07/28 - Currently DC'd vasopressin and on 0.02 norepinephrine. Norepinephrine being weaned down as tolerated. 6. Influenza A, present on admission, active. - Oseltamivir 30 mg after each hemodialysis session. 7. Thrombocytopenia, present on admission, active. - Unknown baseline. Etiology likely sepsis. - On admission platelets 74. Currently 79. - DVT prophylaxis initiated 12/22. - DIC panel does not suggest DIC. No schistocytes on blood smear. - Platelets transfused 12/20 prior to dialysis catheter placement. - Will continue to monitor. 8. Upper GI bleed, present on admission, stable. - Coffee-ground material reported from OG tube on admission. Guaiac positive in the ED. Hemoglobin and hematocrit have decreased since admission but likely secondary to fluid resuscitation. - Type and cross with 2 units PRBCs on hold. - DVT prophylaxis started . - Pantoprazole 40 mg BID. - Will consider GI consult if H&H drops or more active bleeding is visualized. 9. COPD, present on admission, unknown baseline. 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 Unknown if patient has outpatient medication regimen. - Treatment as above. 10. Tobacco use, present on admission, chronic. - Consider Nicotine patch once patient awake. 11. Hyperglycemia, present on admission, active. - Insulin regular low dose correctional scale. - Hemoglobin A1c 5.7. Acetaminophen for mild pain when necessary. Bowel regimen Senna and MiraLAX scheduled and PRN. Zofran when necessary for nausea and vomiting. SubQ heparin. SCDs in place. High-risk medications: IV fentanyl Disposition: Patient currently intubated with severe ARDS. He continues to require 2 pressors. Reduction in FiO2 and PEEP is a positive step however his prognosis is guarded and he remains severely ill. Pain Evaluation: Adequate Pain Control GI Prophylaxis: Proton Pump Inhibitor VTE Prophylaxis: Sub-Q Heparin (Unfractionated) VTE Mechanical Devices: Intermittant Pneumatic CD Resuscitation Status: CPR: Attempt Resuscitation Attending Statement The patient was seen and examined together with Dr. Steele on 12/28/2016 and I agree with the history, exam and plan as outlined in the note above. . KING STEELE DO Dec 28, 2016 07:43 Patrice Galvan MD Dec 29, 2016 17:46
--- NOTE | 2016-12-28 18:08 | NUR ---
Nimbex Nimbex dropped from 2.5mcg to 1.5mcg for one hour. Vent remained unchanged. BIS increased to 90's. Nimbex back to 2.5mcg. Dialysis removed 3.5L today dialysis planned for tomorrow as well. Dubois had 100cc output.
--- NOTE | 2016-12-28 18:38 | PROG NOTE ---
[address] [address] PROGRESS NOTE PATIENT: DOUGIE GARDUNO : 1960 MR#: [id number] ADMIT: 12/18/2016 JOB ID: [id number] DATE: 12/28/2016 PULMONARY CRITICAL CARE FOLLOWUP NOTE: PROBLEM LIST: 1. ARDS. 2. Influenza A. 3. Pneumococcal pneumonia with bacteremia. 4. Acute renal failure requiring hemodialysis. 5. Thrombocytopenia. 6. Transaminitis. SUBJECTIVE: None. OBJECTIVE: Temperature 37.1, pulse 82-90, respiratory rate 30 with ventilator set at 30, blood pressure 115/61. O2 sat on an FiO2 of 0.6, PEEP of 14 is 96%. I and O shows 2.4 liters in and a total of 250 mL of urine out. General appearance: Sedated, paralyzed, on the ventilator. Eyes: Conjunctivae are pink. Chest: Somewhat diminished breath sounds. Maybe a few crackles on the right lower anterior lung field. Left lung relatively clear. Heart: Somewhat distant tones. Heart tones seem normal. Abdomen: Soft. Bowel tones present. Extremities: 2+ pedal edema. SCDs in place on the lower extremities. Some mild edema of the left distal upper extremity. LABORATORY: Shows a white count of 13,100 with 82 polymorphonuclears, 11 lymphs, 3 monocytes. Hemoglobin stable at 8.4 g/dL. Platelet count rising at 108,000. Lytes are normal with a sodium 140, potassium of 5.2, chloride of 100, CO2 is 25, BUN rising to 80 from 55, and creatinine 4.84 from 3.22. Calcium is 7.7. Phosphorus is 8.6. AST is starting to fall at 63, down from 94. ALT relatively stable at 73, down from 86. Alkaline phos still slowly rising; currently at 265 up from 244. Albumin of 2.3. Sputum from yesterday shows many polys on the Gram stain. No organisms seen. Chest x-ray shows widespread pulmonary interstitial and airspace opacities; some are increased. Abdominal KUB shows no particular intra-abdominal pathology. Today we tried to decrease his paralytic. We decreased his paralytic to half a dose. Seemed to be slowly lightening but as it is now 5:30 in the being and he is just starting to arouse I think we should restart his medication throughout the night and can restart again in the morning. ASSESSMENT: 1. Altered mental status. Having some significant problems as we are not able to discontinue the paralytic. He gets rather intolerant of the ventilator. Will need to see how he interacts when he is more awake. However, I am afraid he is going to have significant patient/ventilator synchrony. High doses of sedation have not been effective in controlling his agitation. 2. Renal failure. Patient dialyzed today. Ultrafiltration took off 3.5 L today. The plan is to do this more frequently. Currently daily for the immediate future. 3. Adult respiratory distress syndrome. May in part be due to mucus plugging. A large mucus plug was removed yesterday. Will need to review the film and see whether there is cut-off sign in the left lower lobe bronchus. If indeed that subtends what appears to be lobar consolidation and collapse, might consider bronchoscopy to remove any potentially obstructing plug. PLAN: 1. Paralytics were decreased; however, they will have to be reinstituted for the evening to control his behavior. 2. Chest x-ray in the a.m. 3. Continue aggressive hemofiltration. TIME SPENT: 25 minutes.
[2016-12-29] VITALS (12 sets, daily range): BP systolic 99–163; BP diastolic 58–90; PULSE 63–93; RESP 30; O2SAT 95–100
[2016-12-29] MEDS: Chlorhexidine 0.12% 15 mL Oral Solution MT SCH ×6 (00:56→20:34)
[2016-12-29] MEDS: Heparin 5,000 Unit/mL Inj SUBQ SCH ×3 (00:56→16:30)
--- NOTE | 2016-12-29 02:28 | NUR ---
Nimbex TOF 4:4. originally increased Nimbex gtt to titrate to TOF, but then read MD note discussing possibly weaning nimbex. They are aware of 4:4 TOF for days. Then decreased Nimbex from 2.5mcgs/kg/min to 2.0. Pt had episodes of tachycardia in 110s, BIS numbers in 80s, which resolved on their own. Pt did not overbreathe vent or increase peak pressures, but did need increasing Precedex gtt. Currently nimbex back at 2.5. Will continue to monitor pt closely. Care ongoing
--- NOTE | 2016-12-29 04:06 | ABG ---
DateTimeAnalyzed 04:00:00 -_ pH ____7.380 - 7.350 7.450 pCO2 ___43.4__ -mmHg 35.0 45.0 pO2 ___94.6__ -mmHg 69.0 116 HCO3- ___25.1__ -mmol/L 22.0 26.0 ABE ____0.5__ -mmol/L -2.0 2.0 tHb ____8.5__ -g/dL O2Hb ___94.9__ -% COHb ____1.6__ -% MetHb ____0.9__ -% sO2 ___97.3__ -% 25.0 FIO2 ___60.0__ -% PEEP ___14.0__ -cmH2O Set_RR ___30.0__ -b/min Vt __410.0__ -L Drawn By RB - Date/Time Notified____ 04:06:00 -_ Spontaneous_RR ___30.0__ -b/min Oxygen Device 1 VENTILATOR - Notified By RB - Notified Whom Kammi K, RN - B 748 -mmHg tO2 ___11.4__ -Vol% Masoud test _Positive -
[2016-12-29] MEDS: Dexmedetomidine 400 mCg/100 mL NS Premix IV SCH ×2 (05:35→17:06)
[2016-12-29] MEDS: fentaNYL 2,500 mCg/250 mL 2,500 MCG in IV Premix 1 EACH IV SCH (05:36)
[2016-12-29] MEDS: Midazolam Inj 100 MG in IV Premix 1 EACH IV PRN (05:36)
[2016-12-29] MEDS: Cisatracurium Inj 200,000 MCG in 0.9% Sodium Chloride-Pha MIX 100 ML IV PRN ×2 (05:36→22:31)
[2016-12-29 05:41] LABS: BASOPHILS % (AUTO) 0.3 % (0-3); EOSINOPHILS % (AUTO) 0.6 % (0-5); MONOCYTES % (AUTO) 4.5 % (4-12); Mean Corpuscular Hemoglobin 32.4 pg (27.0-35.0); NEUTROPHILS % (AUTO) 82.3 % (40-74); Platelet Count 151 bil/L (150-400)
[2016-12-29 06:26] LABS: Magnesium 2.6 mg/dL (1.6-2.6); Phosphorus 7.7 mg/dL (2.5-4.9)
[2016-12-29] MEDS: cefTRIAXone Inj 2,000 MG in Dextrose 5% Minibag Plus 50 ML IV SCH (08:25)
[2016-12-29] MEDS: Pantoprazole 4 mg/mL 10 mL Inj IVPUSH SCH ×2 (08:25→20:34)
[2016-12-29] MEDS: Senna-Docusate 8.6-50 mg Tablet PO SCH ×2 (08:29→20:34)
[2016-12-29] MEDS: 0.9% Sodium Chloride 250 ML IV SCH (09:06)
--- NOTE | 2016-12-29 09:44 | PROG NOTE ---
[address] [address] PROGRESS NOTE PATIENT: DOUGIE GARDUNO : 1960 MR#: [id number] ADMIT: 12/18/2016 JOB ID: [id number] DATE: 12/29/2016 INFECTIOUS DISEASE FOLLOWUP NOTE: REASON FOR FOLLOWUP: Influenza, followed by pneumococcal bacteremia associated with septic shock, ventilatory-dependent respiratory failure, ARDS and renal failure. INTERVAL HISTORY: The patient has remained critically ill but relatively stable overnight. He is still intubated, sedated and paralyzed, and still in renal failure. I discussed this case in great detail with the team at the bedside. The patient's FiO2 had to be increased from 60 to 80 last night. He remains on high levels of PEEP. His urine output is still poor, and he is continuing to require ongoing dialysis via the groin dialysis catheter. PHYSICAL EXAMINATION: Reveals an afebrile gentleman lying supine in his ICU bed. He is motionless, as he is paralyzed. Temp 37.1, pulse 77, respiratory rate 30, blood pressure 132/68, saturating 99% on 80% FiO2. PEEP of 14 has been required. He is not on any vasopressor agents. His eyes are mid range and slowly reactive. No conjunctival abnormalities. Oral endotracheal tube, oral gastric tube in good position. The right neck central line appears benign. The lungs are notable for fairly poor air flow bilaterally despite his PEEP of 14, positive-pressure ventilation. There are scattered rales, and these are perhaps more prominent than they were yesterday. His cardiac tones, regular rate and rhythm as before without murmur. His abdomen is slightly distended. No focal masses appreciated. He has a Dubois catheter. He has a rectal tube. His extremities are well perfused. LABORATORIES: Include white count stable at 14,000. Diff, 82% segs. His creatinine today 3.84, his potassium is 5.4. Liver function tests still elevated. ALT is 61, alk phos 266. Albumin 2.7. Procalcitonin continues to fall nicely, now 17.6, down from 600 and something early in his hospital stay. Hep C and HIV were negative. Followup blood cultures and sputum cultures have been negative. As of yet, we have no evidence of any nosocomial infections. IMAGING: No imaging has been done today, and I will order a chest x-ray, as I think we need one, given his increasing FiO2. IMPRESSION: This unfortunate gentleman contracted influenza followed by bacteremic pneumococcal pneumonia with septic shock. He has survived the initial onslaught of these dual infections but is now left with adult respiratory distress syndrome, requiring aggressive ventilatory support and renal failure, requiring dialysis. Whether he will survive this admission remains an open question. Obviously, it will require meticulous pulmonary and renal care. As for Infectious diseases, we are nearing the point where his antibiotics might reasonably be stopped but I would be inclined to continue for a few more days with both ceftriaxone and oseltamivir, as his procalcitonin is still elevated. RECOMMENDATIONS: 1. Continue with ceftriaxone for probably the next 3-4 days. 2. Continue with oseltamivir after each hemodialysis session. 3. Check procalcitonin every other day. 4. Note that I will be out of town the next three days, returning January 02. I can be reached at any time by my cell phone or by email.
--- NOTE | 2016-12-29 10:14 | DRSVH ---
PROCEDURE: X-RAY CHEST ONE VIEW, PORTABLE ([id number]) INDICATIONS: intubated TECHNIQUE: One view of the chest was acquired. COMPARISON: [facility], CR, XR CHEST 1VW (PORTABLE), 12/27/2016, 5:24. FINDINGS: Surgical changes and devices: Stable position ETT, nasogastric tube and right IJ CVL. Lungs and pleura: Slight interval increase in small left pleural effusion and there is persistent, wi despread bilateral pulmonary interstitial interspace opacities. No pneumothorax. Mediastinum: Mediastinal contours appear normal. Heart size is normal. Bones and chest wall: No suspicious bony lesions. Overlying soft tissues appear unremarkable. IMPRESSION: 1. Edema and/or pneumonia redemonstrated. 2. Slight increase in size of small left pleural effusion. Dictated by: Soern Johnson RR Interpreted: Enrique Staley MD on 12/29/2016 at 10:13 Transcribed by: CM on 12/29/2016 at 10:14 Approved by: Enrique Staley M.D. on 12/29/2016 at 13:45
--- NOTE | 2016-12-29 10:39 | PCM.PNMED ---
Subjective Date of Service Dec 29, 2016 Subjective Required higher FiO2 today. HD yesterday with UF 3.5L. Dr. Newberry planned to perform bronchoscopy today. Exam Vital Signs Vital Sign - Last Date Time Temp Pulse Resp B/P Pulse Ox O2 Delivery O2 Flow Rate FiO2 12/29/16 07:57 77 132/68 99 80 12/29/16 04:35 37.1 30 Mechanical Ventilator 12/28/16 12:30 16.00 Intake and Output 12/28/16 12/28/16 12/29/16 Cumulative From/Thru 15:00 23:00 07:00 12/18/16 10:01 - 12/29/16 06:47 Intake Total 342 ml 1994 ml 64060 ml Output Total 3500 ml 150 ml 300 ml 01016 ml Balance -3500 ml 192 ml 1694 ml 36840 ml Intake Oral 0 ml IV Total 342 ml 305 ml 97230 ml Tube Feeding 1539 ml 9351 ml Platelets 461 ml Tube Irrigant 150 ml 1533 ml Output Urine Total 100 ml 200 ml 2770 ml Stool Total 100 ml 1725 ml Urine/Stool Mix 50 ml Gastric Drainage Total 50 ml 1050 ml Ultrafiltrate 3500 ml 34406 ml # Bowel Movements 1 2 Exam GA: intubated, sedated. HEENT: atraumatic, no injected conjunctivae, no icteric sclerae, right IJ triple lumen in place. Heart: RRR, no significant murmur/rub/gallop, normal S1/s2. Lungs: occasional rhonchi B/L, equal BS. Abd: soft, mild distension, no HSM, decreased BS. Ext: 2+ edema on LE and sacral swelling, right femoral hermelinda cath, dry, clean and intact. : tate cath in place with scant urine. Lab and Diagnostics Result Diagram: 12/29/1652412/29/16524 Microbiology BCx and SCx positive for Strep pneumo Resp PCR positive for Flu A H3 Strep pneumo urine ag positive X-Rays, CTs and MRIs X-RAY KUB IMPRESSION: 1. No obstruction identified. 2. Abnormal appearance of the lungs redemonstrated with diffuse interstitial and airspace opacity similar to prior chest radiograph. Dictated by: Soren Johnson RRA Interpreted: Enrique Staley MD on 12/27/2016 at 11: 00 X-RAY CHEST ONE VIEW, PORTABLE IMPRESSION: No significant interval change in florid pulmonary edema and/or bronchopneumonia. Dictated by: Curtis Levine M.D. on 12/24/2016 at 8:42 CT CHEST WITH CONTRAST IMPRESSION: 1. Bilateral lung consolidation decreased in size compared to prior examination compatible with resolving pneumonia or aspiration. 2. Bilateral lung interstitial prominence and ground glass opacities. Findings may be related to pneumonia, however finding is nonspecific and other etiologies including pulmonary edema can produce a similar appearance. 3. Trace bilateral pleural effusions. 4. Enlarged bilateral hilar and mediastinal lymph nodes decreased in size. Dictated by: Jordyn Dominguez MD, PhD on 12/23/2016 at 13:19 US RENAL SONOGRAM IMPRESSION: 1. A 1.4 cm cyst in the superior pole the right kidney. Otherwise normal ultrasound appearance of kidneys. No hydronephrosis. 2. Cholelithiasis. No ultrasound evidence for acute cholecystitis. Dictated by: Dwain Gaona M.D. on 12/18/2016 at 18:18 Approved by: Dwain Gaona M.D. on 12/18/2016 at 18:21 Additional Diagnostics DateTimeAnalyzed 04:19:00 -_ pH ____7.345 - 7.350 7.450 pCO2 ___42.0__ -mmHg 35.0 45.0 pO2 110 -mmHg 69.0 116 HCO3- ___22.3__ -mmol/L 22.0 26.0 sO2 ___97.9__ -% 25.0 FIO2 ___60.0__ -% PEEP ___16.0__ -cmH2O Set_RR ___30.0__ -b/min Vt __410.0__ -L Assessment & Plan 1. ALBERTINA due to oliguric ATN. - fluid overload. - Requiring HD. - Kidney function remains poor. - Right femoral cath was placed on 12/20. 2. Septic shock. - Pneumococcal pneumonia /pneumococcal bacteremia - Influenza A infection. 3. Acute hypoxic respiratory failure/ARDS. 4. Thrombocytopenia/Anemia. 5. COPD/h/o tobacco abuse. Plan: HD again today then d/c femoral hermelinda. Will dw IR if he is eligible for a tunneled cath placement otherwise a new temporary HD cath will be placed. GI Prophylaxis: Proton Pump Inhibitor VTE Prophylaxis: Sub-Q Heparin (Unfractionated) VTE Mechanical Devices: Intermittant Pneumatic CD Resuscitation Status: CPR: Attempt Resuscitation Loli Pinon MD Dec 29, 2016 10:39
--- NOTE | 2016-12-29 12:38 | PROG NOTE ---
[address] [address] PROGRESS NOTE PATIENT: DOUGIE GARDUNO : 1960 MR#: [id number] ADMIT: 12/18/2016 JOB ID: [id number] DATE: 12/29/2016 PULMONARY CRITICAL CARE FOLLOWUP NOTE: PROBLEM LIST: 1. Adult respiratory distress syndrome. 2. Influenza A. 3. Pneumococcal pneumonia with bacteremia, resolved. 4. Acute renal failure requiring hemodialysis. 5. Thrombocytopenia. 6. Transaminitis. 7. Altered mental status. SUBJECTIVE: None. OBJECTIVE: Temperature 37.1 with T-max being 37.5. Pulse mid 70s to 80s. Respiratory rate 30 with ventilator set at 30. Blood pressure 142/58. O2 sat on FiO2 of 60% and PEEP of 14, though measured at 11, is 98%. I and O shows 1.4 liters in, 3.5 liters of ultrafiltrate out, with urine output of 350 mL. General appearance: Paralyzed, sedated, on ventilator. Eyes: Pupils about 3 mm. Chest: Good breath sounds on the right. Relatively clear. Some markedly diminished breath sounds in the left upper lung field with essentially absent breath sounds in the lower half of the left lung field. No use of accessory muscles. Peak inspiratory pressure 35 with plateau about 28. PEEP is set at 14, measured at 11. Chest x-ray shows consolidation in left lower lobe. Possibly a cut off sign in the left mainstem bronchus. Laboratory data shows a white count of 14,200, slowly rising. Differential with moderate neutrophilia. Hemoglobin 9.5 and somewhat increased. Platelet count 151,000 and rising. Sodium 140, potassium 5.4, chloride 101, CO2 is 24, BUN 66, creatinine 3.8, calcium 8.1. Albumin 2.7. Phosphorus 7.7, magnesium 2.6. Total bilirubin 0.4. AST has normalized at 40. ALT mildly elevated at 61, upper limits of normal being 44 and falling. Alkaline phosphatase stable at 266, upper limits of normal being 150. Hepatitis B antigen, antibody and B core are negative. Hepatitis C antibody negative. Hepatitis A IgM negative. Sputum Gram stain shows many polys. No organisms seen. Preliminary cultures growing only normal christina. ASSESSMENT: 1. Altered mental status. Attempts at discontinuing paralysis yesterday were unsuccessful. Soon after stopping the paralysis, he became quite agitated, fighting the ventilator, though visually did not appear to be moving extremities or actively bucking the ventilator. However, his ventilatory status was quite poor, and he had to be re-paralyzed, as increasing sedation was not successful. Etiology for this behavior is unclear. Whether he took some mood-altering drug such as one of the synthetic cannabinoids with long-term central nervous system damage is unclear. In any case, we are not particularly finding a problem with a physiologic imbalance. Will get an EEG today to see if this is of any value. Discussed spinal tap but it was felt that it would not be very useful. 2. Adult respiratory distress syndrome. Underwent ultrafiltration yesterday. Took off 3.5 liters of fluid. Hopefully, that will occur again today and will see how we do. 3. Mucus plugging. Earlier this week there was a thick mucous plug. I suspect that there is an additional mucous plug, probably in the left lower lobe bronchus maybe up by the secondary mickey between the left upper lobe and lower lobe accounting for the decreased breath sounds. Chest x-ray does not show any evidence of pneumothorax. Will proceed with bronchoscopy. Unable to obtain consent from the patient. Spoke with the patient's sister who has been only one visiting him. I discussed the problem with his lungs. Discussed mucous plugging. Outlined bronchoscopy in detail. Explained that with him intubated, there is ready access to the airways. However, there is some risk associated with his O2 requirements being high with high-dose oxygen, as well as a significant amount of PEEP. However, alternative is that his lungs will get worse, probably obstructing the entire left lung. 4. Renal failure. Plan is to proceed with ultrafiltration today. Unfortunately, it is being access through a femoral line. That has been in quite a long period of time and will need to be discontinued. Plan will be to take out the femoral dialysis catheter after ultrafiltration today and then consider replacing the line on Sunday after the weekend. 5. Transaminitis. Seems to be improving. Not sure as to the etiology. Does have a mildly elevated alkaline phosphatase. Studies have been inconclusive to date regarding biliary tract disease. 6. Thrombocytopenia. Resolving. PLAN: 1. Bronchoscopy. 2. Ultrafiltration. 3. Probably tomorrow will try stopping his paralysis, maybe raising sedation. 4. Switch midazolam to Ativan if we continue to require benzodiazepines. 5. Continue current fluid regimen. 6. Discontinue femoral dialysis catheter after ultrafiltration today. TIME SPENT IN CRITICAL CARE: 45 minutes.
[2016-12-29] MEDS ORDERED: Lidocaine PF 2% 10 mL Inj ONE (13:21)
[2016-12-29] MEDS ORDERED: Lidocaine Topical 2% 30 mL Jelly ONE (13:21)
--- NOTE | 2016-12-29 14:48 | ENDO ---
[address] [address] ENDOSCOPY PROCEDURE PATIENT: DOUGIE GARDUNO : 1960 MR#: [id number] ADMIT: 12/18/2016 JOB ID: [id number] DATE OF SERVICE: 12/29/2016 TITLE OF PROCEDURE: Flexible fiberoptic bronchoscopy. SURGEON: Bhavesh Newberry MD. PREOPERATIVE DIAGNOSIS: Mucus plugging, left lung. POSTOPERATIVE DIAGNOSIS: Mucous plugging bilaterally left worse than right involving the entire left lung and the distal left mainstem bronchus. FINDINGS: 1. Mucous plugging with viscid, clear secretions involving the entire left bronchial tree. 2. Piriform secretions plugging the distal left mainstem bronchus involving both the left lower lobe, as well as to some extent the left upper lobe bronchus. INDICATIONS FOR PROCEDURE: The patient is a 56-year-old, male who presented with influenza A and pneumococcal pneumonia with bacteremia. He has been ventilator dependent. There have been problems with mucous plugging. Chest x-ray shows cutoff sign of the left lower lobe bronchus. Physical examination reveals markedly distant breath sounds in the left upper lung field and essentially absent breath sounds in the left lower lung field with a clear right lung. Bronchoscopy is being undertaken in order to evaluate the airways for mucus plugging and remove any offending obstructing material. PROCEDURE: The patient was already sedated and, in fact, paralyzed on mechanical ventilation. Informed consent was obtained from the patient's sister. The patient was oxygenated with FiO2 of 1.0 during the procedure with PEEP set at 11. The Olympus bronchoscope was passed through the endotracheal tube. The tip of the endotracheal tube was identified about 3 cm above the main mickey. It was seen that the left bronchial tree was obstructed at the takeoff of the left upper lobe. These secretions were removed relatively easily. They were somewhat and stringy. They involved the entire left bronchial tree, obstructing the left upper lobe lingula and left lower lobe bronchus. These were removed. Lavage of the left bronchial tree was carried out obtaining numerous mucous plugs. Lavaged until return was relatively clear. Right bronchial tree showed an area of what appeared to be more piriform secretions obstructing the distal bronchus intermedius. Secretions were seen obstructing the left superior segment of the right lower lobe, as well as the basilar segments of the right lower lobe, with complete obstruction of the right medial basilar segment and rather significant obstructions of the basilar segments and complete obstruction of the superior segment of the right lower lobe. Again, these were removed. Right lower lobe was lavaged until relatively clear. The patient tolerated the procedure well. Frequent removal of the bronchoscope was done because of relatively high PEEP being delivered. No evidence of arrhythmias or decrease in his O2 saturation was noted throughout the procedure. At the end of the procedure, the tip of the endotracheal tube was identified 3 cm above the main mickey. The patient was left in care of Nursing and Respiratory Therapy. Vital signs were stable with blood pressure 116/64, O2 sat of 99 and pulse of 80 with a normal sinus rhythm. SPECIMENS OBTAINED: Washings of right lung, as well as left lung, were sent for Gram stain, C and S, AFB, and fungal smear and culture, pneumocystis studies, fungal studies and viral H. zoster, CMV and Simplex.
--- NOTE | 2016-12-29 16:21 | NUR ---
Ventilation/Hemodynamics.. Remains on vent without changes made. Noted to have unequal breath sounds with decreased sounds on the left. Dr Newberry aware and arranged for bronch at the bedside. Pt juancarlos the procedure well. Remains on same sedation and Nimbex settings. Has not been overbreathing the vent. Is currently having an EEG done at the bedside. Sister Milind was contacted for bronchoscopy consent and was updated post bronchoscopy on how pt juancarlos the procedure.
--- NOTE | 2016-12-29 16:30 | NUR ---
Dialysis note: 3 hrs tx. 3000 ml net UF. Right femoral catheter, dsg dry and intact. Pls see DTR for VS details. Qb 300. Heparin prime given. On vent @ 80-100% FiO2 with sat in the 90's. Bronchoscopy and EEG done during tx. Stable treatment. Post tx, catheter dc'd as ordered. Exit site cleaned with chloraprep. Sutures removed. Catheter pulled out intact. Pressure applied for 15-20 min. Gauze dsg applied, dry and intact. Catheter tip sent to the lab for culture. Report given to Meghann Reynolds RN.
--- NOTE | 2016-12-29 19:31 | PCM.PNMED ---
Subjective Date of Service Dec 29, 2016 Subjective Mr. Naveed Maciel is a 56 year old gentleman with past medical history significant for COPD who presented to the emergency department via EMS complaining of dyspnea and 3 days of flu-like symptoms. Intubated after failing on BiPAP and admitted for septic shock and acute hypoxemic respiratory failure. Hospital 12. day 12. Overnight: Remained stable with no acute events overnight. BP fairly stable overnight, Continues to be paralyzed with Nimbex and sedated on fentanyl, Versed and Precedex. Today: Pt is sedated, paralysed, and intubated and no history could be obtained. Abdomen slightly distended, intra abdominal pressure wnl. Exam Vital Signs Vital Sign - Last Date Time Temp Pulse Resp B/P Pulse Ox O2 Delivery O2 Flow Rate FiO2 12/29/16 04:35 37.1 85 30 142/58 98 Mechanical Ventilator 60 12/28/16 12:30 16.00 Intake and Output 12/28/16 12/28/16 12/29/16 Cumulative From/Thru 15:00 23:00 07:00 12/18/16 10:01 - 12/29/16 06:47 Intake Total 342 ml 1994 ml 14280 ml Output Total 3500 ml 150 ml 300 ml 50807 ml Balance -3500 ml 192 ml 1694 ml 22754 ml Intake Oral 0 ml IV Total 342 ml 305 ml 38695 ml Tube Feeding 1539 ml 9351 ml Platelets 461 ml Tube Irrigant 150 ml 1533 ml Output Urine Total 100 ml 200 ml 2770 ml Stool Total 100 ml 1725 ml Urine/Stool Mix 50 ml Gastric Drainage Total 50 ml 1050 ml Ultrafiltrate 3500 ml 66296 ml # Bowel Movements 1 2 Exam General: Intubated and sedated and paralyzed. Head: Normocephalic, atraumatic. External ears without defect. Eyes: Pupils equal, round, and reactive to light and accommodation. Anicteric sclerae, moist conjunctivae. Cardiovascular: Regular rate and rhythm with no murmurs, rubs, or gallops appreciated. Pulmonary: Course breath sounds throughout. No wheezes or rhonchi. Abdomen: Soft, moderately distended, hypoactive bowel sounds. Old midline surgical incision present. Extremities: Mild pitting edema on lower and upper extremities bilaterally. Skin: Faint macular papular rash on upper chest and shoulders. Neurological: Intubated and sedated and paralyzed. IVs and Medications Medications Reviewed: Medications were reviewed in detail Lab and Diagnostics Result Diagram: 12/29/1652412/29/16524 Microbiology BCx and SCx positive for Strep pneumo Resp PCR positive for Flu A H3 Strep pneumo urine ag positive X-Rays, CTs and MRIs X-RAY CHEST ONE VIEW, PORTABLE IMPRESSION: 1. Edema and/or pneumonia redemonstrated. 2. Slight increase in size of small left pleural effusion. Dictated by: Soren SRINIVASAN Interpreted: Enrique Staley MD on 12/29/2016 at 10: 13 X-RAY KUB IMPRESSION: 1. No obstruction identified. 2. Abnormal appearance of the lungs redemonstrated with diffuse interstitial and airspace opacity similar to prior chest radiograph. Dictated by: Soren SRINIVASAN Interpreted: Enrique Staley MD on 12/27/2016 at 11: 00 X-RAY CHEST ONE VIEW, PORTABLE IMPRESSION: No significant interval change in florid pulmonary edema and/or bronchopneumonia. Dictated by: Curtis Levine M.D. on 12/24/2016 at 8:42 CT CHEST WITH CONTRAST IMPRESSION: 1. Bilateral lung consolidation decreased in size compared to prior examination compatible with resolving pneumonia or aspiration. 2. Bilateral lung interstitial prominence and ground glass opacities. Findings may be related to pneumonia, however finding is nonspecific and other etiologies including pulmonary edema can produce a similar appearance. 3. Trace bilateral pleural effusions. 4. Enlarged bilateral hilar and mediastinal lymph nodes decreased in size. Dictated by: Jordyn Dominguez MD, PhD on 12/23/2016 at 13:19 US RENAL SONOGRAM IMPRESSION: 1. A 1.4 cm cyst in the superior pole the right kidney. Otherwise normal ultrasound appearance of kidneys. No hydronephrosis. 2. Cholelithiasis. No ultrasound evidence for acute cholecystitis. Dictated by: Dwain Gaona M.D. on 12/18/2016 at 18:18 Approved by: Dwain Gaona M.D. on 12/18/2016 at 18:21 Additional Diagnostics DateTimeAnalyzed 04:19:00 -_ pH ____7.345 - 7.350 7.450 pCO2 ___42.0__ -mmHg 35.0 45.0 pO2 110 -mmHg 69.0 116 HCO3- ___22.3__ -mmol/L 22.0 26.0 sO2 ___97.9__ -% 25.0 FIO2 ___60.0__ -% PEEP ___16.0__ -cmH2O Set_RR ___30.0__ -b/min Vt __410.0__ -L Assessment & Plan Naveed Maciel is a 56 year old male with past medical history significant for COPD who presented to the emergency department via EMS complaining of dyspnea and 3 days of flu-like symptoms. Intubated after failing on BiPAP and admitted for septic shock and acute hypoxemic respiratory failure. Hospital 12. Vent day 12. 1. Severe ARDS, present on admission, active. Improving. - Etiology secondary to sepsis and pneumococcal pneumonia in the setting of COPD and past history of cocaine use. CT chest on 12/18 showed dense consolidation bilaterally within the dependent portions of the lung. Repeat CT chest was largely unchanged with some mild interval improvement in consolidation. - Patient intubated, sedated and paralyzed using fentanyl, Versed, Precedex, and Nimbex. - Vent settings per Critical Care/Pulmonology Team. - Bronchoscopy today. Bronchial washings pending for various pathogens. - Will continue sedation and paralysis vacations daily. 2. Altered mental status, present on admission. Active. - Weaning trials of Nimbex for paralysis have failed. Patient continues to be agitated and was very difficult to ventilate. He also experiences hemodynamic fluctuations such as hypertension and tachycardia. - ICU team following, recommendations appreciated. - EEG ordered. 3. Chronic kidney disease 4/5, present on admission. Active. - Pt received dialysis 12/29 with 3 L ultrafiltrate. - Femoral catheter has been DC'd today (day 10). We will consult IR if he is eligible for tunneled cath placement or will place temporary HD cath likely Sunday (12/31). - Remains fluid positive 19 L. 4. Acute kidney injury, present on admission, active. - Unknown if patient has underlying chronic kidney disease. Patient continues to be anuric. On admission BUN 65 and creatinine 3.71 - Dialysis 12/26/16, plan for next dialysis 12/28/16. - Avoid nephrotoxic medications as able. - Nephrology consulted. Appreciate time and recommendations. 5. Pneumococcal pneumonia /pneumococcal bacteremia, present on admission, improving. - CXR and CT as above. Strep pneumonia urine antigen positive. Blood and sputum cultures positive. Sensitive for penicillins. WBC trending down. Procalcitonin 180.83 on admission peaked at 612.48, trending down. - Discontinued Cefepime, Flagyl, and azithromycin - Ceftriaxone 2g IV daily. (Last day of antibiotic treatment will likely be January 01 or .) - Monitoring Procalcitonin every other day. Currently trending downward from 43.75.5 (12/27/16), currently 17.64. Will repeat tomorrow. 6. Septic shock, present on admission, resolved. - Criteria include: HR 144, RR 41, O2 sats 83%, lactic acid 6.6, BUN 65, creatinine 3.71, procalcitonin 180.38. Etiology secondary to pneumococcal pneumonia and influenza A. - Right IJ in place 12/18. right radial arterial line lost 07/28 7. Influenza A, present on admission, treated and resolved. - Oseltamivir 30 mg after each hemodialysis session. - Received Oseltamivir for 5 days for a total of 10 treatments 12/29/16 8. Thrombocytopenia, present on admission, stable. - Unknown baseline. Etiology likely sepsis. - On admission platelets 74. Currently 79. - DVT prophylaxis initiated 2/. - DIC panel does not suggest DIC. No schistocytes on blood smear. - Platelets transfused 2/ prior to dialysis catheter placement. - Will continue to monitor. 9. Upper GI bleed, present on admission, stable. - Coffee-ground material reported from OG tube on admission. Guaiac positive in the ED. Hemoglobin and hematocrit have decreased since admission but likely secondary to fluid resuscitation. - Type and cross with 2 units PRBCs on hold. - DVT prophylaxis started . - Pantoprazole 40 mg BID. - Will consider GI consult if H&H drops or more active bleeding is visualized. 10. COPD, present on admission, unknown baseline. 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 Unknown if patient has outpatient medication regimen. - Treatment as above. 11. Tobacco use, present on admission, chronic. - Consider Nicotine patch once patient awake. 12. Hyperglycemia, present on admission, active. - Insulin regular low dose correctional scale. - Hemoglobin A1c 5.7. Acetaminophen for mild pain when necessary. Bowel regimen Senna and MiraLAX scheduled and PRN. Zofran when necessary for nausea and vomiting. SubQ heparin. SCDs in place. High-risk medications: IV fentanyl Disposition: Patient currently intubated with severe ARDS. He continues to require 2 pressors. Reduction in FiO2 and PEEP is a positive step however his prognosis is guarded and he remains severely ill. Pain Evaluation: Adequate Pain Control GI Prophylaxis: Proton Pump Inhibitor VTE Prophylaxis: Sub-Q Heparin (Unfractionated) VTE Mechanical Devices: Intermittant Pneumatic CD Resuscitation Status: CPR: Attempt Resuscitation Attending Statement The patient was seen and examined together with Dr. Steele on 12/29/2010 and I agree with the history, exam and plan as outlined in the note above. . KING STEELE DO Dec 29, 2016 06:59 Patrice Galvan MD Dec 30, 2016 08:26
[2016-12-30] VITALS (12 sets, daily range): BP systolic 115–165; BP diastolic 60–89; PULSE 54–94; RESP 27–30; O2SAT 95–99
[2016-12-30] MEDS: Chlorhexidine 0.12% 15 mL Oral Solution MT SCH ×6 (00:43→20:20)
[2016-12-30] MEDS: Heparin 5,000 Unit/mL Inj SUBQ SCH ×3 (00:43→16:57)
[2016-12-30] MEDS: Midazolam Inj 100 MG in IV Premix 1 EACH IV PRN (02:31)
[2016-12-30] MEDS: fentaNYL 2,500 mCg/250 mL 2,500 MCG in IV Premix 1 EACH IV SCH (04:12)
[2016-12-30 04:15] LABS: BASOPHILS % (AUTO) 0.6 % (0-3); MONOCYTES % (AUTO) 7.7 % (4-12); Mean Corpuscular Hemoglobin 32.7 pg (27.0-35.0); Mean Corpuscular Volume 102.4 fL (81-100); NEUTROPHILS % (AUTO) 74.8 % (40-74); Platelet Count 166 bil/L (150-400)
[2016-12-30] MEDS: Dexmedetomidine 400 mCg/100 mL NS Premix IV SCH ×3 (04:15→20:38)
--- NOTE | 2016-12-30 04:25 | ABG ---
DateTimeAnalyzed 04:18:53 -_ pH ____7.436 - pCO2 ___41.9__ -mmHg pO2 ___85.1__ -mmHg HCO3- ___28.2__ -mmol/L ABE ____3.6__ -mmol/L tHb ____8.4__ -g/dL O2Hb ___95.4__ -% COHb ____1.3__ -% MetHb ____0.5__ -% sO2 ___97.1__ -% FIO2 ___60.0__ -% PEEP ___14.0__ -cmH2O Set_RR 30 -b/min Vt __410.0__ -L Drawn By AF - Date/Time Notified____ 04:25:00 -_ Oxygen Device 1 NASAL CPAP - Notified By AF - Notified Whom ____Nurse - B 763 -mmHg K+ ____4.7__ -mmol/L tO2 ___11.5__ -Vol% Masoud test N/A -
[2016-12-30 04:40] LABS: Magnesium 2.4 mg/dL (1.6-2.6); Phosphorus 7.1 mg/dL (2.5-4.9)
--- NOTE | 2016-12-30 05:48 | PROCED ---
[address] [address] EEG PATIENT: DOUGIE GARDUNO : 1960 MR#: [id number] ADMIT: 12/18/2016 JOB ID: [id number] DATE OF SERVICE: 12/29/2016 HISTORY: The patient is a 56-year-old man with altered mental status. TECHNICAL DESCRIPTION: This digital EEG was recorded using 25 scalp and ear, and two EKG electrotomes. It was reviewed in bipolar and referential montages, following reformatting in the 10-20 [employer] System. During the recording, the patient was noted to be comatose. The background activity is composed of a polymorphic mixture of principally delta with some intermittent mixed theta and frontally predominant beta activity. Sleep was noted during this recording characterized by vertex waves as well as bilateral sleep spindles. It was noted the posterior dominant rhythm was composed of a polymorphic mixture of delta and theta and poorly reactive to eye opening. However appeared symmetrical. Hyperventilation was not performed. Photic stimulation from 1-30 hertz did not elicit any photic driving response. Throughout this recording there were intermittent generalized bursts of triphasic appearing waves. There were no focal, lateralized or epileptiform discharges noted. There were no seizures seen. The EKG rhythm strip revealed a heart rate of 60-80 beats per minute with occasional premature ventricular contractions noted. The patient is intubated and comatose. Sedatives were held prior to this test. Multiple attempts were made to arouse the patient such as calling his name, noxious stimuli, as well as clapping. However, there is no significant change in the rhythms appreciated on this electroencephalogram. There was also a mild degree of myogenic and movement artifact. IMPRESSION: This electroencephalogram performed in the comatose state is abnormal. It is suggestive of mild to moderate cerebral cortical dysfunction/encephalopathy. This is nonspecific and may be seen in a wide variety of different clinical conditions, including toxic, metabolic, hypoxic, inflammatory, autoimmune and infectious states. It may also be seen in the setting of the use of sedative medications. Consider a repeat electroencephalogram at some point to be performed after sedatives have been held. Clinical correlation is advised. ROHINID
--- NOTE | 2016-12-30 05:52 | NUR ---
activity/suction: pt during the night had three episodes of agitation were BP and heart rate both increased and required bolus of sedation medication and paralytic, which would calm pt down. at the beginning and middle of shift scant to small amounts of secretions were being suctioned from ET tube and small to moderate from mouth. After bathing and repositioning copious amounts of thick white to pale creamy colored secretions were suctioned from mouth and out of ET tube.
[2016-12-30] MEDS: cefTRIAXone Inj 2,000 MG in Dextrose 5% Minibag Plus 50 ML IV SCH (08:01)
[2016-12-30] MEDS: Senna-Docusate 8.6-50 mg Tablet PO SCH ×2 (08:01→20:20)
[2016-12-30] MEDS: Pantoprazole 4 mg/mL 10 mL Inj IVPUSH SCH ×2 (08:01→20:20)
--- NOTE | 2016-12-30 09:09 | PCM.PNMED ---
Subjective Date of Service Dec 30, 2016 Subjective Mr. Naveed Maciel is a 56 year old gentleman with past medical history significant for COPD who presented to the emergency department via EMS complaining of dyspnea and 3 days of flu-like symptoms. Intubated after failing on BiPAP and admitted for septic shock and acute hypoxemic respiratory failure. [facility] 13. 13. Overnight: No acute events overnight. Remained stable with no acute events overnight. BP fairly stable overnight, Continues to be paralyzed with Nimbex and sedated on fentanyl, Versed and Precedex. Today: Today patient remains intubated and sedated and paralyzed. Exam Vital Signs Vital Sign - Last Date Time Temp Pulse Resp B/P Pulse Ox O2 Delivery O2 Flow Rate FiO2 12/30/16 04:30 Ventilator 12/30/16 04:30 37.1 94 30 165/89 96 80 12/28/16 12:30 16.00 Intake and Output 12/29/16 12/29/16 12/30/16 Cumulative From/Thru 15:00 23:00 07:00 12/18/16 10:01 - 12/30/16 05:49 Intake Total 911 ml 1114 ml 83810 ml Output Total 3000 ml 200 ml 350 ml 31194 ml Balance -3000 ml 711 ml 764 ml 68729 ml Intake Oral 0 ml IV Total 489 ml 577 ml 09625 ml Tube Feeding 302 ml 407 ml 96554 ml Platelets 461 ml Tube Irrigant 120 ml 130 ml 1783 ml Output Urine Total 200 ml 200 ml 3170 ml Stool Total 150 ml 1875 ml Urine/Stool Mix 50 ml Gastric Drainage Total 1050 ml Ultrafiltrate 3000 ml 26007 ml # Bowel Movements 100 102 Exam General: Intubated and sedated and paralyzed. Head: Normocephalic, atraumatic. External ears without defect. Eyes: Pupils equal, round, and reactive to light and accommodation. Anicteric sclerae, moist conjunctivae. Cardiovascular: Regular rate and rhythm with no murmurs, rubs, or gallops appreciated. Pulmonary: Course breath sounds throughout. No wheezes or rhonchi. Abdomen: Soft, moderately distended, hypoactive bowel sounds. Old midline surgical incision present. Extremities: Mild pitting edema on lower and upper extremities bilaterally. Skin: Faint macular papular rash on upper chest and shoulders. Neurological: Intubated and sedated and paralyzed. IVs and Medications Medications Reviewed: Medications were reviewed in detail Lab and Diagnostics Result Diagram: 12/30/16 0400 12/30/16 0400 Microbiology BCx and SCx positive for Strep pneumo Resp PCR positive for Flu A H3 Strep pneumo urine ag positive X-Rays, CTs and MRIs X-RAY CHEST ONE VIEW, PORTABLE IMPRESSION: 1. Edema and/or pneumonia redemonstrated. 2. Slight increase in size of small left pleural effusion. Dictated by: Soren SRINIVASAN Interpreted: Enrique Staley MD on 12/29/2016 at 10: 13 X-RAY KUB IMPRESSION: 1. No obstruction identified. 2. Abnormal appearance of the lungs redemonstrated with diffuse interstitial and airspace opacity similar to prior chest radiograph. Dictated by: Soren SRINIVASAN Interpreted: Enrique Staley MD on 12/27/2016 at 11: 00 X-RAY CHEST ONE VIEW, PORTABLE IMPRESSION: No significant interval change in florid pulmonary edema and/or bronchopneumonia. Dictated by: Curtis Levine M.D. on 12/24/2016 at 8:42 CT CHEST WITH CONTRAST IMPRESSION: 1. Bilateral lung consolidation decreased in size compared to prior examination compatible with resolving pneumonia or aspiration. 2. Bilateral lung interstitial prominence and ground glass opacities. Findings may be related to pneumonia, however finding is nonspecific and other etiologies including pulmonary edema can produce a similar appearance. 3. Trace bilateral pleural effusions. 4. Enlarged bilateral hilar and mediastinal lymph nodes decreased in size. Dictated by: Jordyn Dominguez MD, PhD on 12/23/2016 at 13:19 US RENAL SONOGRAM IMPRESSION: 1. A 1.4 cm cyst in the superior pole the right kidney. Otherwise normal ultrasound appearance of kidneys. No hydronephrosis. 2. Cholelithiasis. No ultrasound evidence for acute cholecystitis. Dictated by: Dwain Gaona M.D. on 12/18/2016 at 18:18 Approved by: Dwain Gaona M.D. on 12/18/2016 at 18:21 Additional Diagnostics DateTimeAnalyzed 04:19:00 -_ pH ____7.345 - 7.350 7.450 pCO2 ___42.0__ -mmHg 35.0 45.0 pO2 110 -mmHg 69.0 116 HCO3- ___22.3__ -mmol/L 22.0 26.0 sO2 ___97.9__ -% 25.0 FIO2 ___60.0__ -% PEEP ___16.0__ -cmH2O Set_RR ___30.0__ -b/min Vt __410.0__ -L Assessment & Plan Naveed Maciel is a 56 year old male with past medical history significant for COPD who presented to the emergency department via EMS complaining of dyspnea and 3 days of flu-like symptoms. Intubated after failing on BiPAP and admitted for septic shock and acute hypoxemic respiratory failure. Hospital 13. Vent day 13. 1. Altered mental status, present on admission. Active. - Weaning trials of Nimbex for paralysis have failed. Patient continues to be agitated and was very difficult to ventilate. He also experiences hemodynamic fluctuations such as hypertension and tachycardia. - ICU team following, recommendations appreciated. - EEG showed abnormal results as above. Recommends repeat once patient is no longer on Nimbex. 2. Severe ARDS, present on admission, active. Improving. - Etiology secondary to sepsis and pneumococcal pneumonia in the setting of COPD and past history of cocaine use. CT chest on 12/18 showed dense consolidation bilaterally within the dependent portions of the lung. Repeat CT chest was largely unchanged with some mild interval improvement in consolidation. Patient is also fluid up roughly 19 L which is certainly playing a role and inability to wean off the mechanical ventilation. - Patient intubated, sedated and paralyzed using fentanyl, Versed, Precedex, and Nimbex. - Vent settings per Critical Care/Pulmonology Team. - Bronchoscopy 12/29/16. Bronchial washings pending for various pathogens. - ABG as above. - Will continue sedation and paralysis vacations daily. 3. Metabolic alkalosis, not present on admission. Dr. - ABG as above - pH 7.436, CO2 41, oxygen 85, bicarbonate 28.2 4. Chronic kidney disease 4/, present on admission. Active. - Pt received dialysis 12/29 with 3 L ultrafiltrate. - Femoral catheter has been DC'd today (day 10). We will consult IR if he is eligible for tunneled cath placement or will place temporary HD cath likely Sunday (12/31). - Remains fluid positive 19 L. Good urine output 12/29/16 of 3500 mls. 5. Acute kidney injury, present on admission, active. - Unknown if patient has underlying chronic kidney disease. Patient continues to be anuric. On admission BUN 65 and creatinine 3.71 - Dialysis 12/26/16, plan for next dialysis 12/28/16. - Avoid nephrotoxic medications as able. - Nephrology consulted. Appreciate time and recommendations. - Nephrology to start 4 mg Bumex today. If this is unsuccessful at appropriate diuresis doctor and on with nephrology will place temporal dialysis catheter tomorrow. 6. Pneumococcal pneumonia /pneumococcal bacteremia, present on admission, improving. - CXR and CT as above. Strep pneumonia urine antigen positive. Blood and sputum cultures positive. Sensitive for penicillins. WBC trending down. Procalcitonin 180.83 on admission peaked at 612.48, trending down. - Discontinued Cefepime, Flagyl, and azithromycin - Ceftriaxone 2g IV daily. (Last day of antibiotic treatment will likely be January 01 or .) - Monitoring Procalcitonin every other day. Currently trending downward from 43.75.5 (12/27/16), currently 17.64. Will repeat tomorrow. 7. Septic shock, present on admission, resolved. - Criteria include: HR 144, RR 41, O2 sats 83%, lactic acid 6.6, BUN 65, creatinine 3.71, procalcitonin 180.38. Etiology secondary to pneumococcal pneumonia and influenza A. - Right IJ in place 12/18. right radial arterial line lost 07/28 8. Influenza A, present on admission, treated and resolved. - Oseltamivir 30 mg after each hemodialysis session. - Received Oseltamivir for 5 days for a total of 10 treatments 12/29/16 9. Thrombocytopenia, present on admission, stable. - Unknown baseline. Etiology likely sepsis. - On admission platelets 74. Currently 79. - DVT prophylaxis initiated 12/22. - DIC panel does not suggest DIC. No schistocytes on blood smear. - Platelets transfused 12/20 prior to dialysis catheter placement. - Will continue to monitor. 10. Upper GI bleed, present on admission, stable. - Coffee-ground material reported from OG tube on admission. Guaiac positive in the ED. Hemoglobin and hematocrit have decreased since admission but likely secondary to fluid resuscitation. - Type and cross with 2 units PRBCs on hold. - DVT prophylaxis started . - Pantoprazole 40 mg BID. - Will consider GI consult if H&H drops or more active bleeding is visualized. 11. COPD, present on admission, unknown baseline. 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 Unknown if patient has outpatient medication regimen. - Treatment as above. 12. Tobacco use, present on admission, chronic. - Consider Nicotine patch once patient awake. 13. Hyperglycemia, present on admission, active. - Insulin regular low dose correctional scale. - Hemoglobin A1c 5.7. Acetaminophen for mild pain when necessary. Bowel regimen Senna and MiraLAX scheduled and PRN. Zofran when necessary for nausea and vomiting. SubQ heparin. SCDs in place. High-risk medications: IV fentanyl Disposition: Patient currently intubated with severe ARDS. He continues to require 2 pressors. Reduction in FiO2 and PEEP is a positive step however his prognosis is guarded and he remains severely ill. Pain Evaluation: Adequate Pain Control GI Prophylaxis: Proton Pump Inhibitor VTE Prophylaxis: Sub-Q Heparin (Unfractionated) VTE Mechanical Devices: Intermittant Pneumatic CD Resuscitation Status: CPR: Attempt Resuscitation Attending Statement The patient was seen and examined together with Dr. Steele on 12/30/2016 and I agree with the history, exam and plan as outlined in the note above. . KING STEELE DO Dec 30, 2016 06:56 Patrice Galvan MD Dec 31, 2016 08:09
[2016-12-30] MEDS: 0.9% Sodium Chloride 250 ML IV SCH (09:28)
--- NOTE | 2016-12-30 10:10 | DRSVH ---
PROCEDURE: X-RAY CHEST ONE VIEW, PORTABLE ([id number]) INDICATIONS: ARDS TECHNIQUE: One view of the chest was acquired. COMPARISON: [facility], CR, XR CHEST 1VW (PORTABLE), 12/29/2016, 4:58. FINDINGS: Surgical changes and devices: The venous catheter, endotracheal tube, and NG tube are unchanged. Lungs and pleura: Unchanged diffuse patchy pulmonary opacities are redemonstrated. Partial consolidat ion and left pleural effusion are present as before. Mediastinum: Mediastinal contours appear normal. Heart size is normal. Bones and chest wall: No suspicious bony lesions. Overlying soft tissues appear unremarkable. IMPRESSION: Stable chest consistent with ARDS. Dictated by: Joan Simmons M.D. on 12/30/2016 at 10:08 Approved by: Joan Simmons M.D. on 12/30/2016 at 10:09
--- NOTE | 2016-12-30 11:31 | NUR ---
NUTRITION FOLLOW-UP ASSESS: 56 YO male admitted with septic shock and acute hypoxemic respiratory failure with pneumococcal pneumonia / bacteremia and influenza A. Pt remains intubated, sedated and paralyzed. Attempt to discontinue Nimbex not successful due to behavioral issues with agitation. Pt remains septic w/ ALBERTINA and ARDS. Pt requiring dialysis; 3 L ultrafiltration yesterday. Remains positive 19 L, despite all efforts. EEG pending. Femoral catheter discontinued yesterday; tunnel cath to be placed Sunday. Bowel regimen enhanced. Lab values improved with transition of enteral formula from pulmonary to renal formula. Enteral feeding well tolerated with residuals of 85 ml and 152 ml overnight. PMHX: COPD, Past history of drug abuse (per sister), tobacco user. No other history obtained d/t intubation and sedation. LABS: Reviewed. BUN 59, Cr 3.35, Glu 119, Ca 8.0, Phos 7.1, ALT 45, Alk Phos 215, Alb 2.6. MEDS: Reviewed. Fentanyl, nimbex, versed, 2 pressors, insulin. GI: FMS - 100 ml output recorded 12/29. SKIN: [place] 10. WT: 91.5 kg BMI 30.0 kg/m2 IBW: 68.4 kg Admit Wt: 80 kg (BMI: 26.8 kg/m2) DIET: NPO NUTRITION SUPPORT: Nepro rate currently at goal 52 ml/hr, providing 2059 kcal and 93g of protein, meeting 100% of calorie needs and 98% protein needs. ESTIMATED NEEDS: Vent, COPD, Dialysis, ALBERTINA (recalculated 12/27) Calories: 1658-0586 kcal/day (25-35 kcal/kg Admit BW) Protein: 80-95 g/day (1.0-1.2 g/kg Admit BW) Fluids: ~2000 ml (25 ml/kg Admit BW) NUTRITION DIAGNOSIS: 1) Inadequate oral intake related to inability to consume sufficient energy as evidenced by NPO status and ventilation - IMPROVED W/ ENTERAL NUTRITION @ GOAL RATE. 2) Increased nutrient needs related to difficulty breathing as evidenced by COPD and acute respiratory failure / severe ARDS - PERSISTS. NUTRITION INTERVENTION: 1) In the event dialysis continues, recommend consideration of adding Prosource liquid protein to enteral feeding regimen. MONITOR/EVALUATE: Enteral feeding tolerance, medications, wt, labs, GI, nutrition status, POC. Will continue to monitor per high nutritional risk guidelines.
--- NOTE | 2016-12-30 11:56 | NUR ---
Social Work: Brief Note Data & Assessment: EMR reviewed. Patient was discussed in rounds. Patient is on his 12 day of hospitalization and patient is still on the vent. Per EMR patient continues Continues to be paralyzed with Nimbex and sedated on fentanyl, Versed and Precedex. Patient's sister is in town, but she is plans to leave tomorrow and will return as soon as possible. SW will continue to follow and keep family updated. Plan: Patient's discharge plan is pending his progress. Patient will either d/c home, possibly with HH, or go to SNF if needed. Hay Rake Operator will continue to follow patient's progress and continue updating patient's family. Lashanda Branch, MARGARITA, ACM
--- NOTE | 2016-12-30 12:07 | PCM.PNMED ---
Subjective Date of Service Dec 30, 2016 Subjective HD yesterday with UF 3L. UOP has increased overnight, 400 ml. Intubated, sedated. FiO2 60%. Right hermelinda cath removed yesterday. Exam Vital Signs Vital Sign - Last Date Time Temp Pulse Resp B/P Pulse Ox O2 Delivery O2 Flow Rate FiO2 12/30/16 11:34 36.9 56 30 132/66 Mechanical Ventilator 60 12/30/16 08:15 98 12/28/16 12:30 16.00 Intake and Output 12/29/16 12/29/16 12/30/16 Cumulative From/Thru 15:00 23:00 07:00 12/18/16 10:01 - 12/30/16 05:49 Intake Total 911 ml 1114 ml 22528 ml Output Total 3000 ml 200 ml 350 ml 59862 ml Balance -3000 ml 711 ml 764 ml 60063 ml Intake Oral 0 ml IV Total 489 ml 577 ml 22682 ml Tube Feeding 302 ml 407 ml 73217 ml Platelets 461 ml Tube Irrigant 120 ml 130 ml 1783 ml Output Urine Total 200 ml 200 ml 3170 ml Stool Total 150 ml 1875 ml Urine/Stool Mix 50 ml Gastric Drainage Total 1050 ml Ultrafiltrate 3000 ml 46524 ml # Bowel Movements 100 102 Exam GA: intubated, sedated. HEENT: atraumatic, no injected conjunctivae, no icteric sclerae, right IJ triple lumen in place. Heart: RRR, no significant murmur/rub/gallop, normal S1/s2. Lungs: diffuse coarse crackles, B/L, equal BS. Abd: soft, mild distension, no HSM, decreased BS. Ext: 2+ edema on LE and sacral swelling. : tate cath in place. Lab and Diagnostics Result Diagram: 12/30/160 12/30/16 0400 Microbiology BCx and SCx positive for Strep pneumo Resp PCR positive for Flu A H3 Strep pneumo urine ag positive X-Rays, CTs and MRIs X-RAY CHEST ONE VIEW, PORTABLE IMPRESSION: 1. Edema and/or pneumonia redemonstrated. 2. Slight increase in size of small left pleural effusion. Dictated by: Soren Johnson RRA Interpreted: Enrique Staley MD on 12/29/2016 at 10: 13 X-RAY KUB IMPRESSION: 1. No obstruction identified. 2. Abnormal appearance of the lungs redemonstrated with diffuse interstitial and airspace opacity similar to prior chest radiograph. Dictated by: Soren Johnson RRWilliam Interpreted: Enrique Staley MD on 12/27/2016 at 11: 00 X-RAY CHEST ONE VIEW, PORTABLE IMPRESSION: No significant interval change in florid pulmonary edema and/or bronchopneumonia. Dictated by: Curtis Levine M.D. on 12/24/2016 at 8:42 CT CHEST WITH CONTRAST IMPRESSION: 1. Bilateral lung consolidation decreased in size compared to prior examination compatible with resolving pneumonia or aspiration. 2. Bilateral lung interstitial prominence and ground glass opacities. Findings may be related to pneumonia, however finding is nonspecific and other etiologies including pulmonary edema can produce a similar appearance. 3. Trace bilateral pleural effusions. 4. Enlarged bilateral hilar and mediastinal lymph nodes decreased in size. Dictated by: Jordyn Dominguez MD, PhD on 12/23/2016 at 13:19 US RENAL SONOGRAM IMPRESSION: 1. A 1.4 cm cyst in the superior pole the right kidney. Otherwise normal ultrasound appearance of kidneys. No hydronephrosis. 2. Cholelithiasis. No ultrasound evidence for acute cholecystitis. Dictated by: Dwain Gaona M.D. on 12/18/2016 at 18:18 Approved by: Dwain Gaona M.D. on 12/18/2016 at 18:21 Additional Diagnostics DateTimeAnalyzed 04:19:00 -_ pH ____7.345 - 7.350 7.450 pCO2 ___42.0__ -mmHg 35.0 45.0 pO2 110 -mmHg 69.0 116 HCO3- ___22.3__ -mmol/L 22.0 26.0 sO2 ___97.9__ -% 25.0 FIO2 ___60.0__ -% PEEP ___16.0__ -cmH2O Set_RR ___30.0__ -b/min Vt __410.0__ -L Assessment & Plan 1. ALBERTINA due to oliguric ATN. - fluid overload. - Requiring HD. - Kidney function remains poor. - Right femoral cath was placed on 12/20 and removed on 12/29. 2. Septic shock. - Pneumococcal pneumonia /pneumococcal bacteremia - Influenza A infection. 3. Acute hypoxic respiratory failure/ARDS. 4. Thrombocytopenia/Anemia. 5. COPD/h/o tobacco abuse. Plan: double concentrate all IV meds. start IV bumex 4 mg q12 hr to enhance urine flow. GI Prophylaxis: Proton Pump Inhibitor VTE Prophylaxis: Sub-Q Heparin (Unfractionated) VTE Mechanical Devices: Intermittant Pneumatic CD Resuscitation Status: CPR: Attempt Resuscitation Loli Pinon MD Dec 30, 2016 12:07
[2016-12-30] MEDS: Bumetanide 0.25 mg/mL 4 mL Inj IV SCH ×2 (13:04→23:22)
--- NOTE | 2016-12-30 13:10 | PROG NOTE ---
[address] [address] PROGRESS NOTE PATIENT: DOUGIE GARDUNO : 1960 MR#: [id number] ADMIT: 12/18/2016 JOB ID: [id number] DATE: 12/30/2016 PULMONARY CRITICAL CARE FOLLOWUP NOTE: PROBLEM LIST: 1. ARDS. 2. Acute renal failure requiring hemodialysis. 3. Altered mental status. SUBJECTIVE: None. OBJECTIVE: Temperature 36.9 with a T-max being 37.1, pulse 56-94, respiratory rate 30 with ventilator set at 30, blood pressure 132/66, O2 sat on FiO2 of 60%, PEEP of 12 is 99%. I and O shows 2.9 liters in, 3 liters of ultrafiltrate out, with a total urine output of 400 mL which actually is increasing. Sedated, paralyzed. On ventilator. Chest: Fair breath sounds on the right. Fair left upper lung field with somewhat decreased left lower lung field. Diffuse crackles. Rather coarse in nature. Heart tones normal. Abdomen: Soft, rare bowel tones. Extremities: 2+ pretibial edema. LABORATORY DATA: Shows a white count of 10,500 which is decreasing. Seventy-four polymorphonuclears, 15 lymphocytes, 7 monocytes. Hemoglobin 8.1 and somewhat decreased from yesterday's value of 9.5, which was somewhat of an outlier however, with hemoglobin for the most part being in the low 8 g/dL range. Platelet count 166,000 and rising. Sodium 140, potassium 5, chloride 102, CO2 is 26, BUN 59, creatinine 3.3. Calcium 8 with an albumin of 2.6. Phosphorus moderately elevated at 7.1, upper limits of normal being 4.9 mg/dL. Magnesium normal at 2.4. Total bilirubin normal at 0.3. AST now normal, ALT essentially normal, and alkaline phosphatase is finally starting to fall, currently at 215 with upper limits normal being 150 units per liter. Specimens from yesterday's bronchoscopy are all pending. Respiratory therapy lavaged the patient today and again got up a fair amount of secretions. ASSESSMENT: 1. Altered mental status. Continues to be quite perplexing. I think we should get rid of the midazolam, especially in renal failure, hold all benzodiazepines, and consider using propofol if sedation is required. Otherwise, would try to hold off as much as we can understanding however that he is currently paralyzed although a train of four is 4/4. Requiring superhuman doses of cisatracurium, sedatives, and opiates for apparent control. Will continue on with the Precedex, the fentanyl. EEG shows mild to moderate cerebral cortical dysfunction/encephalopathy consistent with . 2. Acute respiratory distress syndrome (ARDS). Doing somewhat better. Will continue to wean the FiO2 down, opting to use the higher levels of PEEP in order to try to keep the airways open given his problem with secretions. Will continue to lavage. 3. Renal failure. Did reasonably well with dialysis yesterday. The plan is to try high-dose Bumex to see if we can get him on diuresing with the loop diuretic. He is starting to make some urine. Hopefully, we can induce a diuresis. PLAN: 1. Discontinue midazolam. 2. Substitute propofol. 3. May need to increase cisatracurium but if we are not having any particular problems it may be the better part of valor to leave him where he is, though if we start having problems with patient/ventilator dyssynchrony we may need to increase the dose. 4. Continue aggressive pulmonary toilet as best we can in a paralyzed patient. Will have respiratory therapy lavage with 40 mL of saline once or twice a day and give subsequent breaths to try to mobilize the secretions. 5. Liver abnormalities seem to be resolving. 6. Continue the tube feeding. 7. The patient discussed with the treating Hospitalists as well as Nephrology. TIME: Time spent in critical care is 65 minutes.
--- NOTE | 2016-12-30 15:45 | NUR ---
Sedation.. Was able to wean Nimbex this am and continued to maintain his resp rate of 30 without overbreathing the vent. Was transitioned from Versed gtt to Propofol. Noted to be more wakeful but agitated and not purposeful or following commands. BIS scores were up to 90. Did lift arm off the bed spontaneously and found with leg over edge of bed. At 25 mcgs of Propofol pt is back to baseline and sedated with BIS scores in the 40's.
[2016-12-30] MEDS: Cisatracurium Inj 200,000 MCG in 0.9% Sodium Chloride-Pha MIX 100 ML IV PRN (16:58)
[2016-12-30] MEDS: Sodium Chloride LOK Flush 10 mL Syringe IVFLUSH PRN ×2 (16:58→23:22)
[2016-12-31] VITALS (13 sets, daily range): BP systolic 100–173; BP diastolic 55–94; PULSE 55–114; RESP 27–29; O2SAT 94–100
[2016-12-31] MEDS: Chlorhexidine 0.12% 15 mL Oral Solution MT SCH ×6 (00:53→21:10)
[2016-12-31] MEDS: Heparin 5,000 Unit/mL Inj SUBQ SCH ×3 (00:53→17:46)
--- NOTE | 2016-12-31 02:38 | PCM.EDPN ---
ED Note Date of Service Dec 31, 2016 Procedures Intubation : Intubation Procedure: I was called to bedside to exchange ET tube as there was a cuff leak. ET tube was visualized and the patient's vocal cords via glidescope. Bougie was placed through ET tube, and old ET tube was removed. New ET tube was placed over the bougie. Patient had a brief episode of desaturation down to the low 80s, but his oxygen saturation improved rapidly. ET tube placement was confirmed by equal breath sounds bilaterally, and absence of breath sounds over epigastrium. Additionally, there was missed in the ET tube. I discussed the need for repeat chest x-ray with who will follow up chest x-ray for ET tube placement Time: 02:36 Procedure Performed by: ED physician Kristina Whitman MD Dec 31, 2016 02:38
[2016-12-31] MEDS: fentaNYL 2,500 mCg/250 mL 2,500 MCG in IV Premix 1 EACH IV SCH (03:38)
--- NOTE | 2016-12-31 04:42 | ABG ---
DateTimeAnalyzed 04:36:00 -_ pH ____7.308 - 7.350 7.450 pCO2 ___50.0__ -mmHg 35.0 45.0 pO2 ___50.0__ -mmHg 69.0 116 HCO3- ___24.3__ -mmol/L 22.0 26.0 ABE ___-1.5__ -mmol/L -2.0 2.0 tHb ____9.1__ -g/dL O2Hb ___78.6__ -% COHb ____1.4__ -% MetHb ____1.4__ -% sO2 ___80.9__ -% 25.0 FIO2 ___50.0__ -% PEEP ___14.0__ -cmH2O Set_RR ___33.0__ -b/min Vt __410.0__ -L Drawn By MK - Date/Time Notified____ 04:41:00 -_ Spontaneous_RR ___27.0__ -b/min Oxygen Device 1 VENTILATOR - Notified By MK - B 769 -mmHg tO2 ___10.1__ -Vol% OrderingPhysicianInitials mf - Masoud test _Positive -
[2016-12-31 04:50] LABS: BASOPHILS % (AUTO) 0.5 % (0-3); EOSINOPHILS % (AUTO) 0.8 % (0-5); MONOCYTES % (AUTO) 6.3 % (4-12); Mean Corpuscular Hemoglobin 32.4 pg (27.0-35.0); Mean Corpuscular Volume 101.8 fL (81-100); NEUTROPHILS % (AUTO) 82.9 % (40-74); Platelet Count 184 bil/L (150-400)
[2016-12-31] MEDS: Dexmedetomidine 400 mCg/100 mL NS Premix IV SCH ×3 (04:55→19:58)
--- NOTE | 2016-12-31 06:42 | NUR ---
P) Respiratory/cardiac/GI/ Pt. had noticeable cuff leak all night, was given full bed bath and after turning was gurgling around tube, suctioned multiple times both through ET tube and orally, copious yellowish, red streaked secretions, was not getting good tidal volumes on vent, attempted to inflate cuff without success, per RT and Dr. Hurley ET tube was replaced by ER but pt. was bagged about 30 minutes during consult and wait, lung sounds equal with groaning rales and rubs, ABG done over an hour after reintubation poor with pCO2 and pO2 both 50. Pt. also had issues with FMS leaking a lot of liquid stool, good urine output this shift with total 1150 out in 12 hour shift. I) Passive cooling, turning q2h, titrating nimbex and sedation as pt. was shaking his head during intubation attempt and became tachycardic and hypertensive afterwards. Floating heals, FMS changed for new one, close monitoring. E) Pt. currently resting quietly, train of 4 still 4/4, BIS currently reading 37, no gross motor movements at this time, continuous rotation on standby as it was obviously irritating pt.
--- NOTE | 2016-12-31 08:20 | DRSVH ---
PROCEDURE: X-RAY CHEST ONE VIEW, PORTABLE ([id number]) INDICATIONS: INTUBATION TECHNIQUE: One view of the chest was acquired. COMPARISON: [facility], CT, CT CHEST W CON, 12/23/2016, 13:05. [facility], C R, XR CHEST 1VW (PORTABLE), 12/27/2016, 5:24. [facility], CR, XR CHEST 1VW (PORTABLE), 08/2017, 4:58. [facility], CR, XR CHEST 1VW (PORTABLE), 12/30/2016, 5:06. FINDINGS: Surgical changes and devices: Endotracheal tube with the tip grossly unchanged. Right internal jugula r central venous catheter and endotracheal tube also unchanged Lungs and pleura: Increasing consolidation in the left costophrenic angle since yesterday. Diffuse bi lateral solid and groundglass opacities are grossly unchanged. Small right apical pneumothorax which appears new. Mediastinum: Mediastinal contours appear normal. Heart size is normal. Bones and chest wall: No suspicious bony lesions. Overlying soft tissues appear unremarkable. IMPRESSION: New small right apical pneumothorax Worsening left basilar consolidation and possibly slightly increased small left pleural effusion. Dictated by: Gildardo Bailey M.D. on 12/31/2016 at 8:14 Approved by: Gildardo Bailey M.D. on 12/31/2016 at 8:19
[2016-12-31] MEDS: Senna-Docusate 8.6-50 mg Tablet PO SCH ×2 (08:30→21:10)
[2016-12-31] MEDS: Pantoprazole 4 mg/mL 10 mL Inj IVPUSH SCH ×2 (08:32→21:09)
[2016-12-31] MEDS: cefTRIAXone Inj 2,000 MG in Dextrose 5% Minibag Plus 50 ML IV SCH (08:32)
[2016-12-31] MEDS: 0.9% Sodium Chloride 250 ML IV SCH ×2 (08:34→23:11)
[2016-12-31] MEDS: Bumetanide 0.25 mg/mL 4 mL Inj IV SCH (11:41)
--- NOTE | 2016-12-31 13:46 | PCM.PNMED ---
Subjective Date of Service Dec 31, 2016 Subjective UOP somewhat improved with IV bumex. worsening BUN and Cr, last HD on Sunday. Exam Vital Signs Vital Sign - Last Date Time Temp Pulse Resp B/P Pulse Ox O2 Delivery O2 Flow Rate FiO2 12/31/16 12:05 Ventilator 12/31/16 12:05 36.8 82 27 135/64 65 12/31/16 08:01 100 12/28/16 12:30 16.00 Intake and Output 12/30/16 12/30/16 12/31/16 Cumulative From/Thru 14:59 22:59 06:59 12/18/16 10:01 - 12/31/16 06:33 Intake Total 1357 ml 2202 ml 71045 ml Output Total 452 ml 1250 ml 62455 ml Balance 905 ml 952 ml 99883 ml Intake Oral 0 ml IV Total 607 ml 759 ml 34367 ml Tube Feeding 545 ml 1223 ml 94301 ml Platelets 461 ml Tube Irrigant 205 ml 220 ml 2208 ml Output Urine Total 452 ml 1150 ml 4772 ml Stool Total 100 ml 1975 ml Urine/Stool Mix 50 ml Gastric Drainage Total 1050 ml Ultrafiltrate 07439 ml # Bowel Movements 1 103 Exam GA: intubated, sedated. HEENT: atraumatic, no injected conjunctivae, no icteric sclerae, right IJ triple lumen in place. Heart: RRR, no significant murmur/rub/gallop, normal S1/s2. Lungs: diffuse coarse crackles, B/L, equal BS. Abd: soft, mild distension, no HSM, decreased BS. Ext: 2+ edema on LE and sacral swelling. : tate cath in place. Lab and Diagnostics Result Diagram: 12/31/16 0440 12/31/16 0440 Microbiology BCx and SCx positive for Strep pneumo Resp PCR positive for Flu A H3 Strep pneumo urine ag positive X-Rays, CTs and MRIs X-RAY CHEST ONE VIEW, PORTABLE IMPRESSION: 1. Edema and/or pneumonia redemonstrated. 2. Slight increase in size of small left pleural effusion. Dictated by: Soren Johnson RRA Interpreted: Enrique Staley MD on 12/29/2016 at 10: 13 X-RAY KUB IMPRESSION: 1. No obstruction identified. 2. Abnormal appearance of the lungs redemonstrated with diffuse interstitial and airspace opacity similar to prior chest radiograph. Dictated by: Soren Johnson RRA Interpreted: Enrique Staley MD on 12/27/2016 at 11: 00 X-RAY CHEST ONE VIEW, PORTABLE IMPRESSION: No significant interval change in florid pulmonary edema and/or bronchopneumonia. Dictated by: Curtis Levine M.D. on 12/24/2016 at 8:42 CT CHEST WITH CONTRAST IMPRESSION: 1. Bilateral lung consolidation decreased in size compared to prior examination compatible with resolving pneumonia or aspiration. 2. Bilateral lung interstitial prominence and ground glass opacities. Findings may be related to pneumonia, however finding is nonspecific and other etiologies including pulmonary edema can produce a similar appearance. 3. Trace bilateral pleural effusions. 4. Enlarged bilateral hilar and mediastinal lymph nodes decreased in size. Dictated by: Jordyn Dominguez MD, PhD on 12/23/2016 at 13:19 US RENAL SONOGRAM IMPRESSION: 1. A 1.4 cm cyst in the superior pole the right kidney. Otherwise normal ultrasound appearance of kidneys. No hydronephrosis. 2. Cholelithiasis. No ultrasound evidence for acute cholecystitis. Dictated by: Dwain Gaona M.D. on 12/18/2016 at 18:18 Approved by: Dwain Gaona M.D. on 12/18/2016 at 18:21 Additional Diagnostics DateTimeAnalyzed 04:19:00 -_ pH ____7.345 - 7.350 7.450 pCO2 ___42.0__ -mmHg 35.0 45.0 pO2 110 -mmHg 69.0 116 HCO3- ___22.3__ -mmol/L 22.0 26.0 sO2 ___97.9__ -% 25.0 FIO2 ___60.0__ -% PEEP ___16.0__ -cmH2O Set_RR ___30.0__ -b/min Vt __410.0__ -L Assessment & Plan 1. ALBERTINA due to oliguric ATN. - fluid overload. - Requiring HD. - Kidney function remains poor. - Right femoral cath was placed on 12/20 and removed on 12/29. - Last HD on Friday 12/29. Worsening kidney function. - will place a new hermelinda cath for HD today. 2. Septic shock. - Pneumococcal pneumonia /pneumococcal bacteremia - Influenza A infection. 3. Acute hypoxic respiratory failure/ARDS. 4. Thrombocytopenia/Anemia. 5. COPD/h/o tobacco abuse. GI Prophylaxis: Proton Pump Inhibitor VTE Prophylaxis: Sub-Q Heparin (Unfractionated) VTE Mechanical Devices: Intermittant Pneumatic CD Resuscitation Status: CPR: Attempt Resuscitation Loli Pinon MD Dec 31, 2016 13:46
--- NOTE | 2016-12-31 15:10 | PROG NOTE ---
[address] [address] PROGRESS NOTE PATIENT: DOUGIE GARDUNO : 1960 MR#: [id number] ADMIT: 12/18/2016 JOB ID: [id number] DATE: 12/31/2016 PULMONARY CRITICAL CARE FOLLOWUP NOTE: PROBLEM LIST: 1. ARDS. 2. Atelectasis, left lower lobe. 3. Acute renal failure requiring hemodialysis. 4. Altered mental status. 5. Influenza A, complicated by pneumococcal pneumonia with bacteremia, resolving. SUBJECTIVE: None. OBJECTIVE: Temperature 36.8. Pulse 54-74. Currently 101, as he is a somewhat agitated. Cisatracurium has worn off. Respiratory rate 27 with the vent at 27. Blood pressure 135/64, O2 sat on FiO2 of 65%, PEEP of 14, is 98%. General appearance: Sedated on the ventilator. He is, to some extent, fighting the ventilator, mostly with abdominal contractions, somewhat with chest. Slight tracheal tug. Chest shows fair breath sounds on the right. Slightly diminished in the left upper lung field. Better in the left lower lung field. Seem relatively clear. Heart: Heart tones normal. Abdomen is soft and nontender. Quiet. Extremities: Trace to 1+ pedal edema. One to 2+ pretibial edema. Renal is passing a new femoral line for dialysis. A palpable femoral artery pulse could not be obtained nor is it is seen on ultrasound. LABORATORY DATA: Shows a white count of 11,300 with moderate neutrophilia. Hemoglobin stable at 9.1, platelet count rising at 184,000. Sodium 139, potassium 4.9, chloride 99, CO2 is 23, BUN is 81. Creatinine 4.3. Calcium is 8.4 with an albumin 2.7. Total bilirubin 0.3. AST 44, ALT 45, slightly elevated with upper limits of normal being 44. Alkaline phos vacillating in the low 200s. Bronch washing is negative for AFB. Other studies are pending. Gram stain shows many polys but no organisms. Growing scant normal christina. Chest x-ray shows endotracheal tube, to my eye, a bit high. Persistent consolidation of left lower lung field. Scattered ground-glass opacities throughout the remainder of all lung hillman. The patient's endotracheal tube malfunctioned last night. Apparently, cuff leaked egregiously. Dr. Whitman, the emergency department, graciously replaced the tube. ASSESSMENT: 1. Adult respiratory distress syndrome. Continues to have marked ground-glass as well as some consolidation, left lower lobe. Will consider bronchoscopy tomorrow. Will continue with aggressive diuresis. Plan for daily diuresis to make him negative. Considering the difficulty of accessing the left lower extremity vascular tree, it might be reasonable idea to look at the distal aorta and iliac and femoral arteries with ultrasound. Chest x-ray, to my eye, has a bit of a bronchogram. However, given the difficulties which we which we have had will consider repeating bronchoscopy. 2. Altered mental status. Still an elusive entity. No particular problems that we can tell. However, the nurse thinks that when his sedation was a bit light, he may of had a cognitive response to voice, opening his eyes. However, it was short-lived and not reproducible. 3. Renal failure. As above. PLAN: 1. Plan is for daily hemofiltration. 2. Consider a bronchoscopy to re-evaluate left lower lobe. 3. Re-sedate and paralyze patient. 4. Consider vascular imaging of the left lower extremity. (Patient's left lower extremity is warm and pink.) Will check for peripheral pulses later after the line has been placed. Time spent so far in critical care, 50 minutes.
[2016-12-31] MEDS ORDERED: Bumetanide 0.25 mg/mL 10 mL Inj IV SCH (15:31)
[2016-12-31] MEDS: Cisatracurium Inj 200,000 MCG in 0.9% Sodium Chloride-Pha MIX 100 ML IV PRN (16:48)
--- NOTE | 2016-12-31 16:59 | PCM.PROC ---
Procedure Note Date of Service: Dec 31, 2016 Procedure: The patient was placed in Trendelenburg position. The patients right groin was prepped and draped in sterile fashion. No local anesthetic was necessary as the patient was sedated and paralyzed. A double lumen catheter catheter was introduced into the the common femoral vein under ultrasound guidance. The catheter was threaded smoothly over the guide wire and appropriate blood return was obtained. Each lumen of the catheter was evacuated of air and flushed with sterile saline. The catheter was then sutured in place to the skin and a sterile dressing applied. Perfusion to the extremity distal to the point of catheter insertion was checked and found to be adequate. Dr. Gutierrez was present for the entire procedure. Provider and Resistor Winder: Provider: Dr. Tramaine Fraire Attending: Dr. Loli Pinon Indication for Procedure: Temporary dialysis catheter Tramaine Fraire Dec 31, 2016 16:59
--- NOTE | 2016-12-31 17:51 | PCM.PNMED ---
Subjective Date of Service Dec 31, 2016 Subjective Overnight: Pt had a cuff leak all night with poor tidal volumes and had to be extubated and reintubated. There were large amounts of yellow secretions suctioned. Today: He continues to require significant sedation with propofol, fentanyl, and Precedex, as well as Nimbex for paralysis. He was found to have a pneumothorax on CXR. He is unable to provide history. Exam Vital Signs Vital Sign - Last Date Time Temp Pulse Resp B/P Pulse Ox O2 Delivery O2 Flow Rate FiO2 12/31/16 16:45 109 173/94 95 55 12/31/16 12:05 Ventilator 12/31/16 12:05 36.8 27 12/28/16 12:30 16.00 Intake and Output 12/30/16 12/30/16 12/31/16 Cumulative From/Thru 15:00 23:00 07:00 12/18/16 10:01 - 12/31/16 06:33 Intake Total 1357 ml 2202 ml 44923 ml Output Total 452 ml 1250 ml 40364 ml Balance 905 ml 952 ml 96233 ml Intake Oral 0 ml IV Total 607 ml 759 ml 99660 ml Tube Feeding 545 ml 1223 ml 39422 ml Platelets 461 ml Tube Irrigant 205 ml 220 ml 2208 ml Output Urine Total 452 ml 1150 ml 4772 ml Stool Total 100 ml 1975 ml Urine/Stool Mix 50 ml Gastric Drainage Total 1050 ml Ultrafiltrate 03021 ml # Bowel Movements 1 103 Exam General: Intubated and sedated and paralyzed. Head: Normocephalic, atraumatic. External ears without defect. Eyes: Pupils equal, round, and reactive to light and accommodation. Anicteric sclerae, moist conjunctivae. Cardiovascular: Regular rate and rhythm with no murmurs, rubs, or gallops appreciated. Pulmonary: Course breath sounds throughout, right worse than left. Abdomen: Soft, moderately distended, hypoactive bowel sounds. Old midline surgical incision present. Extremities: Moderate pitting edema on lower and upper extremities bilaterally. Skin: Faint macular papular rash on upper chest and shoulders. Neurological: Intubated and sedated and paralyzed. Lab and Diagnostics Result Diagram: 12/31/16 0440 12/31/16 0440 Microbiology BCx and SCx positive for Strep pneumo Resp PCR positive for Flu A H3 Strep pneumo urine ag positive X-Rays, CTs and MRIs X-RAY CHEST ONE VIEW, PORTABLE IMPRESSION: 1. Edema and/or pneumonia redemonstrated. 2. Slight increase in size of small left pleural effusion. Dictated by: Soren SRINIVASAN Interpreted: Enrique Staley MD on 12/29/2016 at 10: 13 X-RAY KUB IMPRESSION: 1. No obstruction identified. 2. Abnormal appearance of the lungs redemonstrated with diffuse interstitial and airspace opacity similar to prior chest radiograph. Dictated by: Soren SRINIVASAN Interpreted: Enrique Staley MD on 12/27/2016 at 11: 00 X-RAY CHEST ONE VIEW, PORTABLE IMPRESSION: No significant interval change in florid pulmonary edema and/or bronchopneumonia. Dictated by: Curtis Levine M.D. on 12/24/2016 at 8:42 CT CHEST WITH CONTRAST IMPRESSION: 1. Bilateral lung consolidation decreased in size compared to prior examination compatible with resolving pneumonia or aspiration. 2. Bilateral lung interstitial prominence and ground glass opacities. Findings may be related to pneumonia, however finding is nonspecific and other etiologies including pulmonary edema can produce a similar appearance. 3. Trace bilateral pleural effusions. 4. Enlarged bilateral hilar and mediastinal lymph nodes decreased in size. Dictated by: Jordyn Dominguez MD, PhD on 12/23/2016 at 13:19 US RENAL SONOGRAM IMPRESSION: 1. A 1.4 cm cyst in the superior pole the right kidney. Otherwise normal ultrasound appearance of kidneys. No hydronephrosis. 2. Cholelithiasis. No ultrasound evidence for acute cholecystitis. Dictated by: Dwain Gaona M.D. on 12/18/2016 at 18:18 Approved by: Dwain Gaona M.D. on 12/18/2016 at 18:21 Additional Diagnostics DateTimeAnalyzed 04:19:00 -_ pH ____7.345 - 7.350 7.450 pCO2 ___42.0__ -mmHg 35.0 45.0 pO2 110 -mmHg 69.0 116 HCO3- ___22.3__ -mmol/L 22.0 26.0 sO2 ___97.9__ -% 25.0 FIO2 ___60.0__ -% PEEP ___16.0__ -cmH2O Set_RR ___30.0__ -b/min Vt __410.0__ -L Assessment & Plan Naveed Maciel is a 56 year old male with past medical history significant for COPD who presented to the emergency department via EMS complaining of dyspnea and 3 days of flu-like symptoms. Intubated after failing on BiPAP and admitted for septic shock and acute hypoxemic respiratory failure. Hospital 13. [facility] day 13. 1. Altered mental status, present on admission. Active. - Weaning trials of Nimbex for paralysis have failed. Patient continues to be agitated and was very difficult to ventilate. He also experiences hemodynamic fluctuations such as hypertension and tachycardia. - ICU team following, recommendations appreciated. - EEG showed abnormal results as above. Recommends repeat once patient is no longer on Nimbex. 2. Severe ARDS, present on admission, active. Improving. - Etiology secondary to sepsis and pneumococcal pneumonia in the setting of COPD and past history of cocaine use. CT chest on 12/18 showed dense consolidation bilaterally within the dependent portions of the lung. Repeat CT chest was largely unchanged with some mild interval improvement in consolidation. Patient is also fluid up roughly 19 L which is certainly playing a role and inability to wean off the mechanical ventilation. - Patient intubated, sedated and paralyzed using fentanyl, Versed, Precedex, and Nimbex. - Vent settings per Critical Care/Pulmonology Team. - Bronchoscopy 12/29/16. Bronchial washings pending for various pathogens. Considering repeat bronchoscopy tomorrow. - ABG as above. - Will continue sedation and paralysis vacations daily. - Aggressive diuresis for fluid overload 3. Acute pneumothorax. Active. Not present on admission. - CXR showed new small right apical pneumothorax - Repeat CXR ordered. Continue to monitor with CXR. 4. Metabolic alkalosis, not present on admission. - ABG as above - pH 7.436, CO2 41, oxygen 85, bicarbonate 28.2 5. Acute kidney injury on chronic kidney disease, present on admission, active. - Unknown if patient has underlying chronic kidney disease. Patient continues to be anuric. On admission BUN 65 and creatinine 3.71 - Avoid nephrotoxic medications as able. - Nephrology consulted. Appreciate time and recommendations. - Placed femoral Lasha catheter for dialysis. Noted that his left femoral pulse was not palpable, unable to visualize on US. Will order arterial doppler of left leg. - Will continue dialysis 6. Pneumococcal pneumonia /pneumococcal bacteremia, present on admission, improving. - CXR and CT as above. Strep pneumonia urine antigen positive. Blood and sputum cultures positive. Sensitive for penicillins. WBC trending down. Procalcitonin 180.83 on admission peaked at 612.48, trending down. - Discontinued Cefepime, Flagyl, and azithromycin - Ceftriaxone 2g IV daily. (Last day of antibiotic treatment will likely be January 01 or .) - Monitoring Procalcitonin every other day. Currently trending downward from 43.75.5 (12/27/16), currently 17.64. Will repeat tomorrow. 7. Septic shock, present on admission, resolved. - Criteria include: HR 144, RR 41, O2 sats 83%, lactic acid 6.6, BUN 65, creatinine 3.71, procalcitonin 180.38. Etiology secondary to pneumococcal pneumonia and influenza A. - Right IJ in place 12/18. right radial arterial line lost 07/28 8. Influenza A, present on admission, treated and resolved. - Oseltamivir 30 mg after each hemodialysis session. - Received Oseltamivir for 5 days for a total of 10 treatments 12/29/16 9. Thrombocytopenia, present on admission, stable. - Unknown baseline. Etiology likely sepsis. - On admission platelets 74. Currently 79. - DVT prophylaxis initiated 12/22. - DIC panel does not suggest DIC. No schistocytes on blood smear. - Platelets transfused 12/20 prior to dialysis catheter placement. - Will continue to monitor. 10. Upper GI bleed, present on admission, stable. - Coffee-ground material reported from OG tube on admission. Guaiac positive in the ED. Hemoglobin and hematocrit have decreased since admission but likely secondary to fluid resuscitation. - Type and cross with 2 units PRBCs on hold. - DVT prophylaxis started . - Pantoprazole 40 mg BID. - Will consider GI consult if H&H drops or more active bleeding is visualized. 12. COPD, present on admission, unknown baseline. 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 Unknown if patient has outpatient medication regimen. - Treatment as above. 12. Tobacco use, present on admission, chronic. - Consider Nicotine patch once patient awake. 13. Hyperglycemia, present on admission, active. - Insulin regular low dose correctional scale. - Hemoglobin A1c 5.7. Acetaminophen for mild pain when necessary. Bowel regimen Senna and MiraLAX scheduled and PRN. Zofran when necessary for nausea and vomiting. SubQ heparin. SCDs in place. High-risk medications: IV fentanyl Disposition: Patient currently intubated with severe ARDS. He continues to require 2 pressors. Reduction in FiO2 and PEEP is a positive step however his prognosis is guarded and he remains severely ill. GI Prophylaxis: Proton Pump Inhibitor VTE Prophylaxis: Sub-Q Heparin (Unfractionated) VTE Mechanical Devices: Intermittant Pneumatic CD Resuscitation Status: CPR: Attempt Resuscitation Attending Statement The patient was seen and examined together with Dr. Fraire on 12/31/2016 and I agree with the history, exam and plan as outlined in the note above. . Tramaine Fraire Dec 31, 2016 17:51 Patrice Galvan MD Jan 02, 2017 07:49
--- NOTE | 2016-12-31 18:27 | DRSVH ---
PROCEDURE: X-RAY CHEST ONE VIEW, PORTABLE ([id number]) INDICATIONS: Pneumothorax TECHNIQUE: One view of the chest was acquired. COMPARISON: [facility], CR, XR CHEST 1VW (PORTABLE), 12/31/2016, 2:45. FINDINGS: Surgical changes and devices: Endotracheal tube with the tip projecting 3 cm above the mickey. Enteri c tube with the tip below the gastroesophageal junction although not included on the study. Right int ernal central venous catheter is present. A previously identified pleural line is no longer visualize d Lungs and pleura: No definite pleural effusions or pneumothorax. Diffuse bilateral patchy consolidat susana and groundglass opacities grossly unchanged. Retrocardiac consolidation is again noted Mediastinum: Mediastinal contours appear normal. Heart size is normal. Bones and chest wall: No suspicious bony lesions. Overlying soft tissues appear unremarkable. IMPRESSION: No definite pneumothorax. Previously seen appearance of right apical pneumothorax no longer visualize d. Elsewhere, no interval change. Dictated by: Gildardo Bailey M.D. on 12/31/2016 at 18:24 Approved by: Gildardo Bailey M.D. on 12/31/2016 at 18:26
--- NOTE | 2016-12-31 18:39 | NUR ---
Mentation/Oxygenation/Dialysis.. Pt remains on nimbex with TO4 of 4/4. If sedation is off for any length of time, pt noted to raise eyebrows to voice, but no purposeful reponse to commands. Remains intubated and was able to ujancarlos FIo2 decrease from 65% to 55%. Continues to make urine but labs have worsened overnight. Decision made to replace a dialysis cath. Sister Milind updated and consent obtained per phone. R femoral line placed by the resource development director and resident and pt is currently dialyzing. Juancarlos procedure well. Sister Milind is here and updated by Rn and MD.
--- NOTE | 2016-12-31 20:13 | NUR ---
Dialysis note: 3 1/2 hr tx. Net UF 2.0. New right femoral cath used today, lines switched r/t arterial alarms shortly after tx began. QB 350. Pt was sedated throughout tx with propofol and on vent. 2 1/2 hr into tx, pt became hypotensive, 86/51 HR 83. UF was turned off and a total of 500 NS flush was given over the next 45 min. Post tx BP 97/57 HR 68. Dresg CDI. Limbs dwelled with Heparin 1000 and secured. Pt continued to be sedated but stable at end of tx. Please see DTR for complete record of VS.
[2017-01-01] VITALS (13 sets, daily range): BP systolic 69–184; BP diastolic 44–76; PULSE 53–101; RESP 27–32; O2SAT 92–99
[2017-01-01] MEDS: Heparin 5,000 Unit/mL Inj SUBQ SCH ×3 (00:18→16:30)
[2017-01-01] MEDS: Chlorhexidine 0.12% 15 mL Oral Solution MT SCH ×6 (00:18→20:03)
[2017-01-01] MEDS: Bumetanide 0.25 mg/mL 10 mL Inj IV SCH ×2 (00:19→12:00)
--- NOTE | 2017-01-01 01:58 | ABG ---
DateTimeAnalyzed 01:54:00 -_ pH ____7.432 - 7.350 7.450 pCO2 ___39.5__ -mmHg 35.0 45.0 pO2 ___88.9__ -mmHg 69.0 116 HCO3- ___25.9__ -mmol/L 22.0 26.0 ABE ____2.0__ -mmol/L -2.0 2.0 tHb ____8.0__ -g/dL O2Hb ___95.3__ -% COHb ____1.5__ -% MetHb ____1.1__ -% sO2 ___97.8__ -% 25.0 FIO2 ___55.0__ -% PEEP ___14.0__ -cmH2O Set_RR ___27.0__ -b/min Vt __410.0__ -L Drawn By AF - Date/Time Notified____ 01:58:00 -_ Spontaneous_RR ___27.0__ -b/min Oxygen Device 1 VENTILATOR - Notified By AF - Notified Whom ____Nurse - B 767 -mmHg tO2 ___10.9__ -Vol% OrderingPhysicianInitials mf - Masoud test N/A -
[2017-01-01] MEDS ORDERED: 0.9% Sodium Chloride 250 ML IV PRN (02:55)
[2017-01-01] MEDS: Dexmedetomidine 400 mCg/100 mL NS Premix IV SCH (03:14)
--- NOTE | 2017-01-01 03:26 | NUR ---
vent/sedation/bp .55 fio2 per vent, sats=upper 90's, hob up, resp rate 27-29/27, sx sml amount of thin whitish sputum per ett, ls= sl course and sl decreased t/o, oral care done, pt's bp: during evening portion of shift pt sedated with bis=mostly 30=40's up to 60 with turning/suctioning, bp wnl initially then pt placed on rotation, bp's up to 170/90's, hr =100, rotation off, at 0030 pt's hr decreased to 58-60, sinus sherine, bp dropped from 140/70's then to 110/50's then to 80's /50's, see ccu flow sheet, sedation decreased to half (propofol decreased from 40mcg/kg/min to 20mcg/kg/min, precedex decreased to 0.3mcg/kg/hr from 0.6mcg/kg/hr, fentanyl gtt decreased from 100mcg/hr to 50mcg/hr,) bp remained 80's/50/s, nimbex was 3mcg/kg/min to 2mcg/kg/min, tof 4/4 t/o whole shift, md aware of bp changes and sedation and nimbex doses, abg's and cxr done, see abg results on chart-good, cxr ok per md, order received for ns 250 if map is less then 60, not given due to bp improvement by 0200, at 0200 bp's bp improved to 120-130/ 50-60, hr up to 80-90, resp rate 30/27 on vent, propofol increased to 30mcg/kg/min, precedex at 0.6mcg/kg/hr, fentanyl gtt at 75mcg/hr, will titrate meds to effect, bis up to 60-80, tele can be sinus sherine in 50's, to sr, to st with first degree heart block, see strips pt juancarlos tf well per orders per ogt, ogt placement checked -wnl, fms in place, liquid brown stool per fms, right ij intact right femoral HD cath intact, HD rn states taking 2 liters fluid off during beginning of night order selector, pt turned q2hrs, scd's on, gen edema, pt flushed and feels warm but temp 37-37.2 ax, all extremities warm, weak pulses to left le, post tib bilaterally, see ccu flow sheet, plan:continue monitoring, us left leg, possible bronc and HD today,
[2017-01-01] MEDS: fentaNYL 2,500 mCg/250 mL 2,500 MCG in IV Premix 1 EACH IV SCH (04:59)
[2017-01-01 05:53] LABS: BASOPHILS % (AUTO) 0.9 % (0-3); EOSINOPHILS % (AUTO) 0.9 % (0-5); MONOCYTES % (AUTO) 8.9 % (4-12); Mean Corpuscular Hemoglobin 32.5 pg (27.0-35.0); Mean Corpuscular Volume 101.4 fL (81-100); NEUTROPHILS % (AUTO) 73.6 % (40-74); Platelet Count 195 bil/L (150-400)
[2017-01-01] MEDS: Cisatracurium Inj 200,000 MCG in 0.9% Sodium Chloride-Pha MIX 100 ML IV PRN (07:51)
--- NOTE | 2017-01-01 08:13 | DRSVH ---
PROCEDURE: X-RAY CHEST ONE VIEW, PORTABLE ([id number]) INDICATIONS: SOB TECHNIQUE: One view of the chest was acquired. COMPARISON: [facility], CR, XR CHEST 1VW (PORTABLE), 12/31/2016, 16:52. FINDINGS: Surgical changes and devices: History G-tube appear stable in position. Nasogastric tube is again de monstrated extending into the stomach with the tip not included on the current study. Lungs and pleura: There are persistent small bilateral pleural effusions, left greater than right, w ith associated left basilar retrocardiac opacities consistent with compressive atelectasis or consoli dation. There are confluent airspace opacities bilaterally which appear slightly increased. No evid ence of pneumothorax. Mediastinum: Mediastinal contours appear unchanged. Heart size is normal. Bones and chest wall: No suspicious bony lesions. Overlying soft tissues appear unremarkable. IMPRESSION: 1. Slight interval increase in bilateral confluent opacities likely reflecting pulmonary edema/ARDS with superimposed pneumonia cannot be excluded. 2. Small bilateral pleural effusions, left greater than right, with left retrocardiac compressive at electasis or consolidation redemonstrated. Dictated by: Favian Bejarano M.D. on 01/01/2017 at 8:08 Approved by: Favian Bejarano M.D. on 01/01/2017 at 8:11
[2017-01-01] MEDS: Pantoprazole 4 mg/mL 10 mL Inj IVPUSH SCH ×2 (08:30→20:03)
[2017-01-01] MEDS: Senna-Docusate 8.6-50 mg Tablet PO SCH ×2 (09:28→20:04)
[2017-01-01] MEDS: Propofol Inj 1,000,000 MCG in IV Premix 1 EACH IV SCH ×3 (10:11→23:39)
--- NOTE | 2017-01-01 11:29 | NUR ---
NUTRITION FOLLOW-UP ASSESS: 56 YO male admitted with septic shock and acute hypoxemic respiratory failure with pneumococcal pneumonia / bacteremia and influenza A. Pt remains intubated, sedated and paralyzed. D/t cuff leak, pt was extubated and reintubated last night. Pt found to have pneumothorax. Nimbex tapered down; almost weaned off. Plans to decrease sedation per CCU rounds. Pt remains w/ ALBERTINA. Per notes, ARDS is improving. Pt received dialysis 12/31, but remains positive 20 L. A new femoral catheter was placed in the right leg yesterday. Enteral feeding continues at goal rate with minimal residuals. PMHX: COPD, Past history of drug abuse (per sister), tobacco user. No other history obtained d/t intubation and sedation. LABS: Reviewed. BUN 54, Cr 3.38, Glu 131, Ca 8.4, Phos 7.1, ALT 46, Alk Phos 229, Alb 2.8 MEDS: Reviewed. Dopamine, Bumetanide, Senna, Nimbex, Fentanyl, Propofol @ 22 ml/hr providing 581 kcal/day GI: FMS - 325 ml output recorded 01/01. Diarrhea noted. SKIN: Juancho 10. WT: 88.7 kg BMI 29.7 kg/m2 IBW: 68.4 kg Admit Wt: 80 kg (BMI: 26.8 kg/m2) DIET: NPO NUTRITION SUPPORT: Nepro rate currently at goal of 52 ml/hr, providing 2059 kcal and 93g of protein, meeting 100% of calorie and protein needs. ESTIMATED NEEDS: Vent, COPD, Dialysis (recalculated 01/01) Calories: 0720-8946 kcal/day (30-35 kcal/kg Admit BW) Protein: 95-160 g/day (1.2-2.0 g/kg Admit BW) Fluids: ~2000 ml (25 ml/kg Admit BW) NUTRITION DIAGNOSIS: 1) Inadequate oral intake related to inability to consume sufficient energy as evidenced by NPO status and ventilation - IMPROVED W/ ENTERAL NUTRITION @ GOAL RATE. 2) Increased nutrient needs related to difficulty breathing as evidenced by COPD and acute respiratory failure / severe ARDS PERSISTS. NUTRITION INTERVENTION: 1) Continue Nepro @ goal rate of 52 ml/hr, providing 2640 (2059 formula + 581 Propofol), 93g protein to meet 100% of calorie needs and 95% protein needs. 2) Recommend adding one packet of Prosource liquid protein per day to increase protein intake to 104g daily, meeting 100% of protein needs. 3) Adjust TF rate based on daily propofol rate. MONITOR/EVALUATE: Enteral feeding tolerance, vent status, medications, wt, labs, GI, nutrition status, POC. Will continue to monitor per high nutritional risk guidelines. Addendum: 01/01/17 at [address] Student documentation reviewed and I agree with above note. DHG. Addendum: 01/02/17 at [address] TF on hold for 24 hrs for ultrasound. Concerned about possible GI bleed. RN will restart TF after ultrasound at goal rate. Nimbex off. Propofol decreased to 20.6 ml/hr. Will continue to follow per high risk nutrition guidelines. Addendum: 01/02/17 at [address] I have read and agree with above student documentation. Gabi Ashley RD, CD
--- NOTE | 2017-01-01 12:47 | NUR ---
Dialysis note: 3 1/2 hr tx, Net UF 3000. Hypotensive pre tx and waited for rxd dopamine before beginning tx. pre tx VS 138/55 HR 73. Pt had BP of 146/64 - 183/75 and HR of 77 - 84 during tx. Post tx pt again became hypotensive. Pt is sedated with propofol and fentanyl, and paralysed with nimbex, all monitored by primary RN. Dresg changed with CHG, chloroprep, no s/s of infection. limbs dwelled with Heparin 1000 and secured. Pt on floor, sedated in care of primary RN Please see DTR for complete record of VS.
[2017-01-01] MEDS: cefTRIAXone Inj 2,000 MG in Dextrose 5% Minibag Plus 50 ML IV SCH (12:55)
[2017-01-01] MEDS: Dexmedetomidine 400 mCg/100 mL 400 MCG in IV Premix 1 EACH IV SCH (13:34)
--- NOTE | 2017-01-01 14:05 | PCM.PNMED ---
Subjective Date of Service Jan 01, 2017 Subjective Patient was seen and examined. Since I saw the patient ago he still remains critically ill requiring ongoing respiratory support and dialysis. He has had some increase in his urine output despite dialysis. Yesterday his intake was 3644 in and 4525 out of which 2350 was in urine output. To the first 8 hours today he had some 150 ML's of urine. His sodium is 135 potassium 4.5 chloride 98 CO2 26 BUN and creatinine 54 and 3.38. Exam Vital Signs Vital Sign - Last Date Time Temp Pulse Resp B/P Pulse Ox O2 Delivery O2 Flow Rate FiO2 01/01/17 12:54 63 27 131/59 99 Mechanical Ventilator 55 01/01/17 12:03 36.5 12/28/16 12:30 16.00 Intake and Output 12/31/16 12/31/16 01/01/17 Cumulative From/Thru 15:00 23:00 07:00 12/18/16 10:01 - 01/01/17 06:00 Intake Total 1442 ml 1518 ml 40793 ml Output Total 3275 ml 1075 ml 64220 ml Balance -1833 ml 443 ml 07497 ml Intake Oral 0 ml IV Total 749 ml 810 ml 36777 ml Tube Feeding 548 ml 618 ml 87877 ml Platelets 461 ml Tube Irrigant 145 ml 90 ml 2443 ml Output Urine Total 1200 ml 750 ml 6722 ml Stool Total 75 ml 325 ml 2375 ml Urine/Stool Mix 50 ml Gastric Drainage Total 1050 ml Ultrafiltrate 2000 ml 05669 ml # Bowel Movements 103 Exam Patient remains sedated and on a ventilator. Lungs showed diffuse rhonchi in all lung hillman. Heart is regular with soft systolic murmur. Abdomen is not as distended as was a week ago with diminished bowel sounds. There is no tenderness rebound guarding or masses noted. His extremities show some mild generalized edema. Lab and Diagnostics Result Diagram: 01/01/17 0541 01/01/17 0541 Microbiology BCx and SCx positive for Strep pneumo Resp PCR positive for Flu A H3 Strep pneumo urine ag positive X-Rays, CTs and MRIs X-RAY CHEST ONE VIEW, PORTABLE IMPRESSION: 1. Edema and/or pneumonia redemonstrated. 2. Slight increase in size of small left pleural effusion. Dictated by: Soren SRINIVASAN Interpreted: Enrique Staley MD on 12/29/2016 at 10: 13 X-RAY KUB IMPRESSION: 1. No obstruction identified. 2. Abnormal appearance of the lungs redemonstrated with diffuse interstitial and airspace opacity similar to prior chest radiograph. Dictated by: Soren Johnson [facility] Interpreted: Enrique Staley MD on 12/27/2016 at 11: 00 X-RAY CHEST ONE VIEW, PORTABLE IMPRESSION: No significant interval change in florid pulmonary edema and/or bronchopneumonia. Dictated by: Curtis Levine M.D. on 12/24/2016 at 8:42 CT CHEST WITH CONTRAST IMPRESSION: 1. Bilateral lung consolidation decreased in size compared to prior examination compatible with resolving pneumonia or aspiration. 2. Bilateral lung interstitial prominence and ground glass opacities. Findings may be related to pneumonia, however finding is nonspecific and other etiologies including pulmonary edema can produce a similar appearance. 3. Trace bilateral pleural effusions. 4. Enlarged bilateral hilar and mediastinal lymph nodes decreased in size. Dictated by: Jordyn Dominguez MD, PhD on 12/23/2016 at 13:19 US RENAL SONOGRAM IMPRESSION: 1. A 1.4 cm cyst in the superior pole the right kidney. Otherwise normal ultrasound appearance of kidneys. No hydronephrosis. 2. Cholelithiasis. No ultrasound evidence for acute cholecystitis. Dictated by: Dwain Gaona M.D. on 12/18/2016 at 18:18 Approved by: Dwain Gaona M.D. on 12/18/2016 at 18:21 Additional Diagnostics DateTimeAnalyzed 04:19:00 -_ pH ____7.345 - 7.350 7.450 pCO2 ___42.0__ -mmHg 35.0 45.0 pO2 110 -mmHg 69.0 116 HCO3- ___22.3__ -mmol/L 22.0 26.0 sO2 ___97.9__ -% 25.0 FIO2 ___60.0__ -% PEEP ___16.0__ -cmH2O Set_RR ___30.0__ -b/min Vt __410.0__ -L Assessment & Plan Impression #1 acute tubular necrosis secondary to sepsis and multisystem organ failure #2 hypertension with hypertensive heart disease and hypertensive nephrosclerosis Recommendations #1 I would like to discontinue the Bumex drip. He is being dialyzed today on arrival clear dialyzer, 3-1/2 hours at 2K bath,, approximately 2-3 l of fluid to be removed. i will reassess his condition tomorrow as far as his dialytic requirements. GI Prophylaxis: Proton Pump Inhibitor VTE Prophylaxis: Sub-Q Heparin (Unfractionated) VTE Mechanical Devices: Intermittant Pneumatic CD Resuscitation Status: CPR: Attempt Resuscitation Hang Garsia DO Jan 01, 2017 14:05
--- NOTE | 2017-01-01 19:49 | PROG NOTE ---
[address] [address] PROGRESS NOTE PATIENT: DOUGIE GARDUNO : 1960 MR#: [id number] ADMIT: 12/18/2016 JOB ID: [id number] DATE: 01/01/2017 PULMONARY CRITICAL CARE FOLLOWUP NOTE: PROBLEM LIST: 1. ARDS. 2. Atelectasis, left lower lobe. 3. Acute renal failure requiring hemodialysis. 4. Altered mental status. 5. Hypertension. SUBJECTIVE: None. Patient is sedated, paralyzed on ventilator. OBJECTIVE: Called regarding blood pressure of 83/44. Had been higher just previously. Did also have AN acute blood pressure drop last night in the speech therapist early intervention hours. Seemed to weather that reasonably well by discontinuing sedatives and Nimbex. However, the patient is scheduled for dialysis. Temperature 36.5, pulse 55, respiratory rate 27, O2 sat on FiO2 of 55%. PEEP of 14, rate of 27, tidal volume of 410. Shows an O2 sat of 95%. General appearance: Sedated, unmoving on ventilator. Maybe some movement of the tip of his tongue. Otherwise, no obvious movements whatsoever. Eyes: Conjunctivae are pink. Nose and throat could not be examined. Chest: Fairly good breath sounds bilaterally. Some slight decrease in the breath sounds at the left lung base laterally. There were a few crackles at the left lung base laterally. Right lung relatively clear. Breath sounds at the left lower lung field were diminished but definitely present, which is quite an improvement from yesterday. Heart: Slightly irregular. For the most part, there is a regular rhythm with occasional premature beats. Ventricular rate about 52. Abdomen soft. Nondistended. A few bowel tones present. Extremities: SCDs in place. There was 1 to 2+ pedal edema. No palpable left femoral arterial pulse. No left popliteal pulse. Two-plus dorsalis pedis. Left lower extremity is warm, pink. The patient was treated with discontinuation of cisatracurium with weaning of Precedex. Dopamine was started. Within minutes, pulse had slowly risen up to about 80. Blood pressure was 134/55. It was felt that dialysis could be started. It was being held in abeyance, because of the low blood pressure. This was started and the initial events encouraging. LABORATORY DATA: Shows a white count of 9100 with moderate neutrophilia. Hemoglobin stable at 9.1. Platelet count rising at 195,000. Sodium 137, potassium 4.5, chloride 98, CO2 26. BUN 54 after dialysis yesterday, dropping from 81. Creatinine 3.38, dropping from 4.35 due to the dialysis. Calcium 8.4. Albumin 2.8. AST normal at 38. ALT stable at 46, minimally elevated with upper limits of normal being 44. Alkaline phos remains moderately elevated, unchanged at 229. Bronch washing shows a negative AFB and a negative and pneumocystis DFA stain. Sputum Gram stain shows many polys, no organisms. Chest x-ray shows slight increase in bilateral confluent opacities. Discussed ultrasound with the radiology group. In order to visualize the iliacs, the patient has to be n.p.o., preferably for a day, in order to get good visualization of the iliac arteries. Since those are mostly the artery in question, we will have to hold off on ultrasound to evaluate the vasculature. Leg is warm. Good peripheral pulses, so I do not think the leg is in jeopardy. I think it would be best to hold off until tomorrow so we can get a good, hopefully definitive study. The patient completed dialysis. Was able to ultrafiltrate 3 L. However, at the termination of the dialysis, he again showed a drop in his blood pressure. Pulse remained rather slow. Started back on dopamine with reasonable blood pressure response, but still a relatively low pulse. May need to mobilize some fluid with albumin. Do not want to hand him back the fluid that we just took off. PLAN: 1. Albumin 25 g now. 2. Continue dopamine. 3. Delay ultrasound of the left lower extremity arterial supply until tomorrow. 4. Hold tube feedings. 5. Had to withhold bronchoscopy because of the hemodynamic instability. Discussed the situation with hospitalist service. Emphasis today is on taking fluid off. Remain concerned about his left lower lobe opacification. In addition, now having problems with hemodynamics. Possibly related to the ultrafiltration. Will try albumin rather than crystalloid to see if we can mobilize some of that fluid. Time spent so far in critical care 90 minutes.
[2017-01-01] MEDS: Sodium Chloride LOK Flush 10 mL Syringe IVFLUSH PRN (20:03)
[2017-01-01] MEDS: 0.9% Sodium Chloride 250 ML IV SCH (21:32)
--- NOTE | 2017-01-01 21:44 | PCM.PNMED ---
Subjective Date of Service Jan 01, 2017 Subjective Overnight: Patient was tachycardic and hypotensive with BPs 90's/50's. Propofol , Precedex were d/c'ed. Dopamine was started and patients vitals stabilized. Today: He continues to require significant sedation with propofol, fentanyl, and Precedex, as well as Nimbex for paralysis. He was found to have a pneumothorax on CXR which has since resolved. He is unable to provide history. Exam Vital Signs Vital Sign - Last Date Time Temp Pulse Resp B/P Pulse Ox O2 Delivery O2 Flow Rate FiO2 01/01/17 08:38 73 01/01/17 08:02 36.5 27 87/44 Mechanical Ventilator 55 01/01/17 04:00 96 12/28/16 12:30 16.00 Intake and Output 12/31/16 12/31/16 01/01/17 Cumulative From/Thru 15:00 23:00 07:00 12/18/16 10:01 - 01/01/17 06:00 Intake Total 1442 ml 1518 ml 11654 ml Output Total 3275 ml 1075 ml 50611 ml Balance -1833 ml 443 ml 06958 ml Intake Oral 0 ml IV Total 749 ml 810 ml 04112 ml Tube Feeding 548 ml 618 ml 71138 ml Platelets 461 ml Tube Irrigant 145 ml 90 ml 2443 ml Output Urine Total 1200 ml 750 ml 6722 ml Stool Total 75 ml 325 ml 2375 ml Urine/Stool Mix 50 ml Gastric Drainage Total 1050 ml Ultrafiltrate 2000 ml 85298 ml # Bowel Movements 103 Exam General: Intubated and sedated and paralyzed. Head: Normocephalic, atraumatic. External ears without defect. Eyes: Pupils equal, round, and reactive to light and accommodation. Anicteric sclerae, moist conjunctivae. Cardiovascular: Regular rate and rhythm with no murmurs, rubs, or gallops appreciated. Pulmonary: Course breath sounds throughout, right worse than left. Abdomen: Soft, moderately distended, hypoactive bowel sounds. Old midline surgical incision present. Extremities: Moderate pitting edema on lower and upper extremities bilaterally. Skin: Faint macular papular rash on upper chest and shoulders. Neurological: Intubated and sedated and paralyzed. IVs and Medications Medications Reviewed: Medications were reviewed in detail Lab and Diagnostics Result Diagram: 01/01/17 0541 01/01/17 0541 Microbiology BCx and SCx positive for Strep pneumo Resp PCR positive for Flu A H3 Strep pneumo urine ag positive X-Rays, CTs and MRIs X-RAY CHEST ONE VIEW, PORTABLE IMPRESSION: 1. Edema and/or pneumonia redemonstrated. 2. Slight increase in size of small left pleural effusion. Dictated by: Soren SRINIVASAN Interpreted: Enrique Staley MD on 12/29/2016 at 10: 13 X-RAY KUB IMPRESSION: 1. No obstruction identified. 2. Abnormal appearance of the lungs redemonstrated with diffuse interstitial and airspace opacity similar to prior chest radiograph. Dictated by: Soren SRINIVASAN Interpreted: Enrique Staley MD on 12/27/2016 at 11: 00 X-RAY CHEST ONE VIEW, PORTABLE IMPRESSION: No significant interval change in florid pulmonary edema and/or bronchopneumonia. Dictated by: Curtis Levine M.D. on 12/24/2016 at 8:42 CT CHEST WITH CONTRAST IMPRESSION: 1. Bilateral lung consolidation decreased in size compared to prior examination compatible with resolving pneumonia or aspiration. 2. Bilateral lung interstitial prominence and ground glass opacities. Findings may be related to pneumonia, however finding is nonspecific and other etiologies including pulmonary edema can produce a similar appearance. 3. Trace bilateral pleural effusions. 4. Enlarged bilateral hilar and mediastinal lymph nodes decreased in size. Dictated by: Jordyn Dominguez MD, PhD on 12/23/2016 at 13:19 US RENAL SONOGRAM IMPRESSION: 1. A 1.4 cm cyst in the superior pole the right kidney. Otherwise normal ultrasound appearance of kidneys. No hydronephrosis. 2. Cholelithiasis. No ultrasound evidence for acute cholecystitis. Dictated by: Dwain Gaona M.D. on 12/18/2016 at 18:18 Approved by: Dwain Gaona M.D. on 12/18/2016 at 18:21 Additional Diagnostics DateTimeAnalyzed 04:19:00 -_ pH ____7.345 - 7.350 7.450 pCO2 ___42.0__ -mmHg 35.0 45.0 pO2 110 -mmHg 69.0 116 HCO3- ___22.3__ -mmol/L 22.0 26.0 sO2 ___97.9__ -% 25.0 FIO2 ___60.0__ -% PEEP ___16.0__ -cmH2O Set_RR ___30.0__ -b/min Vt __410.0__ -L Assessment & Plan Naveed Maciel is a 56 year old male with past medical history significant for COPD who presented to the emergency department via EMS complaining of dyspnea and 3 days of flu-like symptoms. Intubated after failing on BiPAP and admitted for septic shock and acute hypoxemic respiratory failure. Hospital 13. Vent day 15. 1. Altered mental status, present on admission. Active. - Weaning trials of Nimbex for paralysis have failed. Patient continues to be agitated and was very difficult to ventilate. He also experiences hemodynamic fluctuations such as hypertension and tachycardia. - ICU team following, recommendations appreciated. - EEG showed abnormal results as above. Recommends repeat once patient is no longer on Nimbex. 2. Severe ARDS, present on admission, active. Improving. - Etiology secondary to sepsis and pneumococcal pneumonia in the setting of COPD and past history of cocaine use. CT chest on 12/18 showed dense consolidation bilaterally within the dependent portions of the lung. Repeat CT chest was largely unchanged with some mild interval improvement in consolidation. Patient is also fluid up roughly 19 L which is certainly playing a role and inability to wean off the mechanical ventilation. - Patient intubated, sedated and paralyzed using fentanyl, Versed, Precedex, and Nimbex. Sedation vacations daily. - Vent settings per Critical Care/Pulmonology Team. - Bronchoscopy 12/29/16. Bronchial washings pending for various pathogens. - ABG as above. - Aggressive diuresis and dialysis for fluid overload. - Will add Albumin 25 G. - Continue Dopamine. - Withhold bronchoscopy due to hemodynamic instability. 3. Acute pneumothorax. Not present on admission. Resolved. - Repeat CXR as above. 4. Metabolic alkalosis, not present on admission. - ABG as above - 5. Acute kidney injury on chronic kidney disease, present on admission, active. - Unknown if patient has underlying chronic kidney disease. Patient continues to be anuric. On admission BUN 65 and creatinine 3.71 - Avoid nephrotoxic medications as able. - Nephrology consulted. Appreciate time and recommendations. - Placed femoral Lasha catheter for dialysis 12/31. Noted that his left femoral pulse was not palpable, unable to visualize on US. Will order arterial doppler of left leg for tomorrow 01/02. - Will continue dialysis. 6. Pneumococcal pneumonia /pneumococcal bacteremia, present on admission, improving. - CXR and CT as above. Strep pneumonia urine antigen positive. Blood and sputum cultures positive. Sensitive for penicillins. WBC trending down. Procalcitonin 180.83 on admission peaked at 612.48, trending down. - Discontinued Cefepime, Flagyl, and azithromycin - Ceftriaxone 2g IV daily. (Last day of antibiotic treatment will likely be January 01 or .) - Monitoring Procalcitonin every other day. Currently trending downward from 43.75.5 (12/27/16), currently 17.64. down to 7. Septic shock, present on admission, resolved. - Criteria include: HR 144, RR 41, O2 sats 83%, lactic acid 6.6, BUN 65, creatinine 3.71, procalcitonin 180.38. Etiology secondary to pneumococcal pneumonia and influenza A. - Right IJ in place 12/18. right radial arterial line lost 07/28 8. Influenza A, present on admission, treated and resolved. - Oseltamivir 30 mg after each hemodialysis session. - Received Oseltamivir for 5 days for a total of 10 treatments 12/29/16 9. Thrombocytopenia, present on admission, stable. - Unknown baseline. Etiology likely sepsis. - On admission platelets 74. Currently 195. - DVT prophylaxis initiated 12/22. - DIC panel does not suggest DIC. No schistocytes on blood smear. - Platelets transfused 2/ prior to dialysis catheter placement. - Will continue to monitor. 10. Upper GI bleed, present on admission, stable. - Coffee-ground material reported from OG tube on admission. Guaiac positive in the ED. Hemoglobin and hematocrit have decreased since admission but likely secondary to fluid resuscitation. - Type and cross with 2 units PRBCs on hold. - DVT prophylaxis started . - Pantoprazole 40 mg BID. - Will consider GI consult if H&H drops or more active bleeding is visualized. 12. COPD, present on admission, unknown baseline. 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 Unknown if patient has outpatient medication regimen. - Treatment as above. 12. Tobacco use, present on admission, chronic. - Consider Nicotine patch once patient awake. 13. Hyperglycemia, present on admission, active. - Insulin regular low dose correctional scale. - Hemoglobin A1c 5.7. Acetaminophen for mild pain when necessary. Bowel regimen Senna and MiraLAX scheduled and PRN. Zofran when necessary for nausea and vomiting. SubQ heparin. SCDs in place. High-risk medications: IV fentanyl Disposition: Patient currently intubated with severe ARDS. He continues to require 2 pressors. Reduction in FiO2 and PEEP is a positive step however his prognosis is guarded and he remains severely ill. Pain Evaluation: Adequate Pain Control GI Prophylaxis: Proton Pump Inhibitor VTE Prophylaxis: Sub-Q Heparin (Unfractionated) VTE Mechanical Devices: Intermittant Pneumatic CD Resuscitation Status: CPR: Attempt Resuscitation Attending Statement The patient was seen and examined together with Dr. Steele on 01/01/2017 and I agree with the history, exam and plan as outlined in the note above. . KING STEELE DO Jan 01, 2017 09:00 Patrice Galvan MD Jan 02, 2017 07:49
[2017-01-02] VITALS (16 sets, daily range): BP systolic 77–133; BP diastolic 52–66; PULSE 59–85; RESP 17–30; O2SAT 97–100
[2017-01-02] MEDS: Chlorhexidine 0.12% 15 mL Oral Solution MT SCH ×7 (00:30→23:37)
[2017-01-02] MEDS: Heparin 5,000 Unit/mL Inj SUBQ SCH ×4 (00:30→23:37)
[2017-01-02] MEDS: fentaNYL 2,500 mCg/250 mL 2,500 MCG in IV Premix 1 EACH IV SCH ×2 (00:30→22:30)
[2017-01-02] MEDS: Propofol Inj 1,000,000 MCG in IV Premix 1 EACH IV SCH ×5 (03:24→20:34)
--- NOTE | 2017-01-02 03:41 | NUR ---
P) LOC/Respiratory/Circulation Pt. wakes, moving upper extremities, not following commands but appears to be tracking. Lungs with decreased breath sounds bilat. and moderate amounts pink streaked white to clear phlegm suctioned from ET tube, shakes head and resists oral care, chews on ET tube. Pedal pulses have gone from weak to non-palpable since 2 nights ago, they are audible with doppler. Cardiac rhythm sinus/sinus sherine with a 1st degree AV block and occasional PVC's and missed beats. I) Meds per 's orders, Turning q2h and floating heels, close monitoring. E) Resting but grabbing siderails with rotation, will give him a break from rotation.
[2017-01-02 03:51] LABS: BASOPHILS % (AUTO) 0.9 % (0-3); EOSINOPHILS % (AUTO) 1.3 % (0-5); MONOCYTES % (AUTO) 11.3 % (4-12); Mean Corpuscular Hemoglobin 31.8 pg (27.0-35.0); Mean Corpuscular Volume 99.6 fL (81-100); NEUTROPHILS % (AUTO) 62.9 % (40-74); Platelet Count 182 bil/L (150-400)
--- NOTE | 2017-01-02 04:04 | NUR ---
Skin/fever febrile tonight, T-max so far 37.6, skin breakdown on L scrotum appears slightly improved from the other night, but the R side is now also breaking down. I) Passive cooling, full bath and scrotum in sling, moderate amount yellowish exudate noted on sling, also developing pressure area below urethral opening, cath secure applied again to try to avoid any tension/pressure on catheter. E) Requested wound therapy consult again.
--- NOTE | 2017-01-02 04:12 | ABG ---
DateTimeAnalyzed 04:08:00 -_ pH ____7.444 - 7.350 7.450 pCO2 ___36.5__ -mmHg 35.0 45.0 pO2 ___83.2__ -mmHg 69.0 116 HCO3- ___24.6__ -mmol/L 22.0 26.0 ABE ____1.1__ -mmol/L -2.0 2.0 tHb ____8.8__ -g/dL O2Hb ___94.4__ -% COHb ____1.5__ -% MetHb ____1.2__ -% sO2 ___97.0__ -% 25.0 FIO2 ___55.0__ -% PEEP ___14.0__ -cmH2O Set_RR ___27.0__ -b/min Vt __410.0__ -L Drawn By AF - Date/Time Notified____ 04:12:00 -_ Spontaneous_RR ___27.0__ -b/min Oxygen Device 1 VENTILATOR - Notified By AF - Notified Whom ____Nurse - B 760 -mmHg tO2 ___11.8__ -Vol% Masoud test _Positive -
[2017-01-02 05:00] LABS: Phosphorus 5.5 mg/dL (2.5-4.9)
[2017-01-02] MEDS: Pantoprazole 4 mg/mL 10 mL Inj IVPUSH SCH ×2 (08:15→20:12)
[2017-01-02] MEDS: cefTRIAXone Inj 2,000 MG in Dextrose 5% Minibag Plus 50 ML IV SCH (08:15)
[2017-01-02] MEDS: Senna-Docusate 8.6-50 mg Tablet PO SCH ×2 (08:17→20:12)
--- NOTE | 2017-01-02 08:51 | PROG NOTE ---
[address] [address] PROGRESS NOTE PATIENT: DOUGIE GARDUNO : 1960 MR#: [id number] ADMIT: 12/18/2016 JOB ID: [id number] DATE: 01/02/2017 INFECTIOUS DISEASE FOLLOW UP NOTE: REASON FOR FOLLOWUP: Influenza followed by pneumococcal septic shock with renal failure, ARDS, prolonged ventilator dependence and periods of hypotension. INTERVAL HISTORY: This case discussed extensively at the bedside with the ICU nurse as well as the ICU attending physician. During the past three days, I have been absent from the ICU and the patient has generally been stable but during the past 24 hours, he has had periods of hypotension requiring the institution of dopamine. He has also had a loss of distal pulses including femoral and dorsal pedal pulses on the right lower extremity. Overall, the patient has been stable though he continues to require intermittent dialysis through a right femoral line which was changed over the weekend but is still in the right femoral vein. The patient will now flutter and open his eyes with oral or tactile stimulation but does not seem to otherwise interact at all and does not follow any commands. This remains a problem of increasing concern. No additional history is available from the patient though this case was obviously discussed with multiple others including nursing, respiratory therapy and the ICU team. T-max over the past week was 37.6, which was earlier this morning. His pulse is 59. Currently blood pressure 122/62, but he is on low doses of dopamine. Still on 50% FiO2 and 14 of PEEP. Examination of the eyes reveals no scleral icterus or conjunctivitis. Oral endotracheal tube, orogastric tube in good position though there does appear to be some bloody drainage in the oral gastric tube. Neck with a right neck central line which appears uninfected at its insertion site. The neck is without significant nodes or JVD. Lungs relatively clear anteriorly and actually better than when I last auscultated him roughly three days ago. There are still a few crackles perhaps at the bases. Cardiac tones: Regular rate and rhythm. Sinus rhythm on the monitor. Abdomen is soft and apparently nontender without organomegaly. The right femoral dialysis line is present and appears uninfected. No right femoral arterial pulse can be appreciated nor can I appreciate pulses, dorsal, pedal or posterior tibial, in the foot. Both feet are cool, but not cold and there is no evidence of peripheral cyanosis. Peripheral pulses are easily ascertained in the left foot. The scrotum is notable for a shallow ulceration which is developing as well as some enlargement of the meatal orifice secondary to prolonged Dubois placement but neither of these appear infected. Labs include white count down to 8400, hematocrit 27, platelet count 182. Creatinine is down to 2.87 which is gradually improving though, of course, he is being dialyzed as well. His alk phos 196, albumin 2.8, procalcitonin is 3.44, down from a peak of 612. So basically 200 full drop in procalcitonin. Micro studies from recent days including the femoral cath tip which is culture negative from the . A bronch wash also from the was negative. AFB smears, Pneumocystis smears, viral cultures, the bacterial cultures of that bronch wash showed scant normal christina with many polys. In summary of the micro, there has basically been no new positive cultures since the initial pneumococcal blood cultures and sputum cultures back on December 18 and the finding of H flu at the same time. Chest x-rays continue to show ARDS. IMPRESSION: This is an extraordinarily complex case of a gentleman with influenza followed by pneumococcal pneumonia, bacteremic pneumococcal pneumonia and septic shock. He has developed ARDS as well as prolonged renal failure. The main ID concern over the past day or so has been the development of his hypotension now requiring dopamine. In speaking to the ICU attending, the leading theory behind this is that this is related to fluid shifts and diuresis due to dialysis as many liters of fluid are being pulled off now in dialysis. The possibility of bacterial or fungal superinfection, of course, remains high, however, as he has a central line in his neck as well as in his groin, both on the right side. He also has been intubated in the ICU on broad-spectrum antibiotics now for greater than two weeks. Another unanswered question is how long to continue with the ceftriaxone. His procalcitonin has not normalized but, of course, it started at an amazingly elevated level of over 600. RECOMMENDATIONS: 1. Continue cautiously with ceftriaxone with procalcitonins to be measured about every other day. 2. I agree with discontinuing the oseltamivir. 3. Fungal blood cultures x2 will be obtained. 4. We may need to consider discontinuing the right neck central line if there are any fever spikes or we continue to have unexplained hypotension and/or any bump in his white count or procalcitonin. 5. ID will continue to follow this case with you on a very close basis.
--- NOTE | 2017-01-02 10:38 | NUR ---
Wound Pt seen at bedside. Intubated pt presents with 2 open areas at his scrotum perhaps due to swelling and chaffing from previous anasarca, open area on left testicle is approx 2 cm L x 1.5 cm W x 0.1 cm D, right testicle open area is 1 cm L x 1 cm W x 0.1 cm D. Recommend calmoseptine and adhesive foam dressings to protect these areas. Catheter securement device placed at left thigh, urethra is reddened, possibly from shear, securement device should help. Nursing reports no other skin issues, pt on FMS at this time and a CCU bed.
--- NOTE | 2017-01-02 10:40 | DRSVH ---
PROCEDURE: X-RAY CHEST ONE VIEW, PORTABLE ([id number]) INDICATIONS: intubated TECHNIQUE: One view of the chest was acquired. COMPARISON: [facility], CR, XR CHEST 1VW (PORTABLE), 01/01/2017, 1:48. FINDINGS: Surgical changes and devices: Stable position ETT, nasogastric tube and right IJ CVL. Lungs and pleura: Diffuse, widespread bilateral pulmonary interstitial and air space opacities are pr esent no significant change from prior examination. Small pleural effusions persist. No pneumothora x. Mediastinum: Mediastinal contours appear normal. Heart size is normal. Bones and chest wall: No suspicious bony lesions. Overlying soft tissues appear unremarkable. IMPRESSION: 1. Support lines and tubes as above. 2. Pulmonary edema and/or diffuse bilateral inflammatory process. ARDS cannot be excluded. Dictated by: Soren Johnson [facility] Interpreted: Emmie Graves MD on 01/02/2017 at 10:38 Transcribed by: SNEHA on 01/02/2017 at 10:39 Approved by: Emmie Graves M.D. on 01/02/2017 at 15:01
--- NOTE | 2017-01-02 11:02 | PCM.PNMED ---
Subjective Date of Service Jan 02, 2017 Subjective She continues to improve. He had approximately 1200 and also of urine out in the last 24 hours. His blood pressure is a bit labile but otherwise remained stable. Today his BUN and creatinine 43 and 2.7. He remains on the ventilator but is awake. My only other concern is that he has some coffee ground and red blood coming from his gastric tube. I would be concerned about some type of ulcerative process. Exam Vital Signs Vital Sign - Last Date Time Temp Pulse Resp B/P Pulse Ox O2 Delivery O2 Flow Rate FiO2 01/02/17 08:30 80 116/58 100 50 01/02/17 08:25 Ventilator 01/02/17 08:00 37.3 29 12/28/16 12:30 16.00 Intake and Output 01/01/17 01/01/17 01/02/17 Cumulative From/Thru 15:00 23:00 07:00 12/18/16 10:01 - 01/02/17 06:30 Intake Total 1418 ml 672 ml 81545 ml Output Total 3000 ml 500 ml 1100 ml 98033 ml Balance -3000 ml 918 ml -428 ml 39498 ml Intake Oral 0 ml IV Total 892 ml 672 ml 02963 ml Tube Feeding 466 ml 97155 ml Platelets 461 ml Tube Irrigant 60 ml 2503 ml Output Urine Total 450 ml 500 ml 7672 ml Stool Total 50 ml 50 ml 2475 ml Urine/Stool Mix 50 ml Gastric Drainage Total 550 ml 1600 ml Ultrafiltrate 3000 ml 20832 ml # Bowel Movements 103 Exam Lungs show some scattered rhonchi but otherwise are clear. Heart was regular rhythm with a soft systolic murmur. Abdomen soft without any tenderness or rebound guarding masses or hepatosplenomegaly. Extremities showed some generalized edema. Lab and Diagnostics Result Diagram: 01/02/1721301/02/17213 Microbiology BCx and SCx positive for Strep pneumo Resp PCR positive for Flu A H3 Strep pneumo urine ag positive X-Rays, CTs and MRIs X-RAY CHEST ONE VIEW, PORTABLE IMPRESSION: 1. Edema and/or pneumonia redemonstrated. 2. Slight increase in size of small left pleural effusion. Dictated by: Soren SRINIVASAN Interpreted: Enrique Staley MD on 12/29/2016 at 10: 13 X-RAY KUB IMPRESSION: 1. No obstruction identified. 2. Abnormal appearance of the lungs redemonstrated with diffuse interstitial and airspace opacity similar to prior chest radiograph. Dictated by: Soren Johnson RRA Interpreted: Enrique Staley MD on 12/27/2016 at 11: 00 X-RAY CHEST ONE VIEW, PORTABLE IMPRESSION: No significant interval change in florid pulmonary edema and/or bronchopneumonia. Dictated by: Curtis Levine M.D. on 12/24/2016 at 8:42 CT CHEST WITH CONTRAST IMPRESSION: 1. Bilateral lung consolidation decreased in size compared to prior examination compatible with resolving pneumonia or aspiration. 2. Bilateral lung interstitial prominence and ground glass opacities. Findings may be related to pneumonia, however finding is nonspecific and other etiologies including pulmonary edema can produce a similar appearance. 3. Trace bilateral pleural effusions. 4. Enlarged bilateral hilar and mediastinal lymph nodes decreased in size. Dictated by: Jordyn Dominguez MD, PhD on 12/23/2016 at 13:19 US RENAL SONOGRAM IMPRESSION: 1. A 1.4 cm cyst in the superior pole the right kidney. Otherwise normal ultrasound appearance of kidneys. No hydronephrosis. 2. Cholelithiasis. No ultrasound evidence for acute cholecystitis. Dictated by: Dwain Gaona M.D. on 12/18/2016 at 18:18 Approved by: Dwain Gaona M.D. on 12/18/2016 at 18:21 Additional Diagnostics DateTimeAnalyzed 04:19:00 -_ pH ____7.345 - 7.350 7.450 pCO2 ___42.0__ -mmHg 35.0 45.0 pO2 110 -mmHg 69.0 116 HCO3- ___22.3__ -mmol/L 22.0 26.0 sO2 ___97.9__ -% 25.0 FIO2 ___60.0__ -% PEEP ___16.0__ -cmH2O Set_RR ___30.0__ -b/min Vt __410.0__ -L Assessment & Plan Impression #1 acute tubular necrosis secondary to sepsis which may be an early recovery phase. #2 pulmonary edema and anasarca Recommendations #1 the patient's ultrafiltration today for 3 hours GI Prophylaxis: Proton Pump Inhibitor VTE Prophylaxis: Sub-Q Heparin (Unfractionated) VTE Mechanical Devices: Intermittant Pneumatic CD Resuscitation Status: CPR: Attempt Resuscitation Hang Garsia DO Jan 02, 2017 11:02
--- NOTE | 2017-01-02 11:46 | PROG NOTE ---
[address] [address] PROGRESS NOTE PATIENT: DOUGIE GARDUNO : 1960 MR#: [id number] ADMIT: 12/18/2016 JOB ID: [id number] DATE: 01/02/2017 PULMONARY CRITICAL CARE FOLLOW UP NOTE: PROBLEMS: 1. ARDS. 2. Influenza A/pneumococcal pneumonia with bacteremia, resolved. 3. Acute renal failure requiring dialysis. 4. Altered mental status. 5. Polysubstance abuse. 6. Hypertension. SUBJECTIVE: None. OBJECTIVE: Temperature 37.3 with T-max being 37.6. Pulse 55-80, respiratory rate 27-29 with ventilator set at 27. Blood pressure 116/58. Was as low as 77. O2 sat on FiO2 of 50%, PEEP of 14 is 100%. I and O shows 2.9 liters in, 1.2 liters of urine and 3 liters of ultrafiltrate taken yesterday. General appearance: Starting to open his eyes. May be opened his eyes to voice. No focusing, tracking or apparent cognitive function. Chest: Fairly good breath sounds on the right. Relatively clear. Left upper lung field clear. Diminished breath sounds at the left base quite significantly with possible bronchial quality to the breath sounds. Heart: Regular rhythm. Heart tones seem normal. Abdomen is soft. Few, if any, bowel tones. Extremities: Warm. Good right popliteal 2+, right dorsalis pedis 2+. Left femoral not palpable, left popliteal not palpable, left dorsalis pedis 2+ (dialysis catheter in right femoral vein). Chest x-ray shows widespread pulmonary interstitial and airspace opacities with no particular change. LABORATORY VALUES: Show a white count of 8400 which is falling. Normal differential. Hemoglobin 8.7. Relatively stable. Platelet count 182,000, again relatively stable. Sodium 137, potassium 3.7, chloride 98, CO2 is 24, BUN 43, creatinine 2.8. Calcium 8.4 with albumin of 2.8. Phosphorus mildly elevated at 5, upper limits of normal being 4.9, magnesium 2. Alkaline phosphatase is dropping at 196. Transaminases are normal. Bronchoscopy shows pneumocystis DFA screen negative. No herpes simplex isolated. Gram stain shows many polys, no organisms. Growing normal christina. Arterial blood gases on FiO2 of 55%, PEEP of 14, tidal volume of 410, rate of 27 shows a pO2 of 83, a pCO2 of 36, pH is 7.44. In spite of appearing rather calm, the patient is actively fighting the ventilator with a significant ventilator patient dyssynchrony with marginal minute ventilations. ASSESSMENT: 1. Acute respiratory distress syndrome. Continuing to have problems. I think we need to try pressure assist control mode to see if we can better ventilate the patient with a better patient tolerance of the ventilator. Right now, he is requiring high levels of sedation, and in fact in the past paralysis, to control his apparent agitation. May be related to the ventilator itself. 2. Acute respiratory distress syndrome. Some improvement. I think that part of our problem is with the patient ventilator dyssynchrony. In addition, with the renal failure, we are continuing to take fluid off. At times gets a bit hypotensive likely due to fluid shifts as he does not have any significant peripheral edema making mobilization of fluid a bit problematic. 3. Apparent peripheral arterial disease. Scheduled for ultrasound to evaluate the vascular supply to the left lower extremity. PLAN: 1. Pressure mode of ventilation. Switched over to pressure assist control. Doing rather well. Tolerating it much better. O2 saturations running 100%. Dropped his PEEP from 14 to 12 and will continue to do so every six hours or so as long as the patient tolerates this. Taking breaths of mid 500s, respiratory rate in the high 10s at the moment. 2. Ultrasound study of the peripheral arterial tree, left lower extremity. 3. Continue dialysis to remove fluids. 4. Continue to monitor [employer] status. Maybe a little bit better today. Will see how we do. Previous EEGs has shown toxic encephalopathy. Spoke with the hospitalist team regarding vent changes. TIME SPENT: In critical care 45 minutes.
[2017-01-02] MEDS: Dexmedetomidine 400 mCg/100 mL 400 MCG in IV Premix 1 EACH IV SCH (12:09)
--- NOTE | 2017-01-02 14:36 | PCM.PNMED ---
Subjective Date of Service Jan 02, 2017 Subjective Overnight: Patient was febrile last night, T-max so far 37.6, skin breakdown on L scrotum appears slightly improved from the other night, but the R side is now also breaking down. Today: He is awake but not fully conscious and moving all four extremities, albeit inconsistently with commands. Still sedated and unable to communicate effectively. Exam Vital Signs Vital Sign - Last Date Time Temp Pulse Resp B/P Pulse Ox O2 Delivery O2 Flow Rate FiO2 01/02/17 08:25 Ventilator 01/02/17 08:00 37.3 79 29 77/ 99 50 12/28/16 12:30 16.00 Intake and Output 01/01/17 01/01/17 01/02/17 Cumulative From/Thru 15:00 23:00 07:00 12/18/16 10:01 - 01/02/17 06:30 Intake Total 1418 ml 672 ml 91315 ml Output Total 3000 ml 500 ml 1100 ml 73967 ml Balance -3000 ml 918 ml -428 ml 38445 ml Intake Oral 0 ml IV Total 892 ml 672 ml 51483 ml Tube Feeding 466 ml 85887 ml Platelets 461 ml Tube Irrigant 60 ml 2503 ml Output Urine Total 450 ml 500 ml 7672 ml Stool Total 50 ml 50 ml 2475 ml Urine/Stool Mix 50 ml Gastric Drainage Total 550 ml 1600 ml Ultrafiltrate 3000 ml 67317 ml # Bowel Movements 103 Exam General: Intubated and sedated and paralyzed. Head: Normocephalic, atraumatic. External ears without defect. Eyes: Pupils equal, round, and reactive to light and accommodation. Anicteric sclerae, moist conjunctivae. Cardiovascular: Regular rate and rhythm with no murmurs, rubs, or gallops appreciated. Pulmonary: Course breath sounds throughout, right worse than left. Abdomen: Soft, moderately distended, hypoactive bowel sounds. Old midline surgical incision present. Extremities: Moderate pitting edema on lower and upper extremities bilaterally. Skin: Faint macular papular rash on upper chest and shoulders. Neurological: Intubated and sedated and paralyzed. IVs and Medications Medications Reviewed: Medications were reviewed in detail Lab and Diagnostics Result Diagram: 01/02/1721301/02/17213 Microbiology BCx and SCx positive for Strep pneumo Resp PCR positive for Flu A H3 Strep pneumo urine ag positive X-Rays, CTs and MRIs X-RAY CHEST ONE VIEW, PORTABLE IMPRESSION: 1. Support lines and tubes as above. 2. Pulmonary edema and/or diffuse bilateral inflammatory process. ARDS cannot be excluded. Dictated by: Soren SRINIVASAN Interpreted: Emmie Graves MD on 01/02/2017 at 10: 38 X-RAY CHEST ONE VIEW, PORTABLE IMPRESSION: 1. Edema and/or pneumonia redemonstrated. 2. Slight increase in size of small left pleural effusion. Dictated by: Soren SRINIVASAN Interpreted: Enrique Staley MD on 12/29/2016 at 10: 13 X-RAY KUB IMPRESSION: 1. No obstruction identified. 2. Abnormal appearance of the lungs redemonstrated with diffuse interstitial and airspace opacity similar to prior chest radiograph. Dictated by: Soren SRINIVASAN Interpreted: Enrique Staley MD on 12/27/2016 at 11: 00 X-RAY CHEST ONE VIEW, PORTABLE IMPRESSION: No significant interval change in florid pulmonary edema and/or bronchopneumonia. Dictated by: Curtis Levine M.D. on 12/24/2016 at 8:42 CT CHEST WITH CONTRAST IMPRESSION: 1. Bilateral lung consolidation decreased in size compared to prior examination compatible with resolving pneumonia or aspiration. 2. Bilateral lung interstitial prominence and ground glass opacities. Findings may be related to pneumonia, however finding is nonspecific and other etiologies including pulmonary edema can produce a similar appearance. 3. Trace bilateral pleural effusions. 4. Enlarged bilateral hilar and mediastinal lymph nodes decreased in size. Dictated by: Jordyn Dominguez MD, PhD on 12/23/2016 at 13:19 US RENAL SONOGRAM IMPRESSION: 1. A 1.4 cm cyst in the superior pole the right kidney. Otherwise normal ultrasound appearance of kidneys. No hydronephrosis. 2. Cholelithiasis. No ultrasound evidence for acute cholecystitis. Dictated by: Dwain Gaona M.D. on 12/18/2016 at 18:18 Approved by: Dwain Gaona M.D. on 12/18/2016 at 18:21 Additional Diagnostics ABG DateTimeAnalyzed 04:19:00 -_ pH ____7.345 - 7.350 7.450 pCO2 ___42.0__ -mmHg 35.0 45.0 pO2 110 -mmHg 69.0 116 HCO3- ___22.3__ -mmol/L 22.0 26.0 [facility] DateTimeAnalyzed 04:08:00 -_ pH ____7.444 - 7.350 7.450 pCO2 ___36.5__ -mmHg 35.0 45.0 pO2 ___83.2__ -mmHg 69.0 116 HCO3- ___24.6__ -mmol/L 22.0 26.0 US ARTERY LEG DUPLEX UNILATERAL/ILIAC CAVA, LEFT IMPRESSION: Minimal scattered plaque and no hemodynamically significant left lower extremity peripheral arterial stenosis. Dictated by: Soren SRINIVASAN Interpreted: Emmie Graves MD on 01/02/2017 at 16:38 Assessment & Plan Naveed Maciel is a 56 year old male with past medical history significant for COPD who presented to the emergency department via EMS complaining of dyspnea and 3 days of flu-like symptoms. Intubated after failing on BiPAP and admitted for septic shock and acute hypoxemic respiratory failure. Hospital 16. Vent day 16. 1. Septic shock, present on admission, Active and improving. - Criteria include: HR 144, RR 41, O2 sats 83%, lactic acid 6.6, BUN 65, creatinine 3.71, procalcitonin 180.38. Etiology secondary to pneumococcal pneumonia and influenza A. - Right IJ in place 12/18. right radial arterial line lost 07/28 - Continue with low dose Dopamine for hypotension. 2. Severe ARDS, present on admission, active. Improving. - Etiology secondary to sepsis and pneumococcal pneumonia in the setting of COPD and past history of cocaine use. CT chest on 12/18 showed dense consolidation bilaterally within the dependent portions of the lung. Repeat CT chest was largely unchanged with some mild interval improvement in consolidation. Patient is also fluid up roughly 19 L which is certainly playing a role and inability to wean off the mechanical ventilation. - Patient intubated, sedated and using fentanyl, Versed, Precedex, and Nimbex. Sedation vacations daily. - Vent settings per Critical Care/Pulmonology Team. - Bronchoscopy 12/29/16. Bronchial washings pending for various pathogens. - ABG as above. - Albumin 25 G. - Withhold bronchoscopy due to hemodynamic instability. 3. Acute kidney injury on chronic kidney disease, present on admission, active. - Unknown if patient has underlying chronic kidney disease. Patient continues to be anuric. On admission BUN 65 and creatinine 3.71 - Avoid nephrotoxic medications as able. - Nephrology consulted. Appreciate time and recommendations. - Placed femoral Lasha catheter for dialysis 12/31. Noted that his left femoral pulse was not palpable, unable to visualize on US. Will order arterial doppler of left leg for tomorrow 01/02. - Will continue dialysis. Goal of 3-4 L today. 4. Pneumococcal pneumonia /pneumococcal bacteremia, present on admission, improving. - CXR and CT as above. Strep pneumonia urine antigen positive. Blood and sputum cultures positive. Sensitive for penicillins. WBC trending down. Procalcitonin 180.83 on admission peaked at 612.48, trending down. - Ceftriaxone 2g IV daily. - Monitoring Procalcitonin every other day. Currently trending downward from 43.75.5 (12/27/16), currently down to 3.44. - Dr. Muhammad with infectious disease following, time and recommendations appreciated. 5. Altered mental status, present on admission. Improving. - Weaning trials of Nimbex for paralysis have failed. Patient continues to be agitated and was very difficult to ventilate. He also experiences hemodynamic fluctuations such as hypertension and tachycardia. - ICU team following, recommendations appreciated. - EEG showed abnormal results as above. Recommends repeat once patient is no longer on Nimbex. 6. Acute pneumothorax. Not present on admission. Resolved. - Repeat CXR as above. 7. Metabolic alkalosis, not present on admission. Improving. - ABG as above - 8. Influenza A, present on admission, treated and resolved. - Oseltamivir 30 mg after each hemodialysis session. - Received Oseltamivir for 5 days for a total of 10 treatments 12/29/16 9. Thrombocytopenia, present on admission, stable. - Unknown baseline. Etiology likely sepsis. - On admission platelets 74. Currently 195. - DVT prophylaxis initiated 12/22. - DIC panel does not suggest DIC. No schistocytes on blood smear. - Platelets transfused 12/20 prior to dialysis catheter placement. - Will continue to monitor. 10. Upper GI bleed, present on admission, stable. - Coffee-ground material reported from OG tube on admission. Guaiac positive in the ED. Hemoglobin and hematocrit have decreased since admission but likely secondary to fluid resuscitation. - Type and cross with 2 units PRBCs on hold. - DVT prophylaxis started . - Pantoprazole 40 mg BID. - Will consider GI consult if H&H drops or more active bleeding is visualized. 12. COPD, present on admission, unknown baseline. 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 Unknown if patient has outpatient medication regimen. - Treatment as above. 12. Tobacco use, present on admission, chronic. - Consider Nicotine patch once patient awake. 13. Hyperglycemia, present on admission, active. - Insulin regular low dose correctional scale. - Hemoglobin A1c 5.7. Acetaminophen for mild pain when necessary. Bowel regimen Senna and MiraLAX scheduled and PRN. Zofran when necessary for nausea and vomiting. SubQ heparin. SCDs in place. High-risk medications: IV fentanyl Disposition: Patient currently intubated with severe ARDS. He continues to require 2 pressors. Reduction in FiO2 and PEEP is a positive step however his prognosis is guarded and he remains severely ill. Pain Evaluation: Adequate Pain Control GI Prophylaxis: Proton Pump Inhibitor VTE Prophylaxis: Sub-Q Heparin (Unfractionated) VTE Mechanical Devices: Intermittant Pneumatic CD Resuscitation Status: CPR: Attempt Resuscitation Attending Statement The patient was seen and examined together with Dr. Steele on 01/02/2017 and I agree with the history, exam and plan as outlined in the note above. . KING STEELE DO Jan 02, 2017 09:57 Patrice Galvan MD Jan 05, 2017 17:45
--- NOTE | 2017-01-02 16:10 | NUR ---
Social Work Note: Continued Discharge Planning Data& Assessment: Naveed Maciel is a 56 year old male admitted on 12/18/2016 for acute respiratory failure. Pt is not medically ready for discharge at this time. Pt is still on the vent. SW to continue to follow for medically progression and follow up with pt and pt family regarding discharge planning post extubation. SW available for family support, questions and concerns at this time. SW to continue to check and in follow for any needs. Plan: Pt is still on the vent. SW available for family support, questions and concerns at this time. SW to continue to check and in follow for any needs. TATYANA Arias
--- NOTE | 2017-01-02 16:40 | DRSVH ---
PROCEDURE: US ARTERY LEG DUPLEX UNILATERAL/ILIAC CAVA, LEFT INDICATIONS: Nonpalpable left femoral artery TECHNIQUE: Color and pulse Doppler interrogation was performed of the left lower extremity arterial system, with image documentation. COMPARISON: None. FINDINGS: Vascular Ultrasound Procedure Report Findings(Artery of Lower Extremity)(Left) Common Femoral Artery(Distal) Velocity: 74 cm/s Profunda Femoris Artery(Proximal) Velocity: 75.40 cm/s Superficial Femoral Artery(Proximal) Velocity: 83.30 cm/s Superficial Femoral Artery(Mid-longitudinal) Velocity: 58.80 cm/s Superficial Femoral Artery(Distal) Velocity: 56.50 cm/s Popliteal Artery(Mid-longitudinal) Velocity: 76.40 cm/s Posterior Tibial Artery(Distal) Velocity: 67.60 cm/s Dorsalis Pedis Artery(Distal) Velocity: 41.60 cm/s Greyscale findings: Minimal scattered plaque. IMPRESSION: Minimal scattered plaque and no hemodynamically significant left lower extremity peripher al arterial stenosis. Dictated by: Soren Johnson William Interpreted: Emmie Graves MD on 01/02/2017 at 16:38 Transcribed by: SNEHA on 01/02/2017 at 16:39 Approved by: Emmie Graves M.D. on 01/02/2017 at 17:19
--- NOTE | 2017-01-02 17:28 | NUR ---
Neuro/respiratory/cardiac Opening eyes to verbal stimuli. NOONAN, appears stronger in left upper extremity vs right. Tracking with eyes, occasionally lifts arms when asked. Propofol and fentanyl sedation continued for ventilator tolerance. Oxygen saturation maintained >92% on 50% fi02 & PEEP of 10. Small to moderate amounts of thin white secretions with ET suction. SR/SB with 1st degree AV block. Normotensive. Dopamine remains off. Tube feeding restarted, pt tolerating. Hgb & hct trending down, plan to redraw at 21:00.
--- NOTE | 2017-01-02 19:12 | NUR ---
Dialysis note: 3 hrs PUF. 3000 ml net UF. Right femoral catheter, dsg dry and intact. Pls see DTR for VS details. Qb 300. No heparin given. On vent @ 50% FiO2 with sat in the 90's. Stable treatment. Catheter flushed, heparin dwelled and secured. Report given to Tereza Patterson RN.
[2017-01-03] VITALS (10 sets, daily range): BP systolic 95–123; BP diastolic 48–68; PULSE 65–80; RESP 24–27; O2SAT 94–100
[2017-01-03] MEDS: Propofol Inj 1,000,000 MCG in IV Premix 1 EACH IV SCH ×5 (01:24→19:47)
--- NOTE | 2017-01-03 04:17 | ABG ---
DateTimeAnalyzed 04:12:00 -_ pH ____7.476 - 7.350 7.450 pCO2 ___34.0__ -mmHg 35.0 45.0 pO2 ___69.7__ -mmHg 69.0 116 HCO3- ___24.7__ -mmol/L 22.0 26.0 ABE ____1.7__ -mmol/L -2.0 2.0 tHb ____8.7__ -g/dL O2Hb ___92.2__ -% COHb ____1.8__ -% MetHb ____1.2__ -% sO2 ___95.1__ -% 25.0 FIO2 ___50.0__ -% Pressure_Support ___16.0__ -cmH2O PEEP ___10.0__ -cmH2O Set_RR ___27.0__ -b/min Drawn By MK - Date/Time Notified____ 04:17:00 -_ Spontaneous_RR ___27.0__ -b/min Oxygen Device 1 VENTILATOR - Notified By MK - B 750 -mmHg tO2 ___11.4__ -Vol% Masoud test _Positive -
[2017-01-03] MEDS: Chlorhexidine 0.12% 15 mL Oral Solution MT SCH ×6 (04:38→23:58)
--- NOTE | 2017-01-03 04:42 | NUR ---
Mentation/Hemodynamics/GI Patient sedated on Propofol and Fentanyl, opens eyes to voice, following commands occasionally, left arm stronger than right, resting calm on vent and Propofol titrated down slightly to 40mcg/kg/min, BP and HR stable, 1 degree block tolerating PC well, see RT charting for settings, TF at goal 52ml/hr with 30ml flush Q4H, small amount of liquid stool in FMS, 325ml from catheter, 3L off with HD yesterday, CXR done this AM, uneventful shift, no distress noted, will continue to monitor. Addendum: 01/03/17 at 0448 by WILLIAM NORIEGA RN Amended: Links added.
[2017-01-03] MEDS: 0.9% Sodium Chloride 250 ML IV SCH (05:25)
[2017-01-03 05:34] LABS: BASOPHILS % (AUTO) 0.8 % (0-3); EOSINOPHILS % (AUTO) 1.6 % (0-5); MONOCYTES % (AUTO) 10.1 % (4-12); Mean Corpuscular Hemoglobin 32.2 pg (27.0-35.0); Mean Corpuscular Volume 100.4 fL (81-100); NEUTROPHILS % (AUTO) 56.5 % (40-74); Platelet Count 174 bil/L (150-400)
[2017-01-03 05:57] LABS: Phosphorus 5.3 mg/dL (2.5-4.9)
[2017-01-03] MEDS: cefTRIAXone Inj 2,000 MG in Dextrose 5% Minibag Plus 50 ML IV SCH (08:11)
[2017-01-03] MEDS: Pantoprazole 4 mg/mL 10 mL Inj IVPUSH SCH ×2 (08:11→19:50)
[2017-01-03] MEDS: Heparin 5,000 Unit/mL Inj SUBQ SCH ×3 (08:12→23:58)
[2017-01-03] MEDS: Senna-Docusate 8.6-50 mg Tablet PO SCH ×2 (08:30→19:51)
--- NOTE | 2017-01-03 08:43 | PROG NOTE ---
[address] [address] PROGRESS NOTE PATIENT: DOUGIE GARDUNO : 1960 MR#: [id number] ADMIT: 12/18/2016 JOB ID: [id number] DATE: 01/03/2017 INFECTIOUS DISEASE FOLLOWUP NOTE: REASON FOR FOLLOWUP: Influenza complicated by pneumococcal septic shock with ventilatory dependent respiratory failure, renal failure and ARDS. INTERVAL HISTORY: Overnight, the nurses report that at times the patient has had his eyes open and maybe tracking a bit, and there are also reports that at one point he may have lightly squeezed someone's hand to command. Despite these promising reports this morning, I find the patient with open eyes but not tracking and not following any commands. No additional history is available from the patient, though I did discuss the case in detail with the team, as well as the ICU nurse. PHYSICAL EXAMINATION: Reveals an afebrile gentleman. Temp 37.1, pulse 76, blood pressure 96/64, saturating very well on 50 and 10 of PEEP, which is down from 14 of PEEP recently. The eyes are wide awake and clear. There are no conjunctival or scleral abnormalities. He does not seem to track. His oral endotracheal tube and orogastric tube are in good position. There are no herpetic lesions on the lips. The neck is benign. The right IJ line also appears benign. The lungs are notable for diffuse crackles as before bilaterally but perhaps slightly better than yesterday. Cardiac tones: Regular rate and rhythm. The abdomen is soft and nontender without organomegaly. The patient's scrotum has had some protective dressings applied, as yesterday there was starting to be a small amount of blistering on the scrotum. The patient has a Dubois catheter. No significant edema of the lower extremities. A dialysis catheter is present in the right groin. LABORATORIES: Include a white count of 7600 with a normal diff. His creatinine is 3.01 but he remains on daily dialysis. His LFT are normal except for an alk phos, which is declining and now 177. Albumin 2.6. Procalcitonin 3.44 and that is yesterday's value and demonstrates continual improvement. The catheter tip from the 10th which was a dialysis catheter that was switched out is negative. Bronch wash from the 10th also negative. IMAGING: A chest x-ray continues to show ARDS. IMPRESSION: This patient is starting to gradually improve, albeit very slowly, after 16-1/2 days here in the hospital. He started off with influenza, followed by pneumococcal pneumonia with septic shock, renal failure and adult respiratory distress syndrome. His progress has been quite slow but seems to be perhaps speeding up a bit as we go forward here in terms of his respiratory function. Unfortunately, the patient still remains dialysis dependent. RECOMMENDATIONS: 1. Will continue with ceftriaxone and checking procalcitonin every other day. I would anticipate finishing the ceftriaxone in the next several days. 2. The oseltamivir has now been stopped, and I agree with that. 3. Yesterday, we had ordered fungal blood cultures and these have apparently not been done. I will stress to the ICU team the importance of obtaining these cultures, as the patient remains at an extremely high risk for fungemia. 4. Will continue to follow this patient closely with you.
--- NOTE | 2017-01-03 10:23 | PCM.PNMED ---
Subjective Date of Service Jan 03, 2017 Subjective Patient continues to make some slow improvement. He was also infiltrated yesterday and since then has made 900 and also when necessary and 350 over the last 8 hours. His blood pressures remain good and he is tolerating his tube feedings well. He remains on a ventilator however those settings are being weaned down. This morning his sodium is 137, potassium 3.5, chloride 98, CO2 24, BUN and creatinine 49 and 3.01 his albumin is 2.6. Exam Vital Signs Vital Sign - Last Date Time Temp Pulse Resp B/P Pulse Ox O2 Delivery O2 Flow Rate FiO2 01/03/17 10:06 94 105/56 98 50 01/03/17 08:00 37.0 Mechanical Ventilator 01/03/17 04:30 27 12/28/16 12:30 16.00 Intake and Output 01/02/17 01/02/17 01/03/17 Cumulative From/Thru 15:00 23:00 07:00 12/18/16 10:01 - 01/03/17 05:16 Intake Total 609 ml 1371 ml 99937 ml Output Total 3450 ml 350 ml 54597 ml Balance -2841 ml 1021 ml 45619 ml Intake Oral 0 ml IV Total 500 ml 469 ml 52309 ml Tube Feeding 49 ml 632 ml 00736 ml Platelets 461 ml Tube Irrigant 60 ml 270 ml 2833 ml Output Urine Total 400 ml 325 ml 8397 ml Stool Total 50 ml 25 ml 2550 ml Urine/Stool Mix 50 ml Gastric Drainage Total 1600 ml Ultrafiltrate 3000 ml 55605 ml # Bowel Movements 103 Exam HEENT examination is remarkable for pale sclera and he still has an endotracheal tube in. Neck is supple without adenopathy thyromegaly or jugular venous distention. Lungs showed some scattered rhonchi but otherwise are clear. Heart was regular with a soft systolic murmur. Abdomen is soft with diminished bowel sounds but present. There was no tenderness, rebound, guarding , masses, or hepatosplenomegaly. Extremities no tremor any evidence of any clubbing, cyanosis, or edema. Skin turgor is good and no evidence of any rashes. Lab and Diagnostics Result Diagram: 01/03/17 0510 01/03/17 0510 Microbiology BCx and SCx positive for Strep pneumo Resp PCR positive for Flu A H3 Strep pneumo urine ag positive X-Rays, CTs and MRIs X-RAY CHEST ONE VIEW, PORTABLE IMPRESSION: 1. Support lines and tubes as above. 2. Pulmonary edema and/or diffuse bilateral inflammatory process. ARDS cannot be excluded. Dictated by: Soren SRINIVASAN Interpreted: Emmie Graves MD on 01/02/2017 at 10: 38 X-RAY CHEST ONE VIEW, PORTABLE IMPRESSION: 1. Edema and/or pneumonia redemonstrated. 2. Slight increase in size of small left pleural effusion. Dictated by: Soren SRINIVASAN Interpreted: Enrique Staley MD on 12/29/2016 at 10: 13 X-RAY KUB IMPRESSION: 1. No obstruction identified. 2. Abnormal appearance of the lungs redemonstrated with diffuse interstitial and airspace opacity similar to prior chest radiograph. Dictated by: Soren SRINIVASAN Interpreted: Enrique Staley MD on 12/27/2016 at 11: 00 X-RAY CHEST ONE VIEW, PORTABLE IMPRESSION: No significant interval change in florid pulmonary edema and/or bronchopneumonia. Dictated by: Curtis Levine M.D. on 12/24/2016 at 8:42 CT CHEST WITH CONTRAST IMPRESSION: 1. Bilateral lung consolidation decreased in size compared to prior examination compatible with resolving pneumonia or aspiration. 2. Bilateral lung interstitial prominence and ground glass opacities. Findings may be related to pneumonia, however finding is nonspecific and other etiologies including pulmonary edema can produce a similar appearance. 3. Trace bilateral pleural effusions. 4. Enlarged bilateral hilar and mediastinal lymph nodes decreased in size. Dictated by: Jordyn Dominguez MD, PhD on 12/23/2016 at 13:19 US RENAL SONOGRAM IMPRESSION: 1. A 1.4 cm cyst in the superior pole the right kidney. Otherwise normal ultrasound appearance of kidneys. No hydronephrosis. 2. Cholelithiasis. No ultrasound evidence for acute cholecystitis. Dictated by: Dwain Gaona M.D. on 12/18/2016 at 18:18 Approved by: Dwain Gaona M.D. on 12/18/2016 at 18:21 Additional Diagnostics ABG DateTimeAnalyzed 04:19:00 -_ pH ____7.345 - 7.350 7.450 pCO2 ___42.0__ -mmHg 35.0 45.0 pO2 110 -mmHg 69.0 116 HCO3- ___22.3__ -mmol/L 22.0 26.0 [facility] DateTimeAnalyzed 04:08:00 -_ pH ____7.444 - 7.350 7.450 pCO2 ___36.5__ -mmHg 35.0 45.0 pO2 ___83.2__ -mmHg 69.0 116 HCO3- ___24.6__ -mmol/L 22.0 26.0 US ARTERY LEG DUPLEX UNILATERAL/ILIAC CAVA, LEFT IMPRESSION: Minimal scattered plaque and no hemodynamically significant left lower extremity peripheral arterial stenosis. Dictated by: Soren SRINIVASAN Interpreted: Emmie Graves MD on 01/02/2017 at 16:38 Assessment & Plan Impression #1 acute tubular necrosis with recovery #2 hyperkalemia #3 normocytic normochromic anemia of multiple etiologies. Recommendations #1 I will hold any dialysis or ultrafiltration today and his feel that he is probably close to his normal volume status. Any further fluid removal will put him at risk for further renal injury. Obviously we will continue to follow Ms. him and eyes. GI Prophylaxis: Proton Pump Inhibitor VTE Prophylaxis: Sub-Q Heparin (Unfractionated) VTE Mechanical Devices: Intermittant Pneumatic CD Resuscitation Status: CPR: Attempt Resuscitation Hang Garsia DO Jan 03, 2017 10:23
--- NOTE | 2017-01-03 10:32 | DRSVH ---
PROCEDURE: X-RAY CHEST ONE VIEW, PORTABLE ([id number]) INDICATIONS: intubated TECHNIQUE: One view of the chest was acquired. COMPARISON: [facility], CR, XR CHEST 1VW (PORTABLE), 01/02/2017, 4:30. FINDINGS: Surgical changes and devices: Stable position of ETT, nasogastric tube and right IJ CVL. Lungs and pleura: Diffuse, widespread bilateral pulmonary interstitial and air space opacities are pr esent no significant change from prior examination. Small pleural effusions persist. No pneumothora x. Mediastinum: Mediastinal contours appear normal. Heart size is normal. Bones and chest wall: No suspicious bony lesions. Overlying soft tissues appear unremarkable. IMPRESSION: 1. The endotracheal tube, nasogastric tube and right IJ central line are stable in position. 2. Pulmonary edema and/or diffuse bilateral pneumonia. ARDS cannot be excluded. Dictated by: Soren Johnson RRA Interpreted: Dwain Gaona MD on 01/03/2017 at 10:31 Transcribed by: TAYLOR on 01/03/2017 at 10:31 Approved by: Dwain Gaona M.D. on 01/03/2017 at 12:34
[2017-01-03] MEDS: Dexmedetomidine 400 mCg/100 mL 400 MCG in IV Premix 1 EACH IV SCH (10:44)
[2017-01-03] MEDS: fentaNYL 2,500 mCg/250 mL 2,500 MCG in IV Premix 1 EACH IV SCH ×2 (11:15→19:44)
--- NOTE | 2017-01-03 11:47 | PROG NOTE ---
[address] [address] PROGRESS NOTE PATIENT: DOUGIE GARDUNO : 1960 MR#: [id number] ADMIT: 12/18/2016 JOB ID: [id number] DATE: 01/03/2017 PULMONARY CRITICAL CARE FOLLOWUP NOTE: PROBLEM LIST: 1. Adult respiratory distress syndrome. 2. Influenza A/pneumococcal pneumonia with bacteremia, resolved. 3. Acute renal failure, requiring dialysis. 4. Altered mental status. 5. Polysubstance abuse. SUBJECTIVE: None. OBJECTIVE: Temperature 37, with T-max being 37.2, pulse 76 to 94, respiratory rate 27 with ventilator set at 27, blood pressure 118/60. O2 sat on FiO2 of 50% and PEEP of 5 is 100%. I and O shows 1.2 L in, 4.5 L out of which 3 L was ultrafiltrate yesterday. Urine output was 900 mL. General appearance: Somewhat sedated. Will open his eyes and seemed to look at examiner. However, no cognitive function. Not sure he focuses on the examiner. Chest: Shows fairly good breath sounds bilaterally. Somewhat diminished at the left lower lung field. No use of accessory muscles. Heart: Regular rhythm with occasional slight irregularity. Heart tones seem normal. Abdomen is soft. Some bowel tones present. Extremities: Left lower extremity is warm. Cannot feel a popliteal pulse on the left. Good dorsalis pedis. Ultrasound of the left lower extremity shows good pulses with open arterial vasculature to the left lower extremity. Some lesions on his scrotum. May be maceration from skin on skin. Chest x-ray shows no significant change with diffuse widespread interstitial and airspace opacities. Laboratory data shows a white count of 7600 with normal differential. Hemoglobin 8.3, relatively stable. Platelet count 174,000 and slowly decreasing by about 10,000 a day. Sodium 137, potassium 3.5, chloride 98, CO2 is 24, BUN 49. Creatinine 3.01, calcium 8.3, with albumin of 2.6. Phosphorus mildly elevated at 5.3, upper limits of normal being 4.9. Magnesium normal at 2. Total bilirubin normal at 0.4. Transaminases normal. Alkaline phos mildly elevated at 196 and decreasing. ASSESSMENT: 1. Altered mental status. Seems quite a bit more responsive. Eyes are open, though not focusing. Seems to alert to examiner's questions, maybe even more response to familiar voices. Will continue to taper his opiates and sedatives slowly, as he may have withdrawal syndrome associated with them. However, he has been on them quite a long period of time and will have to go slowly to avoid that possibility. 2. Acute respiratory distress syndrome. Doing quite a bit better with the pressure assist control of the ventilator. Tidal volumes are in the mid 500s to low 600s with respiratory rate in the mid teens. In fact, he is mildly hyperventilating with a pO2 of 69 on FiO2 of 50%, pressure support of 16 and PEEP of 10, respiratory rate of 25 showing a pCO2 of 34, pO2 of 69, pH 7.47. Has a mild respiratory alkalosis. 3. Absent pulses in left lower extremity. Artifact to the examination. Perhaps the vessels are quite deep but they are apparent on ultrasound study. Leg is warm, dry and highly perfused, as it is quite pink. 4. Renal failure. Discussed with Nephrology. They feel he is somewhat hypovolemic and will hold off ultrafiltration today. PLAN: 1. Vent change. Decrease respiratory rate to about 24. 2. Will need to be making decision soon regarding tracheostomy. It turns out this is day 17. 3. Discussed case with Hospitalist service. TIME SPENT IN CRITICAL CARE: 45 minutes.
--- NOTE | 2017-01-03 13:00 | NUR ---
NUTRITION FOLLOW-UP ASSESS: 56 YO male admitted with septic shock and acute hypoxemic respiratory failure with pneumococcal pneumonia / bacteremia and influenza A. Pt weaned off Nimbex successfully, but remains intubated and sedated. Pt remains w/ ALBERTINA. Pt received dialysis yesterday w/ another dialysis scheduled today, but remains 15 L positive. WC consulted for open areas on scrotum and testicle. Enteral feeding was turned off yesterday for ultrasound, but is resumed at goal rate with minimal residuals. PMHX: COPD, Past history of drug abuse (per sister), tobacco user. No other history obtained d/t intubation and sedation. LABS: Reviewed. BUN 49, Chief Financial Officer 3.01, Gluc 109, Ca 8.3, Phos 5.3, Alk Phos 177, Alb 2.9, Procalcitonin 3.44 MEDS: Reviewed. Fentanyl, Propofol @ 18 ml/hr providing 475 kcal per day GI: FMS - 100 ml output recorded 01/02 SKIN: Ju[place]o 12 Per WC, 2 open areas on scrotum and 1 open area on testicle WT: 82.1 kg BMI 27.5 kg/m2 IBW: 68.4 kg Admit Wt: 80 kg (BMI: 26.8 kg/m2) DIET: NPO NUTRITION SUPPORT: Nepro rate currently at goal of 52 ml/hr, providing 2640 (2059 formula + 581 Propofol), 93g protein to meet 100% of calorie needs and 95% protein needs. ESTIMATED NEEDS: Vent, COPD, Dialysis (recalculated 01/01) Calories: 4285-9162 kcal/day (30-35 kcal/kg Admit BW) Protein: 95-160 g/day (1.2-2.0 g/kg Admit BW) Fluids: ~2000 ml (25 ml/kg Admit BW) NUTRITION DIAGNOSIS: 1) Inadequate oral intake related to inability to consume sufficient energy as evidenced by NPO status and ventilation - IMPROVED W/ ENTERAL NUTRITION @ GOAL RATE. 2) Increased nutrient needs related to difficulty breathing as evidenced by COPD and acute respiratory failure / severe ARDS PERSISTS. NUTRITION INTERVENTION: 1) Recommend increasing Nepro to new goal rate of 55 ml/hr, providing 2653 (2178 formula + 475 Propofol), 98g protein to meet 100% of calorie and protein needs. 2) Adjust TF rate based on daily propofol rate. MONITOR/EVALUATE: TF adv/juancarlos, vent status, medications, wt, labs, GI, nutrition status, POC. Will continue to monitor per high nutritional risk guidelines. Addendum: 01/03/17 at [address] Student documentation reviewed and I agree with the above assessment. Mel Rice, MS, RDN, CD Addendum: 01/04/17 at [address] Pt tolerating new goal rate of 55 ml/hr w/ minimal residual. Propofol increased to 20.6 ml/hr providing a total of 2722 kcal (2178 formula + 544 propofol), which continues to meet 100% of his calorie needs. Addendum: 01/04/17 at [address] Student documentation reviewed and I agree with the above addendum. Mel Rice, MS, RDN, CD
--- NOTE | 2017-01-03 13:16 | NUR ---
Re-evaluation completed. Please go to "Notes" then click on "Assessments and Notes" (bottom left corner of screen). Then select appropriate discipline tab on top of screen.
--- NOTE | 2017-01-03 16:43 | NUR ---
Mentation.. Has been weaned down some from Propofol and Fentanyl gtts and is more responsive, tracking toward family at the bedside. Is occasionally noted to lift arms off bed spontaneously. Was able to dangle at the bedside with 2 person assist for 10 minutes. Continues to have uop. Dialysis on hold for today. Continues to juancarlos tube feeds well with minimal residuals. Sister Milind here and updated on pt's status and plan of care.
--- NOTE | 2017-01-03 16:53 | NUR ---
KENDALL signed TATYANA Arias
--- NOTE | 2017-01-03 16:53 | NUR ---
Social Work Note: Continued Discharge Planning Data& Assessment: SW met with pt sister Rakesh at bedside. Pt sister is anticipating SNF stay prior to returning home at time of discharge. SNF list provided to pt sister to start reviewing for preferences. Pt is now on day 16 of hospitalization and still on the vent. SW to continue to follow for pt and pt family needs as pt medically progresses. Plan: Anticipated discharge to SNF when medically ready in anticipation of loss of strength and mobility due to long hospitalization. SW to continue to follow for pt and pt family needs as pt medically progresses. TATYANA Arias
--- NOTE | 2017-01-03 21:32 | PCM.PNMED ---
Subjective Date of Service Jan 03, 2017 Subjective Overnight: No acute overnight events. Today: He is awake but not fully conscious and moving all four extremities, albeit inconsistently with commands. Still sedated and unable to communicate effectively. Exam Vital Signs Vital Sign - Last Date Time Temp Pulse Resp B/P Pulse Ox O2 Delivery O2 Flow Rate FiO2 01/03/17 04:30 37.1 80 27 123/68 94 Mechanical Ventilator 50 12/28/16 12:30 16.00 Intake and Output 01/02/17 01/02/17 01/03/17 Cumulative From/Thru 15:00 23:00 07:00 12/18/16 10:01 - 01/03/17 05:16 Intake Total 609 ml 1371 ml 02921 ml Output Total 3450 ml 350 ml 59844 ml Balance -2841 ml 1021 ml 83232 ml Intake Oral 0 ml IV Total 500 ml 469 ml 19418 ml Tube Feeding 49 ml 632 ml 59453 ml Platelets 461 ml Tube Irrigant 60 ml 270 ml 2833 ml Output Urine Total 400 ml 325 ml 8397 ml Stool Total 50 ml 25 ml 2550 ml Urine/Stool Mix 50 ml Gastric Drainage Total 1600 ml Ultrafiltrate 3000 ml 53405 ml # Bowel Movements 103 Exam General: Intubated and sedated and paralyzed. Head: Normocephalic, atraumatic. External ears without defect. Eyes: Pupils equal, round, and reactive to light and accommodation. Anicteric sclerae, moist conjunctivae. Cardiovascular: Regular rate and rhythm with no murmurs, rubs, or gallops appreciated. Pulmonary: CTAB. Greatly improved today. very mild wheezes, very mild rhonchi, no rales. Abdomen: Soft, moderately distended, hypoactive bowel sounds. Old midline surgical incision present. Extremities: Moderate pitting edema on lower and upper extremities bilaterally. Skin: Faint macular papular rash on upper chest and shoulders. Neurological: Intubated and sedated and paralyzed. IVs and Medications Medications Reviewed: Medications were reviewed in detail Lab and Diagnostics Result Diagram: 01/03/17 0510 01/03/17 0510 Microbiology BCx and SCx positive for Strep pneumo Resp PCR positive for Flu A H3 Strep pneumo urine ag positive X-Rays, CTs and MRIs X-RAY CHEST ONE VIEW, PORTABLE IMPRESSION: 1. Support lines and tubes as above. 2. Pulmonary edema and/or diffuse bilateral inflammatory process. ARDS cannot be excluded. Dictated by: Soren SRINIVASAN Interpreted: Emmie Graves MD on 01/02/2017 at 10: 38 X-RAY CHEST ONE VIEW, PORTABLE IMPRESSION: 1. Edema and/or pneumonia redemonstrated. 2. Slight increase in size of small left pleural effusion. Dictated by: Soren SRINIVASAN Interpreted: Enrique Staley MD on 12/29/2016 at 10: 13 X-RAY KUB IMPRESSION: 1. No obstruction identified. 2. Abnormal appearance of the lungs redemonstrated with diffuse interstitial and airspace opacity similar to prior chest radiograph. Dictated by: Soren SRINIVASAN Interpreted: Enrique Staley MD on 12/27/2016 at 11: 00 X-RAY CHEST ONE VIEW, PORTABLE IMPRESSION: No significant interval change in florid pulmonary edema and/or bronchopneumonia. Dictated by: Curtis Levine M.D. on 12/24/2016 at 8:42 CT CHEST WITH CONTRAST IMPRESSION: 1. Bilateral lung consolidation decreased in size compared to prior examination compatible with resolving pneumonia or aspiration. 2. Bilateral lung interstitial prominence and ground glass opacities. Findings may be related to pneumonia, however finding is nonspecific and other etiologies including pulmonary edema can produce a similar appearance. 3. Trace bilateral pleural effusions. 4. Enlarged bilateral hilar and mediastinal lymph nodes decreased in size. Dictated by: Jordyn Dominguez MD, PhD on 12/23/2016 at 13:19 US RENAL SONOGRAM IMPRESSION: 1. A 1.4 cm cyst in the superior pole the right kidney. Otherwise normal ultrasound appearance of kidneys. No hydronephrosis. 2. Cholelithiasis. No ultrasound evidence for acute cholecystitis. Dictated by: Dwain Gaona M.D. on 12/18/2016 at 18:18 Approved by: Dwain Gaona M.D. on 12/18/2016 at 18:21 Additional Diagnostics ABG DateTimeAnalyzed 04:19:00 -_ pH ____7.345 - 7.350 7.450 pCO2 ___42.0__ -mmHg 35.0 45.0 pO2 110 -mmHg 69.0 116 HCO3- ___22.3__ -mmol/L 22.0 26.0 [facility] DateTimeAnalyzed 04:08:00 -_ pH ____7.444 - 7.350 7.450 pCO2 ___36.5__ -mmHg 35.0 45.0 pO2 ___83.2__ -mmHg 69.0 116 HCO3- ___24.6__ -mmol/L 22.0 26.0 US ARTERY LEG DUPLEX UNILATERAL/ILIAC CAVA, LEFT IMPRESSION: Minimal scattered plaque and no hemodynamically significant left lower extremity peripheral arterial stenosis. Dictated by: Soren SRINIVASAN Interpreted: Emmie Graves MD on 01/02/2017 at 16:38 Assessment & Plan Naveed Maciel is a 56 year old male with past medical history significant for COPD who presented to the emergency department via EMS complaining of dyspnea and 3 days of flu-like symptoms. Intubated after failing on BiPAP and admitted for septic shock and acute hypoxemic respiratory failure. Hospital 17. Vent day 17. 1. Pneumococcal pneumonia /pneumococcal bacteremia (septicemia), present on admission, improving. - CXR and CT as above. Strep pneumonia urine antigen positive. Blood and sputum cultures positive. Sensitive for penicillins. WBC trending down. Procalcitonin 180.83 on admission peaked at 612.48, trending down. - Ceftriaxone 2g IV daily. - Monitoring Procalcitonin every other day. Currently trending downward from 43.75.5 (12/27/16), currently down to 3.44. - Dr. Muhammad with infectious disease following, time and recommendations appreciated. 2. Altered mental status (septic encephalopathy), present on admission. Improving. - Responding to commands intermittently. Continue sedation vacations and weening off fentanyl and propofol. - ICU team following, recommendations appreciated. - EEG showed abnormal results as above. 3. Acute kidney injury on chronic kidney disease (stage 3), present on admission , active. - Unknown if patient has underlying chronic kidney disease. Patient continues to be anuric. On admission BUN 65 and creatinine 3.71 - Avoid nephrotoxic medications as able. - Nephrology consulted. Appreciate time and recommendations. - Placed femoral Lasha catheter for dialysis 12/31. Noted that his left femoral pulse was not palpable, unable to visualize on US. Will order arterial doppler of left leg for tomorrow 01/02. - Will continue dialysis. Goal of 3-4 L today. 4. Septic shock, present on admission, resolved. - Criteria include: HR 144, RR 41, O2 sats 83%, lactic acid 6.6, BUN 65, creatinine 3.71, procalcitonin 180.38. Etiology secondary to pneumococcal pneumonia and influenza A. - Right IJ in place 12/18. right radial arterial line lost 07/28 - Continue with low dose Dopamine for hypotension. 5. Severe ARDS, present on admission, active. Improving. - Etiology secondary to sepsis and pneumococcal pneumonia in the setting of COPD and past history of cocaine use. CT chest on 12/18 showed dense consolidation bilaterally within the dependent portions of the lung. Repeat CT chest was largely unchanged with some mild interval improvement in consolidation. Patient is also fluid up roughly 19 L which is certainly playing a role and inability to wean off the mechanical ventilation. - Patient intubated, sedated and using fentanyl, Versed, Precedex, and Nimbex. Sedation vacations daily. - Vent settings per Critical Care/Pulmonology Team. - Bronchoscopy 12/29/16. Bronchial washings pending for various pathogens. - ABG as above. - Albumin 25 G. 6. Acute pneumothorax. Not present on admission. Resolved. - Repeat CXR as above. 7. Metabolic alkalosis, not present on admission. Improving. - ABG as above - 8. Influenza A, present on admission, treated and resolved. - Oseltamivir 30 mg after each hemodialysis session. - Received Oseltamivir for 5 days for a total of 10 treatments 12/29/16 9. Thrombocytopenia, present on admission, stable. - Unknown baseline. Etiology likely sepsis. - On admission platelets 74. Currently 195. - DVT prophylaxis initiated 12/22. - DIC panel does not suggest DIC. No schistocytes on blood smear. - Platelets transfused 12/20 prior to dialysis catheter placement. - Will continue to monitor. 10. Upper GI bleed, present on admission, stable. - Coffee-ground material reported from OG tube on admission. Guaiac positive in the ED. Hemoglobin and hematocrit have decreased since admission but likely secondary to fluid resuscitation. - Type and cross with 2 units PRBCs on hold. - DVT prophylaxis started . - Pantoprazole 40 mg BID. - Will consider GI consult if H&H drops or more active bleeding is visualized. 12. COPD, present on admission, unknown baseline. 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 Unknown if patient has outpatient medication regimen. - Treatment as above. 12. Tobacco use, present on admission, chronic. - Consider Nicotine patch once patient awake. 13. Hyperglycemia, present on admission, active. - Insulin regular low dose correctional scale. - Hemoglobin A1c 5.7. Acetaminophen for mild pain when necessary. Bowel regimen Senna and MiraLAX scheduled and PRN. Zofran when necessary for nausea and vomiting. SubQ heparin. SCDs in place. High-risk medications: IV fentanyl Disposition: Patient currently intubated with severe ARDS. He continues to require 2 pressors. Reduction in FiO2 and PEEP is a positive step however his prognosis is guarded and he remains severely ill. Pain Evaluation: Adequate Pain Control GI Prophylaxis: Proton Pump Inhibitor VTE Prophylaxis: Sub-Q Heparin (Unfractionated) VTE Mechanical Devices: Intermittant Pneumatic CD Resuscitation Status: CPR: Attempt Resuscitation Time spent 45 minutes Attending Statement Patient was seen and examined with house staff. Agree with all attached documentation. KING STEELE DO Jan 03, 2017 06:47 Masoud Bruner MD Jan 04, 2017 15:12
[2017-01-04] VITALS (14 sets, daily range): BP systolic 97–131; BP diastolic 48–84; PULSE 67–112; RESP 23–30; O2SAT 88–98
[2017-01-04] MEDS: Propofol Inj 1,000,000 MCG in IV Premix 1 EACH IV SCH ×5 (01:14→22:10)
--- NOTE | 2017-01-04 04:25 | ABG ---
DateTimeAnalyzed 04:19:00 -_ pH ____7.429 - 7.350 7.450 pCO2 ___38.2__ -mmHg 35.0 45.0 pO2 ___38.3__ -mmHg 69.0 116 HCO3- ___24.8__ -mmol/L 22.0 26.0 ABE ____1.0__ -mmol/L -2.0 2.0 tHb ____8.6__ -g/dL O2Hb ___69.6__ -% COHb ____1.7__ -% MetHb ____1.3__ -% sO2 ___71.8__ -% 25.0 FIO2 ___45.0__ -% Pressure_Support ___16.0__ -cmH2O PEEP ___10.0__ -cmH2O Set_RR ___30.0__ -b/min Drawn By MK - Date/Time Notified____ 04:24:00 -_ Spontaneous_RR ___27.0__ -b/min Oxygen Device 1 VENTILATOR - Notified By MK - Notified Whom Don Beckwith RN -___ B 740 -mmHg tO2 ____8.5__ -Vol% Masoud test _Positive -
[2017-01-04] MEDS: Chlorhexidine 0.12% 15 mL Oral Solution MT SCH ×5 (04:47→19:53)
--- NOTE | 2017-01-04 04:54 | NUR ---
Mentation/Hemodynamics/GI Patient awake at times but not following all commands, sedated on Propofol and Fentanyl. Vital signs stable as noted, HR 70's SR with 1st degree block, tolerating vent well, small/moderate amount of creamy/white secretions from ET tube, see blood gas report, FIO2 increased due to results, tolerating TF well, blood sugars stable, residuals 15ml this AM, 150ml liquid stool out FMS, uneventful shift, will continue to monitor, no distress noted, no s/sx of pain noted. Addendum: 01/04/17 at 0502 by WILLIAM NORIEGA RN Amended: Links added.
[2017-01-04 05:52] LABS: EOSINOPHILS % (AUTO) 1.8 % (0-5); MONOCYTES % (AUTO) 9.1 % (4-12); Mean Corpuscular Hemoglobin 31.4 pg (27.0-35.0); Mean Corpuscular Volume 100.8 fL (81-100); NEUTROPHILS % (AUTO) 54.8 % (40-74); Platelet Count 174 bil/L (150-400)
[2017-01-04 06:33] LABS: Magnesium 2.2 mg/dL (1.6-2.6); Phosphorus 6.4 mg/dL (2.5-4.9)
[2017-01-04] MEDS ORDERED: KCl 20 mEq/100 mL(CENTRAL) 20 MEQ in IV Premix 1 EACH IV ONE (07:15)
[2017-01-04] MEDS: cefTRIAXone Inj 2,000 MG in Dextrose 5% Minibag Plus 50 ML IV SCH (07:25)
[2017-01-04] MEDS: Pantoprazole 4 mg/mL 10 mL Inj IVPUSH SCH ×2 (07:30→20:18)
[2017-01-04] MEDS: Heparin 5,000 Unit/mL Inj SUBQ SCH ×2 (07:31→15:50)
[2017-01-04] MEDS: Senna-Docusate 8.6-50 mg Tablet PO SCH ×2 (07:32→19:53)
--- NOTE | 2017-01-04 08:48 | DRSVH ---
PROCEDURE: X-RAY CHEST ONE VIEW, PORTABLE ([id number]) INDICATIONS: Intubated. TECHNIQUE: One view of the chest was acquired. COMPARISON: [facility], CR, XR CHEST 1VW (PORTABLE), 01/03/2017, 4:21. FINDINGS: Surgical changes and devices: Stable position of ETT, nasogastric tube and right IJ CVL. Lungs and pleura: Diffuse, widespread bilateral pulmonary interstitial and air space opacities are pr esent with no significant change from prior examination. Small pleural effusions persist. No pneumo thorax. Mediastinum: Mediastinal contours appear normal. Heart size is normal. Bones and chest wall: No suspicious bony lesions. Overlying soft tissues appear unremarkable. IMPRESSION: 1. Support lines and tubes as above. 2. Other than technique differences, no significant interval change in pulmonary edema and/or diffuse bilateral inflammatory process. Dictated by: Soren SRINIVASAN Interpreted: Dwain Gaona MD on 01/04/2017 at 8:45 Approved by: Soren SRINIVASAN Interpreted: Dwain Gaona MD on 01/04/2017 at 8:46
--- NOTE | 2017-01-04 09:05 | PROG NOTE ---
[address] [address] PROGRESS NOTE PATIENT: DOUGIE GARDUNO : 1960 MR#: [id number] ADMIT: 12/18/2016 JOB ID: [id number] DATE: 01/04/2017 INFECTIOUS DISEASE FOLLOWUP NOTE: REASON FOR FOLLOWUP: Influenza, followed by pneumococcal septic shock, with renal failure and ARDS. INTERVAL HISTORY: The patient is now entering his day in the hospital. He continues to slowly improve. Today, his eyes are wide open and he moves around the room and sometimes appears to focus on a person and/or track an object but not always. He does not follow any commands to my exam but at least he is gradually more awake. No additional history can be obtained from the patient. This case was discussed at the bedside with the ICU attending and nurse as we examined the patient. PHYSICAL EXAMINATION: Reveals a consistently afebrile gentleman. Current temp 37.1, pulse 67, blood pressure 93/48. He is on no vasopressor agents. He is on 50% FiO2, 10 of PEEP, and his sat is 96%. Examination of the eyes: No scleral icterus. Oral cavity notable for the endotracheal tube and orogastric tube. There is no thrush or herpetic lesions seen. The neck is without abnormality. Central line is without inflammation. Lungs with scattered rales, though perhaps less each day, at both bases. Cardiac tones: Regular rate and rhythm. Abdomen: Soft, slightly distended, nontender apparently. He has a Dubois catheter. No skin rash noted. LABORATORIES: Include a white count 7800 with completely normal diff. Creatinine 3.39, and he remains dialysis dependent. Alk phos slowly declining, now 163. Procalcitonin today is down to 2, as opposed to 3.5 two days ago. MICRO: Followup fungal blood cultures on the are negative. We have negative catheter tip cultures and negative bronch cultures from the as well. IMAGING: Chest x-rays continue to show ARDS. IMPRESSION: This patient is a stable and, in fact, is slowly improving. Hopefully, he will be ready for weaning here in the near future but he remains on significant levels of PEEP and FiO2. As to how long to continue his antibiotics, it is a bit unclear. His procalcitonin continues to fall steadily and there is no longer any evidence of infection. RECOMMENDATIONS: 1. I would continue with the ceftriaxone to complete three full weeks of therapy which would take us through January 08. 2. No additional antibiotics or microbiologic investigations are indicated at this time. 3. Infectious Disease will continue to follow with you but I do think we are nearing the end of his very long antibiotic treatment course.
[2017-01-04] MEDS: Dexmedetomidine 400 mCg/100 mL 400 MCG in IV Premix 1 EACH IV SCH (09:19)
--- NOTE | 2017-01-04 09:46 | PCM.PNMED ---
Subjective Date of Service Jan 04, 2017 Subjective Patient is continuing to have some slow improvement. His creatinine has gone up somewhat to a 3.39 however he has had 850 and urine output for the last 24 hours and most recently 500 mL cyst in the past 8 hours. His blood pressure remains good and there are plans to try a weaning trial on him today. This morning his sodium is 138, potassium 3.2, chloride 99, CO2 24, BUN/creatinine were 62 and 3.39. Phosphorus is 6.4 and albumin is 2.6. Exam Vital Signs Vital Sign - Last Date Time Temp Pulse Resp B/P Pulse Ox O2 Delivery O2 Flow Rate FiO2 01/04/17 07:52 37.1 67 24 98/48 Mechanical Ventilator 50 01/04/17 05:09 96 Intake and Output 01/03/17 01/03/17 01/04/17 Cumulative From/Thru 15:00 23:00 07:00 12/18/16 10:01 - 01/04/17 04:48 Intake Total 1312 ml 1197 ml 55368 ml Output Total 500 ml 700 ml 52603 ml Balance 812 ml 497 ml 50780 ml Intake Oral 0 ml IV Total 530 ml 452 ml 01021 ml Tube Feeding 577 ml 510 ml 63640 ml Platelets 461 ml Tube Irrigant 205 ml 235 ml 3273 ml Output Urine Total 450 ml 550 ml 9397 ml Stool Total 50 ml 150 ml 2750 ml Urine/Stool Mix 50 ml Gastric Drainage Total 1600 ml Ultrafiltrate 85662 ml # Bowel Movements 103 Exam Patient remains sedated and on a ventilator with pale sclera. Neck is supple without adenopathy thyromegaly or jugular venous distention. Lungs showed a few scattered rhonchi but otherwise are clear. Heart is regular and rhythmical with a soft systolic murmur. Abdomen is soft with some intermittent bowel sounds noted. There is no tenderness or masses noted. Extremities show some trivial lower extremity edema. Lab and Diagnostics Result Diagram: 01/04/1730 01/04/1730 Microbiology BCx and SCx positive for Strep pneumo Resp PCR positive for Flu A H3 Strep pneumo urine ag positive X-Rays, CTs and MRIs X-RAY CHEST ONE VIEW, PORTABLE IMPRESSION: 1. Support lines and tubes as above. 2. Pulmonary edema and/or diffuse bilateral inflammatory process. ARDS cannot be excluded. Dictated by: Soren Choffel RRA Interpreted: Emmie Graves MD on 01/02/2017 at 10: 38 X-RAY CHEST ONE VIEW, PORTABLE IMPRESSION: 1. Edema and/or pneumonia redemonstrated. 2. Slight increase in size of small left pleural effusion. Dictated by: Soren SRINIVASAN Interpreted: Enrique Staley MD on 12/29/2016 at 10: 13 X-RAY KUB IMPRESSION: 1. No obstruction identified. 2. Abnormal appearance of the lungs redemonstrated with diffuse interstitial and airspace opacity similar to prior chest radiograph. Dictated by: Soren SRINIVASAN Interpreted: Enrique Staley MD on 12/27/2016 at 11: 00 X-RAY CHEST ONE VIEW, PORTABLE IMPRESSION: No significant interval change in florid pulmonary edema and/or bronchopneumonia. Dictated by: Curtis Levine M.D. on 12/24/2016 at 8:42 CT CHEST WITH CONTRAST IMPRESSION: 1. Bilateral lung consolidation decreased in size compared to prior examination compatible with resolving pneumonia or aspiration. 2. Bilateral lung interstitial prominence and ground glass opacities. Findings may be related to pneumonia, however finding is nonspecific and other etiologies including pulmonary edema can produce a similar appearance. 3. Trace bilateral pleural effusions. 4. Enlarged bilateral hilar and mediastinal lymph nodes decreased in size. Dictated by: Jordyn Dominguez MD, PhD on 12/23/2016 at 13:19 US RENAL SONOGRAM IMPRESSION: 1. A 1.4 cm cyst in the superior pole the right kidney. Otherwise normal ultrasound appearance of kidneys. No hydronephrosis. 2. Cholelithiasis. No ultrasound evidence for acute cholecystitis. Dictated by: Dwain Gaona M.D. on 12/18/2016 at 18:18 Approved by: Dwain Ganoa M.D. on 12/18/2016 at 18:21 Additional Diagnostics ABG DateTimeAnalyzed 04:19:00 -_ pH ____7.345 - 7.350 7.450 pCO2 ___42.0__ -mmHg 35.0 45.0 pO2 110 -mmHg 69.0 116 HCO3- ___22.3__ -mmol/L 22.0 26.0 [facility] DateTimeAnalyzed 04:08:00 -_ pH ____7.444 - 7.350 7.450 pCO2 ___36.5__ -mmHg 35.0 45.0 pO2 ___83.2__ -mmHg 69.0 116 HCO3- ___24.6__ -mmol/L 22.0 26.0 US ARTERY LEG DUPLEX UNILATERAL/ILIAC CAVA, LEFT IMPRESSION: Minimal scattered plaque and no hemodynamically significant left lower extremity peripheral arterial stenosis. Dictated by: Soren GARGA Interpreted: Emmie Graves MD on 01/02/2017 at 16:38 Assessment & Plan Impression #1 acute tubular necrosis/acute kidney injury which appears to be an early resolution phase #2 hypokalemia #3 anemia of multiple etiologies number for hyperphosphatemia Recommendations #1 I would like to try to maximally concentrate all of his IV piggybacks. I would also like to try him on 80 mg of Lasix IV every 12 hours. GI Prophylaxis: Proton Pump Inhibitor VTE Prophylaxis: Sub-Q Heparin (Unfractionated) VTE Mechanical Devices: Intermittant Pneumatic CD Resuscitation Status: CPR: Attempt Resuscitation Hang Garsia DO Jan 04, 2017 09:46
[2017-01-04] MEDS: 0.9% Sodium Chloride 250 ML IV SCH (10:23)
[2017-01-04] MEDS: Furosemide 10 mg/mL 10 mL Inj IVPUSH SCH ×2 (10:23→19:53)
--- NOTE | 2017-01-04 11:45 | PROG NOTE ---
[address] [address] PROGRESS NOTE PATIENT: DOUGIE GARDUNO : 1960 MR#: [id number] ADMIT: 12/18/2016 JOB ID: [id number] DATE: 01/04/2017 PULMONARY CRITICAL CARE FOLLOWUP NOTE: PROBLEM LIST: 1. Adult respiratory distress syndrome. 2. Influenza A/pneumococcal pneumonia with bacteremia, resolved. 3. Acute renal failure, requiring dialysis. 4. Altered mental status. 5. Polysubstance abuse. 6. Weakness. SUBJECTIVE: None. OBJECTIVE: Temperature 37.1. Pulse 67 to 79, respiratory rate 24 with ventilator set at 24. Blood pressure 98/48. O2 sat on FiO2 of 50% and PEEP of 10 is 96. Subsequently, ventilator found to actually be delivering a PEEP of 7, with sats running in the mid to high 90s, namely 95-97. I and O shows 2.6 liters in, 0.8 liters out of which 775 mL is urine. Eyes open. Seems to focus on noises. Makes no attempt at cognitive response, however. Nose and throat could not be examined. Chest: Fairly good breath sounds bilaterally. Bronchial breath sounds in the left lower lung field anterolaterally. Heart: Regular rhythm. Heart tones normal. Abdomen is soft. Bowel tones present. Extremities: Warm and pink, 2+ edema upper extremities, maybe 1+ edema lower extremities. Patient on pressure-assist control ventilation. Ventilator is set at 10 of PEEP but receiving 7 of PEEP. Respiratory rate set at 24 tidal volumes. It is running at about 500 with pressure support of 16 over PEEP. LABORATORY DATA: Shows a stable white count of 7800 with a normal differential. Hemoglobin stable at 8.2 g/dL. Platelet count stable at 174,000. Sodium 138, potassium 3.2, chloride 99, CO2 is 24. BUN 62, up from 49 yesterday. Creatinine 3.39, up from 301 yesterday. Calcium 8.9, with an albumin of 2.6. Phosphorus moderately elevated at 6.4, upper limits normal being 4.9 mg/dL. Magnesium normal at 2.2. Total bilirubin and transaminases are normal. Alkaline phosphatase mildly elevated at 163, upper limits of normal being 150 units per L and falling. Chest x-ray shows no particular change. ASSESSMENT: 1. Adult respiratory distress syndrome. The patient may be doing better than I think. He actually is not on PEEP of 10 but rather 7. Will a swab out the ventilators and get a machine we can rely on and continue withdrawing ventilatory support. Can drop the respiratory rate maybe to about 20. Venous blood gases show a pCO2 of 38 and a pH of 7.42 suggesting a very mild alkalemia probably more metabolic in nature than respiratory. This is day 18 of the endotracheal tube. Will need to make a decision in the near future regarding tracheostomy. If he cannot be extubated in the next day or two, then I think we need to proceed towards tracheostomy. May be able to be extubated from a pulmonary standpoint if all goes well but I am not sure his mental status will protect his airway enough to allow extubation. We will see how he does today. Still likely has consolidation left lower lobe. He is moving more air but it seems to be bronchial but breath sounds implying consolidation. However, his oxygenation is improving significantly. 1. Mental status significantly improving other past 36 hours. Although still not significant cognitive function, he has his eyes open, is reacting to various stimuli and may be more functional than we believe. 2. Acute renal failure. Creatinine only climbed 0.4 mg/dL in the past 24 hours. Putting out reasonable amounts of urine and already has a few 100 mL in the urometer. Will speak with the Renal service about potassium. They will be attempting Lasix every 12 hours. Will speak to them about dialysis but I do not think he really needs it today but will get their thoughts. PLAN: 1. Swap out ventilator. 2. Will consider pressure support trials. Maybe something like 05/06 assuming he is actually on PEEP of 7. 3. Decrease ventilatory rate to about 20. 4. Fluids as per renal telecom sales consultant. TIME SPENT SO FAR ON CRITICAL CARE: 45 minutes.
--- NOTE | 2017-01-04 13:09 | NUR ---
Mentation/Activity.. Was able to have propofol and fentanyl gtts weaned down and pt is now more responsive and acknowledging when people walk into room. Not always purposeful in responding juancarlos requests, but is tracking more with eyes and will focus on TV. At 1140 pt was awake enough to participate in PT. Was able to dangle at edge of bed for 8 minutes, but towards end of activity was becoming increasingly agitated, with work of breathing and desats to the 80's with RR in the high 30's. Returned to bed and required suctioning, boluses of fentanyl and propofol and increase of Fio2 to return to baseline. Currently pt remains on lower propofol and fentanyl rates, and is calm and watching TV. MD aware of pt's intolerance with physical therapy.
--- NOTE | 2017-01-04 14:58 | PCM.PNMED ---
Subjective Date of Service Jan 04, 2017 Subjective Naveed Maciel is a 56 year old male with past medical history significant for COPD who presented to the emergency department via EMS complain of dyspnea. The following history is gathered from ED physicians report as patient was intubated and sedated at time of my exam. Patient reported three days of general malaise with myalgias, cough, and chills. Patient denied nausea, vomiting, chest pain, dizziness, lightheadedness, and abdominal pain. He developed worsening dyspnea which precipitated his presentation to the ED. EMS found the patient to have oxygen saturations of 70% initially and DuoNeb and ASA were administered en route. On presentation to the ED vitals were temperature 36.7, pulse 144, blood pressure 112/56, respiratory rate 41 on oxygen mask with pulse oximetry of 83%. Initial labs include BUN 65, creatinine 3.71, lactic acid 6.6, troponin 0.010, and procalcitonin 180.38. BiPAP and fluid resuscitation was initially attempted. This was unsuccessful and patient was subsequently intubated. Patient received 3L normal saline in the ED and vancomycin and Zosyn. Sister, Rakesh Tabares, was later contacted who had minimal information regarding brother. She states he is a current smoker and has COPD. She also notes he has a history of cocaine use but thinks that he has been clean for 2-3 years. To her knowledge his primary care physician is in [place], [place] but does not recall a name. He has had multiple hospitalizations over the past decade but she does not recall at which hospitals. He has never been intubated to her knowledge. Author - MESSI CORDERO DO, Dec 18, 2016 11:08 Ariel Berg MD Overnight: No acute overnight events. Decreased propofol down to 30 and patient became agitated and was difficult to ventilate. Today: He is awake and very agitated with fentanyl and propofol down to 40 and 30 currently. Continues to respond to verbal stimulus intermittently. Moves upper extremities and is actively sitting up coughing and reaching to pull the vent tube out. Exam Vital Signs Vital Sign - Last Date Time Temp Pulse Resp B/P Pulse Ox O2 Delivery O2 Flow Rate FiO2 01/04/17 12:05 Ventilator 01/04/17 12:05 37.2 109 30 122/74 88 50 Intake and Output 2/01/03/17 01/04/17 Cumulative From/Thru 15:00 23:00 07:00 12/18/16 10:01 - 01/04/17 04:48 Intake Total 1312 ml 1197 ml 47598 ml Output Total 500 ml 700 ml 69625 ml Balance 812 ml 497 ml 42696 ml Intake Oral 0 ml IV Total 530 ml 452 ml 01267 ml Tube Feeding 577 ml 510 ml 38129 ml Platelets 461 ml Tube Irrigant 205 ml 235 ml 3273 ml Output Urine Total 450 ml 550 ml 9397 ml Stool Total 50 ml 150 ml 2750 ml Urine/Stool Mix 50 ml Gastric Drainage Total 1600 ml Ultrafiltrate 95189 ml # Bowel Movements 103 Exam General: Intubated and sedated and paralyzed. Head: Normocephalic, atraumatic. External ears without defect. Eyes: Pupils equal, round, and reactive to light and accommodation. Anicteric sclerae, moist conjunctivae. Cardiovascular: Regular rate and rhythm with no murmurs, rubs, or gallops appreciated. Pulmonary: CTAB. Greatly improved today. very mild wheezes, very mild rhonchi, no rales. Abdomen: Soft, moderately distended, hypoactive bowel sounds. Old midline surgical incision present. Extremities: Moderate pitting edema on lower and upper extremities bilaterally. Skin: Faint macular papular rash on upper chest and shoulders. Neurological: Intubated and sedated and paralyzed. IVs and Medications Medications Reviewed: Medications were reviewed in detail Lab and Diagnostics Result Diagram: 01/04/17 0530 01/04/17 0530 Microbiology BCx and SCx positive for Strep pneumo Resp PCR positive for Flu A H3 Strep pneumo urine ag positive X-Rays, CTs and MRIs X-RAY CHEST ONE VIEW, PORTABLE IMPRESSION: 1. Support lines and tubes as above. 2. Pulmonary edema and/or diffuse bilateral inflammatory process. ARDS cannot be excluded. Dictated by: Soren SRINIVASAN Interpreted: Emmie Graves MD on 01/02/2017 at 10: 38 X-RAY CHEST ONE VIEW, PORTABLE IMPRESSION: 1. Edema and/or pneumonia redemonstrated. 2. Slight increase in size of small left pleural effusion. Dictated by: Soren SRINIVASAN Interpreted: Enrique Staley MD on 12/29/2016 at 10: 13 X-RAY KUB IMPRESSION: 1. No obstruction identified. 2. Abnormal appearance of the lungs redemonstrated with diffuse interstitial and airspace opacity similar to prior chest radiograph. Dictated by: Soren Johnson RRWilliam Interpreted: Enrique Staley MD on 12/27/2016 at 11: 00 X-RAY CHEST ONE VIEW, PORTABLE IMPRESSION: No significant interval change in florid pulmonary edema and/or bronchopneumonia. Dictated by: Curtis Levine M.D. on 12/24/2016 at 8:42 CT CHEST WITH CONTRAST IMPRESSION: 1. Bilateral lung consolidation decreased in size compared to prior examination compatible with resolving pneumonia or aspiration. 2. Bilateral lung interstitial prominence and ground glass opacities. Findings may be related to pneumonia, however finding is nonspecific and other etiologies including pulmonary edema can produce a similar appearance. 3. Trace bilateral pleural effusions. 4. Enlarged bilateral hilar and mediastinal lymph nodes decreased in size. Dictated by: Jordyn Dominguez MD, PhD on 12/23/2016 at 13:19 US RENAL SONOGRAM IMPRESSION: 1. A 1.4 cm cyst in the superior pole the right kidney. Otherwise normal ultrasound appearance of kidneys. No hydronephrosis. 2. Cholelithiasis. No ultrasound evidence for acute cholecystitis. Dictated by: Dwain Gaoan M.D. on 12/18/2016 at 18:18 Approved by: Dwain Gaona M.D. on 12/18/2016 at 18:21 Additional Diagnostics ABG DateTimeAnalyzed 04:19:00 -_ pH ____7.345 - 7.350 7.450 pCO2 ___42.0__ -mmHg 35.0 45.0 pO2 110 -mmHg 69.0 116 HCO3- ___22.3__ -mmol/L 22.[address] [facility] DateTimeAnalyzed 04:08:00 -_ pH ____7.444 - 7.350 7.450 pCO2 ___36.5__ -mmHg 35.0 45.0 pO2 ___83.2__ -mmHg 69.0 116 HCO3- ___24.6__ -mmol/L 22.0 26.0 US ARTERY LEG DUPLEX UNILATERAL/ILIAC CAVA, LEFT IMPRESSION: Minimal scattered plaque and no hemodynamically significant left lower extremity peripheral arterial stenosis. Dictated by: Soren SRINIVASAN Interpreted: Emmie Graves MD on 01/02/2017 at 16:38 Assessment & Plan Naveed Maciel is a 56 year old male with past medical history significant for COPD who presented to the emergency department via EMS complaining of dyspnea and 3 days of flu-like symptoms. Intubated after failing on BiPAP and admitted for septic shock and acute hypoxemic respiratory failure. Hospital 18. Vent day 18. 1. Altered mental status, present on admission. Improving. - Unclear etiology, perhaps toxin induced.Hard to say at this point. - Responding to commands intermittently. Continue sedation vacations and weening off fentanyl and propofol. - ICU team following, recommendations appreciated. - Continue to ween off sedation ie.. fentanyl and propofol. - EEG showed abnormal results as above. - Will plan to consult surgery for tracheostomy and PEG tube. 2. Severe ARDS, present on admission, active. Improving. - Etiology secondary to sepsis and pneumococcal pneumonia in the setting of COPD and past history of cocaine use. CT chest on 12/18 showed dense consolidation bilaterally within the dependent portions of the lung. Repeat CT chest was largely unchanged with some mild interval improvement in consolidation. Patient is also fluid up roughly 17 L which is certainly playing a role and inability to wean off the mechanical ventilation. - Patient intubated, sedated and using fentanyl and propofol. Sedation vacations daily. - Vent settings per Critical Care/Pulmonology Team. - Bronchoscopy 12/29/16. Bronchial washings pending for various pathogens. - ABG as above. - Albumin 25 G. 3. Pneumococcal pneumonia /pneumococcal bacteremia, present on admission, improving. - CXR and CT as above. Strep pneumonia urine antigen positive. Blood and sputum cultures positive. Sensitive for penicillins. WBC trending down. Procalcitonin 180.83 on admission peaked at 612.48, trending down. - Ceftriaxone 2g IV daily. - Monitoring Procalcitonin every other day. Currently trending downward from 43.75.5 (12/27/16), currently down to 3.44. - Dr. Muhammad with infectious disease following, time and recommendations appreciated. 4. Acute kidney injury on chronic kidney disease, present on admission, active. - Unknown if patient has underlying chronic kidney disease. Patient continues to be anuric. On admission BUN 65 and creatinine 3.71 - Avoid nephrotoxic medications as able. - Nephrology consulted. Appreciate time and recommendations. - Placed femoral Lasha catheter for dialysis 12/31. Noted that his left femoral pulse was not palpable, unable to visualize on US. Will order arterial doppler of left leg for tomorrow 01/02. - Will continue dialysis. Did not receive dialysis today or yesterday. (01/03, ) - Per nephrology will add 80 IV lasix Q12. 5. Septic shock, present on admission, resolved. - Criteria include: HR 144, RR 41, O2 sats 83%, lactic acid 6.6, BUN 65, creatinine 3.71, procalcitonin 180.38. Etiology secondary to pneumococcal pneumonia and influenza A. - Right IJ in place 12/18. right radial arterial line lost 07/28 6. Acute pneumothorax. Not present on admission. Resolved. - Repeat CXR as above. 7. Metabolic alkalosis, not present on admission. Improving. - ABG as above - 8. Influenza A, present on admission, treated and resolved. - Oseltamivir 30 mg after each hemodialysis session. - Received Oseltamivir for 5 days for a total of 10 treatments 12/29/16 9. Thrombocytopenia, present on admission, stable. - Unknown baseline. Etiology likely sepsis. - On admission platelets 74. Currently 195. - DVT prophylaxis initiated 12/22. - DIC panel does not suggest DIC. No schistocytes on blood smear. - Platelets transfused 2/ prior to dialysis catheter placement. - Will continue to monitor. 10. Upper GI bleed, present on admission, stable. - Coffee-ground material reported from OG tube on admission. Guaiac positive in the ED. Hemoglobin and hematocrit have decreased since admission but likely secondary to fluid resuscitation. - Type and cross with 2 units PRBCs on hold. - DVT prophylaxis started . - Pantoprazole 40 mg BID. - Will consider GI consult if H&H drops or more active bleeding is visualized. 12. COPD, present on admission, unknown baseline. 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 Unknown if patient has outpatient medication regimen. - Treatment as above. 12. Tobacco use, present on admission, chronic. - Consider Nicotine patch once patient awake. 13. Hyperglycemia, present on admission, active. - Insulin regular low dose correctional scale. - Hemoglobin A1c 5.7. Acetaminophen for mild pain when necessary. Bowel regimen Senna and MiraLAX scheduled and PRN. Zofran when necessary for nausea and vomiting. SubQ heparin. SCDs in place. High-risk medications: IV fentanyl Disposition: Patient currently intubated with severe ARDS. He continues to require 2 pressors. Reduction in FiO2 and PEEP is a positive step however his prognosis is guarded and he remains severely ill. Pain Evaluation: Adequate Pain Control GI Prophylaxis: Proton Pump Inhibitor VTE Prophylaxis: Sub-Q Heparin (Unfractionated) VTE Mechanical Devices: Intermittant Pneumatic CD Resuscitation Status: CPR: Attempt Resuscitation Time spent 35 minutes Attending Statement Patient seen and examined with housestaff, agree with all attached documentation. KING STEELE DO Jan 04, 2017 14:42 Masoud Bruner MD Jan 05, 2017 09:36
[2017-01-04] MEDS: fentaNYL 2,500 mCg/250 mL 2,500 MCG in IV Premix 1 EACH IV SCH (19:52)
[2017-01-05] VITALS (12 sets, daily range): BP systolic 96–136; BP diastolic 54–70; PULSE 74–90; RESP 22–29; O2SAT 93–100
[2017-01-05] MEDS: Heparin 5,000 Unit/mL Inj SUBQ SCH ×3 (00:37→16:30)
[2017-01-05] MEDS: Chlorhexidine 0.12% 15 mL Oral Solution MT SCH ×6 (00:37→21:06)
[2017-01-05] MEDS: Propofol Inj 1,000,000 MCG in IV Premix 1 EACH IV SCH ×4 (02:07→19:21)
--- NOTE | 2017-01-05 03:37 | NUR ---
Mentation/Cardiac/Resp/GI Patient very agitated and awake at start of shift, nodded yes when asked if in pain but not following all simple commands, trying to sit up and pulling at restraints, Fentanyl and Propofol increased to keep patient more comfortable, patient still opens eyes when staff goes into room, HR 80's 1 degree AV block, BP stable, moderate secretions from ET tube, Tolerating TF well, minimal residuals, uneventful shift, will continue to monitor, no distress noted. Addendum: 01/05/17 at 0514 by WILLIAM NORIEGA RN Amended: Links added.
--- NOTE | 2017-01-05 04:25 | ABG ---
DateTimeAnalyzed 04:19:00 -_ pH ____7.452 - 7.350 7.450 pCO2 ___38.5__ -mmHg 35.0 45.0 pO2 ___69.8__ -mmHg 69.0 116 HCO3- ___26.5__ -mmol/L 22.0 26.0 ABE ____2.9__ -mmol/L -2.0 2.0 tHb ____9.3__ -g/dL O2Hb ___92.3__ -% COHb ____1.5__ -% MetHb ____1.3__ -% sO2 ___95.0__ -% 25.0 FIO2 ___50.0__ -% Pressure_Support ___16.0__ -cmH2O Set_RR ___29.0__ -b/min Drawn By MK - Date/Time Notified____ 04:24:00 -_ Spontaneous_RR ___24.0__ -b/min Oxygen Device 1 VENTILATOR - Notified By MK - B 751 -mmHg tO2 ___12.1__ -Vol% Masoud test _Positive -
[2017-01-05 04:54] LABS: BASOPHILS % (AUTO) 0.7 % (0-3); EOSINOPHILS % (AUTO) 1.5 % (0-5); MONOCYTES % (AUTO) 7.8 % (4-12); Mean Corpuscular Hemoglobin 32.5 pg (27.0-35.0); Mean Corpuscular Volume 101.1 fL (81-100); NEUTROPHILS % (AUTO) 61.5 % (40-74); Platelet Count 199 bil/L (150-400)
[2017-01-05 05:36] LABS: INR 1.17 ratio
[2017-01-05 05:38] LABS: Magnesium 2.2 mg/dL (1.6-2.6); Phosphorus 6.2 mg/dL (2.5-4.9)
[2017-01-05] MEDS: Dexmedetomidine 400 mCg/100 mL 400 MCG in IV Premix 1 EACH IV SCH (07:54)
[2017-01-05] MEDS: Furosemide 10 mg/mL 10 mL Inj IVPUSH SCH ×2 (08:30→08:31)
[2017-01-05] MEDS: Senna-Docusate 8.6-50 mg Tablet PO SCH ×2 (08:30→21:06)
[2017-01-05] MEDS: Pantoprazole 4 mg/mL 10 mL Inj IVPUSH SCH ×2 (08:31→21:06)
[2017-01-05] MEDS: 0.9% Sodium Chloride 250 ML IV SCH (08:31)
[2017-01-05] MEDS: cefTRIAXone Inj 2,000 MG in Dextrose 5% Minibag Plus 50 ML IV SCH (08:31)
--- NOTE | 2017-01-05 08:36 | DRSVH ---
PROCEDURE: X-RAY CHEST ONE VIEW, PORTABLE ([id number]) INDICATIONS: ARDS TECHNIQUE: One view of the chest was acquired. COMPARISON: [facility], CR, XR CHEST 1VW (PORTABLE), 01/04/2017, 4:22. FINDINGS: Surgical changes and devices: Stable position of ETT, nasogastric tube and right IJ CVL. Lungs and pleura: Diffuse, widespread bilateral pulmonary interstitial and air space opacities are pr esent slightly decreased from prior examination. Small pleural effusions persist. No pneumothorax. Mediastinum: Mediastinal contours appear normal. Heart size is normal. Bones and chest wall: No suspicious bony lesions. Overlying soft tissues appear unremarkable. IMPRESSION: 1. Slight increase in aeration and minimal improvement of pulmonary edema and/or diffuse bilateral in flammatory process. Dictated by: Soren Johnson [facility] Interpreted: Emmie Graves MD on 01/05/2017 at 8:34 Transcribed by: SNEHA on 01/05/2017 at 8:35 Approved by: Emmie Graves M.D. on 01/05/2017 at 16:00
--- NOTE | 2017-01-05 09:50 | NUR ---
NUTRITION FOLLOW-UP: ASSESS: 56 YO male admitted with septic shock and acute hypoxemic respiratory failure with pneumococcal pneumonia / bacteremia and influenza A. Pt remains intubated and sedated. He is 15 liters positive and has not received dialysis for several days. Per Aircraft Maintenance Manager, 2 open areas noted at scrotum, perhaps due to swelling and chafing from previous anasarca, open area on left testicle is approx 2 cm L x 1.5 cm W x 0.1 cm D, right testicle open area is 1 cm L x 1 cm W x 0.1 cm D. Enteral feeding remains at goal rate, well tolerated with minimal residuals. Plan per Dr. Newberry is to hold off on tracheostomy and PEG tube placement, with a goal of extubation Monday 01/08, depending on events over weekend. Fentanyl and propofol rates were increased overnight due to significant agitation. PMHX: COPD, Past history of drug abuse (per sister), tobacco user. No other history obtained d/t intubation and sedation. LABS: Reviewed. K+ 3.3, BUN 66, Cr 3.11, Glu 117, Phos 6.2, Alk Phos 177, Alb 2.9, Lipase 79. MEDS: Reviewed. Fentanyl, Propofol @ 18 ml/hr providing 475 kcal per day. GI: FMS - 200 ml output (01/04). SKIN: [place] 12. WT: 79.6 kg BMI 26.0 kg/m2 IBW: 68.4 kg Admit Wt: 80 kg (BMI: 26.8 kg/m2) DIET: NPO NUTRITION SUPPORT: Nepro currently at goal rate 55 ml/hr, providing 2653 (2178 formula + 475 Propofol), 98 g protein to meet 100% of calorie and protein needs. ESTIMATED NEEDS: Vent, COPD, Dialysis (recalculated 01/01) Calories: 0058-0378 kcal/day (30-35 kcal/kg Admit BW) Protein: 95-160 g/day (1.2-2.0 g/kg Admit BW) Fluids: ~2000 ml (25 ml/kg Admit BW) NUTRITION DIAGNOSIS: 1) Inadequate oral intake related to inability to consume sufficient energy as evidenced by NPO status and ventilation - IMPROVED W/ ENTERAL NUTRITION @ GOAL RATE. 2) Increased nutrient needs related to difficulty breathing as evidenced by COPD and acute respiratory failure / severe ARDS - PERSISTS. NUTRITION INTERVENTION: 1) No additional intervention at this time. 2) Adjust TF rate based on daily propofol rate. MONITOR/EVALUATE: Enteral feeding tolerance, vent status, medications, wt, labs, GI, nutrition status, POC. Will continue to monitor per high nutritional risk guidelines.
[2017-01-05] MEDS ORDERED: KCl 40 mEq/100 mL (CENTRAL) 40 MEQ in IV Premix 1 EACH IV ONE (10:10)
--- NOTE | 2017-01-05 10:26 | NUR ---
KENDALL: Patient continues to be vented asked STRATEGIC ANALYST to follow up with family or [facility] for KENDALL
--- NOTE | 2017-01-05 10:44 | NUR ---
KENDALL Signed Verbal Consent via phone from family
--- NOTE | 2017-01-05 10:45 | NUR ---
Social Work: Continued Discharge Planning D: Pt discussed in am rounds. Pt remains in CCU and vented but is making progress. states that CCU team is anticipating that if pt continues to progress they will try for extubation on Sunday. If pt is not extubated pt to likely require trach/peg placement and possible transfer to [facility]. Family was also provided copy of SNF Choice List earlier in the week. BUSINESS INTELLIGENCE MANAGER to continue to follow pt's progress and will follow up with family and team with appropriate discharge planning as pt's clinical course. BILLING SERVICES MANAGER is aware of possible [facility] referral and will also be following to determine necessary referrals. A: Pt who is from home with a friend. P: Evolving; Follow up with respiratory progress and determine if pt will require Trach/PEG and a referral to [facility] versus alternate discharge plan. TATYANA Sierra
--- NOTE | 2017-01-05 11:48 | PROG NOTE ---
[address] [address] PROGRESS NOTE PATIENT: DOUGIE GARDUNO : 1960 MR#: [id number] ADMIT: 12/18/2016 JOB ID: [id number] DATE: 01/05/2017 PULMONARY CRITICAL CARE FOLLOW UP NOTE: PROBLEMS: 1. ARDS. 2. Acute renal failure. 3. Altered mental status. 4. Polysubstance abuse. 5. Weakness. SUBJECTIVE: None. OBJECTIVE: Temperature 37, pulse 74-88, respiratory rate 24 with ventilator set at 24. Blood pressure 128/62, O2 sat on FiO2 of 50%, PEEP of 10, is 94%. I and O shows 2.6 liters in, 2.9 liters out. General appearance: Eyes open. Alerts to voice. Seems to track to some extent. However, no cognitive replies. Conjunctivae are pink. Nose and throat could not be examined. Chest: Fairly good breath sounds bilaterally. Suggestion of a few crackles at the left base with just a hint of bronchial breath sounds at the left base. However, better air entry. Heart: Regular rhythm. Heart tones seem normal. Abdomen: Soft. Bowel tones present. Extremities: Trace to 1+ pretibial edema of the lower extremities. 2+ edema upper extremities. Yesterday was moving both upper and lower extremities. Given pressure support trial, pressure support of 20/10. Respiratory rate started at 17. After 15 minutes, was in the high 20s-low 30s. Tidal volume was about 500. LABORATORY DATA: Shows a white count of 10,000, 61 polymorphonuclears, 27 lymphocytes, 7 monocytes. Hemoglobin 8.9. Platelet count 199,000. Sodium 142, potassium 3.3, being replaced, chloride 100, carbon dioxide 27, BUN 66 with a creatinine of 3.1, down from 3.39 yesterday. Calcium 9.4, phosphorus 6.2, magnesium 2.2. Total bilirubin 0.3. Transaminases are normal. Alkaline phosphatase minimally elevated 177, upper limits of normal being 150 units per L and stable. Albumin 2.9. IMAGING: Chest x-ray showed some slight decrement in the interstitial and airspace opacities. ASSESSMENT: 1. Acute respiratory distress syndrome. Some improvement radiographically. Oxygenating a bit better. Did reasonably well with pressure support given his long intubation and obvious weakness. The plan was to do a tracheostomy today but I think we might give him a few more days to see if we can get him extubated without the trach. He seems to be a fair amount stronger, did fairly well with pressure support and certainly is much more awake. 2. Mental status. As above. Seems to be clearing. 3. Acute renal failure. The patient has not had dialysis for 48 hours at this point. He is putting out reasonable amounts of urine with urine output yesterday being 2.7 L. For the first time, he has decreased his creatinine and hopefully his kidneys are on the mend and he will auto diurese. PLAN: 1. Vent change, decrease PEEP to 8. 2. Repeat the pressure support trial this afternoon maybe going 0.5 hour if he tolerates it, but if he gets his rate above 30, would limit it. 3. Hold off on tracheostomy. 4. Potassium supplementation ongoing. Situation discussed with the hospitalist. Also discussed holding off on the trach with General Surgery. TIME SPENT: On critical care is 60 minutes.
--- NOTE | 2017-01-05 11:50 | PCM.PNMED ---
Subjective Date of Service Jan 05, 2017 Subjective Patient's renal function continues to improve. For the last 24 hours she said 2647 in and 2950 out. Swelling is already had 2850 out. He remains on the ventilator but is also had a marked improvement in his overall condition. His sodium was 142 potassium 3.3 chloride 100 CO2 27 BUN and creatinine were 66 and 3.1 and 1 was 2.9. Exam Vital Signs Vital Sign - Last Date Time Temp Pulse Resp B/P Pulse Ox O2 Delivery O2 Flow Rate FiO2 01/05/17 08:10 29 94 01/05/17 08:10 85 127/61 50 01/05/17 08:00 Ventilator 01/05/17 08:00 37.0 Intake and Output 01/04/17 01/04/17 01/05/17 Cumulative From/Thru 15:00 23:00 07:00 12/18/16 10:01 - 01/05/17 05:05 Intake Total 1450 ml 1315 ml 22907 ml Output Total 2250 ml 2850 ml 87158 ml Balance -800 ml -1535 ml 97667 ml Intake Oral 0 ml IV Total 546 ml 447 ml 42023 ml Tube Feeding 649 ml 628 ml 58466 ml Platelets 461 ml Tube Irrigant 255 ml 240 ml 3768 ml Output Urine Total 2200 ml 2400 ml 09738 ml Stool Total 50 ml 450 ml 3250 ml Urine/Stool Mix 50 ml Gastric Drainage Total 1600 ml Ultrafiltrate 06480 ml # Bowel Movements 103 Exam HEENT examination is remarkable for bitemporal wasting and sclera. Neck is supple without adenopathy thyromegaly or jugular venous distention. Lungs were clear to auscultation. Heart regular with soft systolic murmur. Abdomen is soft without any tenderness rebound guarding masses or hepatosplenomegaly. Examination showed evidence of any clubbing cyanosis or edema. Skin turgor is diminished. Lab and Diagnostics Result Diagram: 01/05/1742901/05/17429 Microbiology BCx and SCx positive for Strep pneumo Resp PCR positive for Flu A H3 Strep pneumo urine ag positive X-Rays, CTs and MRIs X-RAY CHEST ONE VIEW, PORTABLE IMPRESSION: 1. Support lines and tubes as above. 2. Pulmonary edema and/or diffuse bilateral inflammatory process. ARDS cannot be excluded. Dictated by: Soren Johnson RRWilliam Interpreted: Emmie Graves MD on 01/02/2017 at 10: 38 X-RAY CHEST ONE VIEW, PORTABLE IMPRESSION: 1. Edema and/or pneumonia redemonstrated. 2. Slight increase in size of small left pleural effusion. Dictated by: Soren SRINIVASAN Interpreted: Enrique Staley MD on 12/29/2016 at 10: 13 X-RAY KUB IMPRESSION: 1. No obstruction identified. 2. Abnormal appearance of the lungs redemonstrated with diffuse interstitial and airspace opacity similar to prior chest radiograph. Dictated by: Soren SRINIVASAN Interpreted: Enrique Staley MD on 12/27/2016 at 11: 00 X-RAY CHEST ONE VIEW, PORTABLE IMPRESSION: No significant interval change in florid pulmonary edema and/or bronchopneumonia. Dictated by: Curtis Levine M.D. on 12/24/2016 at 8:42 CT CHEST WITH CONTRAST IMPRESSION: 1. Bilateral lung consolidation decreased in size compared to prior examination compatible with resolving pneumonia or aspiration. 2. Bilateral lung interstitial prominence and ground glass opacities. Findings may be related to pneumonia, however finding is nonspecific and other etiologies including pulmonary edema can produce a similar appearance. 3. Trace bilateral pleural effusions. 4. Enlarged bilateral hilar and mediastinal lymph nodes decreased in size. Dictated by: Jordyn Dominguez MD, PhD on 12/23/2016 at 13:19 US RENAL SONOGRAM IMPRESSION: 1. A 1.4 cm cyst in the superior pole the right kidney. Otherwise normal ultrasound appearance of kidneys. No hydronephrosis. 2. Cholelithiasis. No ultrasound evidence for acute cholecystitis. Dictated by: Dwain Gaona M.D. on 12/18/2016 at 18:18 Approved by: Dwain Gaona M.D. on 12/18/2016 at 18:21 Additional Diagnostics ABG DateTimeAnalyzed 04:19:00 -_ pH ____7.345 - 7.350 7.450 pCO2 ___42.0__ -mmHg 35.0 45.0 pO2 110 -mmHg 69.0 116 HCO3- ___22.3__ -mmol/L 22.0 26.0 [facility] DateTimeAnalyzed 04:08:00 -_ pH ____7.444 - 7.350 7.450 pCO2 ___36.5__ -mmHg 35.0 45.0 pO2 ___83.2__ -mmHg 69.0 116 HCO3- ___24.6__ -mmol/L 22.0 26.0 US ARTERY LEG DUPLEX UNILATERAL/ILIAC CAVA, LEFT IMPRESSION: Minimal scattered plaque and no hemodynamically significant left lower extremity peripheral arterial stenosis. Dictated by: Soren SRINIVASAN Interpreted: Emmie Graves MD on 01/02/2017 at 16:38 Assessment & Plan Impression #1 acute tubular necrosis which is currently in diuretic phase #2 hypokalemia #3 transient intravascular volume depletion Recommendations #1 I agree with discontinuing his furosemide and would liberalize his fluids via his NG tube and perhaps a small maintenance IV. When I will also go ahead and hold his dialysis catheter out. GI Prophylaxis: Proton Pump Inhibitor VTE Prophylaxis: Sub-Q Heparin (Unfractionated) VTE Mechanical Devices: Intermittant Pneumatic CD Resuscitation Status: CPR: Attempt Resuscitation Hang Garsia DO Jan 05, 2017 11:50
--- NOTE | 2017-01-05 19:28 | PROG NOTE ---
[address] [address] PROGRESS NOTE PATIENT: DOUGIE GARDUNO : 1960 MR#: [id number] ADMIT: 12/18/2016 JOB ID: [id number] DATE: 01/05/2017 INFECTIOUS DISEASE FOLLOWUP NOTE: REASON FOR FOLLOWUP: Influenza complicated by pneumococcal septic shock with ventilatory dependent respiratory failure and ARDS. INTERVAL HISTORY: The patient remains intubated and sedated, but he is gradually becoming more awake and in general is improving. His ventilator settings are being slowly decreased and he is tolerating that well at this point. This evening when I see the patient he opens his eyes when his name is called and follows with his eyes as I move around the room but he does not interact or squeeze my hand or perform any purposeful act beyond that. PHYSICAL EXAMINATION: Reveals an afebrile gentleman, temperature is 37 degrees, and he has been afebrile now for many days. Pulse 78, respiratory rate is ventilator dependent, though he does breathe some on his own. Blood pressure 120/61, saturating well on 45% and 8 of PEEP, which is improved over the levels of last few days. He has no skin rashes. Eyes without conjunctivitis. The oral endotracheal tube and orogastric tube are in good position. Lungs with a few crackles at the bases but getting better. Cardiac tones without murmur. Abdomen soft and nontender. No skin rash. Right neck central line in good position. LABORATORIES: Include a white count of 10,000 his creatinine is 3.11 and alk phos 177 and stable, ALT and AST are normal. Procalcitonin is down to 1.83 and I suspect that may be about as low as it is going to go until his renal function improves. No new cultures are available, though he did have blood cultures on the because of a fever spike; those are negative. There was also bronchoscopy on the which was basically negative and a cath tip on the was cultured and that was negative. IMPRESSION: This patient's overall course is one of slow but steady improvement. He continues to have acute tubular necrosis, currently in the diuretic phase, and we hope that his kidneys will be improving. Likewise, he has ARDS but his respiratory numbers are improving a bit, and we hope that this trend also holds. I agree with the notes in the chart that suggest we should hold off on tracheostomy in the hopes that we can get this patient through this horrific episode without a tracheostomy. With respect to his antibiotics, it is very difficult to know how long to continue the ceftriaxone. His procalcitonin has been continuing to fall but we are now approaching three total weeks of antibiotics, which would seem to be more than enough. I think it is worthwhile to just go ahead and pick a stop date, which will be three weeks total therapy ending on January 08. RECOMMENDATIONS: 1. Will go ahead and discontinue the ceftriaxone January 08 and I have written a stop date. 2. I am going to go ahead and sign off at this point, but please do not hesitate to call me if there are other concerns or questions with this patient going forward. I hope that from now on his course will be one of significant pulmonary and renal improvement and will have his antibiotics stopped here in just a couple of days.
--- NOTE | 2017-01-05 19:35 | NUR ---
Activity/ PS trial... pt is more responsive and awake each day. Was able to do a brief pressure support trial and juancarlos this well. Was able to dangle on edge of bed and today juancarlos activity well without any desats or tachycardia. Dialysis cath removed per MD and site remains stable without signs of bleeding. Sister Milind here and updated on plan of care.
--- NOTE | 2017-01-05 19:51 | PCM.PNMED ---
Subjective Date of Service Jan 05, 2017 Subjective Naveed Maciel is a 56 year old male with past medical history significant for COPD who presented to the emergency department via EMS complain of dyspnea. The following history is gathered from ED physicians report as patient was intubated and sedated at time of my exam. Patient reported three days of general malaise with myalgias, cough, and chills. Patient denied nausea, vomiting, chest pain, dizziness, lightheadedness, and abdominal pain. He developed worsening dyspnea which precipitated his presentation to the ED. EMS found the patient to have oxygen saturations of 70% initially and DuoNeb and ASA were administered en route. On presentation to the ED vitals were temperature 36.7, pulse 144, blood pressure 112/56, respiratory rate 41 on oxygen mask with pulse oximetry of 83%. Initial labs include BUN 65, creatinine 3.71, lactic acid 6.6, troponin 0.010, and procalcitonin 180.38. BiPAP and fluid resuscitation was initially attempted. This was unsuccessful and patient was subsequently intubated. Patient received 3L normal saline in the ED and vancomycin and Zosyn. Sister, Rakesh Tabares, was later contacted who had minimal information regarding brother. She states he is a current smoker and has COPD. She also notes he has a history of cocaine use but thinks that he has been clean for 2-3 years. To her knowledge his primary care physician is in [place], [place] but does not recall a name. He has had multiple hospitalizations over the past decade but she does not recall at which hospitals. He has never been intubated to her knowledge. Author - MESSI CORDERO DO, Dec 18, 2016 11:08 Ariel Berg MD Overnight: No acute overnight events. Decreased propofol and fentanyl as tolerated. Today: He is much more awake and less agitated. Continues to respond to verbal stimulus increasingly by the day. Moves upper extremities and is actively sitting up making eye contact and makes attempts to squeeze upon request. Exam Vital Signs Vital Sign - Last Date Time Temp Pulse Resp B/P Pulse Ox O2 Delivery O2 Flow Rate FiO2 01/05/17 16:15 78 120/61 94 45 01/05/17 16:00 Ventilator 01/05/17 16:00 37.4 24 Intake and Output 01/04/17 01/04/17 01/05/17 Cumulative From/Thru 15:00 23:00 07:00 12/18/16 10:01 - 01/05/17 05:05 Intake Total 1450 ml 1315 ml 85056 ml Output Total 2250 ml 2850 ml 28059 ml Balance -800 ml -1535 ml 87401 ml Intake Oral 0 ml IV Total 546 ml 447 ml 56366 ml Tube Feeding 649 ml 628 ml 93587 ml Platelets 461 ml Tube Irrigant 255 ml 240 ml 3768 ml Output Urine Total 2200 ml 2400 ml 80107 ml Stool Total 50 ml 450 ml 3250 ml Urine/Stool Mix 50 ml Gastric Drainage Total 1600 ml Ultrafiltrate 05447 ml # Bowel Movements 103 Exam General: Intubated with decreasing sedation. Head: Normocephalic, atraumatic. External ears without defect. Eyes: Pupils equal, round, and reactive to light and accommodation. Anicteric sclerae, moist conjunctivae. Cardiovascular: Regular rate and rhythm with no murmurs, rubs, or gallops appreciated. Pulmonary: CTAB. Greatly improved today. very mild wheezes, very mild rhonchi, no rales. Abdomen: Soft, moderately distended, hypoactive bowel sounds. Old midline surgical incision present. Extremities: Moderate pitting edema on lower and upper extremities bilaterally. Skin: Faint macular papular rash on upper chest and shoulders. Neurological: Neurologic difficult to assess due to generalized weakness. IVs and Medications Medications Reviewed: Medications were reviewed in detail Lab and Diagnostics Result Diagram: 01/05/17 0430 01/05/17 1730 Microbiology BCx and SCx positive for Strep pneumo Resp PCR positive for Flu A H3 Strep pneumo urine ag positive X-Rays, CTs and MRIs X-RAY CHEST ONE VIEW, PORTABLE IMPRESSION: 1. Support lines and tubes as above. 2. Pulmonary edema and/or diffuse bilateral inflammatory process. ARDS cannot be excluded. Dictated by: Soren SRINIVASAN Interpreted: Emmie Graves MD on 01/02/2017 at 10: 38 X-RAY CHEST ONE VIEW, PORTABLE IMPRESSION: 1. Edema and/or pneumonia redemonstrated. 2. Slight increase in size of small left pleural effusion. Dictated by: Soren SRINIVASAN Interpreted: Enrique Staley MD on 12/29/2016 at 10: 13 X-RAY KUB IMPRESSION: 1. No obstruction identified. 2. Abnormal appearance of the lungs redemonstrated with diffuse interstitial and airspace opacity similar to prior chest radiograph. Dictated by: Soren Johnson RRA Interpreted: Enrique Staley MD on 12/27/2016 at 11: 00 X-RAY CHEST ONE VIEW, PORTABLE IMPRESSION: No significant interval change in florid pulmonary edema and/or bronchopneumonia. Dictated by: Curtis Levine M.D. on 12/24/2016 at 8:42 CT CHEST WITH CONTRAST IMPRESSION: 1. Bilateral lung consolidation decreased in size compared to prior examination compatible with resolving pneumonia or aspiration. 2. Bilateral lung interstitial prominence and ground glass opacities. Findings may be related to pneumonia, however finding is nonspecific and other etiologies including pulmonary edema can produce a similar appearance. 3. Trace bilateral pleural effusions. 4. Enlarged bilateral hilar and mediastinal lymph nodes decreased in size. Dictated by: Jrodyn Dominguez MD, PhD on 12/23/2016 at 13:19 US RENAL SONOGRAM IMPRESSION: 1. A 1.4 cm cyst in the superior pole the right kidney. Otherwise normal ultrasound appearance of kidneys. No hydronephrosis. 2. Cholelithiasis. No ultrasound evidence for acute cholecystitis. Dictated by: Dwain Gaona M.D. on 12/18/2016 at 18:18 Approved by: Dwain Gaona M.D. on 12/18/2016 at 18:21 Additional Diagnostics ABG DateTimeAnalyzed 04:19:00 -_ pH ____7.345 - 7.350 7.450 pCO2 ___42.0__ -mmHg 35.0 45.0 pO2 110 -mmHg 69.0 116 HCO3- ___22.3__ -mmol/L 22.0 26.0 [facility] DateTimeAnalyzed 04:08:00 -_ pH ____7.444 - 7.350 7.450 pCO2 ___36.5__ -mmHg 35.0 45.0 pO2 ___83.2__ -mmHg 69.0 116 HCO3- ___24.6__ -mmol/L 22.0 26.0 US ARTERY LEG DUPLEX UNILATERAL/ILIAC CAVA, LEFT IMPRESSION: Minimal scattered plaque and no hemodynamically significant left lower extremity peripheral arterial stenosis. Dictated by: Soren SRINIVASAN Interpreted: Emmie Graves MD on 01/02/2017 at 16:38 Assessment & Plan Naveed Maciel is a 56 year old male with past medical history significant for COPD who presented to the emergency department via EMS complaining of dyspnea and 3 days of flu-like symptoms. Intubated after failing on BiPAP and admitted for septic shock and acute hypoxemic respiratory failure. Hospital 18. Vent day 19. 1. Altered mental status, Septic encephalopathy, present on admission. Improving. - Unclear etiology, perhaps toxin induced.Hard to say at this point. - Responding to commands with increasing ability. Continue sedation vacations and weening off fentanyl and propofol. - ICU team following, recommendations appreciated. - Continue to ween off sedation ie.. fentanyl and propofol. - EEG showed abnormal results as above. 2. Severe ARDS, present on admission, active. Improving. - Etiology secondary to sepsis and pneumococcal pneumonia in the setting of COPD and past history of cocaine use. CT chest on 12/18 showed dense consolidation bilaterally within the dependent portions of the lung. Repeat CT chest was largely unchanged with some mild interval improvement in consolidation. Patient is also fluid up roughly 17 L which is certainly playing a role and inability to wean off the mechanical ventilation. - Vent settings per Critical Care/Pulmonology Team. - Bronchoscopy 12/29/16. Bronchial washings pending for various pathogens. - ABG as above. - Continue SBTs daily. Plan for extubation ~ Sunday. 01/08 3. Pneumococcal pneumonia /pneumococcal bacteremia (septicemia), present on admission, improving. - CXR and CT as above. Strep pneumonia urine antigen positive. Blood and sputum cultures positive. Sensitive for penicillins. WBC trending down. Procalcitonin 180.83 on admission peaked at 612.48, trending down. - Ceftriaxone 2g IV daily. - Monitoring Procalcitonin every other day. Currently trending downward from 43.7 (12/27/16), currently down to 1.83 - Dr. Muhammad with infectious disease following, time and recommendations appreciated. 4. Acute kidney injury on chronic kidney disease, present on admission, active. - Unknown if patient has underlying chronic kidney disease. Patient continues to be anuric. On admission BUN 65 and creatinine 3.71 - Avoid nephrotoxic medications as able. - Nephrology consulted. Appreciate time and recommendations. - Placed femoral Lasha catheter for dialysis 12/31. Noted that his left femoral pulse was not palpable, unable to visualize on US. Will order arterial doppler of left leg for tomorrow 01/02. - D/C'd femoral cath. no dialysis for last 3 days (01/03, 01/04, 01/05) - D/C'd lasix, - Continue K+ replacement protocol 5. Septic shock, present on admission, resolved. - Criteria include: HR 144, RR 41, O2 sats 83%, lactic acid 6.6, BUN 65, creatinine 3.71, procalcitonin 180.38. Etiology secondary to pneumococcal pneumonia and influenza A. - Right IJ in place 12/18. right radial arterial line lost 07/28 6. Acute pneumothorax. Not present on admission. Resolved. - Repeat CXR as above. 7. Metabolic alkalosis, not present on admission. Improving. - ABG as above - 8. Influenza A, present on admission, treated and resolved. - Oseltamivir 30 mg after each hemodialysis session. - Received Oseltamivir for 5 days for a total of 10 treatments 12/29/16 9. Thrombocytopenia, present on admission, stable. - Unknown baseline. Etiology likely sepsis. - On admission platelets 74. Currently 195. - DVT prophylaxis initiated 12/22. - DIC panel does not suggest DIC. No schistocytes on blood smear. - Platelets transfused 2/1 prior to dialysis catheter placement. - Will continue to monitor. 10. Upper GI bleed, present on admission, stable. - Coffee-ground material reported from OG tube on admission. Guaiac positive in the ED. Hemoglobin and hematocrit have decreased since admission but likely secondary to fluid resuscitation. - Type and cross with 2 units PRBCs on hold. - DVT prophylaxis started . - Pantoprazole 40 mg BID. - Will consider GI consult if H&H drops or more active bleeding is visualized. 12. COPD, present on admission, unknown baseline. 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 Unknown if patient has outpatient medication regimen. - Treatment as above. 12. Tobacco use, present on admission, chronic. - Consider Nicotine patch once patient awake. 13. Hyperglycemia, present on admission, active. - Insulin regular low dose correctional scale. - Hemoglobin A1c 5.7. 14. Acute hypoxic respiratory failure, POA. Improving. Decreasing FiO2 and lightening sedation with hope of extubation in next 3 days. Hope to avoid trach. Acetaminophen for mild pain when necessary. Bowel regimen Senna and MiraLAX scheduled and PRN. Zofran when necessary for nausea and vomiting. SubQ heparin. SCDs in place. High-risk medications: IV fentanyl Disposition: Patient currently intubated with severe ARDS. He continues to require 2 pressors. Reduction in FiO2 and PEEP is a positive step however his prognosis is guarded and he remains severely ill. Pain Evaluation: Adequate Pain Control GI Prophylaxis: Proton Pump Inhibitor VTE Prophylaxis: Sub-Q Heparin (Unfractionated) VTE Mechanical Devices: Intermittant Pneumatic CD Resuscitation Status: CPR: Attempt Resuscitation Time spent 60 minutes Attending Statement Patient seen and examined with house staff. Agree with all attached documentation. KING STEELE DO Jan 05, 2017 19:47 Masoud Bruner MD Jan 06, 2017 07:45
[2017-01-05] MEDS: fentaNYL 2,500 mCg/250 mL 2,500 MCG in IV Premix 1 EACH IV SCH (21:50)
[2017-01-06] VITALS (12 sets, daily range): BP systolic 98–144; BP diastolic 54–79; PULSE 72–96; RESP 24–29; O2SAT 90–98
[2017-01-06] MEDS: Chlorhexidine 0.12% 15 mL Oral Solution MT SCH ×7 (00:46→23:40)
[2017-01-06] MEDS: Propofol Inj 1,000,000 MCG in IV Premix 1 EACH IV SCH ×4 (00:46→20:30)
[2017-01-06] MEDS: Heparin 5,000 Unit/mL Inj SUBQ SCH ×4 (00:47→23:41)
[2017-01-06] MEDS: Dexmedetomidine 400 mCg/100 mL 400 MCG in IV Premix 1 EACH IV SCH ×2 (03:44→20:25)
--- NOTE | 2017-01-06 04:52 | NUR ---
P: light sedation on ventilator I: fentanyl and propofol drips E: Ventilate at 45% FI02, sats in the mid 90s. Intermittently breathing over vent rate. Eyes open. Making eye contact and will track. Follows no cues tonight and not nodding head yes/no. Restless at times. NOONAN. Reaches for ETT. Restraints. Fentanyl at 100mcg and propofol at 35mcg, no boluses given. Tele SR w/ 1st AVB. BP stable. UOP lio, 50ml+/hr. FMS. Tolerating TFs.
--- NOTE | 2017-01-06 05:18 | ABG ---
DateTimeAnalyzed 05:11:00 -_ pH ____7.456 - 7.350 7.450 pCO2 ___37.1__ -mmHg 35.0 45.0 pO2 ___58.7__ -mmHg 69.0 116 HCO3- ___25.8__ -mmol/L 22.0 26.0 ABE ____2.3__ -mmol/L -2.0 2.0 tHb ____9.5__ -g/dL O2Hb ___89.2__ -% COHb ____1.6__ -% MetHb ____1.2__ -% sO2 ___91.8__ -% 25.0 FIO2 ___45.0__ -% Pressure_Support ___16.0__ -cmH2O PEEP ____8.0__ -cmH2O Set_RR ___28.0__ -b/min Drawn By RB - Date/Time Notified____ 05:18:00 -_ Spontaneous_RR ___24.0__ -b/min Oxygen Device 1 VENTILATOR - Notified By RB - Notified Whom Kristine K, RN - B 744 -mmHg tO2 ___12.0__ -Vol% Masoud test _Positive -
[2017-01-06 05:35] LABS: BASOPHILS % (AUTO) 1.2 % (0-3); EOSINOPHILS % (AUTO) 2.3 % (0-5); MONOCYTES % (AUTO) 6.2 % (4-12); Mean Corpuscular Hemoglobin 32.6 pg (27.0-35.0); Mean Corpuscular Volume 101.3 fL (81-100); NEUTROPHILS % (AUTO) 70.6 % (40-74); Platelet Count 251 bil/L (150-400)
[2017-01-06 06:09] LABS: Magnesium 2.1 mg/dL (1.6-2.6); Phosphorus 5.5 mg/dL (2.5-4.9)
[2017-01-06] MEDS: 0.9% Sodium Chloride 250 ML IV SCH (08:25)
--- NOTE | 2017-01-06 08:30 | DRSVH ---
PROCEDURE: X-RAY CHEST ONE VIEW, PORTABLE ([id number]) INDICATIONS: intubated TECHNIQUE: One view of the chest was acquired. COMPARISON: [facility], CR, XR CHEST 1VW (PORTABLE), 01/05/2017, 5:14. FINDINGS: Surgical changes and devices: Endotracheal tube and nasogastric tube are unchanged. Lungs and pleura: There is a persistent appearance of patchy bilateral opacities as well as bibasilar pleural effusions, with the latter appearing minimally more prominent. However this could be positio nal. Mediastinum: Mediastinal contours appear normal. Heart size is normal. Bones and chest wall: No suspicious bony lesions. Overlying soft tissues appear unremarkable. IMPRESSION: Persistent appearance of bilateral pulmonary opacities and effusions as above. Findings a re suggestive of pneumonia with likely underlying areas of edema. Dictated by: Emmie Graves M.D. on 01/06/2017 at 8:27 Approved by: Emmie Graves M.D. on 01/06/2017 at 8:28
[2017-01-06] MEDS: cefTRIAXone Inj 2,000 MG in Dextrose 5% Minibag Plus 50 ML IV SCH (08:40)
[2017-01-06] MEDS: Pantoprazole 4 mg/mL 10 mL Inj IVPUSH SCH ×2 (08:41→20:21)
[2017-01-06] MEDS: Senna-Docusate 8.6-50 mg Tablet PO SCH ×2 (08:42→19:45)
[2017-01-06] MEDS ORDERED: Potassium Chloride 20 mEq/15 mL 15mL Oral Soln NGTUBE ONE (09:25)
--- NOTE | 2017-01-06 10:28 | PROG NOTE ---
[address] [address] PROGRESS NOTE PATIENT: DOUGIE GARDUNO : 1960 MR#: [id number] ADMIT: 12/18/2016 JOB ID: [id number] DATE: 01/06/2017 PULMONARY CRITICAL CARE FOLLOWUP NOTE: PROBLEM: 1. Adult respiratory distress syndrome. 2. Acute renal failure. 3. Altered mental status. 4. Polysubstance abuse. 5. Weakness. SUBJECTIVE: None. OBJECTIVE: Temperature 36.9, with T-max being 37.4. Pulse 68-90, respiratory rate 24, blood pressure 98/54 to as high as 144/64. O2 sat on FiO2 of 45 and PEEP of 8 is 98%. I and O shows 2.7 L in, 3.6 liters out. General appearance: Opens his eyes to voice. Does not make any attempt at contact or reply. In fact, does not at times look towards the voice but rather seems to stare off into space. Conjunctivae are pink. Chest: Fairly good breath sounds bilaterally. Somewhat bronchial breath sounds at the left base laterally. Lung hillman are otherwise clear. Heart: Regular rhythm. Heart tones normal. Abdomen soft. Nondistended. No apparent tenderness. A few bowel tones noted. Extremities: 1+ pretibial edema, 2+ in the upper extremities. White cell count is 12,300 with a normal differential. Hemoglobin 9.7 and slowly rising. Platelet count 251,000, showing a significant increase. Arterial blood gases on FiO2 of 45%, PEEP of 8, pressure assist control breathing at 24/8 shows a pO2 of 58, a pCO2 of 37, pH 7.45. Chest x-ray shows persistent opacification of both bases. ASSESSMENT: 1. Adult respiratory distress syndrome. Lungs not any better, maybe a bit worse than yesterday. Will raise the FiO2 and see where we go. Somewhat discouraging, as I was hoping we were going to get by without a trach and get him off the ventilator and extubated. However, his mental status is not particularly clear today as it was yesterday. Also, oxygenation is not as good. There may be a slight increase in pulmonary edema fluid. Do not want to back off the fluid and, in fact, may need to give him a bit more fluid, as his creatinine is a bit better, dropping from 3.11 to 2.64 but the BUN has not particularly moved, suggestive of relative hypovolemia. No evidence of blood in the gut. 2. Mental status. I thought he was a bit brighter yesterday. Although responsive today, he does not seem to be as engaged as he was yesterday. Yesterday, he seemed to look at the questioner. Here, he does respond to the questioner but does not seem to focus specifically on the source. 3. Acute renal failure. 4. Potassium abnormalities. It was replaced yesterday. Is at low normal today. Will continue to supplement trying to get his potassium up to the high 4 range. PLAN: 1. Vent change. Increase FiO2 to 0.55. 2. Potassium 40 mEq via OG tube. 3. Monitor serum BUN and creatinine carefully. 4. Continue PT. Will see how it goes today. He does not seeing quite is as engaged today as yesterday. TIME SPENT ON CRITICAL CARE: 40 minutes.
--- NOTE | 2017-01-06 11:04 | PCM.PNMED ---
Subjective Date of Service Jan 06, 2017 Subjective Patient's renal function continues to improve. He remains on a ventilator and most likely will need a tracheostomy next week. Blood pressures are varying between a systolic of 90 2Z 1:30 range. Last 24 hours intake and output 20 7: 45 AM and 3675 out. This morning his sodium is 141, potassium 3.6, chloride 101 , CO2 28, BUN and creatinine were 70 and 2.64 respectively. His magnesium is 2.1 and phosphorus is 5.5. Exam Vital Signs Vital Sign - Last Date Time Temp Pulse Resp B/P Pulse Ox O2 Delivery O2 Flow Rate FiO2 01/06/17 07:42 68 98/54 98 45 01/06/17 03:40 Ventilator 01/06/17 03:40 36.9 28 Intake and Output 01/05/17 01/05/17 01/06/17 Cumulative From/Thru 15:00 23:00 07:00 12/18/16 10:01 - 01/06/17 05:03 Intake Total 1430 ml 435 ml 76287 ml Output Total 825 ml 925 ml 80477 ml Balance 605 ml -490 ml 84347 ml Intake Oral 0 ml IV Total 580 ml 435 ml 06276 ml Tube Feeding 635 ml 26631 ml Platelets 461 ml Tube Irrigant 215 ml 3983 ml Output Urine Total 800 ml 650 ml 56708 ml Stool Total 25 ml 275 ml 3550 ml Urine/Stool Mix 50 ml Gastric Drainage Total 1600 ml Ultrafiltrate 30188 ml # Bowel Movements 103 Exam Patient remained sedated and on a ventilator. HEENT examination is remarkable for Appearing GENTLEMAN WITH PALE SCLERA AND MARKED BITEMPORAL WASTING. NECK IS SUPPLE WITHOUT ADENOPATHY THYROMEGALY OR JUGULAR VENOUS DISTENTION. LUNGS SHOWED A FEW SCATTERED RHONCHI BUT OTHERWISE CLEAR. HEART IS REGULAR RHYTHM WITH A SOFT SYSTOLIC MURMUR. ABDOMEN SOFT WITHOUT ANY TENDERNESS OR REBOUND GUARDING MASSES OR HEPATOSPLENOMEGALY. SKIN TURGOR IS DIMINISHED. Lab and Diagnostics Result Diagram: 01/06/1751401/06/17514 Microbiology BCx and SCx positive for Strep pneumo Resp PCR positive for Flu A H3 Strep pneumo urine ag positive X-Rays, CTs and MRIs X-RAY CHEST ONE VIEW, PORTABLE IMPRESSION: 1. Support lines and tubes as above. 2. Pulmonary edema and/or diffuse bilateral inflammatory process. ARDS cannot be excluded. Dictated by: Soren SRINIVASAN Interpreted: Emmie Graves MD on 01/02/2017 at 10: 38 X-RAY CHEST ONE VIEW, PORTABLE IMPRESSION: 1. Edema and/or pneumonia redemonstrated. 2. Slight increase in size of small left pleural effusion. Dictated by: Soren SRINIVASAN Interpreted: Enrique Staley MD on 12/29/2016 at 10: 13 X-RAY KUB IMPRESSION: 1. No obstruction identified. 2. Abnormal appearance of the lungs redemonstrated with diffuse interstitial and airspace opacity similar to prior chest radiograph. Dictated by: Soren SRINIVASAN Interpreted: Enrique Staley MD on 12/27/2016 at 11: 00 X-RAY CHEST ONE VIEW, PORTABLE IMPRESSION: No significant interval change in florid pulmonary edema and/or bronchopneumonia. Dictated by: Curtis Levine M.D. on 12/24/2016 at 8:42 CT CHEST WITH CONTRAST IMPRESSION: 1. Bilateral lung consolidation decreased in size compared to prior examination compatible with resolving pneumonia or aspiration. 2. Bilateral lung interstitial prominence and ground glass opacities. Findings may be related to pneumonia, however finding is nonspecific and other etiologies including pulmonary edema can produce a similar appearance. 3. Trace bilateral pleural effusions. 4. Enlarged bilateral hilar and mediastinal lymph nodes decreased in size. Dictated by: Jordyn Dominguez MD, PhD on 12/23/2016 at 13:19 US RENAL SONOGRAM IMPRESSION: 1. A 1.4 cm cyst in the superior pole the right kidney. Otherwise normal ultrasound appearance of kidneys. No hydronephrosis. 2. Cholelithiasis. No ultrasound evidence for acute cholecystitis. Dictated by: Dwain Gaona M.D. on 12/18/2016 at 18:18 Approved by: Dwain Gaona M.D. on 12/18/2016 at 18:21 Additional Diagnostics ABG DateTimeAnalyzed 04:19:00 -_ pH ____7.345 - 7.350 7.450 pCO2 ___42.0__ -mmHg 35.0 45.0 pO2 110 -mmHg 69.0 116 HCO3- ___22.3__ -mmol/L 22.0 26.0 [facility] DateTimeAnalyzed 04:08:00 -_ pH ____7.444 - 7.350 7.450 pCO2 ___36.5__ -mmHg 35.0 45.0 pO2 ___83.2__ -mmHg 69.0 116 HCO3- ___24.6__ -mmol/L 22.0 26.0 US ARTERY LEG DUPLEX UNILATERAL/ILIAC CAVA, LEFT IMPRESSION: Minimal scattered plaque and no hemodynamically significant left lower extremity peripheral arterial stenosis. Dictated by: Soren SRINIVASAN Interpreted: Emmie Graves MD on 01/02/2017 at 16:38 Assessment & Plan Impression #1 acute tubular necrosis secondary to sepsis which appears to be resolving number to diuretic phase of acute kidney injury #3. Renal azotemia Recommendations #1 I discussed the case with some critical care and I would like to add 150 mils of water via his tube feedings every 4 hours and started with normal saline at 50 an hour. I would also like to supplement his potassium with 20 mEq of potassium chloride via his NG tube. GI Prophylaxis: Proton Pump Inhibitor VTE Prophylaxis: Sub-Q Heparin (Unfractionated) VTE Mechanical Devices: Intermittant Pneumatic CD Resuscitation Status: CPR: Attempt Resuscitation Hang Garsia DO Jan 06, 2017 11:03
[2017-01-06] MEDS: 0.9% Sodium Chloride 1,000 ML IV SCH (11:05)
--- NOTE | 2017-01-06 16:59 | PCM.PNMED ---
Subjective Date of Service Jan 06, 2017 Subjective Naveed Maciel is a 56 year old male with past medical history significant for COPD who presented to the emergency department via EMS complain of dyspnea. The following history is gathered from ED physicians report as patient was intubated and sedated at time of my exam. Patient reported three days of general malaise with myalgias, cough, and chills. Patient denied nausea, vomiting, chest pain, dizziness, lightheadedness, and abdominal pain. He developed worsening dyspnea which precipitated his presentation to the ED. EMS found the patient to have oxygen saturations of 70% initially and DuoNeb and ASA were administered en route. On presentation to the ED vitals were temperature 36.7, pulse 144, blood pressure 112/56, respiratory rate 41 on oxygen mask with pulse oximetry of 83%. Initial labs include BUN 65, creatinine 3.71, lactic acid 6.6, troponin 0.010, and procalcitonin 180.38. BiPAP and fluid resuscitation was initially attempted. This was unsuccessful and patient was subsequently intubated. Patient received 3L normal saline in the ED and vancomycin and Zosyn. Sister, Rakesh Tabares, was later contacted who had minimal information regarding brother. She states he is a current smoker and has COPD. She also notes he has a history of cocaine use but thinks that he has been clean for 2-3 years. To her knowledge his primary care physician is in [place], [place] but does not recall a name. He has had multiple hospitalizations over the past decade but she does not recall at which hospitals. He has never been intubated to her knowledge. Author - MESSI CORDERO DO, Dec 18, 2016 11:08 Ariel Berg MD Overnight: No acute overnight events. Decreased propofol and fentanyl as tolerated. Today: Remains intubated. He is less active than day before. Patient's vent settings were adjusted and FiO2 increased. Continues to respond to verbal stimulus increasingly by the day. Moves upper extremities very slowly with very weak salvage engineer upon commands. Exam Vital Signs Vital Sign - Last Date Time Temp Pulse Resp B/P Pulse Ox O2 Delivery O2 Flow Rate FiO2 01/06/17 07:42 68 98/54 98 45 01/06/17 03:40 Ventilator 01/06/17 03:40 36.9 28 Intake and Output 01/05/17 01/05/1701/06/17 Cumulative From/Thru 15:00 23:00 07:00 12/18/16 10:01 - 01/06/17 05:03 Intake Total 1430 ml 435 ml 00755 ml Output Total 825 ml 925 ml 97817 ml Balance 605 ml -490 ml 23364 ml Intake Oral 0 ml IV Total 580 ml 435 ml 92304 ml Tube Feeding 635 ml 44756 ml Platelets 461 ml Tube Irrigant 215 ml 3983 ml Output Urine Total 800 ml 650 ml 13536 ml Stool Total 25 ml 275 ml 3550 ml Urine/Stool Mix 50 ml Gastric Drainage Total 1600 ml Ultrafiltrate 06480 ml # Bowel Movements 103 Exam General: Intubated with decreasing sedation. Head: Normocephalic, atraumatic. External ears without defect. Eyes: Pupils equal, round, and reactive to light and accommodation. Anicteric sclerae, moist conjunctivae. Cardiovascular: Regular rate and rhythm with no murmurs, rubs, or gallops appreciated. Pulmonary: CTAB. Greatly improved today. very mild wheezes, very mild rhonchi, no rales. Abdomen: Soft, moderately distended, hypoactive bowel sounds. Old midline surgical incision present. Extremities: Moderate pitting edema on lower and upper extremities bilaterally. Skin: Faint macular papular rash on upper chest and shoulders. Neurological: Neurologic difficult to assess due to generalized weakness. IVs and Medications Medications Reviewed: Medications were reviewed in detail Lab and Diagnostics Result Diagram: 01/06/1751401/06/1715 Microbiology BCx and SCx positive for Strep pneumo Resp PCR positive for Flu A H3 Strep pneumo urine ag positive X-Rays, CTs and MRIs X-RAY CHEST ONE VIEW, PORTABLE IMPRESSION: 1. Support lines and tubes as above. 2. Pulmonary edema and/or diffuse bilateral inflammatory process. ARDS cannot be excluded. Dictated by: Soren SRINIVASAN Interpreted: Emmie Graves MD on 01/02/2017 at 10: 38 X-RAY CHEST ONE VIEW, PORTABLE IMPRESSION: 1. Edema and/or pneumonia redemonstrated. 2. Slight increase in size of small left pleural effusion. Dictated by: Soren SRINIVASAN Interpreted: Enrique Staley MD on 12/29/2016 at 10: 13 X-RAY KUB IMPRESSION: 1. No obstruction identified. 2. Abnormal appearance of the lungs redemonstrated with diffuse interstitial and airspace opacity similar to prior chest radiograph. Dictated by: Soren Johnson RRA Interpreted: Enrique Staley MD on 12/27/2016 at 11: 00 X-RAY CHEST ONE VIEW, PORTABLE IMPRESSION: No significant interval change in florid pulmonary edema and/or bronchopneumonia. Dictated by: Curtis Levine M.D. on 12/24/2016 at 8:42 CT CHEST WITH CONTRAST IMPRESSION: 1. Bilateral lung consolidation decreased in size compared to prior examination compatible with resolving pneumonia or aspiration. 2. Bilateral lung interstitial prominence and ground glass opacities. Findings may be related to pneumonia, however finding is nonspecific and other etiologies including pulmonary edema can produce a similar appearance. 3. Trace bilateral pleural effusions. 4. Enlarged bilateral hilar and mediastinal lymph nodes decreased in size. Dictated by: Jordyn Dominguez MD, PhD on 12/23/2016 at 13:19 US RENAL SONOGRAM IMPRESSION: 1. A 1.4 cm cyst in the superior pole the right kidney. Otherwise normal ultrasound appearance of kidneys. No hydronephrosis. 2. Cholelithiasis. No ultrasound evidence for acute cholecystitis. Dictated by: Dwain Gaona M.D. on 12/18/2016 at 18:18 Approved by: Dwain Gaona M.D. on 12/18/2016 at 18:21 Additional Diagnostics ABG DateTimeAnalyzed 04:19:00 -_ pH ____7.345 - 7.350 7.450 pCO2 ___42.0__ -mmHg 35.0 45.0 pO2 110 -mmHg 69.0 116 HCO3- ___22.3__ -mmol/L 22.0 26.0 [facility] DateTimeAnalyzed 04:08:00 -_ pH ____7.444 - 7.350 7.450 pCO2 ___36.5__ -mmHg 35.0 45.0 pO2 ___83.2__ -mmHg 69.0 116 HCO3- ___24.6__ -mmol/L 22.0 26.0 US ARTERY LEG DUPLEX UNILATERAL/ILIAC CAVA, LEFT IMPRESSION: Minimal scattered plaque and no hemodynamically significant left lower extremity peripheral arterial stenosis. Dictated by: Soren SRINIVASAN Interpreted: Emmie Graves MD on 01/02/2017 at 16:38 Assessment & Plan Naveed Maciel is a 56 year old male with past medical history significant for COPD who presented to the emergency department via EMS complaining of dyspnea and 3 days of flu-like symptoms. Intubated after failing on BiPAP and admitted for septic shock and acute hypoxemic respiratory failure. Hospital 19. Vent day 20. 1. Altered mental status, Septic encephalopathy, present on admission. Improving. - Unclear etiology, perhaps toxin induced. Hard to say at this point. - Continue sedation vacations and weening off fentanyl and propofol. - ICU team following, recommendations appreciated. - Continue to ween off sedation ie.. fentanyl and propofol. - EEG showed abnormal results as above. - Patient's perceived progression from the day before as all but diminished today. And from pulmonology standpoint has worsened. 2. Severe ARDS, present on admission, active. Improving. - Etiology secondary to sepsis and pneumococcal pneumonia in the setting of COPD and past history of cocaine use. CT chest on 12/18 showed dense consolidation bilaterally within the dependent portions of the lung. Repeat CT chest was largely unchanged with some mild interval improvement in consolidation. Patient is also fluid up roughly 17 L which is certainly playing a role and inability to wean off the mechanical ventilation. - Vent settings per Critical Care/Pulmonology Team. - Bronchoscopy 12/29/16. Bronchial washings pending for various pathogens. - ABG as above. - Patient remains ventilator dependent. Pulmonary team planning for trach and possible PEG at the very least on Sunday if there is no improvement in mental status or respiratory status this weekend. 3. Acute renal failure, present on admission, active. - Unknown if patient has underlying chronic kidney disease. Patient continues to be anuric. On admission BUN 65 and creatinine 3.71 - Avoid nephrotoxic medications as able. - Nephrology consulted. Appreciate time and recommendations. - Placed femoral Lasha catheter for dialysis 12/31. Noted that his left femoral pulse was not palpable, unable to visualize on US. Will order arterial doppler of left leg for tomorrow 01/02. - D/C'd femoral cath. no dialysis for last 4 days (01/03-01/06) D/C'd lasix. - BUN increasing from 66-70 today suggesting worsening renal function. Creatinine decreasing 3.11 - 2.64. - Continue K+ replacement protocol - free water flushes increased from 50ml to 150 ml Q 4H. - IV NS @ 50 ml /hr. 4. Pneumococcal pneumonia /pneumococcal bacteremia (septicemia), present on admission, improving. - CXR and CT as above. Strep pneumonia urine antigen positive. Blood and sputum cultures positive. Sensitive for penicillins. WBC trending down. Procalcitonin 180.83 on admission peaked at 612.48, trending down. - Ceftriaxone 2g IV daily. - Monitoring Procalcitonin every other day. Currently trending downward from 43.7 (12/27/16), currently down to 1.83 - Dr. Muhammad with infectious disease following, time and recommendations appreciated. 5. Septic shock, present on admission, \Resolved. - Criteria include: HR 144, RR 41, O2 sats 83%, lactic acid 6.6, BUN 65, creatinine 3.71, procalcitonin 180.38. Etiology secondary to pneumococcal pneumonia and influenza A. - Right IJ in place 12/18. right radial arterial line lost 07/28 6. Acute pneumothorax. Not present on admission. Resolved. - Repeat CXR as above. 7. Metabolic alkalosis, not present on admission. Improving. - ABG as above - 8. Influenza A, present on admission, treated and resolved. - Oseltamivir 30 mg after each hemodialysis session. - Received Oseltamivir for 5 days for a total of 10 treatments 12/29/16 9. Thrombocytopenia, present on admission, stable. - Unknown baseline. Etiology likely sepsis. - On admission platelets 74. Currently 195. - DVT prophylaxis initiated 2. - DIC panel does not suggest DIC. No schistocytes on blood smear. - Platelets transfused 2 prior to dialysis catheter placement. - Will continue to monitor. 10. Upper GI bleed, present on admission, stable. - Coffee-ground material reported from OG tube on admission. Guaiac positive in the ED. Hemoglobin and hematocrit have decreased since admission but likely secondary to fluid resuscitation. - Type and cross with 2 units PRBCs on hold. - DVT prophylaxis started . - Pantoprazole 40 mg BID. - Will consider GI consult if H&H drops or more active bleeding is visualized. 12. COPD, present on admission, unknown baseline. 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 Unknown if patient has outpatient medication regimen. - Treatment as above. 12. Tobacco use, present on admission, chronic. - Consider Nicotine patch once patient awake. 13. Hyperglycemia, present on admission, active. - Insulin regular low dose correctional scale. - Hemoglobin A1c 5.7. 14. Acute hypoxic respiratory failure, POA. Improving. Decreasing FiO2 and lightening sedation with hope of extubation in next 3 days. Hope to avoid trach. Acetaminophen for mild pain when necessary. Bowel regimen Senna and MiraLAX scheduled and PRN. Zofran when necessary for nausea and vomiting. SubQ heparin. SCDs in place. High-risk medications: IV fentanyl Disposition: Patient currently intubated with severe ARDS. He continues to require 2 pressors. Reduction in FiO2 and PEEP is a positive step however his prognosis is guarded and he remains severely ill. Pain Evaluation: Adequate Pain Control GI Prophylaxis: Proton Pump Inhibitor VTE Prophylaxis: Sub-Q Heparin (Unfractionated) VTE Mechanical Devices: Intermittant Pneumatic CD Resuscitation Status: CPR: Attempt Resuscitation Time spent 60 minutes Attending Statement Patient seen and examined with house staff. Agree with all attached documentation. KING STEELE DO Jan 06, 2017 11:34 Masoud Bruner MD Jan 07, 2017 07:33
[2017-01-06] MEDS ORDERED: Potassium Chloride 40 mEq/100 mL Premix IV ONE (17:27)
--- NOTE | 2017-01-06 17:36 | NUR ---
No vent changes today. Eyes open, tracking, some commands. Tolerating TFs at goal, scant residuals. Liquid stool via FMS. UOP 950ml/12 hours via tate cath. CLRT bed, repositioning frequently. Sister here this morning, left for home in [place], updated this afternoon by phone. VSS, afebrile, sinus rhythm/1st-degree AVB on tele. Potassium replacement per Md, replacement protocol stopped. A.m. labs ordered. Right groin site with 2x2 gauze, CDI. Appears comfortable and in no distress.
[2017-01-06] MEDS ORDERED: KCl 40 mEq/100 mL (CENTRAL) 40 MEQ in IV Premix 1 EACH IV ONE (18:30)
[2017-01-07] VITALS (15 sets, daily range): BP systolic 95–142; BP diastolic 52–74; PULSE 66–97; RESP 12–39; O2SAT 90–100
[2017-01-07] MEDS: fentaNYL 2,500 mCg/250 mL 2,500 MCG in IV Premix 1 EACH IV SCH (00:06)
[2017-01-07] MEDS: Propofol Inj 1,000,000 MCG in IV Premix 1 EACH IV SCH ×6 (00:07→21:42)
[2017-01-07] MEDS: Chlorhexidine 0.12% 15 mL Oral Solution MT SCH ×5 (04:36→20:00)
[2017-01-07 05:34] LABS: BASOPHILS % (AUTO) 1.7 % (0-3); MONOCYTES % (AUTO) 7.3 % (4-12); Mean Corpuscular Hemoglobin 32.8 pg (27.0-35.0); Mean Corpuscular Volume 103.1 fL (81-100); NEUTROPHILS % (AUTO) 56.7 % (40-74); Platelet Count 225 bil/L (150-400)
--- NOTE | 2017-01-07 05:45 | NUR ---
Mentation/Hemodynamics/GI Patient awake and agitated at start of shift, large amounts of clear white secretions from ET tube and mouth, sedation increased, resting calm at this time, opens eyes to voice, does not follow commands all the time, looks and stares at staff, tracks with eyes. Vital signs stable, HR 80's 1 degreee AV block, coughing at times, BP 120's/80's, tolerating TF well, no residual at 0000 and 0430, 275ml out from FMS, held stool softeners since patient is having liquid brown stool so FMS can be removed when stools are soft, 800 out from urinary catheter, uneventful shift, will continue to monitor, no distress noted, awaiting ABG and labs results. Addendum: 01/07/17 at 0553 by WILLIAM NORIEGA RN Amended: Links added.
[2017-01-07 06:26] LABS: Magnesium 2.1 mg/dL (1.6-2.6)
[2017-01-07] MEDS: 0.9% Sodium Chloride 1,000 ML IV SCH (07:55)
[2017-01-07] MEDS: 0.9% Sodium Chloride 250 ML IV SCH (07:56)
[2017-01-07] MEDS: Pantoprazole 4 mg/mL 10 mL Inj IVPUSH SCH ×2 (07:56→20:00)
[2017-01-07] MEDS: cefTRIAXone Inj 2,000 MG in Dextrose 5% Minibag Plus 50 ML IV SCH (07:56)
[2017-01-07] MEDS: Senna-Docusate 8.6-50 mg Tablet PO SCH ×2 (07:56→20:00)
[2017-01-07] MEDS: Heparin 5,000 Unit/mL Inj SUBQ SCH ×2 (07:57→16:02)
--- NOTE | 2017-01-07 08:16 | PCM.PNMED ---
Subjective Date of Service Jan 07, 2017 Subjective Patient is intubated and sedated. ROS subjective not obtainable Exam Vital Signs Vital Sign - Last Date Time Temp Pulse Resp B/P Pulse Ox O2 Delivery O2 Flow Rate FiO2 01/07/17 07:49 65 118/63 98 55 01/07/17 04:37 Ventilator 01/07/17 04:37 36.5 24 Intake and Output 01/06/17 01/06/17 01/07/17 Cumulative From/Thru 15:00 23:00 07:00 12/18/16 10:01 - 01/07/17 04:39 Intake Total 1599 ml 2145 ml 90819 ml Output Total 1070 ml 1075 ml 46685 ml Balance 529 ml 1070 ml 17718 ml Intake Oral 30 ml 30 ml IV Total 694 ml 908 ml 47566 ml Tube Feeding 640 ml 637 ml 57115 ml Platelets 461 ml Tube Irrigant 235 ml 600 ml 4818 ml Output Urine Total 950 ml 800 ml 01134 ml Stool Total 100 ml 275 ml 3925 ml Urine/Stool Mix 50 ml Gastric Drainage Total 20 ml 0 ml 1620 ml Ultrafiltrate 34311 ml # Bowel Movements 103 Exam Intubated and sedated. Normal skull. Anicteric sclerae Endotracheal tube in place. Neck supple. Lungs are clear with no overbreathing. No other sounds are heard. Heart is regular without murmur gallop or rub Abdomen is nondistended extremities are normal before proceeding with good pedal and radial pulses. No skin rash or lesions. Soft restraints on hands. IVs and Medications Medications Reviewed: Medications were reviewed in detail Lab and Diagnostics Result Diagram: 01/07/1710 01/07/17 0510 Microbiology BCx and SCx positive for Strep pneumo Resp PCR positive for Flu A H3 Strep pneumo urine ag positive X-Rays, CTs and MRIs 01/06 CXR: IMPRESSION: Persistent appearance of bilateral pulmonary opacities and effusions as above. Findings are suggestive of pneumonia with likely underlying areas of edema. Additional Diagnostics ABG DateTimeAnalyzed 04:19:00 -_ pH ____7.345 - 7.350 7.450 pCO2 ___42.0__ -mmHg 35.0 45.0 pO2 110 -mmHg 69.0 116 HCO3- ___22.3__ -mmol/L 22.0 26.0 [facility] DateTimeAnalyzed 04:08:00 -_ pH ____7.444 - 7.350 7.450 pCO2 ___36.5__ -mmHg 35.0 45.0 pO2 ___83.2__ -mmHg 69.0 116 HCO3- ___24.6__ -mmol/L 22.0 26.0 US ARTERY LEG DUPLEX UNILATERAL/ILIAC CAVA, LEFT IMPRESSION: Minimal scattered plaque and no hemodynamically significant left lower extremity peripheral arterial stenosis. Dictated by: Soren SRINIVASAN Interpreted: Emmie Graves MD on 01/02/2017 at 16:38 Assessment & Plan Naveed Maciel is a 56 year old male with past medical history significant for COPD who presented to the emergency department via EMS complaining of dyspnea and 3 days of flu-like symptoms. Intubated after failing on BiPAP and admitted for septic shock and acute hypoxemic respiratory failure. Hospital 19. Vent day 20. 1. Septic encephalopathy, present on admission. Improving. - Continue sedation vacations and weening off fentanyl and propofol. - EEG showed abnormal results as above. 2. Severe ARDS, present on admission, active. Improving. - Etiology secondary to sepsis and pneumococcal pneumonia in the setting of COPD and past history of cocaine use. CT chest on 12/18 showed dense consolidation bilaterally within the dependent portions of the lung. Repeat CT chest was largely unchanged with some mild interval improvement in consolidation. Patient is also fluid up roughly 17 L which is certainly playing a role and inability to wean off the mechanical ventilation. - Vent settings : Unfortunately FiO2 is up to 0.55 today. The patient continues to have significant pulmonary secretions. It seems that possibly tracheostomy is still relatively high. 3. Acute renal failure, present on admission, active and slowly improving.. - Unknown if patient has underlying chronic kidney disease. Patient continues to be anuric. On admission BUN 65 and creatinine 3.71 - Avoid nephrotoxic medications as able. - Nephrology consulted. Appreciate time and recommendations. - Placed femoral Lasha catheter for dialysis 12/31. Noted that his left femoral pulse was not palpable, unable to visualize on US. Will order arterial doppler of left leg for tomorrow 01/02. - D/C'd femoral cath. no dialysis for last 5 days (01/03-01/06) D/C'd lasix. - BUN increasing from 66-70 today suggesting worsening renal function. Creatinine decreasing 3.11 - 2.64. - Continue K+ replacement protocol - free water flushes increased from 50ml to 150 ml Q 4H. - IV NS @ 50 ml /hr. 4. Pneumococcal pneumonia /pneumococcal bacteremia (septicemia), present on admission, improving. - CXR and CT as above. Strep pneumonia urine antigen positive. Blood and sputum cultures positive. Sensitive for penicillins. WBC trending down. Procalcitonin 180.83 on admission peaked at 612.48, trending down. - Ceftriaxone 2g IV daily. - Monitoring Procalcitonin every other day. Currently trending downward from 43.7 (12/27/16), currently down to 1.83 - Dr. Muhammad with infectious disease following, time and recommendations appreciated. 5. Septic shock, present on admission, Resolved. - Criteria include: HR 144, RR 41, O2 sats 83%, lactic acid 6.6, BUN 65, creatinine 3.71, procalcitonin 180.38. Etiology secondary to pneumococcal pneumonia and influenza A. - Right IJ in place 12/18. right radial arterial line lost 07/28 6. Acute pneumothorax. Not present on admission. Resolved. - Repeat CXR as above. 7. Metabolic alkalosis, not present on admission. Improving. - ABG as above - 8. Influenza A, present on admission, treated and resolved. - Oseltamivir 30 mg after each hemodialysis session. - Received Oseltamivir for 5 days for a total of 10 treatments 12/29/16 9. Thrombocytopenia, present on admission, stable. - Unknown baseline. Etiology likely sepsis. - On admission platelets 74. Currently 195. - DVT prophylaxis initiated 12/22. - DIC panel does not suggest DIC. No schistocytes on blood smear. - Platelets transfused 12/20 prior to dialysis catheter placement. - Will continue to monitor. 10. Upper GI bleed, present on admission, stable. - Coffee-ground material reported from OG tube on admission. Guaiac positive in the ED. Hemoglobin and hematocrit have decreased since admission but likely secondary to fluid resuscitation. - Type and cross with 2 units PRBCs on hold. - DVT prophylaxis started . - Pantoprazole 40 mg BID. - Will consider GI consult if H&H drops or more active bleeding is visualized. -Hematocrit remained stable. No evidence of ongoing bleeding. 12. COPD, present on admission, unknown baseline. 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 Unknown if patient has outpatient medication regimen. - Treatment as above. 12. Tobacco use, present on admission, chronic. - Consider Nicotine patch once patient awake. 13. Hyperglycemia, present on admission, active. - Insulin regular low dose correctional scale. - Hemoglobin A1c 5.7. 14. Acute hypoxic respiratory failure, POA. Improving. Decreasing FiO2 and lightening sedation with hope of extubation in next 3 days. Hope to avoid trach. Acetaminophen for mild pain when necessary. Bowel regimen Senna and MiraLAX scheduled and PRN. Zofran when necessary for nausea and vomiting. SubQ heparin. SCDs in place. High-risk medications: IV fentanyl Disposition: Patient currently intubated with severe ARDS. He continues to require 2 pressors. Reduction in FiO2 and PEEP is a positive step however his prognosis is guarded and he remains severely ill. Pain Evaluation: Adequate Pain Control GI Prophylaxis: Proton Pump Inhibitor VTE Prophylaxis: Sub-Q Heparin (Unfractionated) VTE Mechanical Devices: Intermittant Pneumatic CD Resuscitation Status: CPR: Attempt Resuscitation Time spent 40 minutes Masoud Bruner MD Jan 07, 2017 08:16
--- NOTE | 2017-01-07 10:08 | PCM.PNMED ---
Subjective Date of Service Jan 07, 2017 Subjective Patient's renal function continues to improve. Blood pressures have ranged in the 90-140 range. His intake and output for yesterday were 2034 in and 1600 out with 800 and urine output today. He remains sedated and on a ventilator. This morning his hemoglobin is 8.5, sodium is 145, potassium 3.8, chloride 106, bicarbonate is 25, BUN and creatinine were 66 and 2.2 respectively. His magnesium is 2.1 with a phosphorus of 5.0. Exam Vital Signs Vital Sign - Last Date Time Temp Pulse Resp B/P Pulse Ox O2 Delivery O2 Flow Rate FiO2 01/07/17 09:47 72 18 96/53 96 55 01/07/17 08:00 Ventilator 01/07/17 08:00 37.1 Intake and Output 01/06/17 01/06/17 01/07/17 Cumulative From/Thru 15:00 23:00 07:00 12/18/16 10:01 - 01/07/17 04:39 Intake Total 1599 ml 2145 ml 00957 ml Output Total 1070 ml 1075 ml 27294 ml Balance 529 ml 1070 ml 25061 ml Intake Oral 30 ml 30 ml IV Total 694 ml 908 ml 57422 ml Tube Feeding 640 ml 637 ml 99058 ml Platelets 461 ml Tube Irrigant 235 ml 600 ml 4818 ml Output Urine Total 950 ml 800 ml 32819 ml Stool Total 100 ml 275 ml 3925 ml Urine/Stool Mix 50 ml Gastric Drainage Total 20 ml 0 ml 1620 ml Ultrafiltrate 83981 ml # Bowel Movements 103 Exam Neck is supple without adenopathy or thyromegaly. Lungs were clear to auscultation. Heart is regular rhythm; soft systolic murmur. Abdomen soft without any tenderness or rebound guarding masses or hepatosplenomegaly. Extremities do not show any evidence of any clubbing cyanosis or edema. Skin turgor is good. Lab and Diagnostics Result Diagram: 01/07/17 0510 01/07/17 0510 Microbiology BCx and SCx positive for Strep pneumo Resp PCR positive for Flu A H3 Strep pneumo urine ag positive X-Rays, CTs and MRIs 01/06 CXR: IMPRESSION: Persistent appearance of bilateral pulmonary opacities and effusions as above. Findings are suggestive of pneumonia with likely underlying areas of edema. Additional Diagnostics ABG DateTimeAnalyzed 04:19:00 -_ pH ____7.345 - 7.350 7.450 pCO2 ___42.0__ -mmHg 35.0 45.0 pO2 110 -mmHg 69.0 116 HCO3- ___22.3__ -mmol/L 22.0 26.0 [facility] DateTimeAnalyzed 04:08:00 -_ pH ____7.444 - 7.350 7.450 pCO2 ___36.5__ -mmHg 35.0 45.0 pO2 ___83.2__ -mmHg 69.0 116 HCO3- ___24.6__ -mmol/L 22.0 26.0 US ARTERY LEG DUPLEX UNILATERAL/ILIAC CAVA, LEFT IMPRESSION: Minimal scattered plaque and no hemodynamically significant left lower extremity peripheral arterial stenosis. Dictated by: Soren SRINIVASAN Interpreted: Emmie Graves MD on 01/02/2017 at 16:38 Assessment & Plan Impression #1 acute tubular necrosis secondary to overwhelming sepsis which appears to be resolving. #2 mild intravascular volume depletion Recommendations #1 avoid to continue the D5W at 50 an hour along with 150 mils of free water via his NG tube every 4 hours. We need to continue to follow his intake, output, and lab. GI Prophylaxis: Proton Pump Inhibitor VTE Prophylaxis: Sub-Q Heparin (Unfractionated) VTE Mechanical Devices: Intermittant Pneumatic CD Resuscitation Status: CPR: Attempt Resuscitation Hang Garsia DO Jan 07, 2017 10:08
--- NOTE | 2017-01-07 15:14 | DRSVH ---
PROCEDURE: X-RAY CHEST ONE VIEW, PORTABLE ([id number]) INDICATIONS: intubated TECHNIQUE: One view of the chest was acquired. COMPARISON: [facility], CR, XR CHEST 1VW (PORTABLE), 01/05/2017, 5:14. [facility], CR, XR CHEST 1VW (PORTABLE), 01/06/2017, 5:00. FINDINGS: Surgical changes and devices: Endotracheal tube, nasogastric tube and right IJ central line are uncha nged in position. Lungs and pleura: Persistent diffuse bilateral airspace infiltrates consistent with pneumonia. Small bilateral effusions, left greater than right. No pneumothorax. Mediastinum: Mediastinal contours appear normal. Heart size is normal. Bones and chest wall: No suspicious bony lesions. Overlying soft tissues appear unremarkable. IMPRESSION: No significant change. Dictated by: Dwain Gaona M.D. on 01/07/2017 at 9:42 Approved by: Dwain Gaona M.D. on 01/07/2017 at 9:44
--- NOTE | 2017-01-07 15:16 | ABG ---
DateTimeAnalyzed 05:45:22 -_ pH ____7.428 - pCO2 ___40.8__ -mmHg pO2 ___52.3__ -mmHg HCO3- ___26.9__ -mmol/L ABE ____2.4__ -mmol/L tHb ____9.2__ -g/dL O2Hb ___85.4__ -% COHb ____1.6__ -% MetHb ____0.3__ -% sO2 ___87.1__ -% FIO2 ___21.0__ -% Pressure_Support ___16.0__ -cmH2O PEEP ____8.0__ -cmH2O Set_RR 24 -b/min Drawn By MT - Date/Time Notified____ 06:02:00 -_ Spontaneous_RR 24 -b/min Oxygen Device 1 VENTILATOR - Notified Whom Ru R, RN - B 740 -mmHg K+ ____3.7__ -mmol/L tO2 ___11.1__ -Vol% Masoud test _Positive -
--- NOTE | 2017-01-07 16:31 | PROG NOTE ---
[address] [address] PROGRESS NOTE PATIENT: DOUGIE GARDUNO : 1960 MR#: [id number] ADMIT: 12/18/2016 JOB ID: [id number] DATE: 01/07/2017 PULMONARY CRITICAL CARE FOLLOWUP NOTE: PROBLEM LIST: 1. Adult respiratory distress syndrome. 2. Acute renal failure. 3. Altered mental status. 4. Polysubstance abuse. 5. Weakness. SUBJECTIVE: None. OBJECTIVE: Temperature 37.1 with T-max being 37.4. Pulse mid 60s. During a pressure support trial respiratory rate went quickly to 39 and was abandoned after 20 minutes. Blood pressure was 96/56, O2 sat on FiO2 of 55, PEEP of 8 is 97%. Dropped to 90% during the pressure support trial. I and O shows 2 L in, 1.9 L out. General appearance: Sedated. Responds very slowly to verbal stimuli. Takes maybe 10 seconds for the patient to turn to the right to look at questioner. Not sure he gets all the way to the right. No attempt at response. Eyes: Conjunctivae are pink. Chest: Decreased breath sounds bilaterally. Somewhat bronchial quality breath sounds in the left lateral lung in its lower aspect. Right lung sounds a bit better. Few inspiratory crackles on the right. Mostly in the lower lung hillman. Upper lung hillman relatively clear. Peak inspiratory pressure is in the mid 20s with tidal volumes running in the mid 500s, occasionally 600-650 breath will be observed. Pressure time curve shows some increase in pressure throughout inspiration. Heart: Somewhat distant tones. Regular rhythm. Abdomen soft. Very active bowel tones. Extremities: 1 to 2+ pretibial edema. LABORATORY DATA: Shows a white count of 10,500, with 56 polymorphonuclears, no bands, 29 lymphocytes, 7 monocytes, 3 eosinophils. Hemoglobin 8.5. Had been running in the mid 8's until yesterday when it suddenly jose roberto to 9.7. Otherwise, the 8.5 has been relatively stable hemoglobin value. Will recheck it. MCV on the high side, 103. Platelet count stable at 225,000. Sodium 145, potassium 3.8, chloride 106, CO2 is 25. BUN 66 and stable. Creatinine 2.2 and decreasing. Calcium 9.5 with an albumin of 2.6. Phosphorus mildly elevated at 5, upper limits in normal being 4.9 mg/dL. Magnesium normal at 2.1. Total bilirubin normal at 0.2. Transaminases are normal. Alkaline phos mildly elevated at 152, upper limits normal being 150, and decreasing. Fungal blood cultures from five days ago are pending. MEDICATIONS: Reviewed. Currently receiving propofol at 40 mcg/kg per minute. ASSESSMENT: 1. Adult respiratory distress syndrome. Has made no progress over the past two days. Failed a pressure support trial. However, I am not sure what the pressure support trial was conducted at. We have removed written flow sheets from the intensive care unit being computerized and they are totally unavailable. Will have to review as his last pressure support trial was conducted at 07/09. Will see if we can get that data and perhaps do pressure support trial at a level that controls his breathing better and works on the ventilatory muscles' strength and endurance. Concerned that maybe he fatigued in the 22 minute trial today. 2. Altered mental status. Not particularly more cognizant. Making no particular progress. Still seems in a haze with acknowledging noise only by moving his head, but I do not think he is focusing on the source of that noise. 3. Acute renal failure. Renal failure improving. Creatinine coming down nicely. Has a mild free water deficit that is being dealt with by Nephrology. Getting some free water which will hopefully help. Also tube feeding proceeding apace with his significant catabolic state of the last few weeks. 4. Abnormal pressure forms on ventilator. Seems like he would like an increased flow. Will discuss this with respiratory therapy. PLAN: 1. Surgery consultation regarding trach. The additional three days to work on his ventilatory status has been quite unsuccessful. Will need to go with trach as he remains quite weak and his altered mental status has precluded any attempts at intubation. Doing very poorly with weaning in terms of ventilatory muscle strength. 2. Discuss inspiratory flows with RT. 3. Chest x-ray. 4. Continue current regimen. Time spent so far on critical care 49 minutes.
--- NOTE | 2017-01-07 17:30 | NUR ---
Mentation/secretions/PST Pt continues to awake to voice and touch and track with eyes, but not follow commands or nod yes/no when asked questions. RASS score -1 to 0 and FELDT score 0-1. When ET tube suctioned, moderate to large amounts of thin, white secretions are present. Suctioning required every 1-2 hours. Q2h turns require propofol bolus for agitation. Frequent rounding, oral care and turns continue. PST done this AM, pt failed due to tachypnea, tachycardia and agitation. See RT note.
[2017-01-08] VITALS (14 sets, daily range): BP systolic 101–135; BP diastolic 56–86; PULSE 81–94; RESP 22–24; O2SAT 92–98
[2017-01-08] MEDS: Chlorhexidine 0.12% 15 mL Oral Solution MT SCH ×6 (00:11→20:40)
[2017-01-08] MEDS: fentaNYL 2,500 mCg/250 mL 2,500 MCG in IV Premix 1 EACH IV SCH ×2 (00:12→22:04)
[2017-01-08] MEDS: Heparin 5,000 Unit/mL Inj SUBQ SCH ×4 (00:13→19:13)
--- NOTE | 2017-01-08 01:49 | ABG ---
DateTimeAnalyzed 05:45:22 -_ pH ____7.428 - 7.350 7.450 pCO2 ___40.8__ -mmHg 35.0 45.0 pO2 ___52.3__ -mmHg 70.0 100 HCO3- ___26.9__ -mmol/L 22.0 26.0 ABE ____2.4__ -mmol/L -2.0 2.0 tHb ____9.2__ -g/dL 12.0 18.0 O2Hb ___85.4__ -% 95.0 COHb ____1.6__ -% 1.5 MetHb ____0.3__ -% 0.4 1.5 sO2 ___87.1__ -% 25.0 FIO2 ___21.0__ -% Pressure_Support ___16.0__ -cmH2O PEEP ____8.0__ -cmH2O Set_RR 24 -b/min Drawn By MT - Date/Time Notified____ 06:02:00 -_ Spontaneous_RR 24 -b/min Oxygen Device 1 VENTILATOR - Notified Whom Ru R, RN - B 740 -mmHg K+ ____3.7__ -mmol/L tO2 ___11.1__ -Vol% Masoud test _Positive -
--- NOTE | 2017-01-08 01:50 | ABG ---
DateTimeAnalyzed 05:45:22 -_ pH ____7.428 - pCO2 ___40.8__ -mmHg pO2 ___52.3__ -mmHg HCO3- ___26.9__ -mmol/L ABE ____2.4__ -mmol/L tHb ____9.2__ -g/dL O2Hb ___85.4__ -% COHb ____1.6__ -% MetHb ____0.3__ -% sO2 ___87.1__ -% FIO2 ___21.0__ -% Drawn By MT - Date/Time Notified____ 06:02:00 -_ Notified Whom Ru R, RN - B 740 -mmHg K+ ____3.7__ -mmol/L tO2 ___11.1__ -Vol% Masoud test _Positive -
[2017-01-08] MEDS: 0.9% Sodium Chloride 1,000 ML IV SCH (02:12)
[2017-01-08] MEDS: Propofol Inj 1,000,000 MCG in IV Premix 1 EACH IV SCH ×5 (02:12→22:04)
--- NOTE | 2017-01-08 04:16 | NUR ---
Neuro/Sedation Pt seemingly more alert. Will turn head toward sound and possibly follows some commands (turn head and open eyes). Seemingly more purposeful as night progresses. Attempted to wean sedation (turned Propofol to 35mcg/kg/min), but pt became more agitated and was attempting to reach for ventilator tubing in mouth. With his hx of self extubation, sedation was turned back to Propofol 40mcg/kg/min. Pt tolerated well throughout night. Tachypneic with turns and bed bath. Will continue to monitor. Care ongoing
--- NOTE | 2017-01-08 04:28 | ABG ---
DateTimeAnalyzed 04:22:00 -_ pH ____7.369 - pCO2 ___45.2__ -mmHg pO2 ___38.7__ -mmHg HCO3- ___25.4__ -mmol/L ABE ____0.6__ -mmol/L tHb ____8.3__ -g/dL O2Hb ___70.3__ -% COHb ____1.5__ -% MetHb ____1.1__ -% sO2 ___72.2__ -% FIO2 ___55.0__ -% Pressure_Support ___16.0__ -cmH2O PEEP ____8.0__ -cmH2O Set_RR ___18.0__ -b/min Vt __524.0__ -L Drawn By rn - Oxygen Device 2 pressure control -____ Date/Time Notified____ 04:28:00 -_ Spontaneous_RR ___28.0__ -b/min Oxygen Device 1 VENTILATOR - Notified By blf - Notified Whom Kamey Plaza RN - B 746 -mmHg tO2 ____8.3__ -Vol% OrderingPhysicianInitials bak - Masoud test N/A -
[2017-01-08 04:34] LABS: Mean Corpuscular Hemoglobin 32.9 pg (27.0-35.0); Mean Corpuscular Volume 104.7 fL (81-100); Platelet Count 241 bil/L (150-400)
[2017-01-08 04:49] LABS: INR 1.16 ratio
[2017-01-08 05:00] LABS: BASOPHILS % (AUTO) 0 % (0-3); EOSINOPHILS % (AUTO) 2 % (0-5); MONOCYTES % (AUTO) 7 % (4-12); NEUTROPHILS % (AUTO) 63 % (40-74)
[2017-01-08 05:05] LABS: Phosphorus 5.2 mg/dL (2.5-4.9)
[2017-01-08] MEDS: cefTRIAXone Inj 2,000 MG in Dextrose 5% Minibag Plus 50 ML IV SCH (08:01)
[2017-01-08] MEDS: 0.9% Sodium Chloride 250 ML IV SCH (08:02)
[2017-01-08] MEDS: Pantoprazole 4 mg/mL 10 mL Inj IVPUSH SCH ×2 (08:02→20:40)
[2017-01-08] MEDS: Senna-Docusate 8.6-50 mg Tablet PO SCH ×2 (08:03→20:39)
--- NOTE | 2017-01-08 08:28 | DRSVH ---
PROCEDURE: X-RAY CHEST ONE VIEW, PORTABLE ([id number]) INDICATIONS: pneumococcal pneumonia TECHNIQUE: One view of the chest was acquired. COMPARISON: [facility], CR, XR CHEST 1VW (PORTABLE), 01/07/2017, 5:05. FINDINGS: Surgical changes and devices: Endotracheal tube, nasogastric tube and right IJ central line are uncha nged in position. Lungs and pleura: Persistent diffuse bilateral airspace infiltrates consistent with pneumonia and/or diffuse pulmonary edema. Small bilateral effusions, left greater than right. No pneumothorax. Mediastinum: Mediastinal contours appear normal. Heart size is normal. Bones and chest wall: No suspicious bony lesions. Overlying soft tissues appear unremarkable. IMPRESSION: No significant change from prior exam. Dictated by: Soren Johnson William Interpreted: Emmie Graves MD on 01/08/2017 at 8:27 Transcribed by: SNEHA on 01/08/2017 at 8:27 Approved by: Emmie Graves M.D. on 01/08/2017 at 16:31
--- NOTE | 2017-01-08 09:35 | NUR ---
NUTRITION FOLLOW-UP: ASSESS: 56 YO M admitted to CCU with septic shock and acute hypoxemic respiratory failure with PNA/bacteremia and influenza A. Pt remains intubated and sedated. Enteral feeding remains at goal rate, well tolerated with minimal residuals. Likely plan for trach placement per CCU rounds. PMHX: COPD, Past history of drug abuse (per sister), tobacco user. No other history obtained d/t intubation and sedation. LABS: Reviewed. Na 145, BUN 63, Cr 1.87, Glu 110, Phos 5.2, (01/07): Alb 2.6, Lipase 70 MEDS: Reviewed. Insulin, Miralax, SennaFentanyl, Propofol @ 18 ml/hr providing 475 kcal per day. GI: Stool via FMS. SKIN: [place] [address] WT: 80.5 kg, BMI 27.0 kg/m2, IBW: 68.4 kg, Admit Wt: 80 kg (BMI: 26.8 kg/m2) DIET: NPO NUTRITION SUPPORT: Nepro @ goal rate 55 ml/hr, providing 2653 (2178 formula + 475 Propofol), 98 g protein,(100% of calorie/protein needs). ESTIMATED NEEDS: Vent, COPD, Dialysis (recalculated 01/01) Calories: 6353-1010 kcal/day (30-35 kcal/kg Admit BW) Protein: 95-160 g/day (1.2-2.0 g/kg Admit BW) Fluids: ~2000 ml (25 ml/kg Admit BW) NUTRITION DIAGNOSIS: 1) Inadequate oral intake related to inability to consume sufficient energy as evidenced by NPO status and ventilation - IMPROVED W/ ENTERAL NUTRITION @ GOAL RATE. 2) Increased nutrient needs related to difficulty breathing as evidenced by COPD and acute respiratory failure/severe ARDS - PERSISTS. NUTRITION INTERVENTION: 1) Continue current enteral feedings as ordered. 2) Adjust TF rate based on daily propofol rate. MONITOR/EVALUATE: NPO/Vent status, POC, TF tolerance, wt, labs, GI/nutrition status. Follow per high nutrition risk guidelines.
--- NOTE | 2017-01-08 10:50 | NUR ---
Social Work Note: Continued Discharge Planning Data& Assessment: Per MD in morning rounds, pt will have trach and pegg placement in the next 1-2 days and believes that pt will require LTAC for further care. ANNI contacted pt sister Rakesh to discuss discharge planning. SW introduced [facility] and provided information. Pt sister is unsure if she would like pt to be transferred so far away and requested further information from [facility] liaison. ANNI left a voicemail for [facility] Liaison requesting they contact pt sister to provide further information before she decides if she would like referral sent. SW to reconnect with pt sister regarding [facility] after she has the opportunity to speak with [facility] liaison. Pt sister denies any other needs at this time. SW to continue to follow. Plan: Anticipated transfer to [facility] pending acceptance and pt family approval. SW to reconnect with pt sister regarding [facility] after she has the opportunity to speak with [facility] liaison. Pt sister denies any other needs at this time. ANNI to continue to follow. TATYANA Arias Addendum: 01/08/17 at 1105 by CLARISSA MUNGUIA ANNI spoke with Terra Peraza Liaakiko who plans to contact pt sister today to provide further information and clarification about their LTAC. ANNI requested MD also speak with pt sister regarding pt medical appropriateness for [facility]. ANNI to continue to follow. TATYANA Arias
--- NOTE | 2017-01-08 10:57 | PCM.PNMED ---
Subjective Date of Service Jan 08, 2017 Subjective Last HD on 01/02, now in recovery phase. Good UOP, serum creatinine has trended down. pending for trach and PEG today. Exam Vital Signs Vital Sign - Last Date Time Temp Pulse Resp B/P Pulse Ox O2 Delivery O2 Flow Rate FiO2 01/08/17 08:42 94 23 135/86 95 55 01/08/17 05:26 36.8 Mechanical Ventilator Intake and Output 01/07/17 01/07/17 01/08/17 Cumulative From/Thru 15:00 23:00 07:00 12/18/16 10:01 - 01/08/17 05:45 Intake Total 2150 ml 2981 ml 50676 ml Output Total 750 ml 975 ml 35856 ml Balance 1400 ml 2006 ml 02199 ml Intake Oral 30 ml IV Total 1054 ml 1019 ml 49879 ml Tube Feeding 976 ml 1637 ml 52406 ml Platelets 461 ml Tube Irrigant 120 ml 325 ml 5263 ml Output Urine Total 750 ml 850 ml 04524 ml Stool Total 0 ml 125 ml 4050 ml Urine/Stool Mix 50 ml Gastric Drainage Total 1620 ml Ultrafiltrate 84960 ml # Bowel Movements 103 Exam GA: intubated, sedated. HEENT: atraumatic, no injected conjunctivae, no icteric sclerae. Heart: RRR, no significant murmur/rub/gallop, normal S1/s2. Lungs: good air entry, B/L, equal BS. Abd: soft, no distension, no HSM, decreased BS. Ext: no edema on LE. : tate cath in place. Lab and Diagnostics Result Diagram: 01/08/17 04201/08/17 0420 Microbiology BCx and SCx positive for Strep pneumo Resp PCR positive for Flu A H3 Strep pneumo urine ag positive X-Rays, CTs and MRIs 01/06 CXR: IMPRESSION: Persistent appearance of bilateral pulmonary opacities and effusions as above. Findings are suggestive of pneumonia with likely underlying areas of edema. Additional Diagnostics ABG DateTimeAnalyzed 04:19:00 -_ pH ____7.345 - 7.350 7.450 pCO2 ___42.0__ -mmHg 35.0 45.0 pO2 110 -mmHg 69.0 116 HCO3- ___22.3__ -mmol/L 22.0 26.0 [facility] DateTimeAnalyzed 04:08:00 -_ pH ____7.444 - 7.350 7.450 pCO2 ___36.5__ -mmHg 35.0 45.0 pO2 ___83.2__ -mmHg 69.0 116 HCO3- ___24.6__ -mmol/L 22.0 26.0 US ARTERY LEG DUPLEX UNILATERAL/ILIAC CAVA, LEFT IMPRESSION: Minimal scattered plaque and no hemodynamically significant left lower extremity peripheral arterial stenosis. Dictated by: Soren SRINIVASAN Interpreted: Emmie Graves MD on 01/02/2017 at 16:38 Assessment & Plan 1. ALBERTINA due to oliguric ATN. - Last HD on 01/02, in recovery phase. 2. Hypovolemic hypernatremia. 3. Septic shock. - Pneumococcal pneumonia /pneumococcal bacteremia - Influenza A infection. 4. Acute hypoxic respiratory failure/ARDS. -failed weaning protocol. Plan: increase free water flushes to 250 ml q 4 hr. continue d5w 50 ml/hr. GI Prophylaxis: Proton Pump Inhibitor VTE Prophylaxis: Sub-Q Heparin (Unfractionated) VTE Mechanical Devices: Intermittant Pneumatic CD Resuscitation Status: CPR: Attempt Resuscitation AnaLoli sierra MD Jan 08, 2017 10:56
--- NOTE | 2017-01-08 11:00 | NUR ---
Patient is being Trach/Peg today and referral was sent to [facility] per MD and EDITORIAL INTERN.
--- NOTE | 2017-01-08 14:16 | PCM.CONSUR ---
Subjective Date of Service: Jan 08, 2017 History of Present Illness Naveed Maciel is a 56 year old man with a PMH of COPD, tobacco crack cocaine abuse sober 2-3 years who presented on 12/18/16 with Acute hypoxic hypercapnic respiratory failure requiring intubation. He was subsequently found to have both influenza A and pneumococcal pneumonia having received treatment for both with minimal incremental improvement of his respiratory and neurologic status over the course his 21 day intubation. He is rapidly approaching the threshold for acceptable duration of ET tube placement without any great hope that he can be imminently weaned off mechanical ventilation. Thus the surgical team has been consulted to perform a Tracheostomy and PEG placement procedure to facilitate his ongoing care and possible transfer to a LTC facility such as [facility]. We have spoken to Mr. Maciel's sister who is acting as his surrogate decision maker, explained the risks and benefits of the procedure and obtained consent from her to perform the Trach and PEG procedure; likely tomorrow 01/09/17. Comprehensive ROS unable to be obtained secondary to patient sedation and intubation. Reason for Consultation Tracheostomy and PEG tube placement Allergy Allergies: Coded Allergies: No Known Allergies (Unverified , 12/18/16) Medications Last Dose Blood Thinner: Jan 08, 2017 Hypertension Medication: No Home Meds Incl Beta Blockers: No No Active Prescriptions or Reported Meds Past Surgical History Surgeries: Yes (Patient unable to provide history, a surgical scar on medial malleolus is noted) Social History Hx Alcohol Use: Yes (Socially per sister) Hx Substance Use: Yes (Prior cocaine use per sister) Hx Tobacco Use: Yes PMH HEENT History History of ENT Problems?: No Other HEENT Pertinent History: hx unknown, pt uable to speak at this time Cardiovascular History History of Heart Problems?: No Other Cardiac History: hx unknown, pt unable to speak Respiratory History of Respiratory Problem: Yes Respiratory History: Positive for:: COPD Neurological History Other Neurological History: hx unknown Genitourinary History Other Pertinent History?: hx unknown Skin History Other Skin Pertinent History: hx unknown Psycho Social History Other Psych Pertinent History?: hx unknown Other History Bedside Blood Glucose: 116 Other Pertinent History: hx unknown Social History Hx Alcohol Use: Yes (Socially per sister)Hx Substance Use: Yes (Prior cocaine use per sister)Hx Tobacco Use: Yes Smoking Status: Current Every Day Smoker Living Arrangement: with Friends/Roommate Objective Exam Objective GEN: patient intubated and sedated, eyes open and minimally responsive to external stimuli HEENT/Neck: ET tube in place and appears patent, No structural deformities or maladaptive traits of the neck which would complicate Trach, eyes open but do not spontaneously track movement. CV: RRR, no murmurs rubs or gallops Resp: Mechanical Vent sounds, decreased lung sounds and air movement BL Abdomen: Soft, non-tender, non distended Extr: No cyanosis clubbing or edema Vital Signs & I/O Vital Sign- Last 8 Hours Date Time Temp Pulse Resp B/P Pulse Ox O2 Delivery O2 Flow Rate FiO2 01/08/17 11:58 80 120/64 96 50 01/08/17 08:42 94 23 135/86 95 55 01/08/17 08:10 95 24 119/65 96 55 01/08/17 07:38 98 117/60 97 55 01/08/17 05:26 36.8 87 22 104/67 96 Mechanical Ventilator 55 Intake and Output- Last 8 Hour 01/08/17 Cumulative From/Thru 07:00 12/18/16 10:01 - 01/08/17 05:45 Intake Total 2981 ml 65594 ml Output Total 975 ml 88184 ml Balance 2006 ml 58584 ml Intake Oral 30 ml IV Total 1019 ml 07057 ml Tube Feeding 1637 ml 48639 ml Platelets 461 ml Tube Irrigant 325 ml 5263 ml Output Urine Total 850 ml 92186 ml Stool Total 125 ml 4050 ml Urine/Stool Mix 50 ml Gastric Drainage Total 1620 ml Ultrafiltrate 92473 ml # Bowel Movements 103 Lab & Micro Results Laboratory Tests Test 01/08/17 04:20 White Blood Count 11.8th/mm3 (3.8-10.1) Red Blood Count 2.55mil/mm3 (4.40-5.80) Hemoglobin 8.4g/dL (13.8-17.2) Hematocrit 26.7% (41.0-50.0) Mean Corpuscular Volume 104.7fL (81-100) Mean Corpuscular Hemoglobin 32.9pg (27.0-35.0) Mean Corpuscular Hemoglobin Concent 31.5% (32.0-37.0) Red Cell Distribution Width 14.9% (12.3-15.4) Platelet Count 241bil/L (150-400) Neutrophils (%) (Auto) 63% (40-74) Lymphocytes (%) (Auto) 26% (14-46) Monocytes (%) (Auto) 7% (4-12) Eosinophils (%) (Auto) 2% (0-5) Basophils (%) (Auto) 0% (0-3) Band Neutrophils % 1% (1-5) Metamyelocytes % 1% (0-0) Prothrombin Time 12.4sec (8.1-12.5) Prothromb Time International Ratio 1.16ratio Sodium Level 145mEq/L (134-144) Potassium Level 4.0mEq/L (3.5-5.2) Chloride Level 109mEq/L (97-108) Carbon Dioxide Level 24mmol/L (18-29) Blood Urea Nitrogen 63mg/dL (6-24) Creatinine 1.87mg/dL (0.76-1.27) Estimat Glomerular Filtration Rate 40mL/min (>59) Glucose Level 110mg/dL (60-99) Calcium Level 9.1mg/dL (8.5-10.1) Phosphorus Level 5.2mg/dL (2.5-4.9) Magnesium Level 2.0mg/dL (1.6-2.6) Pro-B-Type Natriuretic Peptide 1629pg/mL (0-210) Microbiology 01/02/17 Blood Fungal Culture, Received Pending 01/02/17 Stool Occult Blood (ARACELI) - Final, Complete 12/29/16 - Preliminary, Resulted . 12/29/16 Acid Fast Bacilli Smear - Final, Resulted 12/29/16 Acid Fast Bacilli Culture, Resulted Pending 12/29/16 Pneumocystis Carinii Smear - Final, Resulted 12/29/16 Cytomegalovirus Culture - Final, Resulted 12/29/16 Varicella-Zoster Virus Culture - Final, Resulted 12/23/16 Urine Culture - Final, Complete No growth (<1,000 organisms/mL) 12/29/16 Culture & Sensitivity - Final, Complete No growth. Result Diagram: 01/08/1741901/08/17419 Review of Systems: Comprehensive ROS unable to be obtained secondary to patient intubation and sedation. Assessment & Plan Assessment Patient is a 56 year old male intubated and mechanically ventilated for the past 21 days, who will likely require further extensive mechanical ventilation thus necessitating Tracheostomy with PEG tube placement. Patient does not have any readily observable structural abnormalities which would preclude such a procedure. The patient's sister who is acting as medical decision maker has been contacted, risks and benefits of the procedure were explained and consent was obtained. VTE Prophylaxis: Sub-Q Heparin (Unfractionated) VTE Mechanical Devices: Intermittant Pneumatic CD Plan: -Patient will be scheduled to undergo Tracheostomy with PEG tube placement tomorrow 01/09/17 with the assistance of endoscopy -Nursing staff has been instructed to hold his tube feeds and anticoagulation after midnight tonight . Resuscitation Status: CPR: Attempt Resuscitation Attending Statement: I personally reviewed the pt's chart and examined the pt, and I agree with Dr. Lindsey's assessment and plan. Trach and PEG tomorrow. Ifeanyi Lindsey DO Jan 08, 2017 13:22 Sachin Vergara MD Jan 11, 2017 09:18
[2017-01-08] MEDS: Dextrose 5% 1,000 ML IV SCH (14:40)
--- NOTE | 2017-01-08 15:54 | PROG NOTE ---
[address] [address] PROGRESS NOTE PATIENT: DOUGIE GARDUNO : 1960 MR#: [id number] ADMIT: 12/18/2016 JOB ID: [id number] DATE: 01/08/2017 PULMONARY CRITICAL CARE FOLLOWUP NOTE: PROBLEM LIST: 1. ARDS. 2. Acute renal failure. 3. Altered mental status. 4. Polysubstance abuse. 5. Weakness. SUBJECTIVE: None. OBJECTIVE: Temperature 36.8 with T-max being 37.3, pulse 80-100, respiratory rate 22-24, blood pressure 119/65 to 135/86. O2 sat on FiO2 of 55%, PEEP of 8 is 96%. I and O shows 4.2 L in, 1.8 L out. General appearance: Does seem to alert to voice. Seems to move better to the left than the right, where left gets pretty much over about 60 degrees rotation, whereas rightward is only maybe 30, and he never really gets to look directly at the examiner. Does not attempt reply whatsoever. Seems to be a bit more animated when he looks to the left with eyes open; somewhat more glazed with eyes not quite as open when he looks to the right. Chest: Fairly good breath sounds bilaterally. Right lung field is clear. Left lower lateral lung field has some bronchial quality to the breath sounds. Heart: Regular rhythm. Heart tones normal. Abdomen is soft. Bowel tones present. Extremities: Have 1 to 2+ pretibial edema. LABORATORY: Shows a white cell count of 11,800, with 63 polymorphonuclears, 1 band, 1 metamyelocyte, 26 lymphocytes, 7 monocytes, 2 eosinophils. Hemoglobin stable at 8.4. Platelet count rising at 241,000. Sodium 145, potassium 4, chloride 109, CO2 is 24, BUN 63 and relatively stable. Creatinine 1.87 and improving from yesterday's value of 2.20. Calcium is 9.1. Phosphorus mildly elevated at 5.2, upper limits of normal being 4.9 mg/dL. Magnesium normal at 2. INR is 1.16. Blood fungal cultures pending. Chest x-ray shows persistent diffuse bilateral airspace infiltrates. ASSESSMENT: 1. Adult respiratory distress syndrome. Has not made any progress whatsoever over the weekend. Plan was to give him a few more days to see if he would improve, as he is about day 21 with the endotracheal tube in. Contacted Surgery regarding tracheostomy and percutaneous endoscopic gastrostomy. 2. Acute renal failure. Creatinine continues to decrease. He is quite fluid overloaded in the past 24 hours with an intake and output of 4.2 L in. Half of this is intravenous fluids, half of this is tube feeding, the latter mostly from water flushing to keep his sodium down. 3. Altered mental status. I do not think he has particularly improved. Other examiners get much more response than I. Will see how he does. PLAN: 1. Check fluid intake. May need to be curtailed a bit. 2. Continue to support intravascular volume in order to keep his kidneys perfused. 3. Surgery consult regarding trach and PEG. 4. Continue pressure assist-control ventilation. (The patient did pressure support trial of 18/8 this morning. Did rather well for the 15-minute time limited trial as he did so poorly yesterday. I think we will continue to increase them, maybe doing one this afternoon. Trach scheduled for later today or early tomorrow, the latter being more likely.) Time spent so far in critical care, 50 minutes.
--- NOTE | 2017-01-08 17:39 | NUR ---
Surgical consult for trach & PEG, scheduled for tomorrow at 1000; phone/verbal consent obtained by Dr. Vergara from sister and DPOAMilind. Heparin and TFs to be held after 0000. Sat on side of bed assisted by PT today, profoundly weak. Not following commands or answering/nodding to yes/no questions. Makes eye contact to voice. Sedation increased this afternoon for increased RR/HR and restlessness. With sedation lightened, he was noted to drop his sats to 80s, RR 40-50s, sedation resumed. BP stable, Sinus rhythm on tele. Afebrile. TFs at goal, no residuals aspirated. Thick liquid stool via FMS. UOP 950/12 hours.
--- NOTE | 2017-01-08 21:26 | PCM.PNMED ---
Subjective Date of Service Jan 08, 2017 Subjective Patient is intubated and sedated. ROS subjective not obtainable Exam Vital Signs Vital Sign - Last Date Time Temp Pulse Resp B/P Pulse Ox O2 Delivery O2 Flow Rate FiO2 01/08/17 08:42 94 23 135/86 95 55 01/08/17 05:26 36.8 Mechanical Ventilator Intake and Output 01/07/17 01/07/17 01/08/17 Cumulative From/Thru 14:59 22:59 06:59 12/18/16 10:01 - 01/08/17 05:45 Intake Total 2150 ml 2981 ml 36639 ml Output Total 750 ml 975 ml 97235 ml Balance 1400 ml 2006 ml 97790 ml Intake Oral 30 ml IV Total 1054 ml 1019 ml 87804 ml Tube Feeding 976 ml 1637 ml 02784 ml Platelets 461 ml Tube Irrigant 120 ml 325 ml 5263 ml Output Urine Total 750 ml 850 ml 22767 ml Stool Total 0 ml 125 ml 4050 ml Urine/Stool Mix 50 ml Gastric Drainage Total 1620 ml Ultrafiltrate 46956 ml # Bowel Movements 103 Exam Intubated and sedated. Normal skull. Anicteric sclerae Endotracheal tube in place. Neck supple. Lungs are clear with no overbreathing. No other sounds are heard. Heart is regular without murmur gallop or rub Abdomen is nondistended extremities are normal before proceeding with good pedal and radial pulses. No skin rash or lesions. Soft restraints on hands. IVs and Medications Medications Reviewed: Medications were reviewed in detail Lab and Diagnostics Result Diagram: 01/08/17 04201/08/17 0420 Microbiology BCx and SCx positive for Strep pneumo Resp PCR positive for Flu A H3 Strep pneumo urine ag positive X-Rays, CTs and MRIs 01/06 CXR: IMPRESSION: Persistent appearance of bilateral pulmonary opacities and effusions as above. Findings are suggestive of pneumonia with likely underlying areas of edema. Additional Diagnostics ABG DateTimeAnalyzed 04:19:00 -_ pH ____7.345 - 7.350 7.450 pCO2 ___42.0__ -mmHg 35.0 45.0 pO2 110 -mmHg 69.0 116 HCO3- ___22.3__ -mmol/L 22.0 26.0 [facility] DateTimeAnalyzed 04:08:00 -_ pH ____7.444 - 7.350 7.450 pCO2 ___36.5__ -mmHg 35.0 45.0 pO2 ___83.2__ -mmHg 69.0 116 HCO3- ___24.6__ -mmol/L 22.0 26.0 US ARTERY LEG DUPLEX UNILATERAL/ILIAC CAVA, LEFT IMPRESSION: Minimal scattered plaque and no hemodynamically significant left lower extremity peripheral arterial stenosis. Dictated by: Soren GARGA Interpreted: Emmie Graves MD on 01/02/2017 at 16:38 Assessment & Plan Naveed Maciel is a 56 year old male with past medical history significant for COPD who presented to the emergency department via EMS complaining of dyspnea and 3 days of flu-like symptoms. Intubated after failing on BiPAP and admitted for septic shock and acute hypoxemic respiratory failure. Hospital 19. day 22. 1. Septic encephalopathy, present on admission. Improving. - Continue sedation vacations and weening off fentanyl and propofol. - EEG showed abnormal results as above. 2. Severe ARDS, present on admission, active. Improving. - Etiology secondary to sepsis and pneumococcal pneumonia in the setting of COPD and past history of cocaine use. CT chest on 12/18 showed dense consolidation bilaterally within the dependent portions of the lung. Repeat CT chest was largely unchanged with some mild interval improvement in consolidation. Patient is also fluid up roughly 17 L which is certainly playing a role and inability to wean off the mechanical ventilation. - Vent settings : Unfortunately FiO2 is up to 0.55 today. The patient continues to have significant pulmonary secretions. - Surgery has been consulted for tracheostomy likely in the morning tomorrow. 3. Acute renal failure, present on admission, active and slowly improving.. - Unknown if patient has underlying chronic kidney disease. Patient continues to be anuric. On admission BUN 65 and creatinine 3.71 - Avoid nephrotoxic medications as able. - Nephrology consulted. Appreciate time and recommendations. - Placed femoral Lasha catheter for dialysis 12/31. Noted that his left femoral pulse was not palpable, unable to visualize on US. Will order arterial doppler of left leg for tomorrow 01/02. - D/C'd femoral cath. no dialysis for last 5 days (01/03-01/06) D/C'd lasix. - BUN increasing from 66-70 today suggesting worsening renal function. Creatinine decreasing 3.11 - 1.84 - Continue K+ replacement protocol - free water flushes increased from 150 ml to 250ml Q 4H. - IV D5W @ 50 ml /hr. 4. Pneumococcal pneumonia /pneumococcal bacteremia (septicemia), present on admission, improving. - CXR and CT as above. Strep pneumonia urine antigen positive. Blood and sputum cultures positive. Sensitive for penicillins. WBC trending down. Procalcitonin 180.83 on admission peaked at 612.48, trending down. - Ceftriaxone 2g IV daily. - Monitoring Procalcitonin every other day. Currently trending downward from 43.7 (12/27/16), currently down to 1.83 - Dr. Muhammad with infectious disease following, time and recommendations appreciated. 5. Septic shock, present on admission, Resolved. - Criteria include: HR 144, RR 41, O2 sats 83%, lactic acid 6.6, BUN 65, creatinine 3.71, procalcitonin 180.38. Etiology secondary to pneumococcal pneumonia and influenza A. - Right IJ in place 12/18. right radial arterial line lost 07/28 6. Acute pneumothorax. Not present on admission. Resolved. - Repeat CXR as above. 7. Metabolic alkalosis, not present on admission. Improving. - ABG as above - 8. Influenza A, present on admission, treated and resolved. - Oseltamivir 30 mg after each hemodialysis session. - Received Oseltamivir for 5 days for a total of 10 treatments 12/29/16 9. Thrombocytopenia, present on admission, stable. - Unknown baseline. Etiology likely sepsis. - On admission platelets 74. Currently 195. - DVT prophylaxis initiated 12/22. - DIC panel does not suggest DIC. No schistocytes on blood smear. - Platelets transfused 12/20 prior to dialysis catheter placement. - Will continue to monitor. 10. Upper GI bleed, present on admission, stable. - Coffee-ground material reported from OG tube on admission. Guaiac positive in the ED. Hemoglobin and hematocrit have decreased since admission but likely secondary to fluid resuscitation. - Type and cross with 2 units PRBCs on hold. - DVT prophylaxis started . - Pantoprazole 40 mg BID. - Will consider GI consult if H&H drops or more active bleeding is visualized. -Hematocrit remained stable. No evidence of ongoing bleeding. 12. COPD, present on admission, unknown baseline. 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 Unknown if patient has outpatient medication regimen. - Treatment as above. 12. Tobacco use, present on admission, chronic. - Consider Nicotine patch once patient awake. 13. Hyperglycemia, present on admission, active. - Insulin regular low dose correctional scale. - Hemoglobin A1c 5.7. 14. Acute hypoxic respiratory failure, POA. Improving. Decreasing FiO2 and lightening sedation with hope of extubation in next 3 days. Hope to avoid trach. Acetaminophen for mild pain when necessary. Bowel regimen Senna and MiraLAX scheduled and PRN. Zofran when necessary for nausea and vomiting. SubQ heparin. SCDs in place. High-risk medications: IV fentanyl Disposition: Patient currently intubated with severe ARDS. He continues to require 2 pressors. Reduction in FiO2 and PEEP is a positive step however his prognosis is guarded and he Pain Evaluation: Adequate Pain Control GI Prophylaxis: Proton Pump Inhibitor VTE Prophylaxis: Sub-Q Heparin (Unfractionated) VTE Mechanical Devices: Intermittant Pneumatic CD Resuscitation Status: CPR: Attempt Resuscitation Time spent 45 minutes Attending Statement Patient seen and examined with house staff. Agree with all attached documentation. KING STEELE DO Jan 08, 2017 09:39 Masoud Bruner MD Jan 17, 2017 07:17
[2017-01-09] VITALS (13 sets, daily range): BP systolic 89–144; BP diastolic 58–85; PULSE 80–101; RESP 20–30; O2SAT 92–100
[2017-01-09] MEDS: Chlorhexidine 0.12% 15 mL Oral Solution MT SCH ×6 (00:12→21:56)
[2017-01-09] MEDS: Dextrose 5% 1,000 ML IV SCH ×2 (02:06→21:56)
[2017-01-09] MEDS: Propofol Inj 1,000,000 MCG in IV Premix 1 EACH IV SCH ×4 (02:06→16:36)
--- NOTE | 2017-01-09 04:46 | ABG ---
DateTimeAnalyzed 04:40:00 -_ pH ____7.436 - 7.350 7.450 pCO2 ___34.9__ -mmHg 35.0 45.0 pO2 ___55.5__ -mmHg 69.0 116 HCO3- ___23.0__ -mmol/L 22.0 26.0 ABE ___-0.4__ -mmol/L -2.0 2.0 tHb ____9.2__ -g/dL O2Hb ___87.8__ -% COHb ____1.9__ -% MetHb ____1.2__ -% sO2 ___90.6__ -% 25.0 FIO2 ___50.0__ -% Pressure_Support ___16.0__ -cmH2O PEEP ____5.0__ -cmH2O Set_RR ___18.0__ -b/min Vt __524.0__ -L Drawn By blf - Oxygen Device 2 pressure control -____ Date/Time Notified____ 04:45:00 -_ Spontaneous_RR ___28.0__ -b/min Oxygen Device 1 VENTILATOR - Notified By blf - Notified Whom [address]ho[address] RN - B 750 -mmHg tO2 ___11.4__ -Vol% OrderingPhysicianInitials bak - Masoud test N/A -
[2017-01-09 06:10] LABS: EOSINOPHILS % (AUTO) 3.1 % (0-5); MONOCYTES % (AUTO) 7.9 % (4-12); Mean Corpuscular Hemoglobin 32.2 pg (27.0-35.0); Mean Corpuscular Volume 102.5 fL (81-100); Platelet Count 264 bil/L (150-400)
--- NOTE | 2017-01-09 06:19 | NUR ---
Surgery prep Pt given complete bed bath and wiped down with chlorhexidine wipes from head to toe. TF turned off and hooked up to LIWS at midnight for NPO status. Blood thinners held after midnight in anticipation of trach and PEG surgery. Care ongoing
[2017-01-09 07:04] LABS: Phosphorus 4.9 mg/dL (2.5-4.9)
[2017-01-09] MEDS: 0.9% Sodium Chloride 250 ML IV SCH (08:25)
[2017-01-09] MEDS: Senna-Docusate 8.6-50 mg Tablet PO SCH (08:30)
[2017-01-09] MEDS: Heparin 5,000 Unit/mL Inj SUBQ SCH ×2 (08:35→16:34)
[2017-01-09] MEDS: Pantoprazole 4 mg/mL 10 mL Inj IVPUSH SCH ×2 (08:37→21:55)
--- NOTE | 2017-01-09 08:38 | PCM.HPANE ---
Patient Data Date of Service: Jan 09, 2017 Surgeon Admitting Provider:Ariel Berg MD Attending Provider:Ariel Berg MD Primary Care Physician:Dax Other Provider: Reason for Visit Bilateral Pneumonia/Acute Resp Failure BILATERAL PNEUMONIA/ACUTE RESP FAILURE Ht/WT & BMI Height (Feet): 5 Height (Inches): 8.00 Weight (Kilograms): 81.200 Body Mass Index 26.73 Allergies Coded Allergies: No Known Allergies (Unverified , 12/18/16) Diabetes History Current Bedside Blood Glucose: 109 Medications Last Dose Blood Thinner: Jan 08, 2017 Hypertension Medication: No Home Meds Incl Beta Fahad: No History History of ENT Problems?: No Other HEENT Pertinent History: pt intubated, sedated and altered mental status since admission Hx of Heart Problems?: No Other Cardiac History: pt intubated, sedated and altered mental status since admission Hx of Respiratory Problem?: Yes Respiratory History: Positive for:: COPD Other Resp Pertinent History: pt intubated, sedated and altered mental status since admission; smoker; intubated and unable to tolerate weaning off vent due to ARDS, possible pulm edema; influenza A with this admission and pneumococcal pneumonia; pneumothorax on admission Hx Neurologic Problems?: Yes Other Neurological Pertinent: pt intubated, sedated and altered mental status since admission; probable anoxic brain injury after being found down by roommate Hx of GI Problems?: Yes Gastrointestinal History: Positive for:: Gastrointestinal Bleeding Other GI Pertinent History: pt intubated, sedated and altered mental status since admission Hx of Problems?: Yes Genitourinary History: Positive for:: HX of Hemodialysis HX of Peritoneal Dialysis: No Other Pertinent History: pt intubated, sedated and altered mental status since admission; acute renal failure s/p multiple days of hemodialysis Other Skin Pertinent History: pt intubated, sedated and altered mental status since admission Hx Musculoskeletal Problems?: No Hx of Psycho/Social Problems?: Yes Other Psych Pertinent History: pt intubated, sedated and altered mental status since admission; polysubstance abuse including cocaine Hx Surgeries?: Yes Bedside Blood Glucose: 109 Other Pertinent History: hx unknown Hx Alcohol Use: Yes (Socially per sister)Hx Substance Use: Yes (Prior cocaine use per sister) Smoking Status: Current Every Day Smoker Stop/Bang Treated for Sleep Apnea?: No Do You Have a CPAP Machine?: No (pt intubated, sedated and altered mental status since admission) Risk Assessment Category Category 1A: Patient has history of documented sleep apnea, and HAS NOT received any narcotic, sedative or anesthesia administration during this stay. Category 1B: Patient has history of documented sleep apnea, and HAS received any narcotic , sedative or anesthesia administration during this stay Category 2: Patient has SUSPECTED Obstructive Sleep Apnea, and HAS received any narcotic , sedative or anesthesia administration during this stay. Category 3: Patient has SUSPECTED Obstructive Sleep Apnea and HAS NOT received narcotic, sedative or anesthesia administration during this stay. Category 4: Outpatient in Procedural Areas with known sleep apnea or who screen positive for High Risk via the STOP/BANG questionnaire. Exam Exam Vital Signs Vital Signs Date Time Temp Pulse Resp B/P Pulse Ox O2 Delivery O2 Flow Rate FiO2 01/09/17 04:53 101 137/72 92 60 01/09/17 04:35 37.1 89 24 137/67 95 Mechanical Ventilator 60 01/09/17 04:30 101 137/72 92 50 01/09/17 00:45 98 129/65 92 50 General Appearance: Other (pt intubated, sedated and altered mental status since admission) HEENT/AIRWAY: Other (8.0 ETT, OGT, supraglottic suction catheter in place - unable to examine otherwise) Lungs: Coarse, Rhonchorus, Wheezes, Crackles Heart: Other (tachycardic) Meds/Labs/Diagnostics Admission Meds Current Medications Dextrose/Water (D5W) 1,000 ml @ 60 mls/hr [id number] IV Last administered on 01/09t 02:06; Start 01/08/17 at 10:50 Bedside Blood Glucose: 109 Labs Test 12/18/16 09:55 12/18/16 11:00 12/18/16 11:15 12/18/16 12:14 Troponin T 0.010ug/L (0.0-0.011) Urine Legionella pneumophilia Ag Negative (Negative) Urinalysis Comment None Urine Random Creatinine 293mg/dL (22-328) Urine Random Microalbumin 131.3ug/mL (Not Estab.) Urine Random Total Protein 193mg/dL (0-15) Urine Random Sodium 20mEq/L Urine Random Potassium 74.9mEq/L Urine Opiates Screen Negative Urine Methadone Screen Negative Urine Barbiturates Screen Negative Urine Amphetamines Screen Negative Urine Benzodiazepines Screen Negative Urine Cocaine Metabolite Screen Negative Urine Cannabinoids Screen Negative Total Creatine Kinase 106U/L (21-232) Alcohol, Quantitative < 10mg/dL (0-10) Hepatitis A IgM Antibody Negative (Negative) Hepatitis B Core IgM Antibody Negative (Negative) Hepatitis C Comment Comment (.) HIV (1&2) Ag and Ab, 4th Generation Non reactive (Non Reactive) Test 12/19/16 04:20 12/19/16 09:11 12/20/16 18:03 12/21/16 03:55 Myelocytes % 6% (0-0) Nucleated Red Blood Cells 1/100 WBC (0-24) Haptoglobin 135mg/dL (34-200) Hematology Comments Hemoglobin A1c 5.7% (4.8-5.6) Lactate Dehydrogenase 458U/L (100-190) Coagulation Factor VIII Activity 371% (.) Hepatitis B Surface Antigen Negative (Negative) Hepatitis B Surface Antibody Non reactive (.) Hepatitis B Core Total Antibody Negative (Negative) Hepatitis C Antibody <0.1s/co ratio (0.0-0.9) Prealbumin 27mg/dL (20-40) Test 12/23/16 00:00 12/24/16 12:13 12/25/16 05:30 12/25/16 19:00 Urine Color Fidelina (YELLOW) Urine Appearance Cloudy (CLEAR,HAZY) Urine pH 6.5 (5.0-8.0) Urine Specific [place] 1.025 (1.003-1.035) Urine Protein 300mg/dL (NEG,TRACE) Urine Glucose (UA) 100mg/dL (NEGATIVE) Urine Ketones Negativemg/dL (NEGATIVE) Urine Occult Blood Large (NEGATIVE) Urine Nitrite Positive (NEGATIVE) Urine Bilirubin Negative (NEGATIVE) Urine Ictotest Negative (Negative) Urine Urobilinogen Normalmg/dL (NORMAL) Urine Leukocyte Esterase Trace (NEGATIVE) Urine RBC 3-10/hpf (0-2) Urine WBC 0-5/hpf (0-5) Urine Epithelial Cells Few/hpf (NONE-MOD) Urine Crystals None seen (NONE SEEN) Urine Bacteria Few/hpf (NONE-FEW) Urine Hyaline Casts None/lpf (NONE) Urine Granular Casts None seen (NONE SEEN) Urine Waxy Casts None seen (NONE SEEN) Urine Red Blood Cell Casts None seen (NONE SEEN) Urine White Blood Cell Casts None seen (NONE SEEN) Urine Mucus None seen (None Seen) Urine Trichomonas None seen (NONE SEEN) Urine Yeast None (NONE SEEN) Urine Culture Reflexed Indicated Fibrinogen 445mg/dL (157-380) D-Dimer 11.9mg/L (<0.50) Lactic Acid Level 1.9mmol/L (0.4-2.0) Direct Bilirubin 0.6mg/dL (0.0-0.3) Hold Urine Received (Received) Test 12/29/16 05:25 01/05/17 04:30 01/07/17 05:10 01/08/17 04:20 Ionized Calcium (Calculated) 4.09mg/dL (3.5-5.2) Activated Partial Thromboplast Time 23.3sec (22.8-33.0) Ionized Calcium 1.18mmol/L (1.17-1.32) Lipase 70U/L (13-60) Procalcitonin 0.92ng/mL (0.00-0.08) Band Neutrophils % 1% (1-5) Metamyelocytes % 1% (0-0) Prothrombin Time 12.4sec (8.1-12.5) Prothromb Time International Ratio 1.16ratio Magnesium Level 2.0mg/dL (1.6-2.6) Pro-B-Type Natriuretic Peptide 1629pg/mL (0-210) Test 01/09/17 05:20 White Blood Count 14.6th/mm3 (3.8-10.1) Red Blood Count 2.76mil/mm3 (4.40-5.80) Hemoglobin 8.9g/dL (13.8-17.2) Hematocrit 28.3% (41.0-50.0) Mean Corpuscular Volume 102.5fL (81-100) Mean Corpuscular Hemoglobin 32.2pg (27.0-35.0) Mean Corpuscular Hemoglobin Concent 31.4% (32.0-37.0) Red Cell Distribution Width 14.7% (12.3-15.4) Platelet Count 264bil/L (150-400) Neutrophils (%) (Auto) 67.0% (40-74) Lymphocytes (%) (Auto) 20.2% (14-46) Monocytes (%) (Auto) 7.9% (4-12) Eosinophils (%) (Auto) 3.1% (0-5) Basophils (%) (Auto) 1.0% (0-3) Sodium Level 143mEq/L (134-144) Potassium Level 3.8mEq/L (3.5-5.2) Chloride Level 106mEq/L (97-108) Carbon Dioxide Level 23mmol/L (18-29) Blood Urea Nitrogen 55mg/dL (6-24) Creatinine 1.67mg/dL (0.76-1.27) Estimat Glomerular Filtration Rate 45mL/min (>59) Glucose Level 91mg/dL (60-99) Calcium Level 9.1mg/dL (8.5-10.1) Phosphorus Level 4.9mg/dL (2.5-4.9) Total Bilirubin 0.2mg/dL (0.0-1.2) Aspartate Amino Transf (AST/SGOT) 26U/L (0-50) Alanine Aminotransferase (ALT/SGPT) 26U/L (0-44) Alkaline Phosphatase 166U/L (25-150) Total Protein 5.5g/dL (6.4-8.4) Albumin 2.8g/dL (3.4-5.0) Plan Impression Patient chart reviewed, patient interviewed and anesthestic plan with risks, benefits, and alternatives discussed, and informed consent obtained. ASA Physical Status: ASA4 Life Threatening Anesthetic Plan: GA Bene/Risks/Altern/Consents: Yes (with patient's sister via telephone) HP Complete Prior to Induction: Yes Other History obtained via chart review and interview with pt's RN and surgeon Gee Aguilar MD Jan 09, 2017 08:38
--- NOTE | 2017-01-09 08:54 | NUR ---
KENDALL: Patient still intubated and no one present to sign KENDALL
[2017-01-09] MEDS ORDERED: Dextrose 5% 0.9% NaCl 1,000 ML IV SCH (09:10)
[2017-01-09] MEDS ORDERED: Dextrose 5% 0.45% NaCl 1,000 ML IV ONE (09:42)
[2017-01-09] MEDS ORDERED: Lactated Ringer's 1,000 ML IV ONE (09:42)
--- NOTE | 2017-01-09 10:02 | DRSVH ---
PROCEDURE: X-RAY CHEST ONE VIEW, PORTABLE ([id number]) INDICATIONS: intubated TECHNIQUE: One view of the chest was acquired. COMPARISON: [facility], CR, XR CHEST 1VW (PORTABLE), 01/08/2017, 4:37. FINDINGS: Surgical changes and devices: Stable position of ETT, nasogastric tube and right IJ CVL. Lungs and pleura: Diffuse, widespread bilateral pulmonary interstitial and air space opacities are p resent and increased from prior examination. Bibasilar pleural effusions redemonstrated, left greate r than right. No pneumothorax. Mediastinum: Mediastinal contours appear normal. Heart size is normal. Bones and chest wall: No suspicious bony lesions. Overlying soft tissues appear unremarkable. IMPRESSION: Worsening pulmonary edema and/or bilateral pneumonia. Dictated by: Soren Johnson RR Interpreted: Emmie Graves MD on 01/09/2017 at 10:00 Transcribed by: SNEHA on 01/09/2017 at 10:01 Approved by: Emmie Graves M.D. on 01/09/2017 at 16:43
--- NOTE | 2017-01-09 10:06 | PROG NOTE ---
[address] [address] PROGRESS NOTE PATIENT: DOUGIE GARDUNO : 1960 MR#: [id number] ADMIT: 12/18/2016 JOB ID: [id number] DATE: 01/09/2017 PULMONARY CRITICAL CARE FOLLOW UP NOTE: PROBLEMS: 1. ARDS. 2. Acute renal failure. 3. Altered mental status. 4. Polysubstance abuse. 5. Weakness. SUBJECTIVE: None. The patient currently sedated on a ventilator. Makes no attempts at response. OBJECTIVE: Temperature 37.1 with T-max being 37.3. Pulse 85-101. Respiratory rate 20-24. Blood pressure 137/72, O2 sat on FiO2 60%, PEEP of 10, is 95. General appearance: Lethargic but does respond to voice bite moving his head somewhat. I do not think he is tracking very well. At other times, I think he trach some, makes no attempt at reply. Sometimes his vision seemed focused, sometimes it is just a glazed stare. OBJECTIVE: Chest: Fairly good breath sounds on the right. Right lung clear. Left lower lateral lung field slight bronchial quality to the breath sounds. Mid and upper left lung is clear. Heart: Regular rhythm. Heart tones normal. Abdomen is soft. Some bowel tones present. Extremities: 1-2+ pretibial edema. Was fighting the ventilator a little bit. Seemed to want a slightly larger breath. Seemed to do better with pressure support of 20 rather than 16. However, later on he seemed to settle down. Put the pressure support back down to 16 which he is tolerating well, may be slightly over breathing the vent. LABORATORY: Shows a white count of 14,600 with 67 polymorphonuclears, 20 lymphs, 7 monocytes, 3 eosinophils. No left shift. Hemoglobin 8.9 and stable. Platelet count 264,000 and rising. Sodium 143, potassium 3.8, chloride 106, CO2 is 23, BUN 55, creatinine 1.67 and continuing to improve. Calcium 9.1 with albumin of 2.8. Transaminases are normal. Alkaline phos 166, mildly elevated with upper limits normal being 150. Getting increased free water from renal. Getting water flushes of his NG tube. Also getting some free water IV. Sugars have been a little low. Tube feeding was stopped for his upcoming surgery. Sugars were low this morning and apparently the patient received some D50 last night. Will hang D5 NS for the surgery so he has a glucose source during his operative time. ASSESSMENT: 1. Acute respiratory distress syndrome. No particular improvement. Not getting very far. Will need continued mechanical ventilation. The trach has been scheduled for continued mechanical ventilation. 2. Altered mental status. It does not seem to be improving. We will continue to wean him. May need to consider Seroquel. Maybe a retrial of dexmedetomidine which he did not tolerate previously. 3. Doing reasonably well with the pressure support. Will continue pressure support trials. Have been doing them at 18. We will continue with that as he did quite well with that Sunday. TIME SPENT: In critical care 30 minutes.
[2017-01-09] MEDS ORDERED: Bupivacaine-MPF 0.5% W/EPI 30 mL Inj INJ ONE (10:30)
--- NOTE | 2017-01-09 10:58 | PCM.PNMED ---
Subjective Date of Service Jan 09, 2017 Subjective Patient is intubated and sedated. ROS subjective not obtainable Exam Vital Signs Vital Sign - Last Date Time Temp Pulse Resp B/P Pulse Ox O2 Delivery O2 Flow Rate FiO2 01/09/17 09:11 79 129/65 95 60 01/09/17 08:00 37.4 20 Mechanical Ventilator Intake and Output 01/08/17 01/08/17 01/09/17 Cumulative From/Thru 15:00 23:00 07:00 12/18/16 10:01 - 01/09/17 06:07 Intake Total 2006 ml 1736 ml 97173 ml Output Total 1155 ml 1300 ml 43852 ml Balance 851 ml 436 ml 50901 ml Intake Oral 30 ml IV Total 1064 ml 1220 ml 65098 ml Tube Feeding 642 ml 366 ml 59675 ml Platelets 461 ml Tube Irrigant 300 ml 150 ml 5713 ml Output Urine Total 950 ml 1000 ml 92755 ml Stool Total 200 ml 300 ml 4550 ml Urine/Stool Mix 50 ml Gastric Drainage Total 5 ml 1625 ml Ultrafiltrate 49238 ml # Bowel Movements 103 Exam Intubated and sedated. Normal skull. Anicteric sclerae Endotracheal tube in place. Neck supple. Lungs are clear with no overbreathing. No other sounds are heard. Heart is regular without murmur gallop or rub Abdomen is nondistended extremities are normal before proceeding with good pedal and radial pulses. No skin rash or lesions. Soft restraints on hands. IVs and Medications Medications Reviewed: Medications were reviewed in detail Lab and Diagnostics Result Diagram: 01/09/17 0520 01/09/17 0520 Microbiology BCx and SCx positive for Strep pneumo Resp PCR positive for Flu A H3 Strep pneumo urine ag positive X-Rays, CTs and MRIs 01/06 CXR: IMPRESSION: Persistent appearance of bilateral pulmonary opacities and effusions as above. Findings are suggestive of pneumonia with likely underlying areas of edema. Additional Diagnostics ABG DateTimeAnalyzed 04:19:00 -_ pH ____7.345 - 7.350 7.450 pCO2 ___42.0__ -mmHg 35.0 45.0 pO2 110 -mmHg 69.0 116 HCO3- ___22.3__ -mmol/L 22.[address] [facility] DateTimeAnalyzed 04:08:00 -_ pH ____7.444 - 7.350 7.450 pCO2 ___36.5__ -mmHg 35.0 45.0 pO2 ___83.2__ -mmHg 69.0 116 HCO3- ___24.6__ -mmol/L 22.0 26.0 US ARTERY LEG DUPLEX UNILATERAL/ILIAC CAVA, LEFT IMPRESSION: Minimal scattered plaque and no hemodynamically significant left lower extremity peripheral arterial stenosis. Dictated by: Soren SRINIVASAN Interpreted: Emmie Graves MD on 01/02/2017 at 16:38 Assessment & Plan Naveed Maciel is a 56 year old male with past medical history significant for COPD who presented to the emergency department via EMS complaining of dyspnea and 3 days of flu-like symptoms. Intubated after failing on BiPAP and admitted for septic shock and acute hypoxemic respiratory failure. Hospital 19. day 22. 1. Septic encephalopathy, present on admission. Improving. - Continue sedation vacations and weening off fentanyl and propofol. - EEG showed abnormal results as above. 2. Severe ARDS, present on admission, active. Improving. - Etiology secondary to sepsis and pneumococcal pneumonia in the setting of COPD and past history of cocaine use. CT chest on 1/30 showed dense consolidation bilaterally within the dependent portions of the lung. Repeat CT chest was largely unchanged with some mild interval improvement in consolidation. Patient is also fluid up roughly 17 L which is certainly playing a role and inability to wean off the mechanical ventilation. - Surgery has been consulted for tracheostomy today @ 0930. 3. Acute renal failure, present on admission, active and slowly improving.. - Unknown if patient has underlying chronic kidney disease. Patient continues to be anuric. On admission BUN 65 and creatinine 3.71 - Avoid nephrotoxic medications as able. - D/C'd femoral cath. no dialysis for last 5 days (01/03-01/06) D/C'd lasix. - BUN increasing from 66-70 today suggesting worsening renal function. Creatinine decreasing 3.11 - 1.67) - Continue K+ replacement protocol - free water flushes increased from 150 ml to 250ml Q 4H. - IV D5W @ 50 ml /hr. - Nephrology has signed off. 4. Pneumococcal pneumonia /pneumococcal bacteremia (septicemia), present on admission, improving. - CXR and CT as above. Strep pneumonia urine antigen positive. Blood and sputum cultures positive. Sensitive for penicillins. WBC trending down. Procalcitonin 180.83 on admission peaked at 612.48, trending down. - Ceftriaxone 2g IV daily. - Monitoring Procalcitonin every other day. Currently trending downward from 43.7 (12/27/16), currently down to 1.83 - Dr. Muhammad with infectious disease following, time and recommendations appreciated. 5. Septic shock, present on admission, Resolved. - Criteria include: HR 144, RR 41, O2 sats 83%, lactic acid 6.6, BUN 65, creatinine 3.71, procalcitonin 180.38. Etiology secondary to pneumococcal pneumonia and influenza A. - Right IJ in place 12/18. right radial arterial line lost 07/28 6. Acute pneumothorax. Not present on admission. Resolved. - Repeat CXR as above. 7. Metabolic alkalosis, not present on admission. Improving. - ABG as above - 8. Influenza A, present on admission, treated and resolved. - Oseltamivir 30 mg after each hemodialysis session. - Received Oseltamivir for 5 days for a total of 10 treatments 12/29/16 9. Thrombocytopenia, present on admission, stable. - Unknown baseline. Etiology likely sepsis. - On admission platelets 74. Currently 195. - DVT prophylaxis initiated 2/3. - DIC panel does not suggest DIC. No schistocytes on blood smear. - Platelets transfused 2/ prior to dialysis catheter placement. - Will continue to monitor. 10. Upper GI bleed, present on admission, stable. - Coffee-ground material reported from OG tube on admission. Guaiac positive in the ED. Hemoglobin and hematocrit have decreased since admission but likely secondary to fluid resuscitation. - Type and cross with 2 units PRBCs on hold. - DVT prophylaxis started . - Pantoprazole 40 mg BID. - Will consider GI consult if H&H drops or more active bleeding is visualized. -Hematocrit remained stable. No evidence of ongoing bleeding. 12. COPD, present on admission, unknown baseline. 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 Unknown if patient has outpatient medication regimen. - Treatment as above. 12. Tobacco use, present on admission, chronic. - Consider Nicotine patch once patient awake. 13. Hyperglycemia, present on admission, active. - Insulin regular low dose correctional scale. - Hemoglobin A1c 5.7. 14. Acute hypoxic respiratory failure, POA. Improving. Decreasing FiO2 and lightening sedation with hope of extubation in next 3 days. Hope to avoid trach. Acetaminophen for mild pain when necessary. Bowel regimen Senna and MiraLAX scheduled and PRN. Zofran when necessary for nausea and vomiting. SubQ heparin. SCDs in place. High-risk medications: IV fentanyl Disposition: Patient currently intubated with severe ARDS. He continues to require 2 pressors. Reduction in FiO2 and PEEP is a positive step however his prognosis is guarded and he Pain Evaluation: Adequate Pain Control GI Prophylaxis: Proton Pump Inhibitor VTE Prophylaxis: Sub-Q Heparin (Unfractionated) VTE Mechanical Devices: Intermittant Pneumatic CD Resuscitation Status: CPR: Attempt Resuscitation Time spent 40 minutes Attending Statement Patient seen and examined with house staff. Agree with all attached documentation. KING STEELE DO Jan 09, 2017 10:58 Masoud Bruner MD Jan 17, 2017 07:20
[2017-01-09] MEDS ORDERED: Ondansetron 2 mg/mL 2 mL Inj ONE (11:07)
[2017-01-09] MEDS ORDERED: MetoCLOpramide 5 mg/mL 2 mL Inj ONE (11:07)
[2017-01-09] MEDS ORDERED: Propofol 10,000 mCg/mL 20 mL Inj ONE ×2 (11:07→11:09)
[2017-01-09] MEDS ORDERED: fentaNYL-PF 50 mCg/mL 2 mL Inj ONE (11:07)
[2017-01-09] MEDS ORDERED: Ketamine 10 mg/mL 20 mL Inj ONE (11:09)
--- NOTE | 2017-01-09 11:16 | PCM.PNMED ---
Subjective Date of Service Jan 09, 2017 Subjective Pending trach and PEG, likely today. Na 143, Cr 1.67. I/O: 4987/2130 feeding tube on hold. Exam Vital Signs Vital Sign - Last Date Time Temp Pulse Resp B/P Pulse Ox O2 Delivery O2 Flow Rate FiO2 01/09/17 09:11 79 129/65 95 60 01/09/17 08:00 37.4 20 Mechanical Ventilator Intake and Output 01/08/17 01/08/17 01/09/17 Cumulative From/Thru 15:00 23:00 07:00 12/18/16 10:01 - 01/09/17 06:07 Intake Total 2006 ml 1736 ml 12473 ml Output Total 1155 ml 1300 ml 15520 ml Balance 851 ml 436 ml 28891 ml Intake Oral 30 ml IV Total 1064 ml 1220 ml 02249 ml Tube Feeding 642 ml 366 ml 48141 ml Platelets 461 ml Tube Irrigant 300 ml 150 ml 5713 ml Output Urine Total 950 ml 1000 ml 21656 ml Stool Total 200 ml 300 ml 4550 ml Urine/Stool Mix 50 ml Gastric Drainage Total 5 ml 1625 ml Ultrafiltrate 78013 ml # Bowel Movements 103 Exam GA: intubated, sedated. HEENT: atraumatic, no injected conjunctivae, no icteric sclerae. right IJ triple lumen in place. Heart: RRR, no significant murmur/rub/gallop, normal S1/s2. Lungs: scattered rhonchi, B/L, equal BS. Abd: soft, no distension, no HSM, decreased BS. Ext: no edema on LE. : tate cath in place. Lab and Diagnostics Result Diagram: 01/09/1751901/09/17519 Microbiology BCx and SCx positive for Strep pneumo Resp PCR positive for Flu A H3 Strep pneumo urine ag positive X-Rays, CTs and MRIs 01/06 CXR: IMPRESSION: Persistent appearance of bilateral pulmonary opacities and effusions as above. Findings are suggestive of pneumonia with likely underlying areas of edema. Additional Diagnostics ABG DateTimeAnalyzed 04:19:00 -_ pH ____7.345 - 7.350 7.450 pCO2 ___42.0__ -mmHg 35.0 45.0 pO2 110 -mmHg 69.0 116 HCO3- ___22.3__ -mmol/L 22.[address] [facility] DateTimeAnalyzed 04:08:00 -_ pH ____7.444 - 7.350 7.450 pCO2 ___36.5__ -mmHg 35.0 45.0 pO2 ___83.2__ -mmHg 69.0 116 HCO3- ___24.6__ -mmol/L 22.0 26.0 US ARTERY LEG DUPLEX UNILATERAL/ILIAC CAVA, LEFT IMPRESSION: Minimal scattered plaque and no hemodynamically significant left lower extremity peripheral arterial stenosis. Dictated by: Soren SRINIVASAN Interpreted: Emmie Graves MD on 01/02/2017 at 16:38 Assessment & Plan 1. ALBERTINA due to oliguric ATN. - Last HD on 01/02, in recovery phase. 2. Hypovolemic hypernatremia. - improving 3. Septic shock. - Pneumococcal pneumonia /pneumococcal bacteremia - Influenza A infection. 4. Acute hypoxic respiratory failure/ARDS. -failed weaning protocol. Plan: Continue d5w 60 ml/hr. Check daily BMP. Will follow peripherally. GI Prophylaxis: Proton Pump Inhibitor VTE Prophylaxis: Sub-Q Heparin (Unfractionated) VTE Mechanical Devices: Intermittant Pneumatic CD Resuscitation Status: CPR: Attempt Resuscitation Ananthapanyasut,Wanwarat MD Jan 09, 2017 11:16
--- NOTE | 2017-01-09 11:39 | OP ---
[address] [address] OPERATIVE REPORT PATIENT: DOUGIE GARDUNO : 1960 MR#: [id number] ADMIT: 12/18/2016 JOB ID: [id number] DATE OF SURGERY: 01/09/2017 SURGEON: Sachin Vergara MD. MENTAL HYGIENE CONSULTANT: Anneliese Chaidez PA-C. ANESTHESIA: General. PREOPERATIVE DIAGNOSIS(ES): Respiratory failure. POSTOPERATIVE DIAGNOSIS(ES): Respiratory failure. PRINCIPAL PROCEDURE: 1. Percutaneous endoscopic gastrostomy tube placement. 2. Tracheostomy. INDICATION FOR PROCEDURE: The patient is a 56-year-old male with respiratory failure who has been on the ventilator for more than two weeks. The patient is in need of a tracheostomy and PEG tube placement. PRINCIPAL FINDING: Successful placement of a 20-Khmer PEG tube, and successful placement of a #8 Shiley tracheostomy. PROCEDURE COURSE: The patient was brought to the operating table already intubated. The patient was provided with general anesthesia. The patient also received preoperative antibiotics. The patient was given SCDs as well. A time-out was performed. We started with the upper endoscopy. The patient was placed in a semi-Bosch position with elevation of his back. The upper endoscope was then placed through the patient's oropharynx and followed the OG tube into the esophagus. Upon visualization of the stomach, there was no gross blood or coffee grounds. There were only signs of mild gastritis of the gastric mucosa. The OG tube was then removed. The scope was able to be passed through the pylorus, into the duodenal bulb and subsequently into the second portion of the duodenum. The mucosa at both duodenal locations were normal without ulcerations or masses. The scope was then retracted back into the stomach and with maximal insufflation, we could identify a point of maximal indentation on the left upper quadrant abdominal wall, and this was marked by pen. The skin was then prepped and draped in the usual sterile fashion. Local anesthetic was injected, and a stab incision was made at the previously marked site. A percutaneous needle was then placed transcutaneously into the gastric lumen, and a guidewire was then placed through the needle into the gastric lumen. This guidewire was then ensnared by the endoscope and brought out of the patient's mouth. The PEG tube was then connected to the guidewire on the mouth end of the guidewire and then it was pulled back into the stomach, and brought out of the anterior abdominal wall. The endoscope was then reintroduced into the gastric lumen, where it showed good position of the PEG tube. It was brought out fairly taut against the abdominal wall. The PEG tube was then trimmed and fitted with all the appropriate appliances. Next, we turned our attention to the next part of the procedure. The patient's neck was exposed and positioned. A time-out was performed. A proposed incision was marked and injected with local anesthesia. The skin was then incised using the scalpel, and subcutaneous tissue and platysma were entered using cautery. We dissected along the midline through the strap muscles right down to the trachea. A surgical blade was then used to enter the trachea and created a flap, the flap was held open with a tracheal hook, we could visualize pulling back of the ET tube by Anesthesia and the #8 Shiley was then placed through the tracheotomy into the trachea. We have good return of CO2 and patient oxygenated very well. The skin opening was then reapproximated using interrupted Prolene sutures. Umbilical tape was placed on the tracheostomy device and went around his neck and secured to each other. By the end of procedure, needle counts and sponge counts were correct. The patient was then taken back to the intensive care unit in stable satisfactory condition. SINA
--- NOTE | 2017-01-09 11:49 | DRSVH ---
PROCEDURE: X-RAY CHEST ONE VIEW, PORTABLE ([id number]) INDICATIONS: s/p trach placement TECHNIQUE: One view of the chest was acquired. COMPARISON: 01/09/2017-0505 hrs. FINDINGS: Surgical changes and devices: Endotracheal tube has been replaced with a tracheostomy tube. The nasog astric tube has been removed. The right IJ central venous catheter is unchanged. Lungs and pleura: Bilateral pulmonary edema and bilateral pleural effusions left greater than right a ppear unchanged. Consolidation in the left retrocardiac region with air bronchograms also unchanged. Mediastinum: Mediastinal contours appear normal. Heart size is normal. Bones and chest wall: No suspicious bony lesions. Overlying soft tissues appear unremarkable. IMPRESSION: 1. Interval placement of tracheostomy tube and removal of the nasogastric and endotracheal tubes. Rebecca st otherwise is unchanged with bilateral pulmonary edema/pneumonia and effusions.. Dictated by: Giovanny Finch M.D. on 01/09/2017 at 11:45 Approved by: Giovanny Finch M.D. on 01/09/2017 at 11:48
[2017-01-09] MEDS ORDERED: 0.9% Sodium Chloride 500 ML ONE (12:06)
[2017-01-09] MEDS: 0.9% Sodium Chloride 500 ML IV SCH ×2 (12:07→12:45)
[2017-01-09] MEDS ORDERED: 0.9% Sodium Chloride 250 ML IV ONE (12:10)
--- NOTE | 2017-01-09 17:42 | PCM.ANEP1 ---
Post Anesthesia Phase 1 PACU Phase 1 Assessment Date of Service: Jan 09, 2017 Vital Signs Vital Signs Date Time Temp Pulse Resp B/P Pulse Ox O2 Delivery O2 Flow Rate FiO2 01/09/17 16:00 37.4 93 30 110/85 99 Mechanical Ventilator 80 01/09/17 14:17 105 89/58 100 90 01/09/17 12:00 Ventilator 01/09/17 11:47 105 127/65 97 60 Anesthetic Administered: GA Level of Alertness: Drowsy, not talking NOONAN's with Equal Strength: No (pt intubated, sedated and altered mental status since admission) Pain: No (pt intubated, sedated and altered mental status since admission) Nausea or Vomiting: No (pt intubated, sedated and altered mental status since admission) Airway Device: tracheostomy placed in OR Oxygen Delivery: Mechanical Ventilator Lungs: Coarse, Rhonchorus, Wheezes, Crackles Summary Patient returned to ICU, ventilated via newly inserted tracheostomy, placed back on ventilator, resumed sedation as per ICU prior to OR Gee Aguilar MD Jan 09, 2017 17:42
--- NOTE | 2017-01-09 17:44 | PCM.ANEP2 ---
Post Anesthesia Evaluation ASA/CMS Post Anesthesia VS in Patient's Normal Range?: Yes (baseline to prior to OR - poor oxygen saturation while being ventilated, tachycardic) Resp Stable; Airway Patent?: Yes (via newly inserted tracheostomy) CV Function & Hydration Stable: Yes (patient baseline - was already volume overloaded prior to OR) Mental Status Recovered?: Yes (baseline to prior to OR - probable anoxic brain injury suffered prior to inpatient) Pain control Satisfactory?: Yes (pt intubated, sedated and altered mental status since admission) N/V Control Satisfactory?: Yes (pt intubated, sedated and altered mental status since admission) Gee Aguilar MD Jan 09, 2017 17:44
--- NOTE | 2017-01-09 17:50 | NUR ---
Neuro/CV/RESP: Opens eyes but does not appear to track. No purposeful movement of extremities. Does not follow commands. Fentanyl at 100mcg and propofol currently 25mcg, requires occasional bolus for periods where he is more awake but not necessarily agitated. At these times he appears to cough and strain causing him to desaturate and be difficult to ventilate. Once sedated, saturations stabilize, physiologic stress is relieved and he becomes hypotensive with systolics in the 80's. Blood pressures improve after 30 minutes with reduction in sedation and 500ml NS bolus. Trach and PEG today in OR. PEG site WNL, scant sero-sang drainage at site, draining to gravity as ordered with small to moderate amount watery/bilious drainage. Trach site with moderate amount bloody drainage, gauze changed at 1700, site cleaned. Extremely large amount of oral secretions with drainage at trach site resembling sputum at times. Requires frequent vigorous oral care. Low grade temps, T-max 37.4. Skin appears to be intact. Update to sister Milind via telephone. Note remains on chart not to release information to ex-girlfriend Chanelle, information also added to whiteboard in room.
[2017-01-09] MEDS ORDERED: Dextrose 5% 0.9% NaCl 1,000 ML IV ONE (21:06)
[2017-01-09] MEDS: fentaNYL 2,500 mCg/250 mL 2,500 MCG in IV Premix 1 EACH IV SCH (21:14)
[2017-01-10] VITALS (8 sets, daily range): BP systolic 121–150; BP diastolic 67–92; PULSE 88–119; RESP 22–38; O2SAT 95–99
[2017-01-10] MEDS: Chlorhexidine 0.12% 15 mL Oral Solution MT SCH ×4 (00:26→11:33)
[2017-01-10] MEDS: Heparin 5,000 Unit/mL Inj SUBQ SCH ×2 (00:26→09:29)
[2017-01-10] MEDS: Propofol Inj 1,000,000 MCG in IV Premix 1 EACH IV SCH ×3 (00:27→09:30)
--- NOTE | 2017-01-10 04:31 | NUR ---
P tachypnea I: Increase propofol to 35mcg E: Overbreathing vent rate in the 30s. Increasing propofol from 25 to 35mcg helpful. Fentanyl drip at 100mcg. Continues to breath over vent rate, RR low to mid 20s. Ventilator on PC, 70% FI02, sats in the high 90s. New trach insertion site continues to ooze mucoid drainage, red streaks. Tele SR, 1st AVB. BP stable. MAX temp 38.4AX. Decrease lio/green UOP. FMS. Eyes open, makes some eye contact. Smiled x 1. Unable to follow cues. PEG to gravity.
--- NOTE | 2017-01-10 04:49 | ABG ---
DateTimeAnalyzed 04:43:00 -_ pH ____7.403 - 7.350 7.450 pCO2 ___35.7__ -mmHg 35.0 45.0 pO2 ___66.8__ -mmHg 69.0 116 HCO3- ___21.8__ -mmol/L 22.0 26.0 ABE ___-2.1__ -mmol/L -2.0 2.0 tHb ____8.4__ -g/dL O2Hb ___91.8__ -% COHb ____1.9__ -% MetHb ____1.3__ -% sO2 ___94.8__ -% 25.0 FIO2 ___70.0__ -% Pressure_Support ___18.0__ -cmH2O PEEP ____8.0__ -cmH2O Set_RR ___18.0__ -b/min Vt __554.0__ -L Drawn By blf - Oxygen Device 2 pressure control -____ Date/Time Notified____ 04:48:00 -_ Spontaneous_RR ___24.0__ -b/min Oxygen Device 1 VENTILATOR - Notified By blf - Notified Whom Kristine Vanderpool Rn -___ B 761 -mmHg tO2 ___10.9__ -Vol% OrderingPhysicianInitials bak - Masoud test _Positive -
[2017-01-10 05:36] LABS: BASOPHILS % (AUTO) 0.8 % (0-3); EOSINOPHILS % (AUTO) 1.5 % (0-5); MONOCYTES % (AUTO) 5.6 % (4-12); Mean Corpuscular Hemoglobin 32.9 pg (27.0-35.0); Mean Corpuscular Volume 104.3 fL (81-100); NEUTROPHILS % (AUTO) 72.6 % (40-74); Platelet Count 236 bil/L (150-400)
[2017-01-10] MEDS ORDERED: KCl 40 mEq/100 mL Premix (K 3 - 3.7 & Creat < 2) IV ONE (06:25)
--- NOTE | 2017-01-10 07:26 | PCM.PNMED ---
Subjective Date of Service Jan 10, 2017 Subjective Naveed Maciel is a 56 year old male with past medical history significant for COPD who presented to the emergency department via EMS complaining of dyspnea and 3 days of flu-like symptoms. Intubated after failing on BiPAP and admitted for septic shock and acute hypoxemic respiratory failure 2nd to influenza and strep pneumonia bacteremia and pneumonia. He remains encephalopathic with daily improvements but has not progressed from a pulmonary standpoint. Surgery placed a tracheostomy 01/09 and patient remains mechanical ventilator dependent. Plan for Stu for half-way mechanical vent care. Hospital 23. Vent day 22. Overnight: No acute overnight events. Decreased propofol and fentanyl as tolerated. Copious secretions last night. Scopolamine patch placed. Today: Remains intubated via tracheostomy.Patient's vent settings were adjusted and FiO2 increased. Continues to respond to multiple forms of stimulus, including visual and auditory and seems to be improving daily. Moves upper extremities very slowly with very weak church warden upon commands. Exam Vital Signs Vital Sign - Last Date Time Temp Pulse Resp B/P Pulse Ox O2 Delivery O2 Flow Rate FiO2 01/10/17 04:30 85 127/74 98 70 01/10/17 04:00 Ventilator 01/10/17 04:00 37.4 22 Intake and Output 01/09/17 01/09/17 01/10/17 Cumulative From/Thru 15:00 23:00 07:00 12/18/16 10:01 - 01/10/17 05:47 Intake Total 450 ml 1829 ml 1114 ml 77564 ml Output Total 1300 ml 1075 ml 55463 ml Balance 450 ml 529 ml 39 ml 89595 ml Intake Oral 30 ml IV Total 450 ml 1829 ml 1114 ml 47744 ml Tube Feeding 0 ml 0 ml 07037 ml Platelets 461 ml Tube Irrigant 5713 ml Output Urine Total 900 ml 750 ml 31919 ml Stool Total 150 ml 125 ml 4825 ml Urine/Stool Mix 50 ml Gastric Drainage Total 250 ml 200 ml 2075 ml Ultrafiltrate 30764 ml # Bowel Movements 103 Exam General: Intubated with decreasing sedation. Head: Normocephalic, atraumatic. External ears without defect. Eyes: Pupils equal, round, and reactive to light and accommodation. Anicteric sclerae, moist conjunctivae. Cardiovascular: Regular rate and rhythm with no murmurs, rubs, or gallops appreciated. Pulmonary: CTAB. Greatly improved today. very mild wheezes, very mild rhonchi, no rales. Abdomen: Soft, moderately distended, hypoactive bowel sounds. Old midline surgical incision present. Extremities: Moderate pitting edema on lower and upper extremities bilaterally. Skin: Faint macular papular rash on upper chest and shoulders. Neurological: Neurologic difficult to assess due to generalized weakness. IVs and Medications Medications Reviewed: Medications were reviewed in detail Lab and Diagnostics Result Diagram: 01/10/1750901/10/17509 Microbiology BCx and SCx positive for Strep pneumo Resp PCR positive for Flu A H3 Strep pneumo urine ag positive X-Rays, CTs and MRIs 01/06 CXR: IMPRESSION: Persistent appearance of bilateral pulmonary opacities and effusions as above. Findings are suggestive of pneumonia with likely underlying areas of edema. Additional Diagnostics ABG DateTimeAnalyzed 04:19:00 -_ pH ____7.345 - 7.350 7.450 pCO2 ___42.0__ -mmHg 35.0 45.0 pO2 110 -mmHg 69.0 116 HCO3- ___22.3__ -mmol/L 22.0 26.0 [facility] DateTimeAnalyzed 04:08:00 -_ pH ____7.444 - 7.350 7.450 pCO2 ___36.5__ -mmHg 35.0 45.0 pO2 ___83.2__ -mmHg 69.0 116 HCO3- ___24.6__ -mmol/L 22.0 26.0 US ARTERY LEG DUPLEX UNILATERAL/ILIAC CAVA, LEFT IMPRESSION: Minimal scattered plaque and no hemodynamically significant left lower extremity peripheral arterial stenosis. Dictated by: Soren Johnson RRWilliam Interpreted: Emmie Graves MD on 01/02/2017 at 16:38 Assessment & Plan Naveed Maciel is a 56 year old male with past medical history significant for COPD who presented to the emergency department via EMS complaining of dyspnea and 3 days of flu-like symptoms. Intubated after failing on BiPAP and admitted for septic shock and acute hypoxemic respiratory failure. Hospital 24. Vent day 23. 1. Septic encephalopathy, present on admission. Improving. - Continue sedation vacations and weening off fentanyl and propofol. - EEG showed abnormal results as above. 2. Severe ARDS, present on admission, active. Improving. - Etiology secondary to sepsis and pneumococcal pneumonia in the setting of COPD and past history of cocaine use. CT chest on 12/18 showed dense consolidation bilaterally within the dependent portions of the lung. Repeat CT chest was largely unchanged with some mild interval improvement in consolidation. - Surgery successfully placed tracheostomy 01/09 @ 0930. - Copious secretions last night, Scopolamine patch placed. 3. Acute renal failure, present on admission, active and slowly improving.. - Unknown if patient has underlying chronic kidney disease. Patient continues to be anuric. On admission BUN 65 and creatinine 3.71 - Avoid nephrotoxic medications as able. - D/C'd femoral cath. no dialysis for last 5 days (01/03-01/06) D/C'd lasix. - BUN increasing from 66-70 today suggesting worsening renal function. Creatinine decreasing 3.11 - 1.72) - Continue K+ replacement protocol - free water flushes increased from 150 ml to 250ml Q 4H. - IV D5W @ 60 ml /hr. - Nephrology has signed off. - Although, patient is 20 L in the records this does not take in to account the insensible water losses in general and especially when ventilated. Insensible water losses are roughly 1L per day. He is currently on day 23... 4. Pneumococcal pneumonia /pneumococcal bacteremia (septicemia), present on admission, improving. - CXR and CT as above. Strep pneumonia urine antigen positive. Blood and sputum cultures positive. Sensitive for penicillins. WBC trending down. Procalcitonin 180.83 on admission peaked at 612.48, trending down. - Ceftriaxone 2g IV daily. - Monitoring Procalcitonin every other day. Currently trending downward from 43.7 (12/27/16), currently down to 0.5 - Dr. Muhammad with infectious disease following, time and recommendations appreciated. 5. Septic shock, present on admission, Resolved. - Criteria include: HR 144, RR 41, O2 sats 83%, lactic acid 6.6, BUN 65, creatinine 3.71, procalcitonin 180.38. Etiology secondary to pneumococcal pneumonia and influenza A. - Right IJ in place 12/18. right radial arterial line lost 07/28 6. Acute pneumothorax. Not present on admission. Resolved. - Repeat CXR as above. 7. Metabolic alkalosis, not present on admission. Improving. - ABG as above - 8. Influenza A, present on admission, treated and resolved. - Oseltamivir 30 mg after each hemodialysis session. - Received Oseltamivir for 5 days for a total of 10 treatments 12/29/16 9. Thrombocytopenia, present on admission, stable. - Unknown baseline. Etiology likely sepsis. - On admission platelets 74. Currently 195. - DVT prophylaxis initiated 12/22. - DIC panel does not suggest DIC. No schistocytes on blood smear. - Platelets transfused 12/20 prior to dialysis catheter placement. - Will continue to monitor. 10. Upper GI bleed, present on admission, stable. - Coffee-ground material reported from OG tube on admission. Guaiac positive in the ED. Hemoglobin and hematocrit have decreased since admission but likely secondary to fluid resuscitation. - Type and cross with 2 units PRBCs on hold. - DVT prophylaxis started . - Pantoprazole 40 mg BID. - Will consider GI consult if H&H drops or more active bleeding is visualized. -Hematocrit remained stable. No evidence of ongoing bleeding. 12. COPD, present on admission, unknown baseline. 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 Unknown if patient has outpatient medication regimen. - Treatment as above. 12. Tobacco use, present on admission, chronic. - Consider Nicotine patch once patient awake. 13. Hyperglycemia, present on admission, active. - Insulin regular low dose correctional scale. - Hemoglobin A1c 5.7. 14. Acute hypoxic respiratory failure, POA. Improving. Decreasing FiO2 and lightening sedation with hope of extubation in next 3 days. Hope to avoid trach. Acetaminophen for mild pain when necessary. Bowel regimen Senna and MiraLAX scheduled and PRN. Zofran when necessary for nausea and vomiting. SubQ heparin. SCDs in place. High-risk medications: IV fentanyl Disposition: Patient currently intubated with severe ARDS. He continues to require 2 pressors. Reduction in FiO2 and PEEP is a positive step however his prognosis is guarded and he GI Prophylaxis: Proton Pump Inhibitor VTE Prophylaxis: Sub-Q Heparin (Unfractionated) VTE Mechanical Devices: Intermittant Pneumatic CD Resuscitation Status: CPR: Attempt Resuscitation KING STEELE DO Jan 10, 2017 07:17 Patrice Galvan MD Jan 11, 2017 07:24
[2017-01-10] MEDS: 0.9% Sodium Chloride 250 ML IV SCH (08:25)
[2017-01-10] MEDS: Pantoprazole 4 mg/mL 10 mL Inj IVPUSH SCH (08:30)
--- NOTE | 2017-01-10 08:48 | PROG NOTE ---
[address] [address] PROGRESS NOTE PATIENT: DOUGIE GARDUNO : 1960 MR#: [id number] ADMIT: 12/18/2016 JOB ID: [id number] DATE: 01/10/2017 PROBLEM LIST: 1. Adult respiratory distress syndrome. 2. Acute renal failure. 3. Altered mental status. 4. Polysubstance abuse. 5. Weakness. SUBJECTIVE: None. OBJECTIVE: Temperature 37.4 with T-max of 38.3. Pulse mid 80s, though at times as high as 119. Respiratory rate at 22, though last night as high as 38. Blood pressure 127/74. O2 sat on FiO2 of 0.7 and PEEP of 8, is 99%. I and O shows 4 liters in, 2.6 liters out. General appearance: Eyes more open. Looks a little more alert, though no cognitive response. Tracks only briefly to voice. Chest: Relatively clear. Trach site reported to be clean. Heart: Regular rhythm. Heart tones normal. Abdomen is soft. Bowel tones present. PEG site clear. Extremities with 1+ or so pretibial edema. White cell count is 16,700 with 72 polys, 17 lymphocytes, 5 monocytes, hemoglobin 8.5 and stable, platelet count 236,000 and stable. Sodium 142, potassium 3.6, chloride 106, CO2 is 22, BUN 41, creatinine 1.7 at about the same as yesterday when it was 1.67, calcium 8.3. Total bilirubin 0.3, transaminases normal, alkaline phos 183 slightly elevated from yesterday's value of 166, total protein 5.7, albumin of 2.9. Chest x-ray pending. Arterial blood gases on FiO2 of 70%, PEEP of 8, pressure assist control of 18 shows a pO2 of 66, pCO2 of 35, pH of 7.40. ASSESSMENT: 1. Adult respiratory distress syndrome. Tracheostomy technically went back quite well. However, the patient was a bit steven after the procedure. Would intermittently desaturate. Suctioning seemed to help a bit. Repositioning seemed to help but no particular demonstrable problems. Seems to have settled down now, though looking at the flow sheet it looks he had a pretty bad night. Will continue the current sedation regimen. Will supplement the potassium. Start using percutaneous endoscopic gastrostomy as soon as it has matured enough. 2. Altered mental status. No particular change in his condition. Still seems quite foggy. No real cognitive signs present. Initial electroencephalogram showed only signs of toxic encephalopathy. Although he has improved from the time of that electroencephalogram, he made some reasonable strides from almost a coma-like state to a seemingly but low-level wakeful state but seems to have stalled. Thought it might be worthwhile repeating the electroencephalogram to see where we are. 3. Renal failure. Creatinine has been improving. Slightly higher today, though not significantly. However, need to make sure he gets enough fluids. We had lost some fluid with the enteral nutrition turned off. If that cannot be started today, may want to give him a little extra fluid. PLAN: 1. Consider electroencephalogram. 2. If we cannot start enteral feedings, consider D5 normal saline at maybe 80 an hour. TIME SPENT SO FAR ON CRITICAL CARE: 30 minutes.
--- NOTE | 2017-01-10 09:23 | PCM.PNSURG ---
Subjective Date of Service: Jan 10, 2017 Date of Service: Jan 10, 2017 Visit Information: Reason for Visit: Respiratory failure and nutritional status Surgery: Placement of a 20-Haitian PEG tube, and successful placement of a #8 Shiley tracheostomy. Surgery Date: 01/09/17 Post-Op Day # 1 Date of Admission: Dec 18, 2016 at 11:02 Hospital Day # 23 Subjective: The patient is lying in bed, eyes open, mouthing but incoherent. Does not follow simple commands, no acute distress Gastrointestinal: Other (green liquid in bag gravitational from peg tube) Pain Management: IV Push Postop Activity: Other (confined to bed) Objective Vital Sign- Last 8 Hours Date Time Temp Pulse Resp B/P Pulse Ox O2 Delivery O2 Flow Rate FiO2 01/10/17 08:00 94 121/67 96 70 01/10/17 04:30 85 127/74 98 70 01/10/17 04:00 Ventilator 01/10/17 04:00 37.4 88 22 127/74 99 Mechanical Ventilator 70 Intake and Output- Last 8 Hour 01/10/17 Cumulative From/Thru 07:00 12/18/16 10:01 - 01/10/17 05:47 Intake Total 1114 ml 48579 ml Output Total 1075 ml 13180 ml Balance 39 ml 24912 ml Intake Oral 30 ml IV Total 1114 ml 91051 ml Tube Feeding 0 ml 20698 ml Platelets 461 ml Tube Irrigant 5713 ml Output Urine Total 750 ml 13865 ml Stool Total 125 ml 4825 ml Urine/Stool Mix 50 ml Gastric Drainage Total 200 ml 2075 ml Ultrafiltrate 64012 ml # Bowel Movements 103 Lungs: Coarse (throughout) Heart: Regular Rate/Rhythm, No Murmurs/Rubs/Gallops Abdomen: Benign, Soft, Appropriately tender (over PEG site), Non-distended, Other (bowel sounds X 4) Extremities: Warm Neuro: Other (unable to assess) Catheters: Urethral 2 Way [place] Result Diagram: 01/10/1750901/10/17 0510 Diagnostics: CXR 12/09/16 IMPRESSION: 1. Interval placement of tracheostomy tube and removal of the nasogastric and endotracheal tubes. Chest otherwise is unchanged with bilateral pulmonary edema/ pneumonia and effusions.. Assessment & Plan Impression Primary Diagnosis: 1. Adult respiratory distress syndrome. 2. Acute renal failure. 3. Altered mental status. 4. Polysubstance abuse. 5. Weakness. Problems: Plan 1. May use Peg tube, start with trickle feeds Pain Management: Fentanyl drip VTE Prophylaxis: Sub-Q Heparin (Unfractionated) Resuscitation Status: CPR: Attempt Resuscitation Anneliese Chaidez PA-C Jan 10, 2017 09:23
--- NOTE | 2017-01-10 10:11 | NUR ---
Social Work Note: Readiness for Discharge Data& Assessment: Per MD, pt had trach and pegg placement yesterday 01/09/2017. SW spoke with Terra from [facility] who explained they have accepted pt when he is medically stable for transfer at their [place] facility. ANNI confirmed with pt sister Rakesh that she is agreeable to the transfer and is hopeful for his medical progression at the LT. MD notified of acceptance. would like to speak with ID MD to confirm pt is stable for transfer in hopes of discharge to [facility] this afternoon. SW to continue to follow. Plan: Anticipated discharge to [facility] for continued care. Pt sister agreeable to transfer. Possible discharge today pending confirmation of medical stability for transfer. SW to continue to follow. TATYANA Arias
--- NOTE | 2017-01-10 11:17 | NUR ---
NUTRITION FOLLOW-UP: ASSESS: 56 YO M admitted to CCU with septic shock and acute hypoxemic respiratory failure with PNA/bacteremia and influenza A. He is no longer requiring dialysis. Pt underwent trach and PEG placement yesterday. Per surgery, it is ok to begin using PEG for nutrition. Pt will likely be discharged to [facility], possible today. PMHX: COPD, Past history of drug abuse (per sister), tobacco user. No other history obtained d/t intubation and sedation. LABS: Reviewed. BUN 41, Cr 1.72, Glu 109, Ca 8.3, Alk phos 183, Albumin 2.9, Lipase 70 MEDS: Reviewed. Insulin, Fentanyl, Propofol @ 18 ml/hr providing 475 kcal per day. GI: Stool via FMS, 450 ml 01/09 SKIN: [place] 12 WT: 82.1 kg, BMI 27.5 kg/m2, IBW: 68.4 kg, Admit Wt: 80 kg (BMI: 26.8 kg/m2) DIET: NPO NUTRITION SUPPORT: Nepro @ goal rate 55 ml/hr, providing 2653 (2178 formula + 475 Propofol), 98 g protein,(100% of calorie/protein needs). ESTIMATED NEEDS: COPD (recalculated 01/10) Calories: 8615-7556 kcal/day (30-35 kcal/kg Admit BW) Protein: 95-125 g/day (1.2-1.5 g/kg Admit BW) Fluids: ~2000 ml (25 ml/kg Admit BW) NUTRITION DIAGNOSIS: 1) Inadequate oral intake related to inability to consume sufficient energy as evidenced by NPO status and ventilation - IMPROVED W/ ENTERAL NUTRITION @ GOAL RATE. 2) Increased nutrient needs related to difficulty breathing as evidenced by COPD and acute respiratory failure/severe ARDS - PERSISTS. NUTRITION INTERVENTION: 1) Recommend transitioning to Pulmocare now that pt is no longer receiving dialysis. 2) Recommend initiating Pulmocare at 30 ml/hr. Once pt tolerating, advance 10 ml q 4 hrs to goal rate of 75 ml/hr + 250 ml q 4 hrs to provide 2475 kcal/d, 103 g/d protein, and 2010 ml/s H2O, meeting 100% of est needs. 3) Adjust TF rate based on daily propofol rate. MONITOR/EVALUATE: NPO/Vent status, POC, TF tolerance, wt, labs, GI/nutrition status. Follow per high nutrition risk guidelines.
--- NOTE | 2017-01-10 11:17 | DRSVH ---
PROCEDURE: X-RAY CHEST ONE VIEW, PORTABLE ([id number]) INDICATIONS: treacheostomy TECHNIQUE: One view of the chest was acquired. COMPARISON: [facility], CR, XR CHEST 1VW (PORTABLE), 01/09/2017, 11:22. FINDINGS: Surgical changes and devices: Tracheostomy has been placed tube in unchanged position. No change in position right IJ CVL. Lungs and pleura: Diffuse, widespread bilateral pulmonary interstitial and air space opacities are p resent and not significantly changed from prior examination. Small effusions, left greater than righ t Mediastinum: Mediastinal contours appear normal. Heart size is normal. Bones and chest wall: No suspicious bony lesions. Overlying soft tissues appear unremarkable. IMPRESSION: No change from prior exam consistent with diffuse pulmonary edema and/or bilateral pulmon fred inflammatory process. ARDS cannot be excluded. Dictated by: Soren Johnson [facility] Interpreted: Enrique Staley MD on 01/10/2017 at 11:16 Transcribed by: CM on 01/10/2017 at 11:17 Approved by: Enrique Staley M.D. on 01/10/2017 at 17:47
--- NOTE | 2017-01-10 11:56 | PCM.DIMED ---
KING STEELE DO 01/10/17 1156: Discharge Instructions Date of Service Jan 10, 2017 Dates of Hospitalization Dec 18, 2016 at 11:02 Discharge Diagnosis Discharge Diagnosis 1. Septic encephalopathy, present on admission. Improving slowly. 2. Severe ARDS, present on admission, active. Improving. 3. Acute hypoxic respiratory failure, Present on admission. Not improving, tracheostomy in place, mechanical ventilator dependence. 4. Acute renal failure, present on admission, active and slowly improving.. 5. Pneumococcal pneumonia /pneumococcal bacteremia (septicemia), present on admission, resolved. 6. Septic shock, present on admission, Resolved. 7. Acute pneumothorax. Not present on admission. Resolved. 8. Metabolic alkalosis, not present on admission. Improving. 9. Influenza A, present on admission, treated and resolved. 10. Thrombocytopenia, present on admission, stable. 11. Upper GI bleed, present on admission, stable. 12. COPD, present on admission, unknown baseline. 13. Tobacco use, present on admission, chronic. 14. Hyperglycemia, present on admission, active. Diet Other (PEG tube feeds. ) Activity Other Patrice Galvan MD 01/27/17 1550: Discharge Instructions Attending's Statement The patient was seen and examined together with Dr. Steele on 01/10/2017 and I agree with the history, exam and plan as outlined in the note above. . KING STEELE DO Jan 10, 2017 11:56 Patrice Galvan MD Jan 27, 2017 15:50
--- NOTE | 2017-01-10 12:36 | PCM.DC.MED ---
Discharge Summary Date of Service Jan 10, 2017 Dates of Hospitalization Date of Hospital Admission Dec 18, 2016 at 11:02 Date of Discharge: Jan 10, 2017 Providers: Admitting Physician: Ariel Berg MD Primary Care Physician: Nopjeremy Attending Physician: Ariel Berg MD Diagnosis at Time of Discharge Diagnosis at Time of Discharge 1. Septic encephalopathy, present on admission. Improving slowly. 2. Severe ARDS, present on admission, active. Improving. 3. Acute hypoxic respiratory failure, Present on admission. Not improving, tracheostomy in place, mechanical ventilator dependence. 4. Acute renal failure, present on admission, active and slowly improving.. 5. Pneumococcal pneumonia /pneumococcal bacteremia (septicemia), present on admission, resolved. 6. Septic shock, present on admission, Resolved. 7. Acute pneumothorax. Not present on admission. Resolved. 8. Metabolic alkalosis, not present on admission. Improving. 9. Influenza A, present on admission, treated and resolved. 10. Thrombocytopenia, present on admission, stable. 11. Upper GI bleed, present on admission, stable. 12. COPD, present on admission, unknown baseline. 13. Tobacco use, present on admission, chronic. 14. Hyperglycemia, present on admission, active. Procedures XRay, CTs & MRIs 01/06 CXR: IMPRESSION: Persistent appearance of bilateral pulmonary opacities and effusions as above. Findings are suggestive of pneumonia with likely underlying areas of edema. Other Diagnostics ABG DateTimeAnalyzed 04:19:00 -_ pH ____7.345 - 7.350 7.450 pCO2 ___42.0__ -mmHg 35.0 45.0 pO2 110 -mmHg 69.0 116 HCO3- ___22.3__ -mmol/L 22.0 26.0 [facility] DateTimeAnalyzed 04:08:00 -_ pH ____7.444 - 7.350 7.450 pCO2 ___36.5__ -mmHg 35.0 45.0 pO2 ___83.2__ -mmHg 69.0 116 HCO3- ___24.6__ -mmol/L 22.0 26.0 US ARTERY LEG DUPLEX UNILATERAL/ILIAC CAVA, LEFT IMPRESSION: Minimal scattered plaque and no hemodynamically significant left lower extremity peripheral arterial stenosis. Dictated by: Soren SRINIVASAN Interpreted: Emmie Graves MD on 01/02/2017 at 16:38 Brief History Naveed Maciel is a 56 year old male with past medical history significant for COPD who presented to the emergency department via EMS complain of dyspnea. The following history is gathered from ED physicians report as patient was intubated and sedated at time of my exam. Patient reported three days of general malaise with myalgias, cough, and chills. Patient denied nausea, vomiting, chest pain, dizziness, lightheadedness, and abdominal pain. He developed worsening dyspnea which precipitated his presentation to the ED. EMS found the patient to have oxygen saturations of 70% initially and DuoNeb and ASA were administered en route. On presentation to the ED vitals were temperature 36.7, pulse 144, blood pressure 112/56, respiratory rate 41 on oxygen mask with pulse oximetry of 83%. Initial labs include BUN 65, creatinine 3.71, lactic acid 6.6, troponin 0.010, and procalcitonin 180.38. BiPAP and fluid resuscitation was initially attempted. This was unsuccessful and patient was subsequently intubated. Patient received 3L normal saline in the ED and vancomycin and Zosyn. Sister, Rakesh Tabares, was later contacted who had minimal information regarding brother. She states he is a current smoker and has COPD. She also notes he has a history of cocaine use but thinks that he has been clean for 2-3 years. To her knowledge his primary care physician is in [place], [place] but does not recall a name. He has had multiple hospitalizations over the past decade but she does not recall at which hospitals. He has never been intubated to her knowledge. Here patient remained difficult to translate and required Nimbex for paralysis for 11 days from December 22-. Patient is required FiO2 anywhere from 50-100% with averages ranging between 50 and 60 FiO2. From roughly December 31 to January 07 patient's ventilatory status seemed to improve, which gave us hope that he may not need a tracheostomy placed. However the patient failed to progress with spontaneous breathing trials and weaning off of fentanyl and propofol. January 09 patient had a tracheostomy and a PEG tube placed. Following the procedure patient exhibited difficulty ventilating and produced copious amounts of secretions, scopolamine patch was applied which seemed to help. Currently he remains on pressure control with a PEEP of 8, minute ventilation of 17, FiO2 of 70 and pulling tidal volumes of 605 mL. His current vital signs are 37.1 temp, heart rate 94 BPM, blood pressure 137/ 77. RR - 17. Overnight patient had an isolated fever of 38.3. Infectious disease was consulted and was not concerned at this time and decided to just watch one more day and follow temps and infectious markers. His renal status has improved greatly since renal failure with Cr of 5.01 on 12/20/2016, and 10 rounds of hemodialysis, patient's fluid status and creatinine greatly improved to currently 1.72 and making good urine and currently in recovery phase. Current fluids are water flushes of 250 mL every 4 hours and D5W at 60per hour, with progression to possibly 80ml if we do not start PEG tube feeding. Notable laboratory values today are as follows: slow increase to white blood count count of 16.7 which is increased steadily since January 07 when the white blood cell count was 10.5. Over that time no steroids were given. Currently remains in isolation precautions for influenza A positive on 12/18 and strep pneumo urine antigen same day, 12/18. . Hospital Course Naveed Maciel is a 56 year old male with past medical history significant for COPD who presented to the emergency department via EMS complaining of dyspnea and 3 days of flu-like symptoms. Intubated after failing on BiPAP and admitted for septic shock and acute hypoxemic respiratory failure. Hospital 24. Vent day 23. 1. Septic encephalopathy, present on admission. Improving. - Continue sedation vacations and weening off fentanyl and propofol. - EEG showed's only signs of toxic encephalopathy. Repeat EEG sometime in the near future. 2. Severe ARDS, present on admission, active. Improving. - Etiology secondary to sepsis and pneumococcal pneumonia in the setting of COPD and past history of cocaine use. CT chest on 12/18 showed dense consolidation bilaterally within the dependent portions of the lung. Repeat CT chest was largely unchanged with some mild interval improvement in consolidation. At this point patient has been treated for 15 consecutive days of ceftriaxone as well as intermittent treatments of cefepime, azithromycin and metronidazole. - Surgery successfully placed tracheostomy 01/09 @ 0930. - Copious secretions last night, Scopolamine patch placed and seemed to be of help according to nursing and RT. 3. Acute renal failure, present on admission, active and slowly improving.. - Unknown if patient has underlying chronic kidney disease. Patient continues to be anuric. On admission BUN 65 and creatinine 3.71 - Avoid nephrotoxic medications as able. - D/C'd femoral cath. no dialysis for last 5 days (01/03-01/06) D/C'd lasix. - BUN increasing from 66-70 today suggesting worsening renal function. Creatinine decreasing 3.11 - 1.72) - Continue K+ replacement protocol - free water flushes increased from 150 ml to 250ml Q 4H. - IV D5W @ 60 ml /hr, plan to increase to 80 mils per hour if patient does not start PEG tube feeding. - Nephrology has signed off. - Although, patient is 20 L in the records this does not take in to account the insensible water losses in general and especially when ventilated. Insensible water losses are roughly 1L per day. He is currently on day 23... 4. Pneumococcal pneumonia /pneumococcal bacteremia (septicemia), present on admission, improving. - CXR and CT as above. Strep pneumonia urine antigen positive. Blood and sputum cultures positive. Sensitive for penicillins. WBC trending down. Procalcitonin 180.83 on admission peaked at 612.48, trending down. - 01/08 Discontinued Ceftriaxone 2g IV 15 total days. - Procalcitonin has decreased dramatically with peak of 612 (12/19) and is currently 0.92 (01/07) - Dr. Muhammad with infectious disease believed to treatment is completed and has signed off. Decided to just watch white count and temperature 1 more day before adding back antibiotics. 5. Septic shock, present on admission, Resolved. - Criteria include: HR 144, RR 41, O2 sats 83%, lactic acid 6.6, BUN 65, creatinine 3.71, procalcitonin 180.38. Etiology secondary to pneumococcal pneumonia and influenza A. - Right IJ in place 12/18. right radial arterial line lost 07/28 - Last dose of norepinephrine administered 12/21/2009. 6. Acute pneumothorax. Not present on admission. Resolved. - Repeat CXR as above. 7. Metabolic alkalosis, not present on admission. Improving. - ABG as above. 8. Influenza A, present on admission, treated and resolved. - Oseltamivir 30 mg after each hemodialysis session. - Received Oseltamivir for 5 days for a total of 10 treatments 12/29/16. 9. Thrombocytopenia, present on admission, stable. - Unknown baseline. Etiology likely sepsis. - On admission platelets 74. Currently 195. - DVT prophylaxis initiated 12/22. - DIC panel does not suggest DIC. No schistocytes on blood smear. - Platelets transfused 12/20 prior to dialysis catheter placement. - Will continue to monitor. 10. Upper GI bleed, present on admission, stable. - Coffee-ground material reported from OG tube on admission. Guaiac positive in the ED. Hemoglobin and hematocrit have decreased since admission but likely secondary to fluid resuscitation. - Type and cross with 2 units PRBCs on hold. - DVT prophylaxis started . - Pantoprazole 40 mg BID. - Will consider GI consult if H&H drops or more active bleeding is visualized. - Hematocrit remained stable. No evidence of ongoing bleeding. 12. COPD, present on admission, unknown baseline. 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 Unknown if patient has outpatient medication regimen. - Treatment as above. 12. Tobacco use, present on admission, chronic. - Consider Nicotine patch once patient awake. 13. Hyperglycemia, present on admission, active. - Insulin regular low dose correctional scale. - Hemoglobin A1c 5.7. 14. Acute hypoxic respiratory failure, POA. Improving. Decreasing FiO2 and lightening sedation with hope of extubation in next 3 days. Hope to avoid trach. Acetaminophen for mild pain when necessary. Bowel regimen Senna and MiraLAX scheduled and PRN. Zofran when necessary for nausea and vomiting. SubQ heparin. SCDs in place. High-risk medications: IV fentanyl . Exam Vital Signs (Last) Date Time Temp Pulse Resp B/P Pulse Ox O2 Delivery O2 Flow Rate FiO2 01/10/17 11:28 37.4 101 23 122/71 96 Mechanical Ventilator 70 Exam General: Intubated with decreasing sedation. Head: Normocephalic, atraumatic. External ears without defect. Eyes: Pupils equal, round, and reactive to light and accommodation. Anicteric sclerae, moist conjunctivae. Cardiovascular: Regular rate and rhythm with no murmurs, rubs, or gallops appreciated. Pulmonary: CTAB. Greatly improved today. very mild wheezes, very mild rhonchi, no rales. Abdomen: Soft, moderately distended, hypoactive bowel sounds. Old midline surgical incision present. Extremities: Moderate pitting edema on lower and upper extremities bilaterally. Skin: Faint macular papular rash on upper chest and shoulders. Neurological: Neurologic difficult to assess due to generalized weakness. Test 12/18/16 09:55 12/18/16 11:00 12/18/16 11:15 12/18/16 12:14 Troponin T 0.010ug/L (0.0-0.011) Urine Legionella pneumophilia Ag Negative (Negative) Urinalysis Comment None Urine Random Creatinine 293mg/dL (22-328) Urine Random Microalbumin 131.3ug/mL (Not Estab.) Urine Random Total Protein 193mg/dL (0-15) Urine Random Sodium 20mEq/L Urine Random Potassium 74.9mEq/L Urine Opiates Screen Negative Urine Methadone Screen Negative Urine Barbiturates Screen Negative Urine Amphetamines Screen Negative Urine Benzodiazepines Screen Negative Urine Cocaine Metabolite Screen Negative Urine Cannabinoids Screen Negative Total Creatine Kinase 106U/L (21-232) Alcohol, Quantitative < 10mg/dL (0-10) Hepatitis A IgM Antibody Negative (Negative) Hepatitis B Core IgM Antibody Negative (Negative) Hepatitis C Comment Comment (.) HIV (1&2) Ag and Ab, 4th Generation Non reactive (Non Reactive) Test 12/19/16 04:20 12/19/16 09:11 12/20/16 18:03 12/21/16 03:55 Myelocytes % 6% (0-0) Nucleated Red Blood Cells 1/100 WBC (0-24) Haptoglobin 135mg/dL (34-200) Hematology Comments Hemoglobin A1c 5.7% (4.8-5.6) Lactate Dehydrogenase 458U/L (100-190) Coagulation Factor VIII Activity 371% (.) Hepatitis B Surface Antigen Negative (Negative) Hepatitis B Surface Antibody Non reactive (.) Hepatitis B Core Total Antibody Negative (Negative) Hepatitis C Antibody <0.1s/co ratio (0.0-0.9) Prealbumin 27mg/dL (20-40) Test 12/23/16 00:00 12/24/16 12:13 12/25/16 05:30 12/25/16 19:00 Urine Color Fidelina (YELLOW) Urine Appearance Cloudy (CLEAR,HAZY) Urine pH 6.5 (5.0-8.0) Urine Specific [place] 1.025 (1.003-1.035) Urine Protein 300mg/dL (NEG,TRACE) Urine Glucose (UA) 100mg/dL (NEGATIVE) Urine Ketones Negativemg/dL (NEGATIVE) Urine Occult Blood Large (NEGATIVE) Urine Nitrite Positive (NEGATIVE) Urine Bilirubin Negative (NEGATIVE) Urine Ictotest Negative (Negative) Urine Urobilinogen Normalmg/dL (NORMAL) Urine Leukocyte Esterase Trace (NEGATIVE) Urine RBC 3-10/hpf (0-2) Urine WBC 0-5/hpf (0-5) Urine Epithelial Cells Few/hpf (NONE-MOD) Urine Crystals None seen (NONE SEEN) Urine Bacteria Few/hpf (NONE-FEW) Urine Hyaline Casts None/lpf (NONE) Urine Granular Casts None seen (NONE SEEN) Urine Waxy Casts None seen (NONE SEEN) Urine Red Blood Cell Casts None seen (NONE SEEN) Urine White Blood Cell Casts None seen (NONE SEEN) Urine Mucus None seen (None Seen) Urine Trichomonas None seen (NONE SEEN) Urine Yeast None (NONE SEEN) Urine Culture Reflexed Indicated Fibrinogen 445mg/dL (157-380) D-Dimer 11.9mg/L (<0.50) Lactic Acid Level 1.9mmol/L (0.4-2.0) Direct Bilirubin 0.6mg/dL (0.0-0.3) Hold Urine Received (Received) Test 12/29/16 05:25 01/05/17 04:30 01/07/17 05:10 01/08/17 04:20 Ionized Calcium (Calculated) 4.09mg/dL (3.5-5.2) Activated Partial Thromboplast Time 23.3sec (22.8-33.0) Ionized Calcium 1.18mmol/L (1.17-1.32) Lipase 70U/L (13-60) Procalcitonin 0.92ng/mL (0.00-0.08) Band Neutrophils % 1% (1-5) Metamyelocytes % 1% (0-0) Prothrombin Time 12.4sec (8.1-12.5) Prothromb Time International Ratio 1.16ratio Magnesium Level 2.0mg/dL (1.6-2.6) Pro-B-Type Natriuretic Peptide 1629pg/mL (0-210) Test 01/09/17 05:20 01/10/17 05:10 01/10/17 11:20 Phosphorus Level 4.9mg/dL (2.5-4.9) White Blood Count 16.7th/mm3 (3.8-10.1) Red Blood Count 2.58mil/mm3 (4.40-5.80) Hemoglobin 8.5g/dL (13.8-17.2) Hematocrit 26.9% (41.0-50.0) Mean Corpuscular Volume 104.3fL (81-100) Mean Corpuscular Hemoglobin 32.9pg (27.0-35.0) Mean Corpuscular Hemoglobin Concent 31.6% (32.0-37.0) Red Cell Distribution Width 14.8% (12.3-15.4) Platelet Count 236bil/L (150-400) Neutrophils (%) (Auto) 72.6% (40-74) Lymphocytes (%) (Auto) 17.0% (14-46) Monocytes (%) (Auto) 5.6% (4-12) Eosinophils (%) (Auto) 1.5% (0-5) Basophils (%) (Auto) 0.8% (0-3) Sodium Level 142mEq/L (134-144) Chloride Level 106mEq/L (97-108) Carbon Dioxide Level 22mmol/L (18-29) Blood Urea Nitrogen 41mg/dL (6-24) Creatinine 1.72mg/dL (0.76-1.27) Estimat Glomerular Filtration Rate 44mL/min (>59) Glucose Level 109mg/dL (60-99) Calcium Level 8.3mg/dL (8.5-10.1) Total Bilirubin 0.3mg/dL (0.0-1.2) Aspartate Amino Transf (AST/SGOT) 25U/L (0-50) Alanine Aminotransferase (ALT/SGPT) 25U/L (0-44) Alkaline Phosphatase 183U/L (25-150) Total Protein 5.7g/dL (6.4-8.4) Albumin 2.9g/dL (3.4-5.0) Microbiology Results BCx and SCx positive for Strep pneumo Resp PCR positive for Flu A H3 Strep pneumo urine ag positive Discharge Medications No Active Prescriptions or Reported Meds Followup Plan Discharge Diet: Other (PEG tube feeds. ) Discharge Activity: Other Time spent Greater than 30 minutes was spent in preparation of discharge with greater than 50% of that time dedicated to patient counseling and coordination of care. . Attending Statement The patient was seen and examined together with Dr. Steele on 01/10/2017 and I agree with the history, exam and plan as outlined in the note above. . KING STEELE DO Jan 10, 2017 11:56 Patrice Galvan MD Jan 11, 2017 07:27
[2017-01-10] MEDS: Dextrose 5% 1,000 ML IV SCH (12:50)
--- NOTE | 2017-01-10 13:59 | NUR ---
Social Work Note: Discharge Data& Assessment: Per MD, pt is medically stable for discharge to [facility]. Pt had trach and pegg placement yesterday and requires LTAC for further care and recovery. ANNI spoke with Terra from [facility] to confirm bed availability for today in their [place] location. SW spoke with pt sister Rakesh to confirm discharge plan and assess for any unmet needs. Pt sister denies any other needs but did want to ensure that pt roommate took pt's belongings home and the money that was in the safe for the pt's rent so he does not get evicted from his home while he is recovering. SW notified sausage mixer who explained pt sister also communicated this to the MD and she is aware. Pt roommate was at bedside today and available to take pt's belongings home. Pt sister denies any other needs. Appropriate documentation sent to [facility]. No other needs identified. All updated and agreeable to plan. Plan: Per MD, pt is medically stable for discharge to [facility] for further further care and recovery post Trach and Pegg. Ambulance transportation arranged by mix house tender. Per Pt sister Rakesh/DION request, pt belongings to be taken home by pt roommate at bedside since she is out of state. Pt sister denies any other needs. No other needs identified. All updated and agreeable to plan. TATYANA Arias
--- NOTE | 2017-01-10 14:12 | NUR ---
Transferred to [facility] at 1350 via gurney, on vent support, with IVFs, Propofol and approx. 75ml/Fentanyl infusion. Sister, Milind, called by to update, consent obtained for transport. Awake, somewhat anxious, cooperative. Making eye contact, no commands, not answering to yes/no questions. [place] cath, FMS in place, patent. TFs restarted per surgery this morning; PEG tube flushed/capped for transport. BG 111. Calling report to [facility].
== END 2017-01-10 14:06 | DRG 4 ==
LOC: EDBD 09:51 → SED 09:51 → CCU 11:02
PROVIDERS: ADMIT Internal Medicine; ATTEND Internal Medicine
PROC: 5A1955Z Respiratory Ventilation, Greater than 96 Consecutive Hours (ICD-10-PCS; principal; 2016-12-18)
PROC: 0BH17EZ Insertion of Endotracheal Airway into Trachea, Via Natural or Artificial Opening (ICD-10-PCS; 2016-12-18)
PROC: 4A033R1 Measurement of Arterial Saturation, Peripheral, Percutaneous Approach (ICD-10-PCS; 2016-12-18)
PROC: 03HY32Z Insertion of Monitoring Device into Upper Artery, Percutaneous Approach (ICD-10-PCS; 2016-12-18)
PROC: 06HM33Z Insertion of Infusion Device into Right Femoral Vein, Percutaneous Approach (ICD-10-PCS; 2016-12-20)
PROC: 5A1D60Z (ICD-10-PCS; 2016-12-20)
PROC: 0BC68ZZ Extirpation of Matter from Right Lower Lobe Bronchus, Via Natural or Artificial Opening Endoscopic (ICD-10-PCS; 2016-12-29)
PROC: 0BC78ZZ Extirpation of Matter from Left Main Bronchus, Via Natural or Artificial Opening Endoscopic (ICD-10-PCS; 2016-12-29)
PROC: 0B110F4 Bypass Trachea to Cutaneous with Tracheostomy Device, Open Approach (ICD-10-PCS; 2017-01-09)
PROC: 0DH63UZ Insertion of Feeding Device into Stomach, Percutaneous Approach (ICD-10-PCS; 2017-01-09)
DX: A40.3 Sepsis due to Streptococcus pneumoniae (principal); N17.0 Acute kidney failure with tubular necrosis; R65.21 Severe sepsis with septic shock; D65 Disseminated intravascular coagulation [defibrination syndrome]; J96.01 Acute respiratory failure with hypoxia; J10.08 Influenza due to other identified influenza virus with other specified pneumonia; J13 Pneumonia due to Streptococcus pneumoniae; G93.41 Metabolic encephalopathy; E87.2 Acidosis; K92.2 Gastrointestinal hemorrhage, unspecified; T17.590A Other foreign object in bronchus causing asphyxiation, initial encounter; T17.890A Other foreign object in other parts of respiratory tract causing asphyxiation, initial encounter; J93.9 Pneumothorax, unspecified; F17.210 Nicotine dependence, cigarettes, uncomplicated; R73.9 Hyperglycemia, unspecified; J44.9 Chronic obstructive pulmonary disease, unspecified